=== PATIENT | male | born 1935 | race Caucasian/White ===

== ENCOUNTER 2017-01-06 02:57 | Inpatient (IN) | payer MEDICARE ==
[~2017-01-06] VITALS: Ht 180.3 cm; Wt 77.0 kg
[2017-01-06] VITALS (8 sets, daily range): BP systolic 94–123; BP diastolic 33–66; PULSE 70–92; RESP 18–24; O2SAT 95–96
[~2017-01-06 02:57] MED LIST: ACET325T51 PO; ASCO500C6 PO; ATOR20TA65 PO; CHOL200047 PO; DOCU-41 PO; IBUP400T22 PO; KTC2C15 TOP; LEVO100T45 PO; MAGN250T29 PO; METO50TA3 PO; MTC5T PO; MULT-1018 PO; POLY17PO6 PO; [UNRECOGNIZED DRUG - CODE] TOPICAL
--- NOTE | 2017-01-06 03:36 | ED.REPORT ---
HPI-Abd Pain M 40 and Over Date of Service Jan 06, 2017 ED Provider: Jas Hull MD An 81 year old male with a history of colorectal cancer, recurrent bowel obstructions, colostomy, CAD, stroke, and prior SBO with perforation is brought to the ED via EMS due to fever. The pt has been experiencing a fever of 101 degrees for two days and decided to call EMS tonight because he felt very unwell. His last dose of Tylenol was at 21:00. The pt denies abdominal pain or shortness of breath. Nursing Notes Stated Complaint: FEVER Chief Complaint: General Complaint Nursing Notes Reviewed: Yes Allergies: Coded Allergies: Penicillins (Verified Allergy, Severe, RASH, 01/10/16) iodine (Verified Allergy, Severe, TROUBLE BREATHING CODE WAS CALLED, 01/09) IV CONTRAST Scheduled Ascorbic Acid (Vitamin C) 500 Mg Capsule.er 500 MG PO DAILY Atorvastatin Calcium (Atorvastatin Calcium) 20 Mg Tablet 20 MG PO QPM Cholecalciferol (Vitamin D3) (Vitamin D3) 2,000 Unit Capsule 2,000 UNIT PO DAILY Clonidine 0.3 mg/day Patch (Catapres TTS-3) 1 Each Patch 1 PATCH TOPICAL Q7D Levothyroxine (Levoxyl) 100 Mcg Tablet 100 MCG PO DAILY Magnesium Oxide (Magnesium) 250 Mg Tablet 250 MG PO BIDWM Metoclopramide (Metoclopramide) 5 Mg Tab 5 MG PO TIDAC Metoprolol Tartrate (Metoprolol Tartrate) 50 Mg Tablet 50 MG PO BID Multivitamin (Multi Vitamin Daily) 1 Each Tablet 1 EACH PO DAILY Scheduled PRN Acetaminophen (Acetaminophen) 325 Mg Tablet 650 MG PO DAILY PRN PRN For Pain Docusate Sodium (Colace) 100 Mg Capsule 200 MG PO BID PRN PRN For Constipation Ibuprofen (Ibuprofen) 400 Mg Tablet 400 MG PO Q6H PRN PRN For Pain Ketoconazole (Ketoconazole) 15 Gm Cream..g. 1 APPLIC TOP DAILY PRN PRN rash to face and ears Polyethylene Glycol 3350 (Miralax) 17 Gm Powd.pack 17 GM PO BID PRN PRN For Constipation General Time Seen by : 03:30 Chief Complaint Other (Fever) Hx Obtained From: Patient, EMS Arrived By: Ambulance Sudden in Onset?: No Onset Occurred: 2 days ago Symptom Duration: Since onset Recent Healthcare: Recent doctor visit, Recent hospitalization Similar Sx Previous: No Past Medical History Past Medical History Notes: PMD Geraldo/Paul last SBO in December 2015 Past Medical History 1. Hypertension. 2. Hyperlipidemia. 3. Hypothyroidism. 4. Obstructive sleep apnea on CPAP. 5. History of CVA in 2008. 6. Recurrent small bowel obstructions, prior SBO with perforation 7. CAD 8. CHF 9. stroke 10. history of colorectal cancer, in remission Past Surgical History 1. Exploratory laparotomy with extensive lysis of adhesions, repair of recurrent parastomal hernia, repair of enterotomy and biopsy of pelvic tissue on 02/11/14. 2. 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 3. Inguinal hernia repairs with lysis of adhesions. 4. Transurethral resection of prostate. 5. Orchiopexy. 6. Thyroidectomy. 7. Tonsillectomy 8. Prolonged admission for chronic SBO/adhesions with repair of parasomal hernia 9. Colon resection/ileosomy Smoking History Never Smoker Social History DNR/limited on POLST Alcohol Use: Denies alcohol use Drug Use: Denies drug use Other Social History: Good social support, , Local resident Ambulatory Status Independent Review of Systems Constitutional: Reports: Fever Respiratory: Denies: Non-productive cough, Shortness of breath Cardiovascular: Denies: Chest pain GI: Denies: Abdominal pain, Vomiting Musculoskeletal: Denies: Back pain Complete sys rev & neg: except as marked. Physical Exam Initial Vital Signs Vital Signs (First) Date Time Temp Pulse Resp B/P Pulse Ox O2 Delivery O2 Flow Rate FiO2 01/06/17 03:10 36.7 92 24 94/38 95 Nasal Cannula 2 Initial VS: Reviewed, Vital signs normal General/Constitutional: Awake, Alert Respiratory / Chest: Atraumatic, Breath sounds NL, Breath sounds = bilat, No respiratory distress Cardiovascular: Heart rate NL, Regular rhythm, Heart sounds NL Abdomen: Atraumatic, Soft, Non-tender distended and tympanitic Back: Atraumatic, Full range of motion Head / Eyes: Atraumatic, Normocephalic, PERRL, EOMI ENT: Atraumatic, Airway patent Mouth: Positive: Mucous membranes dry Skin: Atraumatic, Color NL, No rash, Warm, Dry Neurologic: Oriented X3, Speech NL, No motor deficits, No sensory deficits Neck: Atraumatic, Supple, Full range of motion Upper Extremity / MS: Atraumatic, Full range of motion Lower Extremity / Pelvis / MS: Atraumatic, Full range of motion Psychiatric: Affect NL, Mood NL Interpretation & Diagnostics Lab Results Interpretation Result Diagram: 01/06/17 0325 01/06/17 0325 Test 01/06/17 03:25 01/06/17 08:59 White Blood Count 8.5th/mm3 (3.8-10.1) Red Blood Count 3.47mil/mm3 (4.40-5.80) Hemoglobin 10.5g/dL (13.8-17.2) Hematocrit 31.6% (41.0-50.0) Mean Corpuscular Volume 91.1fL (81-100) Mean Corpuscular Hemoglobin 30.3pg (27.0-35.0) Mean Corpuscular Hemoglobin Concent 33.2% (32.0-37.0) Red Cell Distribution Width 14.7% (12.3-15.4) Platelet Count 123bil/L (150-400) Neutrophils (%) (Auto) 94.3% (40-74) Lymphocytes (%) (Auto) 2.4% (14-46) Monocytes (%) (Auto) 2.9% (4-12) Eosinophils (%) (Auto) 0% (0-5) Basophils (%) (Auto) 0% (0-3) Sodium Level 128mEq/L (134-144) Potassium Level 4.0mEq/L (3.5-5.2) Chloride Level 93mEq/L (97-108) Carbon Dioxide Level 22mmol/L (18-29) Blood Urea Nitrogen 47mg/dL (8-27) Creatinine 0.74mg/dL (0.76-1.27) Estimat Glomerular Filtration Rate 108mL/min (>59) Glucose Level 179mg/dL (60-99) Lactic Acid Level 1.6mmol/L (0.4-2.0) Calcium Level 8.2mg/dL (8.5-10.1) Magnesium Level 1.8mg/dL (1.6-2.6) Total Bilirubin 0.6mg/dL (0.0-1.2) Aspartate Amino Transf (AST/SGOT) 36U/L (0-50) Alanine Aminotransferase (ALT/SGPT) 26U/L (0-44) Alkaline Phosphatase 90U/L (25-160) Troponin T 0.010ug/L (0.0-0.011) Total Protein 6.3g/dL (6.4-8.4) Albumin 2.9g/dL (3.4-5.0) Lab Results Interpretation: Mild chronic anemia, mild hyponatremia, elevated nonfasting glucose, normal urine ECG Interpretation ECG Interpretation: normal sinus rhythm with a rate of 88 multiple premature complexes, ventricular and supraventricular Time: 03:34 Interpreted by: ED physician X-Ray Chest Interpretation Chest Xray Interpretation: elevated right hemidiaphragm, pushed up by distended colon chronic scarring Interpretation / Wet Read by: Wet read ED physician X-Ray Abdominal Interpretation no free air seen in the abdomen grossly distended colon with air fluid levels Interpretation / Wet Read by: Wet read ED physician CT Abd / Pelvis Interpretation CONCLUSION: Since the examination there is new relatively severe bilateral hydronephrosis with dilation of the ureters low in the pelvis the sacral fluid collection. Overall there is not a significant change in the diffusely dilated small bowel that appears to be chronic. There is a new gastrostomy tube. Subsegmental atelectasis in the bases. No change in the size of the presacral fluid collection. There is now a trace amount of gas is collection was not seen previously. Interpretation / Wet Read by: Interpret - Radiologist Re-Eval/Medical Decision Med Decision/Clinical Course 81-year-old male with metastatic colon cancer presents with a fever of 2 days' duration as high as 103. He is afebrile at the time he arrived here. He is a little bit tachycardic but generally his vital signs have been near normal. His labs and urine are unremarkable. Plain film x-rays show distended loops of colon which he has had in the past. CT scan examination of his abdomen and pelvis reveals hydroureter related to his pelvic mass. The pelvic mass itself is relatively unchanged. The dilated loops of bowel are also relatively unchanged. His case was discussed with the hospitalist and he will be admitted to the hospitalist service for further evaluation and treatment. Antibiotic initiation was deferred pending identification of a source. Source of Hx: Old records Counseled Regarding: Diagnosis, Lab results, Need for admission Discharge & Departure Vital Signs - All Vital Signs Date Time Temp Pulse Resp B/P Pulse Ox O2 Delivery O2 Flow Rate FiO2 01/06/17 09:22 36.7 01/06/17 09:00 80 18 123/42 95 Room Air 01/06/17 05:59 37.0 83 18 105/35 95 Room Air 01/06/17 04:00 88 20 99/33 95 Room Air 01/06/17 03:10 36.7 92 24 94/38 95 Nasal Cannula 2 )( All Prior VS Reviewed: Yes Condition: Stable Referrals: Jose J Rader DO (PCP) Russel Attestation Portions of this note were transcribed by Sesar Baum. I, Dr. Hull personally performed the history, physical exam and medical decision-making; I reviewed and confirmed the accuracy of the information in the transcribed note. Signed by: Russel Mijares, 01/06/2017 and 0753. copies to: Jose J Rader Howard L MD Jan 06, 2017 03:36 SESAR BAUM Jan 06, 2017 03:48
[2017-01-06 03:45] LABS: BASOPHILS % (AUTO) 0 % (0-3); EOSINOPHILS % (AUTO) 0 % (0-5); MONOCYTES % (AUTO) 2.9 % (4-12); Mean Corpuscular Hemoglobin 30.3 pg (27.0-35.0); Mean Corpuscular Volume 91.1 fL (81-100); NEUTROPHILS % (AUTO) 94.3 % (40-74); Platelet Count 123 bil/L (150-400)
[2017-01-06 04:17] LABS: TROPONIN T 0.01 ug/L (0.0-0.011)
[2017-01-06 04:34] LABS: Magnesium 1.8 mg/dL (1.6-2.6)
[2017-01-06] MEDS ORDERED: 0.9% Sodium Chloride 1,000 ML IV ONE (05:25)
--- NOTE | 2017-01-06 08:11 | DRSVH ---
PROCEDURE: CT ABDOMEN AND PELVIS WITHOUT CONTRAST ([id number]) INDICATIONS: abd pain and distention TECHNIQUE: After the administration of oral contrast, 5 mm thick sections acquired from the diaphragms to the sy mphysis. 5 mm coronal and sagittal reformats were performed. For radiation dose reduction, the foll owing was used: automated exposure control, adjustment of mA and/or kV according to patient size. COMPARISON: [facility], CT, CT ABD PELVIS WO CON, 04/06/2016, 23:56. FINDINGS: Image quality: Excellent. ABDOMEN: Lung bases: Bibasilar atelectasis with pleural effusions too small for percutaneous sampling. Heart size is normal. Solid organs: The liver, spleen, pancreas, and adrenal glands are normal. New moderate bilateral hydr onephrosis and ureterectasis with no calcified obstructing lesions possibly related to inflammatory c hange in the pelvis. Peritoneum and bowel: Partial colectomy with thick walled fluid filled presacral fluid collection unc hanged in size measuring 6.3 x 7.2 x 8.4 CM now containing several tiny locules of gas anteriorly. Le ft lower quadrant ostomy with herniation of colon into the subcutaneous tissues where it contains gas and a small amount of fluid. The more proximal colon is gas-filled and distended which may represent a degree of obstruction. Fluid-filled intermittently prominent loops of small bowel. Gastrostomy tub e with tip likely within a decompressed stomach. The appendix is not identified. There are no seconda ry signs of acute appendicitis. Nodes and vessels: No retroperitoneal or mesenteric adenopathy by size criteria. Aorta and inferior vena cava are normal in size. Heavily calcified atheromatous plaques. Miscellaneous: No ventral hernias. PELVIS: Genitourinary: Bladder wall thickness is normal. Miscellaneous: No inguinal hernias or adenopathy. Partially visualized gynecomastia. Increased infl ammatory change in the pelvis. Bones: No suspicious bony lesions. No vertebral body compression fractures. IMPRESSION: 1. New moderate bilateral hydronephrosis and ureterectasis. No calcified obstructing lesions. Finding s maybe related to increased inflammatory change in the pelvis. 2. 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 Superimpose d infection is possible. This fluid collection would be amenable to CT-guided aspiration for diagnost ic purposes if needed. 3. Partial bowel obstruction at the site of the left lower quadrant ostomy with gas-filled dilated co tricia and intermittently fluid-filled dilated loops of small bowel. Superimposed enteritis is also poss ible 4. Gastrostomy tube with tip likely in the stomach although poorly seen due to stomach decompression. Dictated by: Arben Foster M.D. on 01/06/2017 at 7:49 Approved by: Arben Foster M.D. on 01/06/2017 at 8:04
--- NOTE | 2017-01-06 08:26 | DRSVH ---
PROCEDURE: X-RAY CHEST ONE VIEW, PORTABLE ([id number]) INDICATIONS: fever TECHNIQUE: One view of the chest was acquired. COMPARISON: 01/27/2016 FINDINGS: Surgical changes and devices: A left subclavian catheter or wire with tip overlying the distal SVC . Lungs and pleura: No pleural effusions or pneumothorax. Lungs are clear. There is elevation of the right hemidiaphragm with distended air-filled bowel superimposed over the liver. Mild compressive ate lectasis at the right base. There is also atelectasis or scarring at the left base that appears uncha nged. Mediastinum: Mediastinal contours appear normal. Heart size is normal. Bones and chest wall: No suspicious bony lesions. Overlying soft tissues appear unremarkable. IMPRESSION: 1. Bibasilar atelectasis. 2. Elevated right hemidiaphragm with subjacent bowel distention. 3. Left subclavian wire/catheter. Dictated by: Eris Salgado M.D. on 01/06/2017 at 8:18 Approved by: Eris Salgado M.D. on 01/06/2017 at 8:24
--- NOTE | 2017-01-06 09:06 | DRSVH ---
PROCEDURE: X-RAY ABDOMEN, ONE VIEW ([id number]) INDICATIONS: rule out perf TECHNIQUE: One view of the abdomen acquired. COMPARISON: None. FINDINGS: Single decubitus abdomen appears negative for free air, considerable gaseous distention of bowel. Ate lectasis at the lung base. IMPRESSION: Negative for free air. Dictated by: Eris Salgado M.D. on 01/06/2017 at 9:04 Approved by: Eris Salgado M.D. on 01/06/2017 at 9:05
[2017-01-06] MEDS ORDERED: Alum-Mag Hydrox-Simeth 30 mL Suspension PO PRN (09:25)
[2017-01-06] MEDS ORDERED: Polyethylene Glycol (PEG) 17 Gm Powder PO PRN (09:25)
[2017-01-06 09:38] LABS: APPEARANCE,URINE HAZY (CLEAR,HAZY); COLOR,URINE STRAW (YELLOW); OCCULT BLOOD,URINE NEGATIVE (NEGATIVE); UROBILINOGEN,URINE NORMAL (NORMAL)
[2017-01-06] MEDS ORDERED: METO25TA6 PO (10:43)
[2017-01-06] MEDS ORDERED: DILT120C46 PO (10:45)
--- NOTE | 2017-01-06 10:59 | NUR ---
Admit nurse: Pt sleeping deeply in ED, bag of home medications only has four bottles, will attempt to talk to pt about med rec again later this afternoon. Admit completed from records, as pt is not rousing at this time.
[2017-01-06] MEDS ORDERED: Sodium Chloride LOK Flush 10 mL Syringe IVFLUSH PRN (12:25)
[2017-01-06] MEDS ORDERED: diphenhydrAMINE 50 mg Capsule PO ONE (14:10)
[2017-01-06] MEDS ORDERED: POTA20TA16 PO (14:25)
[2017-01-06] MEDS: 0.9% Sodium Chloride 1,000 ML IV SCH ×2 (15:19→19:23)
--- NOTE | 2017-01-06 16:31 | PCM.HPMED ---
Subjective Date of Service Jan 06, 2017 Primary Provider: Admitting Physician: Prateek Shukla MD Primary Care Physician: Jose J Rader DO Attending Physician: Prateek Shukla MD Chief Complaint: Abdominal pains, right hip pain, fever History of Present Illness: 81-year-old male with a complex medical history including recurrent bowel obstructions after having colectomy and colon cancer prior to 2010 and 2009. He has been medically stable in between with these recurrent episodes last time hospitalized here at [facility] March 2016 with bowel obstruction. Most recently was hospitalized at [place] with appendicitis that was treated with antibiotics only. His surgeon Valdemar Jarrett had recommended conservative intervention at that point in time. Bowel obstruction and basically spent the month of November and [facility] on antibiotics. He has been sort of run down and weak since then but suddenly about 36 hours ago he began having fevers and abdominal pain and right flank pain. And when it did not resolve on the second day he opted to present to the emergency room and is being admitted. Review of Systems: Gen.: [place] weight loss weight gain, fevers for the last 36 hours Eyes: no visual disturbances or blurring vision HEENT: No nose/throat drainage, no pain in ears or throat, no hearing loss Lymph: No lymph nodes noted Cardiac: No chest pain, orthopnea, PND, palpitations , pedal edema or dyspnea on exertion Pulmonary: no cough, wheezing or bringing up of sputum GI: No anorexia nausea vomiting blood or black in the stool, +/-abdominal pain : no dysuria hematuria urinary frequency or decrease in urine output Musculoskeletal: Joint swelling no joint pain no new muscle aches or back pain + endorses right hip pain Neuro: No syncope, seizures no loss of consciousness no new focal weakness, numbness or tingling Psychiatric: New new anxiety insomnia or depression Endocrine: No new heat or cold intolerances polyuria or polydipsia Hematology: No lymphadenopathy or easy bleeding or bruising noted skin: No new rashes, stasis dermatitis Allergies Coded Allergies: Penicillins (Verified Allergy, Severe, RASH, 01/10/16) iodine (Verified Allergy, Severe, TROUBLE BREATHING CODE WAS CALLED, 01/09) IV CONTRAST Home Medications Ascorbic Acid (Vitamin C) 500 Mg Capsule.er 500 MG PO DAILY Atorvastatin Calcium (Atorvastatin Calcium) 20 Mg Tablet 20 MG PO QPM Cholecalciferol (Vitamin D3) (Vitamin D3) 2,000 Unit Capsule 2,000 UNIT PO DAILY Clonidine 0.3 mg/day Patch (Catapres TTS-3) 1 Each Patch 1 PATCH TOPICAL Q7D Levothyroxine (Levoxyl) 100 Mcg Tablet 100 MCG PO DAILY Magnesium Oxide (Magnesium) 250 Mg Tablet 250 MG PO BIDWM Metoclopramide (Metoclopramide) 5 Mg Tab 5 MG PO TIDAC Metoprolol Tartrate (Metoprolol Tartrate) 50 Mg Tablet 50 MG PO BID Multivitamin (Multi Vitamin Daily) 1 Each Tablet 1 EACH PO DAILY Scheduled PRN Acetaminophen (Acetaminophen) 325 Mg Tablet 650 MG PO DAILY PRN PRN For Pain Docusate Sodium (Colace) 100 Mg Capsule 200 MG PO BID PRN PRN For Constipation Ibuprofen (Ibuprofen) 400 Mg Tablet 400 MG PO Q6H PRN PRN For Pain Ketoconazole (Ketoconazole) 15 Gm Cream..g. 1 APPLIC TOP DAILY PRN PRN rash to face and ears Polyethylene Glycol 3350 (Miralax) 17 Gm Powd.pack 17 GM PO BID PRN PRN For Constipation PMH 1. Hypertension. 2. Hyperlipidemia. 3. Hypothyroidism. 4. Obstructive sleep apnea on CPAP. 5. History of CVA in 2008. 6. Recurrent small bowel obstructions, prior SBO with perforation 7. CAD 8. CHF 9. stroke 10. history of colorectal cancer, in remission Past Surgical History 1. Exploratory laparotomy with extensive lysis of adhesions, repair of recurrent parastomal hernia, repair of enterotomy and biopsy of pelvic tissue on 02/11/14. 2. 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 3. Inguinal hernia repairs with lysis of adhesions. 4. Transurethral resection of prostate. 5. Orchiopexy. 6. Thyroidectomy. 7. Tonsillectomy 8. Prolonged admission for chronic SBO/adhesions with repair of parasomal hernia 9. Colon resection/ileosomy Smoking History Never Smoker Social History DNR/limited on POLST Alcohol Use: Denies alcohol use Drug Use: Denies drug use Other Social History: Good social support, , Local resident Ambulatory Status Independent Family History Father- Stroke Mother- CHF, HTN Social History Hx Alcohol Use: No Hx Substance Use: No Hx Tobacco Use: No Smoking Status: Never Smoker Exam Vital Signs Vital Sign - Last Date Time Temp Pulse Resp B/P Pulse Ox O2 Delivery O2 Flow Rate FiO2 01/06/17 12:05 79 01/06/17 11:53 36.7 18 105/57 95 Nasal Cannula 1.00 Intake and Output 01/05/17 01/05/17 01/06/17 Cumulative From/Thru 15:00 23:00 07:00 01/06/17 03:10 - 01/06/17 03:50 Intake Total 1000 ml 1000 ml Balance 1000 ml 1000 ml Intake IV Total 1000 ml 1000 ml Exam Gen.- A+ O 3 no apparent distress. Thin male lying in bed, patient coughs and grimaces Head-atraumatic/normocephalic Eyes- open conjunctiva clear, pupils equal, nonicteric Mouth- oral mucosa moist, no exudate, no deformity of lips, poor dentition but it is intact dry mouth with Lips ENT- ears no deformity, nose no deformity Neck- supple/trach midline CVS- RRR no murmur or gallop Lungs- CTA GI- NABS/soft, right lower quadrant tenderness Musc- moving 4 no obvious deformity, right hip is nontender Neuro- cranial nerves II through XII intact to gross examination, nonfocal Skin- warm and dry, no rashes/lesions/wounds noted Psych- pleasant and appropriate, Lab and Diagnostics Result Diagram: 01/06/17 0325 01/06/17 0325 Microbiology Blood cultures drawn and pending from 01/06 and ED X-Rays, CTs and MRIs CT ABDOMEN AND PELVIS WITHOUT CONTRAST: Arben Foster M.D. on 01/06/2017 at 7: 49 1. New moderate bilateral hydronephrosis and ureterectasis. No calcified obstructing lesions. Findings maybe related to increased inflammatory change in the pelvis. 2. 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 Superimposed infection is possible. This fluid collection would be amenable to CT-guided aspiration for diagnostic purposes if needed. 3. Partial bowel obstruction at the site of the left lower quadrant ostomy with gas-filled dilated colon and intermittently fluid-filled dilated loops of small bowel. Superimposed enteritis is also possible 4. Gastrostomy tube with tip likely in the stomach although poorly seen due to stomach decompression. Dictated by: Arben Foster M.D. on 01/06/2017 at 7:49 12-lead ECG Rate is 88, QTC 418 concurrently reviewed by Vazquez 01/06 . Sinus rhythm * Ventricular premature complex . Borderline prolonged KS interval . Probable left atrial enlargement . When compared with ECG of 07-Apr-2016 9:19:45, * PVCs are now present * PACs are no longer present * ST elevation is no longer present Assessment & Plan 81-year-old male admitted 01/06 probable abdominal abscess following conservative antibiotic treatment of appendicitis in November. Low tolerance to start Zosyn but trying to hold off for clean cultures from what I suspect is at least infected abdominal fluid. #Fevers/abdominal pain/right hip pain- - since we do not have a definitive source organism and no overt sepsis we are holding on antibiotics but I would be quick to start Zosyn or Unasyn to cover for gut justus. -CT with IV and by mouth contrast is moving slowly as patient has iodine allergy requires protocol. -Unfortunately IR will not be available to tap this through the weekend #Abdominal fluid collection-reviewed with Dr Simmons (IR), largely unchanged from March 2016 not exactly clear what this is therefore we are obtaining imaging with IV and by mouth contrast -I would like to have it aspirated once definitively identified #New bilateral hydroureter-reviewed with Dr Duran (), he agrees that this is new hydroureter but not necessarily obstruction, -Formal consult if after Camara placed if there is no resolution and/or worsening renal function -Recommended follow-up radio nucleotide study with Lasik washout -UA clear, patient urinating well #Hyponatremia- with a prerenal picture will hydrate and follow basic metabolic panel, suggestive of dehydration. #SBO-noted on CT scan but patient is asymptomatic he states his bowels are moving, for now is not hungry I will probably give clear liquid diet and bowel rest #HTN/lipids-continue home medications #Hx colon CA-distorted anatomy status post partial colectomy, reports failed anastomosis with leaking, patient now has pouch. #Prophylaxis- DVT with SCDs and enoxaparin, GI H2 RA #Disposition- from home did not no CODE STATUS but previously it was DO NOT RESUSCITATE so we will continue. Time spent Easily 90 minutes plus between speaking with urologist, interventional radiologist and coordinating care. Prateek Shukla MD Jan 06, 2017 16:31
--- NOTE | 2017-01-06 17:58 | NUR ---
New admit Patient received to floor from ER. Charge nurse helped situate patient into his room. Patient very drowsy but does awaken when spoken to but quickly goes back to sleep. Some facial grimacing noted when patient moving about in bed. Patient started on IV fluids . Patient has gastrostomy tube that usually is drained as needed, adapter needed to drain tube . was at bedside but has gone home to take her own medicine is resting comfortable at this time.
[2017-01-06] MEDS: predniSONE 20 mg Tablet PO SCH (21:00)
[2017-01-06] MEDS: Famotidine Inj 20 MG in IV Premix 1 EACH IV SCH (21:00)
[2017-01-06] MEDS: HYDROcodone-APAP 5-325 mg Tablet PO PRN (21:00)
--- NOTE | 2017-01-06 23:41 | NUR ---
Blood Cultures/V-Tach Per micro- patient is growing + cocci staph in aerobic bottles. Currently not on any ABXs. Also had 13 beats of v-tach per conveyor monitor. Asymptomatic. FYI page sent to Dr. Durbin about blood cultures & v-tach.
[2017-01-07] VITALS (7 sets, daily range): BP systolic 110–140; BP diastolic 59–72; PULSE 62–78; RESP 16–20; O2SAT 93–95
[2017-01-07] MEDS: 0.9% Sodium Chloride 1,000 ML IV SCH (01:11)
[2017-01-07] MEDS: predniSONE 20 mg Tablet PO SCH ×2 (02:59→09:14)
[2017-01-07] MEDS: Famotidine Inj 20 MG in IV Premix 1 EACH IV SCH ×2 (08:10→22:01)
[2017-01-07 09:09] LABS: BASOPHILS % (AUTO) 0 % (0-3); EOSINOPHILS % (AUTO) 0 % (0-5); MONOCYTES % (AUTO) 3.1 % (4-12); Mean Corpuscular Hemoglobin 30.1 pg (27.0-35.0); Platelet Count 100 bil/L (150-400)
[2017-01-07 10:01] LABS: Magnesium 1.9 mg/dL (1.6-2.6)
--- NOTE | 2017-01-07 11:18 | DRSVH ---
PROCEDURE: CT ABDOMEN AND PELVIS WITH CONTRAST ([id number]) INDICATIONS: 81-year-old male with possible abscess. TECHNIQUE: After the administration of intravenous contrast, 5 mm thick sections acquired from the diaphragm to the symphysis. 5 mm coronal and sagittal reformats were acquired. For radiation dose reduction, the following was used: automated exposure control, adjustment of mA and/or kV according to patient siz e. COMPARISON: [facility], CT, CT ABD PELVIS WO CON, 01/06/2017, 7:11. Outside Film, CT, CT ABD PELVIS WO CON, 11/22/2016, 9:26. Outside Film, CT, CT ABD PELVIS WO CON, 11/11/2016, 13:19. [facility], CT, CT ABD PELVIS WO CON, 04/06/2016, 23:56. [facility], CT, CT ABCES S DRAIN PERITONEAL, 01/20/2016, 13:45. [facility], CT, CT ABD PELVIS W CON, 01/19/2016, 23 :36. [facility], CT, CT ABD PELVIS WO CON, 01/13/2016, 12:40. FINDINGS: Image quality: Excellent. ABDOMEN: Lung bases: Lung bases are clear. Trace bibasilar pleural effusions are now present. Heart size is n ormal. Left greater than right gynecomastia is again noted. Solid organs: Liver and spleen are normal in size and enhancement. Gallbladder wall thickness is no rmal. Biliary system is non dilated. Pancreas enhances normally. No adrenal nodules. Kidneys demo nstrate normal size and enhancement, with mild bilateral hydronephrosis decreased since January 06, 2017 . Peritoneum and bowel: Small bowel loops demonstrate normal wall thickness and caliber. Several promin ent colon loops are unchanged, without wall or fold thickening. Left lower quadrant ostomy site is ag ain noted. Gastrostomy catheter remains in expected position, with tip in the distal stomach. No free fluid or air. Nodes and vessels: No retroperitoneal or mesenteric adenopathy by size criteria. Aorta and inferior vena cava are normal in size, with moderate aortoiliac atherosclerosis. Miscellaneous: No ventral hernias. PELVIS: Genitourinary: Bladder wall thickness is normal. Miscellaneous: Between the bladder and the sacrum, 6.4 x 4.8 cm thick walled enhancing fluid collecti on is not significantly changed since December 2015. Previously noted tiny pockets of internal gas are no longer apparent. No inguinal hernias or adenopathy. Bones: No suspicious bony lesions. No hip joint effusions. No vertebral body compression fractures. IMPRESSION: 1. 6.4 x 4.8 cm thickwalled enhancing fluid collection is not significantly changed in size since Dec, and currently demonstrates no imaging manifestations of superimposed infection. As such, any determination of superimposed infection would need to be made on clinical grounds. 2. Mild bilateral hydronephrosis has slightly decreased in degree since January 06, 2017. 3. No evidence for small bowel obstruction. 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 Dictated by: Eduardo Grider M.D. on 01/07/2017 at 10:57 Approved by: Eduardo Grider M.D. on 01/07/2017 at 11:16
--- NOTE | 2017-01-07 12:41 | NUR ---
Camara 16 fr Camara placed per order at 12:35. ~400 cc yellow urine out.
--- NOTE | 2017-01-07 12:46 | CONS ---
[address] [address] CONSULTATION REPORT PATIENT: DAYSI SIM : 1935 MR#: [id number] ADMIT: 01/06/2017 JOB ID: [id number] DATE OF SERVICE: 01/07/2017 REASON FOR CONSULTATION: Bilateral hydronephrosis. HISTORY OF PRESENT ILLNESS: The patient is an 81-year-old man with multiple medical problems. Most recently, he has been treated conservatively for appendicitis with long-term antibiotics. Approximately two days prior to admission, he began to develop abdominal pain and fever. He was seen in the emergency department. 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 Given his history of appendicitis, this is likely inflammatory. At the present time, his creatinine is stable at 0.74. PAST MEDICAL, SOCIAL, AND FAMILY HISTORY: See admission note. PHYSICAL EXAMINATION: On examination, he is in no acute distress. Abdomen is soft. There is some right lower quadrant tenderness. No obvious masses. 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 At this point, I do not think stents are indicated because his renal function is normal. Unless there are plans to surgically address the obstructing lesion, I do not know that stents will ever be appropriate. I will follow this patient with await comments from General Surgery.
[2017-01-07] MEDS ORDERED: TPN Per Pharmacist XX ONE (14:45)
--- NOTE | 2017-01-07 15:31 | NUR ---
NUTRITION ASSESSMENT: ASSESS:81 YO male admitted with fevers, abdominal and right flank pain. Per MD, etiology is probable abdominal abscess following conservative antibiotic treatment of appendicitis in November. 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 Given his history of appendicitis, this is likely inflammatory, per surgery. At this point, surgery does not believe stents are indicated because his renal function is normal and unless there are plans to surgically address the obstructing lesion. Pt. has been on outpatient TPN; it is ordered to be restarted tomorrow. PMHx:HTN, dyslipidemia, hypothyroidism, FAVIAN, CVA, recurrent SBO's with perforation, CAD, CHF, colorectal cancer, in remission. DIET:NPO. LABS: Reviewed. BUN 29, Cr 0.50, Glu 166, Ca 7.6, Alb 2.5. MEDICATIONS: Reviewed. Prednisone. NUTRITION FOCUSED PHYSICAL ASSESSMENT: GI symptoms / stool: No stool as yet via colostomy.Javier: 17. Skin Integrity: No issues reported. ANTHROPOMETRICS: Current Wt: 72.0 kgBMI: 22.0 kg/m2. IBW: 78.18 kg (92% IBW) ESTIMATED NEEDS (UNDERWEIGHT): Calories: 1800 - 2160 kcal (25 - 30 kcal / kg BW) Protein: 86 - 108 g protein (1.2 - 1.5 g / kg BW) Fluid: Approx. 1800 mL (25 mL / kg BW) NUTRITION DIAGNOSIS: 1)Altered GI function related to probable abdominal abscess, as evidenced by requirement for long-term TPN to address nutrient needs. INTERVENTION: 1) TPN recommendations for tomorrow follow; pharmacy notified. Recommend initiate TPN at low macronutrient rate, due to lack of documentation detailing feeding history and risk for refeeding syndrome. Recommend 200 g dextrose, 70 g amino acid, 30 g lipid to provide 1240 kcal, 65 g protein. Once refeeding risk resolved, recommend advance TPN to goal 370 g dextrose, 100 g amino acid, 35 g lipid to provide 2008 kcal, 100 g protein, sufficient to meet 100% nutrient needs. 2) In the event diet ordered, will closely monitor diet advance and PO intake to determine appropriate goal macronutrient formulation for TPN. MONITOR/EVALUATE: TPN tolerance, diet advance / tolerance, PO intake, labs, GI/nutrition status. Follow up per high nutrition risk guidelines.
[2017-01-07] MEDS: POTASSIUM CHLORIDE IV SCH (17:09)
[2017-01-07] MEDS: [UNRECOGNIZED DRUG - OTHER] IV SCH (17:09)
[2017-01-07] MEDS: SODIUM CHLORIDE IV SCH (17:09)
--- NOTE | 2017-01-07 17:25 | PCM.PNMED ---
Subjective Date of Service Jan 07, 2017 Subjective Patient's pain is better, virtually gone. He has a slight cough but no dyspnea no nausea or vomiting Exam Vital Signs Vital Sign - Last Date Time Temp Pulse Resp B/P Pulse Ox O2 Delivery O2 Flow Rate FiO2 01/07/17 15:50 Supplement Oxygen 01/07/17 14:27 36.9 64 18 140/72 95 1.00 Intake and Output 01/06/17 01/06/17 01/07/17 Cumulative From/Thru 15:00 23:00 07:00 01/06/17 03:10 - 01/07/17 06:24 Intake Total 1257 ml 2257 ml Output Total 561 ml 561 ml Balance 696 ml 1696 ml Intake Oral 0 ml 0 ml IV Total 1257 ml 2257 ml Output Urine Total 486 ml 486 ml Stool Total 75 ml 75 ml Drainage Total 0 ml 0 ml Exam Gen.- A+ O 3 no apparent distress. Thin male lying in bed, patient coughs and grimaces Head-atraumatic/normocephalic Eyes- open conjunctiva clear, pupils equal, nonicteric Mouth- liips normal ENT- ears no deformity, nose no deformity Neck- supple/trach midline CVS- RRR no murmur or gallop Lungs- CTA GI- NABS/soft, min R LQ tender to none Musc- moving 4 no obvious deformity, right hip is nontender Neuro- cranial nerves II through XII intact to gross examination, nonfocal Skin- warm and dry, no rashes/lesions/wounds noted Psych- pleasant and appropriate, Lab and Diagnostics Result Diagram: 01/07/17 0900 01/07/17 0900 Microbiology Coag negative staph appears to be in 2 of 2 bottles from blood cultures 01/06 and ED. I was not called about these results are still not uncertain these are not contaminant. X-Rays, CTs and MRIs CT ABDOMEN AND PELVIS WITH CONTRAST: Eduardo Grider M.D. on 01/07/2017 at 10:57 1. 6.4 x 4.8 cm thickwalled enhancing fluid collection is not significantly changed in size since December 2015, and currently demonstrates no imaging manifestations of superimposed infection. As such, any determination of superimposed infection would need to be made on clinical grounds. 2. Mild bilateral hydronephrosis has slightly decreased in degree since December. 3. No evidence for small bowel obstruction. 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 Dictated by: Eduardo Grider M.D. on 01/07/2017 at 10:57 CT ABDOMEN AND PELVIS WITHOUT CONTRAST: Arben Foster M.D. on 01/06/2017 at 7: 49 1. New moderate bilateral hydronephrosis and ureterectasis. No calcified obstructing lesions. Findings maybe related to increased inflammatory change in the pelvis. 2. 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 Superimposed infection is possible. This fluid collection would be amenable to CT-guided aspiration for diagnostic purposes if needed. 3. Partial bowel obstruction at the site of the left lower quadrant ostomy with gas-filled dilated colon and intermittently fluid-filled dilated loops of small bowel. Superimposed enteritis is also possible 4. Gastrostomy tube with tip likely in the stomach although poorly seen due to stomach decompression. Dictated by: Arben Foster M.D. on 01/06/2017 at 7:49 12-lead ECG Rate is 88, QTC 418 concurrently reviewed by Vazquez 01/06 . Sinus rhythm * Ventricular premature complex . Borderline prolonged CT interval . Probable left atrial enlargement . When compared with ECG of 07-Apr-2016 9:19:45, * PVCs are now present * PACs are no longer present * ST elevation is no longer present Assessment & Plan 81-year-old male admitted 01/06 probable abdominal abscess following conservative antibiotic treatment of appendicitis in November. 01/07 patient not showing any signs of infection today, pain is dissipated. Lab work is normalized. He is not on any antibiotics and repeat CT scan with contrast does not suggest that this is an abscess in the fluid has not changed in nature. Urology is consulted thank you Dr. Duran was reiterated his prior recommendations formal note. I am going to begin resuming this patient's diabetes normally on full liquids and on nocturnal TPN for 14 hours. We have an additional dose of TPN ordered for Monday 01/08 the still here but I think if he is medically stable he may discharge 01/08. 2 of 2 bottles blood culture from ED coag-negative staph probable contaminant however I was not called about these from the lab I just discovered them at 1736 01/07. I will continue to monitor closely and not treat with antibiotics as yet. Patient has a port that would need to come out. #Fevers/abdominal pain/right hip pain-resolved 01/07 - since we do not have a definitive source organism and no overt sepsis we are holding on antibiotics but I would be quick to start Zosyn or Unasyn to cover for gut justus. -CT with IV and by mouth contrast is moving slowly as patient has iodine allergy requires protocol. #Abdominal fluid collection-reviewed with Dr Simmons (IR), largely unchanged from March 2016 not exactly clear what this is therefore we are obtaining imaging with IV and by mouth contrast -Patient had a contrast allergy and therefore he required pretreatment but he tolerated the procedure well and the results are as outlined above. Not suggestive of infective abscess. -Patient status post conservative treatment for what is presumably ruptured appendiceal abscess for the month of November [facility]. He has been at home doing full liquids, he has a venting gastrostomy, and he has been doing nocturnal TPN which we will resume 01/08. #New bilateral hydroureter-reviewed with Dr Duran (), he agrees that this is new hydroureter but not necessarily obstruction, -Formal consult if after Camara placed if there is no resolution and/or worsening renal function -Recommended follow-up radio nucleotide study with Lasik washout -UA clear, patient urinating well 01/07 #Hyponatremia- with a prerenal picture will hydrate and follow basic metabolic panel, suggestive of dehydration. #SBO-noted on CT at presentation but not on 01/07 scan. #HTN/lipids-continue home medications #Hx colon CA-distorted anatomy status post partial colectomy, reports failed anastomosis with leaking, patient now has pouch. #Prophylaxis- DVT with SCDs and enoxaparin, GI H2 RA #Disposition- from home did not no CODE STATUS but previously it was DO NOT RESUSCITATE so we will continue. Prateek Shukla MD Jan 07, 2017 17:25
--- NOTE | 2017-01-07 18:13 | NUR ---
New orders New orders to discontinue Camara and start Flomax. Followed orders.
--- NOTE | 2017-01-07 19:43 | NUR ---
Camara out Camara discontinued with out any difficulty. out put 640cc
--- NOTE | 2017-01-08 03:24 | NUR ---
Voiding Patient is incontinent of urine and has been voiding in his brief since having his Camara removed. Patient is A&OX3. Vitals stable. Patient has had no complaints of nausea or pain this shift. Patient care continues.
[2017-01-08] MEDS: HYDROcodone-APAP 5-325 mg Tablet PO PRN ×4 (04:00→20:45)
[2017-01-08] MEDS: POTASSIUM CHLORIDE IV SCH ×2 (04:03→14:56)
[2017-01-08] MEDS: SODIUM CHLORIDE IV SCH ×2 (04:03→14:56)
[2017-01-08] MEDS: [UNRECOGNIZED DRUG - OTHER] IV SCH ×2 (04:03→14:56)
[2017-01-08 04:53] VITALS: PULSE 64
[2017-01-08 05:54] VITALS: BP 151/73; PULSE 71; RESP 20; O2SAT 96
[2017-01-08 07:33] LABS: BASOPHILS % (AUTO) 0 % (0-3); EOSINOPHILS % (AUTO) 0 % (0-5); MONOCYTES % (AUTO) 8.3 % (4-12); Mean Corpuscular Hemoglobin 29.5 pg (27.0-35.0); Mean Corpuscular Volume 91.1 fL (81-100); NEUTROPHILS % (AUTO) 83.3 % (40-74); Platelet Count 93 bil/L (150-400)
[2017-01-08 08:41] VITALS: PULSE 60
[2017-01-08] MEDS: Famotidine Inj 20 MG in IV Premix 1 EACH IV SCH ×2 (08:58→20:44)
[2017-01-08 09:02] VITALS: BP 142/62; PULSE 51; RESP 16; O2SAT 96
--- NOTE | 2017-01-08 10:04 | PROG NOTE ---
[address] [address] PROGRESS NOTE PATIENT: DAYSI SIM : 1935 MR#: [id number] ADMIT: 01/06/2017 JOB ID: [id number] DATE: 01/08/2017 SUBJECTIVE: The patient underwent a CT scan with contrast yesterday. This shows some improvement in the hydronephrosis right, but it is still present bilaterally down to the presacral mass. OBJECTIVE: Urine culture grew a coagulase negative Staph with broad sensitivities. ASSESSMENT AND PLAN: At this time I am not recommending ureteral stents unless there are plans to treat the underlying obstruction. Stent placement would result in infection in the upper tracts and would significantly reduce his quality of life.
--- NOTE | 2017-01-08 11:07 | PCM.PHAPRO ---
Progress Date of Service: Jan 08, 2017 TPN management Laboratory Tests Test 01/08/17 07:10 White Blood Count 6.8th/mm3 (3.8-10.1) Red Blood Count 2.81mil/mm3 (4.40-5.80) Hemoglobin 8.3g/dL (13.8-17.2) Hematocrit 25.6% (41.0-50.0) Mean Corpuscular Volume 91.1fL (81-100) Mean Corpuscular Hemoglobin 29.5pg (27.0-35.0) Mean Corpuscular Hemoglobin Concent 32.4% (32.0-37.0) Red Cell Distribution Width 14.5% (12.3-15.4) Platelet Count 93bil/L (150-400) Neutrophils (%) (Auto) 83.3% (40-74) Lymphocytes (%) (Auto) 8.3% (14-46) Monocytes (%) (Auto) 8.3% (4-12) Eosinophils (%) (Auto) 0% (0-5) Basophils (%) (Auto) 0% (0-3) Sodium Level 140mEq/L (134-144) Potassium Level 4.2mEq/L (3.5-5.2) Chloride Level 108mEq/L (97-108) Carbon Dioxide Level 21mmol/L (18-29) Blood Urea Nitrogen 34mg/dL (8-27) Creatinine 0.63mg/dL (0.76-1.27) Estimat Glomerular Filtration Rate 130mL/min (>59) Glucose Level 180mg/dL (60-99) Calcium Level 7.6mg/dL (8.5-10.1) Total Bilirubin 0.3mg/dL (0.0-1.2) Aspartate Amino Transf (AST/SGOT) 31U/L (0-50) Alanine Aminotransferase (ALT/SGPT) 31U/L (0-44) Alkaline Phosphatase 90U/L (25-160) Total Protein 5.3g/dL (6.4-8.4) Albumin 2.4g/dL (3.4-5.0) Triglycerides Level 154mg/dL (0-149) Procalcitonin 1.05ng/mL (0.00-0.08) Microbiology 01/08/17 Blood Culture, Received Pending Pt on chronic TPN at home. Macronutrients per clinical reverse unit operator's recommendations. Approximated electrolytes and total volume from home TPN. Today's formula as follows: PARENTERAL NUTRITION ORDERS 1 08-Jan-17 Standard Hang Time: 2100 Substrates Total kcal: 1260 AMINO ACIDS 70 g DEXTROSE 200 g Total Volume (mL): 1700 LIPIDS 30 g Sterile Water for Injection QS mL To Infuse Over (hrs): 24 Total Volume 1700 mL At at a rate of (mL/hr): 71 Additives Sodium Chloride 26 mEq "typical" daily requirements Sodium Acetate 50 mEq Sodium 50-120mEq Potassium Chloride 20 mEq Potassium 60-120mEq Potassium Phosphate 30 mEq Phosphate 20-40mEq Calcium Gluconate 8 mEq Magnesium 8-32mEq Magnesium Sulfate 8 mEq Calcium 9-22mEq Acetate* 80-120mEq Chloride* 80-120mEq Regular Insulin units *Depending on acid-base status Famotidine mg Multivitamins 1 std dose Insulin Regimen Trace Elements 1 std dose none Thiamine mg Regular Low Intensity Subcut Folic Acid mg Regular Medium Intensity Subcut Ascorbic Acid mg Regular High Intensity Subcut Regular Insulin Infusion Other: Special Instructions: To be infused via central line only. For delay or inturruption of TPN contact the pharmacist for alternative replacement solution. Ly Benjamin PharmD Jan 08, 2017 11:07
--- NOTE | 2017-01-08 13:34 | NUR ---
KAMILA signed. Jojo Jimenez PERISHABLE FREIGHT INSPECTOR
--- NOTE | 2017-01-08 14:38 | NUR ---
Social Work- Initial Assessment Data: See Initial Assessment. Pt is a 81 year old male admitted 01/06/17 for fever, bilateral hydroureter per H&P. Pt's insurance is [employer]. Pt's PCP is Jose J Rader DO. Pt's NOK is Iman Lawson, . Pt's readmit risk score is 2- low risk. SW met with pt and at bedside regarding discharge plan, SW role explained. Pt alert and oriented x3. Pt resides on [place] with his in a two story home where he remains independent at baseline. Pt reports no concerns navigating 13 steps in his home. Pt has a cane and walker available at home but he typically does not use them. Pt drives independently. Pt has no LTC or VA benefits. Pt is open with [facility] RN for once weekly dressing changes. Pt is also open with [facility] for his TPN formula and supplies. Pt and his manage TPN independently at home. Pt denies any concerns about returning home with TPN at this time and feels that his TPN is going well at home. Pt has a history of SNF at [facility] and [facility]. Pt is anticipated to return home with resumption of care orders for [facility] RN and [facility] for TPN management, to transport via POV. SW will continue to follow if additional discharge needs arise. Assessment: Pt who is currently receiving medically necessary services through [facility] and [facility] for TPN management. Plan: Pt is anticipated to return home with resumption of care orders for [facility] RN and [facility] for TPN management, to transport via POV. SW will continue to follow if additional discharge needs arise. GILBERT Joya Addendum: 01/08/17 at 1442 by CHELY SAUCEDA Amended: Links added.
--- NOTE | 2017-01-08 14:50 | NUR ---
Micro Galileo MRSA PCR sent to lab and pt put on contact precautions.
--- NOTE | 2017-01-08 14:50 | PCM.PNMED ---
Subjective Date of Service Jan 08, 2017 Subjective Hips hurt a lot when he went to stand up. No chest pain, no dyspnea, no nausea or vomiting Exam Vital Signs Vital Sign - Last Date Time Temp Pulse Resp B/P Pulse Ox O2 Delivery O2 Flow Rate FiO2 01/08/17 10:14 Supplement Oxygen 01/08/17 09:02 36.5 51 16 142/62 96 01/08/17 05:54 1.00 Intake and Output 01/07/17 01/07/17 01/08/17 Cumulative From/Thru 15:00 23:00 07:00 01/06/17 03:10 - 01/08/17 06:18 Intake Total 876 ml 1193 ml 4326 ml Output Total 873 ml 1434 ml Balance 876 ml 320 ml 2892 ml Intake Oral 300 ml 375 ml 675 ml IV Total 576 ml 818 ml 3651 ml Output Urine Total 863 ml 1349 ml Stool Total 0 ml 75 ml Drainage Total 10 ml 10 ml # Voids 3 3 Exam Gen.- A+ O 3 no apparent distress. Thin male lying in bed, patient coughs and grimaces Head-atraumatic/normocephalic Eyes- open conjunctiva clear, pupils equal, nonicteric Mouth- lips normal ENT- ears no deformity, nose no deformity Neck- supple/trach midline CVS- RRR no murmur or gallop Lungs- CTA GI- NABS/soft, min R LQ tender to none, g-tube for venting Musc- moving 4 no obvious deformity, right hip is nontender Neuro- cranial nerves II through XII intact to gross examination, nonfocal Skin- warm and dry, no rashes/lesions/wounds noted Psych- pleasant and appropriate, Lab and Diagnostics Result Diagram: 01/08/17 0710 01/08/17 0710 Microbiology Coag negative staph appears to be in 2 of 2 bottles from blood cultures 01/06 and ED. I was not called about these results are still not uncertain these are not contaminant. X-Rays, CTs and MRIs CT ABDOMEN AND PELVIS WITH CONTRAST: Eduardo Grider M.D. on 01/07/2017 at 10:57 1. 6.4 x 4.8 cm thickwalled enhancing fluid collection is not significantly changed in size since December 2015, and currently demonstrates no imaging manifestations of superimposed infection. As such, any determination of superimposed infection would need to be made on clinical grounds. 2. Mild bilateral hydronephrosis has slightly decreased in degree since December. 3. No evidence for small bowel obstruction. 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 Dictated by: Eduardo Grider M.D. on 01/07/2017 at 10:57 CT ABDOMEN AND PELVIS WITHOUT CONTRAST: Arben Foster M.D. on 01/06/2017 at 7: 49 1. New moderate bilateral hydronephrosis and ureterectasis. No calcified obstructing lesions. Findings maybe related to increased inflammatory change in the pelvis. 2. 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 Superimposed infection is possible. This fluid collection would be amenable to CT-guided aspiration for diagnostic purposes if needed. 3. Partial bowel obstruction at the site of the left lower quadrant ostomy with gas-filled dilated colon and intermittently fluid-filled dilated loops of small bowel. Superimposed enteritis is also possible 4. Gastrostomy tube with tip likely in the stomach although poorly seen due to stomach decompression. Dictated by: Arben Foster M.D. on 01/06/2017 at 7:49 12-lead ECG Rate is 88, QTC 418 concurrently reviewed by Vazquez 01/06 . Sinus rhythm * Ventricular premature complex . Borderline prolonged MN interval . Probable left atrial enlargement . When compared with ECG of 07-Apr-2016 9:19:45, * PVCs are now present * PACs are no longer present * ST elevation is no longer present Assessment & Plan 81-year-old male admitted 01/06 probable abdominal abscess following conservative antibiotic treatment of appendicitis in November. 01/07 patient not showing any signs of infection today, pain is dissipated. Lab work is normalized. He is not on any antibiotics and repeat CT scan with contrast does not suggest that this is an abscess in the fluid has not changed in nature. Urology is consulted thank you Dr. Duran was reiterated his prior recommendations formal note. I am going to begin resuming this patient's diabetes normally on full liquids and on nocturnal TPN for 14 hours. We have an additional dose of TPN ordered for Monday 01/08 the still here but I think if he is medically stable he may discharge 01/08. 01/[address] Lemon infectious disease receiving the patient is growing 3 or 4 out of 4 bottles coag-negative staph likely source Groshong catheter. Concern hip pain possible septic arthritis. Would be vigilant, will order TTE rule out endocarditis. Timing of removal of central line and replacement of IV access and antibiotics per infectious disease thank you very much. Patient to start his TPN tonight. #Coag-negative bacteremia- 3/4 bottles were 4/[address] Quiroz likely start Ancef thank you very much for consultation. Timing of removal of Groshong per ID, TTE ordered -Positive for calcitonin positive blood cultures #anemia-following hg, checking anemia studies. #Fevers/abdominal pain/right hip pain-return when patient moved. #Abdominal fluid collection-reviewed with Dr Simmons (IR), largely unchanged from March 2016 -Pt has contrast allergy and trequired pretreatment tolerated the contrast . CT Not suggestive of infective abscess. -s/p abx for appendicitis May @ [facility]. He has been at home doing full liquids, he has a venting gastrostomy, and he has been doing nocturnal TPN which we will resume 01/08. #New bilateral hydroureter-reviewed with Dr Duran (), he agrees that this is new hydroureter but not necessarily obstruction, -Formal consult if after Camara placed if there is no resolution and/or worsening renal function -Recommended follow-up radio nucleotide study with Lasix washout -UA clear, patient urinating well 01/07 #Protein caloric malnutrition-resuming patient's nocturnal TPN 14 hours at night 01/08 -Patient is up to eating full liquids at home. -He has a venting gastrostomy I believe due to chronic partial bowel obstruction type issues. #Hyponatremia- Resolved 01/07 #SBO-noted on CT 01/06 w/o contrrast not on 01/07 w/ contrast -Extensive surgical history, might reach out to Dr Valdemar Jarrett during the week for input #HTN/lipids-continue home medications #Hx colon CA-distorted anatomy status post partial colectomy, reports failed anastomosis with leaking, patient now has pouch. #Prophylaxis- DVT with SCDs and enoxaparin, GI H2 RA #Disposition- from home did not no CODE STATUS but previously it was DO NOT RESUSCITATE so we will continue. Prateek Shukla MD Jan 08, 2017 14:50
[2017-01-08] MEDS ORDERED: Glucose 40% Oral Gel 15 Gm Tube PO PRN (15:00)
[2017-01-08] MEDS ORDERED: Dextrose 10% 250 ML IV ONE (15:00)
[2017-01-08] MEDS ORDERED: POTASSIUM CHLORIDE IV PRN (15:09)
[2017-01-08] MEDS ORDERED: SODIUM CHLORIDE IV PRN (15:09)
[2017-01-08] MEDS ORDERED: [UNRECOGNIZED DRUG - OTHER] IV PRN (15:09)
--- NOTE | 2017-01-08 15:17 | PROG NOTE ---
[address] [address] PROGRESS NOTE PATIENT: DAYSI SIM : [id number] MR#: [id number] ADMIT: 01/06/2017 JOB ID: [id number] DATE: 01/08/2017 INFECTIOUS DISEASE CONSULTATION: I thank Dr. Shukla for this timely consult. REASON FOR CONSULT: High-grade coag-negative Staph bacteremia. HISTORY OF THE PRESENT ILLNESS: The patient is an unfortunate 81-year-old gentleman, well known to me from prior admissions. He had complicated colon cancer surgery in the distant past and has a result has developed frequent bowel obstructions which have landed him in the hospital on numerous occasions. Most recently, in November he was admitted to [facility] rather than [facility] with what appeared to be an appendicitis. This was treated conservatively with antibiotics but it was decided that because of his frequent bowel obstructions and other issues that he needed TPN on an ongoing basis and so a Groshong line was placed a month or so ago according to the patient by one of the surgeons in [place]. He was then discharged on or about December 15 to receive TPN 14 hours a day in addition to whatever he could eat orally to try and maintain his nutrition and circumvent his problems with recurrent bowel obstruction. The patient and his report that this was going quite well until about January 04, which was two days or so before his January 06 admission. At that time he started to develop fevers, chills, some minimal sweats, some probable right lower quadrant pain, and some pain which he states is in his right hip. Because of these increasing symptoms he came here on the and was admitted. Interestingly two sets of blood cultures grew coag-negative staph in all four bottles and this morning Dr. Shukla has asked me to investigate. The patient this morning said his fever and chills seem to be dissipating. Note that he has not received any antibiotics during his 48 hours here in the hospital. He no longer has fevers, chills, or any sweats. He states he is not having a sore throat, nor is he having much in the way of cough or shortness of breath. He does note he has rather severe pain that localizes to his right hip when he coughs, takes a deep breath, or tries to flex either of his legs at the hip. He and his state he was walking quite well until about January 04 when all this started and had no problems even going up and down stairs. PAST MEDICAL HISTORY: 1. Colon cancer with resection and J-pouch, and eventually an ileostomy. These multiple surgeries took place between 1999 and 2008. 2. History of multiple and recurrent small-bowel obstructions, 2013, 2015, and 2016. 3. History of medically managed appendicitis November 2016. 4. TPN on an ongoing basis for about the last month via Groshong catheter. 5. Hypertension. 6. Hyperlipidemia. 7. Coronary artery disease. 8. Congestive heart failure. 9. History of CVA. 10. History of TURP. SOCIAL HISTORY: The patient is a nondrinker and nonsmoker. Lives with his family on [address]. FAMILY HISTORY: Negative for TB in first- and second-degree relatives. REVIEW OF SYSTEMS: As noted, the patient had headache, fever, and chills prior to admission, which seemed to have resolved despite the fact he has received no antibiotics. He currently has no headache or visual change. No sores in the mouth, sore throat, or odynophagia. No chest pain. He does note a bit of shortness of breath which is a recurrent issue and some mild dry cough. His abdominal pain comes and goes but right now is not significant. No nausea or vomiting at this time. Recall that he, of course, has a colostomy. Pain in and around the right hip area which is made worse by attempted flexion of either hip. Note he has not noticed any skin rash. Remainder of the review of systems is negative. PHYSICAL EXAMINATION: Reveals an afebrile gentleman, temperature 36.5, pulse 51, respiratory rate 16, blood pressure 142/62, saturating 96% on room air. He is in no acute distress and looks better than when I saw him last about nine months ago. His mental status is completely clear. Head without trauma. Eyes without conjunctivitis. Sinuses nontender. Oral cavity without thrush, pharyngitis, or hairy leukoplakia. Neck is completely supple. No JVD this afternoon. Lungs quite clear anteriorly. Cardiac tones regular rate and rhythm, without new murmur. The abdomen is abnormal in that it protrudes in the left lower quadrant and a colostomy is present there. The patient does not have a Camara catheter. He is wearing a diaper. He has no inguinal adenopathy or suprapubic fullness. His lower extremities are quite edematous, 2+, all the way up really to the hips. The hips themselves are nontender to palpation. There is no evidence of overlying erythema. Attempts to flex either of the patient's edematous legs at the hip cause pain which he says that localizes to the right trochanteric area. The patient has a Groshong line present in his left upper chest; it appears uninfected at its insertion site. Neurologically, the patient is quite weak. He can move his extremities but his legs are edematous and sluggish he really cannot cooperate with much of an exam involving strength in his lower extremities, partly due to the pain that radiates to his right hip area. LABORATORIES: Include white count 6800, platelets 93,000 down from 123,000 on admission, diff 88% segs. Creatinine 0.63. LFTs normal. Albumin 2.4. Procalcitonin was 1.44 when he came in; it is 1.05 now. Urinalysis without white cells. Urine Legionella and pneumococcal antigens are negative. Blood cultures 4/4 bottles from the are positive. An additional set obtained yesterday is also positive, so it appears that we have 6/6 blood cultures growing coag-negative Staph. This is an oxacillin susceptible but clindamycin resistant isolate. Two more blood cultures sets were drawn this morning but the patient tells me they were both drawn peripherally. There have been no cultures drawn through the Groshong. IMAGING: Available includes an abdominal CT which shows a 6 x 5 thick-walled enhancing fluid collection which has been present between the bladder and the sacrum for more than a year. Since that has not changed, the radiologists are not convinced, of course, that it is infectious. In addition he has mild bilateral hydronephrosis. IMPRESSION: It seems clear to me that this patient has some infected central source causing his high-grade continual coag-negative Staph bacteremia. The most obvious candidate here, of course, is that his Groshong that was installed a month ago and which is used for TPN is now infected. If it is infected, we will have to choices. One is to remove the Groshong catheter and treat with IV antibiotics for about a week before we can consider installing another one. Another choice, if we want to try and save it, would be two weeks of IV therapy plus a so-called antibiotic lock to be used with the Groshong in an attempt to sterilize and save access for TPN. Given that he is not critically ill, that may be an option. Another possibility here is that the patient has a right hip infection but I tend to doubt it. It would be a little unusual for a bacteremia arising from a central line to infect a [place] hip and he does not have any prosthetic joints or implants. Nonetheless, I think it is prudent to have ortho look at the patient. RECOMMENDATIONS: 1. Blood cultures x2 to be drawn, but the critical part will be to obtain one set through the skin and one set through the Groshong. The differential time to positivity should tell us whether or not the Groshong is infected. 2. Once those blood cultures are done, we can start Ancef and/or cefazolin in a dose of 2 g IV q.8 h. 3. I would have Orthopedics evaluate this patient and see whether not they believe that the patient's hip may be infected. My overall inclination is to think that it is not, but it is difficult to know with certainty. 4. Will continue to closely follow this complex patient with you. Thank you very much.
--- NOTE | 2017-01-08 15:20 | NUR ---
Pain/Activity Pt rates pain in his right hip between -03/26. Per pt pain controlled adequately with po pain medication. Pt states he doesn't have any pain if he is resting but when he moves pain reaches between 7-9. MD aware. Pt encouraged to get oob for meals, however he declined. Encouraged pt to cough and deep breath 10x/hr and will encourage pt to ambulate. Care continues.
[2017-01-08] MEDS ORDERED: 0.9% Sodium Chloride 100 ML ONE (16:56)
[2017-01-08] MEDS: CeFAZolin Inj 2 GM in IV Premix 1 EACH IV SCH ×2 (17:04→23:51)
[2017-01-08] MEDS: Insulin LISPRO 300 Unit/3 mL Inj SUBQ SCH ×2 (17:08→20:56)
[2017-01-08 20:00] VITALS: PULSE 59
[2017-01-08 20:12] VITALS: BP 153/62; PULSE 67; RESP 20; O2SAT 94
[2017-01-08] MEDS: Total Parenteral Nutrition 1 BAG IV SCH (20:44)
[2017-01-09] VITALS (8 sets, daily range): BP systolic 145–171; BP diastolic 70–80; PULSE 66–107; RESP 17–20; O2SAT 89–94
[2017-01-09] MEDS: HYDROcodone-APAP 5-325 mg Tablet PO PRN ×5 (02:33→22:45)
--- NOTE | 2017-01-09 06:11 | NUR ---
PAIN; pain rx effective. Slept off and on during the night.
[2017-01-09 06:29] LABS: Magnesium 1.8 mg/dL (1.6-2.6); Phosphorus 3.1 mg/dL (2.5-4.9)
--- NOTE | 2017-01-09 06:58 | PCM.PHAPRO ---
Progress TPN management TPN Management: -pt is receiving chronic TPN at home -adjusted Calcium Gluconate for corrected Ca++ level this morning ~ 8.6 -added the Famotidine 40mg to TPN formulation and dc'ed the IVPB -formula for this evening: PARENTERAL NUTRITION ORDERS 2 09-Jan-17 Standard Hang Time: 2100 Substrates Total kcal: 1260 AMINO ACIDS 70 g DEXTROSE 200 g Total Volume (mL): 1700 LIPIDS 30 g Sterile Water for Injection QS mL To Infuse Over (hrs): 24 Total Volume 1700 mL At at a rate of (mL/hr): 71 Additives Sodium Chloride 26 mEq "typical" daily requirements Sodium Acetate 50 mEq Sodium 50-120mEq Potassium Chloride 20 mEq Potassium 60-120mEq Potassium Phosphate 30 mEq Phosphate 20-40mEq Calcium Gluconate 12 mEq Magnesium 8-32mEq Magnesium Sulfate 8 mEq Calcium 9-22mEq Acetate* 80-120mEq Chloride* 80-120mEq Regular Insulin units *Depending on acid-base status Famotidine 40 mg Multivitamins 1 std dose Insulin Regimen Trace Elements 1 std dose none Thiamine mg Regular Low Intensity Subcut Folic Acid mg Regular Medium Intensity Subcut Ascorbic Acid mg Regular High Intensity Subcut Regular Insulin Infusion Other: Princess Chowdary [facility] Jan 09, 2017 06:58
[2017-01-09] MEDS: Insulin LISPRO 300 Unit/3 mL Inj SUBQ SCH ×4 (07:49→22:00)
[2017-01-09] MEDS: CeFAZolin Inj 2 GM in IV Premix 1 EACH IV SCH ×2 (07:51→16:29)
[2017-01-09] MEDS ORDERED: 0.9% Sodium Chloride 250 ML ONE (08:13)
--- NOTE | 2017-01-09 14:28 | PCM.PNMED ---
Subjective Date of Service Jan 09, 2017 Subjective pt still c/o Rt hip pain, very limited ROM due to pain, required norco 2tab denied sensory chg on foot pain is more sharp rather than muscle soreness pt denied direct trauma on hip but had mild fall 2days prior to onset, BCX from peripheral on 01/08 positive for staph, from Groshong still pending Exam Vital Signs Vital Sign - Last Date Time Temp Pulse Resp B/P Pulse Ox O2 Delivery O2 Flow Rate FiO2 01/09/17 05:58 36.6 66 18 158/70 94 Room Air 01/08/17 05:54 1.00 Intake and Output 01/08/17 01/08/17 01/09/17 Cumulative From/Thru 15:00 23:00 07:00 01/06/17 03:10 - 01/09/17 05:58 Intake Total 2227 ml 1352 ml 7905 ml Output Total 0 ml 965 ml 2399 ml Balance 2227 ml 387 ml 5506 ml Intake Oral 1130 ml 600 ml 2405 ml IV Total 1097 ml 157 ml 4905 ml TPN/PPN 595 ml 595 ml Output Urine Total 965 ml 2314 ml Stool Total 0 ml 75 ml Gastric Drainage Total 0 ml 0 ml Drainage Total 0 ml 10 ml # Voids 3 4 10 Exam NAD, comfortably laying down on the bed no JVD, MMM, no LAD RRR, nl s1, s2 no mrg CTAB, no w,c S,ND,NT,normoactive BS+ Rt hip; LROM due to pain, no obvious swelling, erythema, IVs and Medications Medications Reviewed: Medications were reviewed in detail Lab and Diagnostics Result Diagram: 01/08/17 0710 01/09/17 0515 Microbiology Coag negative staph appears to be in 2 of 2 bottles from blood cultures 01/06 and ED. I was not called about these results are still not uncertain these are not contaminant. X-Rays, CTs and MRIs CT ABDOMEN AND PELVIS WITH CONTRAST: Eduardo Grider M.D. on 01/07/2017 at 10:57 1. 6.4 x 4.8 cm thickwalled enhancing fluid collection is not significantly changed in size since December 2015, and currently demonstrates no imaging manifestations of superimposed infection. As such, any determination of superimposed infection would need to be made on clinical grounds. 2. Mild bilateral hydronephrosis has slightly decreased in degree since December. 3. No evidence for small bowel obstruction. 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 Dictated by: Eduardo Grider M.D. on 01/07/2017 at 10:57 CT ABDOMEN AND PELVIS WITHOUT CONTRAST: Arben Foster M.D. on 01/06/2017 at 7: 49 1. New moderate bilateral hydronephrosis and ureterectasis. No calcified obstructing lesions. Findings maybe related to increased inflammatory change in the pelvis. 2. 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 Superimposed infection is possible. This fluid collection would be amenable to CT-guided aspiration for diagnostic purposes if needed. 3. Partial bowel obstruction at the site of the left lower quadrant ostomy with gas-filled dilated colon and intermittently fluid-filled dilated loops of small bowel. Superimposed enteritis is also possible 4. Gastrostomy tube with tip likely in the stomach although poorly seen due to stomach decompression. Dictated by: Arben Foster M.D. on 01/06/2017 at 7:49 12-lead ECG Rate is 88, QTC 418 concurrently reviewed by Vazquez 01/06 . Sinus rhythm * Ventricular premature complex . Borderline prolonged RI interval . Probable left atrial enlargement . When compared with ECG of 07-Apr-2016 9:19:45, * PVCs are now present * PACs are no longer present * ST elevation is no longer present Assessment & Plan 81-year-old male admitted 01/06 probable abdominal abscess following conservative antibiotic treatment of appendicitis in November. 01/07 patient not showing any signs of infection today, pain is dissipated. Lab work is normalized. He is not on any antibiotics and repeat CT scan with contrast does not suggest that this is an abscess in the fluid has not changed in nature. Urology is consulted thank you Dr. Duran was reiterated his prior recommendations formal note. I am going to begin resuming this patient's diabetes normally on full liquids and on nocturnal TPN for 14 hours. We have an additional dose of TPN ordered for Monday 01/08 the still here but I think if he is medically stable he may discharge 01/08. 01/[address] Lemon infectious disease receiving the patient is growing 3 or 4 out of 4 bottles coag-negative staph likely source Groshong catheter. Concern hip pain possible septic arthritis. Would be vigilant, will order TTE rule out endocarditis. Timing of removal of central line and replacement of IV access and antibiotics per infectious disease thank you very much. Patient to start his TPN tonight. acute, active #persistent Coag-negative bacteremia, POA, possible source: line infection with Groshong cath or Rt hip, BCX 01/06 staph coag neg, 01/07, 01/08 again staph, -pt remained afebrile, -awaits cultures from 01/08 Groshong, and final cx from other cultures, -started Ancef 2gq8h per ID, tolerating well, continue for now, -awaits TTE, possibly BOBBI based on culture form Groshong -will consider pull out Groshong, coordinate with ID #Rt hip tenderness, pain, POA, this is main concerns pt has. no images obtained -will get Rt hip MRI today, then speak to Ortho service #anemia-trending down until 01/08, likely dilutional, will FU todays' labs #HTN/lipids,uncontrolled [id number] while off on home meds, will resume home medications today chronic, stable #Abdominal fluid collection-reviewed with Dr Simmons (IR), largely unchanged from March 2016 -Pt has contrast allergy and trequired pretreatment tolerated the contrast . CT Not suggestive of infective abscess. -s/p abx for appendicitis May @ [facility]. He has been at home doing full liquids, he has a venting gastrostomy, and he has been doing nocturnal TPN which we will resume 01/08. #New bilateral hydroureter-reviewed with Dr Duran (), he agrees that this is new hydroureter but not necessarily obstruction, -Formal consult if after Camara placed if there is no resolution and/or worsening renal function -Recommended follow-up radio nucleotide study with Lasix washout -UA clear, patient urinating well 01/07 #Protein caloric malnutrition-resuming patient's nocturnal TPN 14 hours at night 01/08 -Patient is up to eating full liquids at home. -He has a venting gastrostomy I believe due to chronic partial bowel obstruction type issues. #Hyponatremia- Resolved 01/07 #SBO-noted on CT 01/06 w/o contrrast not on 01/07 w/ contrast -Extensive surgical history, might reach out to Dr Valdemar Jarrett during the week for input #Hx colon CA-distorted anatomy status post partial colectomy, reports failed anastomosis with leaking, patient now has pouch. #Prophylaxis- DVT with SCDs and enoxaparin, GI H2 RA #Disposition- from home, pending given persistent bacteremia DNR/DNI Time spent 35min Compa Manuel MD Jan 09, 2017 08:43
[2017-01-09 14:29] LABS: BASOPHILS % (AUTO) 0.1 % (0-3); EOSINOPHILS % (AUTO) 4.7 % (0-5); MONOCYTES % (AUTO) 10.2 % (4-12); Mean Corpuscular Hemoglobin 29.3 pg (27.0-35.0); Mean Corpuscular Volume 94.1 fL (81-100); NEUTROPHILS % (AUTO) 73.6 % (40-74); Platelet Count 105 bil/L (150-400)
--- NOTE | 2017-01-09 15:36 | DRSVH ---
[facility] [address] [place] [address] Echocardiogram Report Name: DAYSI SIM Date : 01/09/2017 Height: 71 in Hospital Exam Location: [facility] Weight: 163 lb Gender: Male BSA: 1.9 m2 : 1935 Age: 81 yrs BP: 158/70 mmHg Reason For Study: gram-positive bacteremia Performed By: Catrachita Tom Referring Physician: BERNICE JAIMES Interpretation Summary Left ventricular wall thickness is mildly increased. The ejection fraction is estimated to be 60-65%. There are no obvious focal wall motion abnormalities noted but poor endocardial definition reduces the sensitivity for the detection of such. There is mild mitral annular calcification. There is moderate aortic valve sclerosis. There is mild tricuspid regurgitation. The mitral valve leaflets appear mildly thickened, but open well. There is mild mitral regurgitation. No obvious vegetation seen , consider BOBBI if clinically indicated. Procedure: A two-dimensional transthoracic echocardiogram with color flow and Doppler was performed in limited views only. The study quality was technically adequate. The heart rate ranged between 63-90 bpm during the study. Left Ventricle: The left ventricle is normal in size. Left ventricular wall thickness is mildly increased. The ejection fraction is estimated to be 60- 65%. There are no obvious focal wall motion abnormalities noted but poor endocardial definition reduces the sensitivity for the detection of such. Right Ventricle: The right ventricle is normal in size and function. Mitral Valve: The mitral valve leaflets appear mildly thickened, but open well. There is mild mitral annular calcification. There is mild mitral regurgitation. Aortic Valve: The aortic valve is trileaflet. The aortic valve is mildly calcified. There is moderate aortic valve sclerosis. The aortic valve mean gradient is 12 mmHg. No aortic regurgitation is present. Tricuspid Valve: The tricuspid valve leaflets are thin and pliable. There is mild tricuspid regurgitation. Pulmonic Valve: The pulmonic valve is not well visualized. Great Vessels: The aortic root is mildly dilated. The inferior vena cava was not well visualized. Pericardium/ Pleura There is no pericardial effusion. There is no pleural effusion. MMode/2D Measurements & Calculations LVIDd LVOT diam LV seaman. diameter/BSA LV sys. diameter/BSA : 4.5 cm : 2.6 cm (cm/m^2): 2.3 (cm/m^2): 1.7 LVIDs : 3.4 cm FS: 26.0 % IVSd : 1.cm LVPWd : 1.3 cm TAPSE : 1.9 cm Doppler Measurements & Calculations Ao V2 max MV E max yoan MV E/A: 0.95 TR max yoan : 169.4 cm/sec : 90.2 cm/sec Med Peak E' Yoan : 292.0 cm/sec Ao max PG MV A max yoan TR max PG : 11.5 mmHg : 95.3 cm/sec E/E' med: 11.6 : 34.3 mmHg Ao mean PG Lat Peak E' Yoan PA V2 max : 6.5 mmHg : 77.5 cm/sec E/E' lat: 8.2 PA mean PG E/e' average: 9.9 : 1.4 mmHg MV V2 mean Ao V2 mean PA V2 mean : 88.1 cm/sec : 120.4 cm/sec : 56.3 cm/sec MV mean PG Ao V2 VTI: 38.2 cm PA pr(Accel) : 36.6 mmHg MV V2 VTI: 35.2 cm MV dec time : 0.23 sec Electronically signed by: Nathanael Suarez on Reading Physician:01/09/2017 03:35 PM
--- NOTE | 2017-01-09 15:38 | DRSVH ---
PROCEDURE: MRI HIP RIGHT WITHOUT CONTRAST ([id number]) INDICATIONS: severe rt hip pain no trauma hx TECHNIQUE: Noncontrast coronal T1 spin echo and STIR through the bony pelvis. Coronal and axial T2 fast spin ec ho with fat saturation, sagittal T1 spin echo, and oblique axial T2 fast spin echo with fat saturatio n through the hip. COMPARISON: [facility], CT, CT ABD PELVIS W CON, 01/07/2017, 10:39. FINDINGS: Image quality: Diagnostic. Motion artifact is present on several imaging sequences. Bones and joints: There is no acute fracture or dislocation involving the osseous structures of the r ight hip. No suspicious osseous lesions or evidence of avascular necrosis is present. There is no s ignificant hip joint effusion. Early degenerative changes of the right hip joint are present. The r emainder of the imaged osseous structures of the included pelvis demonstrate at least moderate degene rative changes of the lower lumbar spine and sacroiliac joints. There are mild degenerative changes of the left hip and pubis symphysis. Tendons and muscles: Low-grade partial-thickness tearing and tendinopathy is noted involving the dist al gluteus medius and gluteus minimus tendons. Edema within these 2 muscles is noted. There also is mild edema noted involving the posterior margin of the gluteus leyda muscle, best appreciated infe riorly. The distal aspect of the iliopsoas tendon is intact. There is mild iliopsoas muscle edema. The proximal hamstrings tendons are intact and otherwise within normal limits. There is prominent ed vineet noted involving the obturator internus muscle, which is moderately heterogeneous. A small intram uscular fluid collection is difficult to exclude. There is prominent edema noted involving the adduc tor muscles, piriformis muscle, and the proximal quadriceps muscles as well. No loculated fluid keisha ections within the proximal right thigh/gluteal region is evident. (A similar appearance is noted in volving the left proximal thigh/gluteal region. Labrum: A small anterosuperior labral tear is noted with an additional posterosuperior labral tear p resent, as well. No large labral tears are identified. No large para-labral cyst. Soft tissues: The proximal sciatic neurovascular bundle appears normal adjacent to the hamstring ten dons. The bowel loops are not adequately evaluated. There may be a large amount of residual stool w ithin the proximal colon. Air loculated fluid collection within the presacral space is again identif ied, probably not significantly changed. However, this is not adequately or completely included on t his examination. A small amount of air appears to be contained within the urinary bladder. Bladder w all thickness is normal. Extensive subcutaneous edema about the imaged pelvic structures is identifi ed that overlies both proximal thigh/gluteal regions. IMPRESSION: 1. Mild degenerative changes of the right hip. No acute fracture or avascular necrosis. Small dege nerative labral tears are present. No convincing findings of osteomyelitis are evident. 2. Low-grade partial-thickness tearing and tendinopathy of the distal right gluteus medius and glute us minimus tendons. 3. Mild to moderate edema involving the gluteal, proximal quadriceps, adductor, obturator, and pirif ormis muscles may be related to muscle strains. (A similar appearance is noted involving the left pr oximal thigh/gluteal region). However, a neurogenic process or potentially an infectious process can not be excluded and clinical correlation is recommended. There is questionable intramuscular fluid i nvolving the obturator internus muscle. 4. The patient's known large loculated presacral fluid collection is not adequately evaluated on thi s exam. However, this fluid collection suspicious for an abscess. Dictated by: Dorian Luna M.D. on 01/09/2017 at 14:22 Approved by: Dorian Luna M.D. on 01/09/2017 at 14:37
--- NOTE | 2017-01-09 16:14 | NUR ---
Hypertension BP been high, SBP 150s to 170s. Dr. Manuel was notified. Home medications are restarted. Addendum: 01/09/17 at 1824 by DANA FERRER RN Repeat BP 155/70 after cardizem (home dose).
[2017-01-09] MEDS: Diltiazem CD 120 mg ER24 Capsule PO SCH (16:19)
--- NOTE | 2017-01-09 17:55 | PROG NOTE ---
[address] [address] PROGRESS NOTE PATIENT: DAYSI SIM : 1935 MR#: [id number] ADMIT: 01/06/2017 JOB ID: [id number] DATE: 01/09/2017 REASON FOR FOLLOWUP: High-grade coag-negative Staph bacteremia. 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 He was admitted on this occasion because of febrile syndrome characterized by fevers, chills, malaise and right hip pain. The patient reports over the weekend he has continued to have impressive right hip pain. He reports this is a visceral pain and, in general, correlates to the location of the hip joint rather than the greater trochanter or any other structure. His fevers and chills have resolved. He has no acute pulmonary or GI symptoms, just the hip pain. He is having no problems with the Groshong catheter in his left upper chest. PHYSICAL EXAMINATION: Reveals an afebrile gentleman, temp 38.5, pulse 81, respiratory rate 20, blood pressure 170/70. He is saturating 89% on room air which is his lowest of the hospital stay. The patient is in no acute distress, though he does seem to have some pain perhaps related to his right hip. He has poor dentition. His lungs are clear. Cardiac tones without new murmur. Abdomen benign. The right hip is actually tender right over the hip joint as the patient lies in bed. There is no warmth, tenderness or skin breakdown there though. LABORATORIES: Include white count stable at 7000. His creatinine 0.49. LFTs normal. Urinalysis without white cells. He had multiple blood cultures for coag-negative staph when he first came in. Unfortunately, all these multiple positive sets appeared to have been drawn through the skin rather than through the Groshong. These sets we asked him to draw yesterday through the skin and the Groshong are negative at 22 hours. MRSA screen negative. IMAGING: Includes a hip MRI which was just done. It shows mild degeneration of the right hip. No fracture, avascular necrosis. No convincing findings of osteo. There is also some tendinopathy of the distal right gluteus medius and gluteus minimus. Oinm-cq-lyohkisq edema involving the gluteal, proximal quadriceps, adductor obturator and piriformis muscles is noted which could represent muscle strain. It is possible this could be neurogenic or even infectious, however. IMPRESSION: This remains a confusing case of a gentleman who came in with a high-grade coag-negative Staph bacteremia. We still do not have any positive blood cultures through the Groshong to allow us to do differential time to positivity, but I am still very worried that the Groshong is the source of this high-grade coag-negative staph bacteremia. Less likely is that he has developed a duckwater joint septic arthritis or associated osteomyelitis. RECOMMENDATIONS: 1. Will continue with Ancef IV. 2. Will continue to follow up on his blood cultures which were drawn through the line as well as the skin yesterday. 3. Will see what orthopedic decides to do with the findings from the MRI scan in terms of whether or not they think a tap is indicated.
[2017-01-09] MEDS: Total Parenteral Nutrition 1 BAG IV SCH (21:00)
[2017-01-10 00:01] VITALS: BP 154/81; PULSE 75; RESP 20; O2SAT 95
[2017-01-10] MEDS: CeFAZolin Inj 2 GM in IV Premix 1 EACH IV SCH ×3 (00:54→20:24)
[2017-01-10] MEDS: HYDROcodone-APAP 5-325 mg Tablet PO PRN ×3 (04:25→18:22)
[2017-01-10 04:47] VITALS: BP 162/81; PULSE 86; RESP 20; O2SAT 94
--- NOTE | 2017-01-10 06:32 | NUR ---
Pain Pt requested PRN vicodin x2 last night, slept well in between dosing, he stated he was surprised he slept 6hrs. TPN running, colostomy with minimal output, Peg tube to larry bag and Pt clamping and unclamping when he feels distended. care continues
--- NOTE | 2017-01-10 07:10 | NUR ---
Critical Result/Microbiology-Blood Cultures Micro lab reports positive blood cultures at this time, sourced from [facility] IV/PAC. Resulted from Aerobic tube representing +cocci, resembling staph. Reported to primary RN Nellie Cifuentes, and reported to , Dr. Manuel.
[2017-01-10] MEDS: Ondansetron 2 mg/mL 2 mL Inj IVPUSH PRN (07:46)
[2017-01-10] MEDS ORDERED: DILTIAZEM PO SCH (08:30)
[2017-01-10] MEDS: Insulin LISPRO 300 Unit/3 mL Inj SUBQ SCH ×4 (09:14→22:00)
--- NOTE | 2017-01-10 10:33 | PCM.PHAPRO ---
Progress TPN Management: -Day 3 of inpatient TPN for pt on chronic use at home -macronutrients have been increased today: Dextrose 265gm, Amino Acids 100gm, Lipids 50gm per recommendation from clinical fruit trimmer -electrolytes continue to remain stable -Plan: formula for this evening: PARENTERAL NUTRITION ORDERS 3 10-Jan-17 Standard Hang Time: 2100 Substrates Total kcal: 1801 AMINO ACIDS 100 g DEXTROSE 265 g Total Volume (mL): 1700 LIPIDS 50 g Sterile Water for Injection QS mL To Infuse Over (hrs): 24 Total Volume 1700 mL At at a rate of (mL/hr): 71 Additives Sodium Chloride 30 mEq "typical" daily requirements Sodium Acetate 50 mEq Sodium 50-120mEq Potassium Chloride 40 mEq Potassium 60-120mEq Potassium Phosphate 30 mEq Phosphate 20-40mEq Calcium Gluconate 12 mEq Magnesium 8-32mEq Magnesium Sulfate 8 mEq Calcium 9-22mEq Acetate* 80-120mEq Chloride* 80-120mEq Regular Insulin units *Depending on acid-base status Famotidine 40 mg Multivitamins 1 std dose Insulin Regimen Trace Elements 1 std dose none Thiamine mg Regular Low Intensity Subcut Folic Acid mg Regular Medium Intensity Subcut Ascorbic Acid mg Regular High Intensity Subcut Regular Insulin Infusion Other: Princess Chowdary [facility] Jan 10, 2017 10:33
[2017-01-10 10:42] VITALS: BP 140/72; PULSE 77; PULSE 79; RESP 18; O2SAT 91
--- NOTE | 2017-01-10 11:10 | NUR ---
KAMILA Signed @ [id number]
[2017-01-10] MEDS: Diltiazem CD 120 mg ER24 Capsule PO SCH (12:30)
--- NOTE | 2017-01-10 12:55 | NUR ---
Abdominal Pain Pt having increasing abd pain at 0800. PEG unclamped, but has minimal output in bag. Zofran given and worked with PEG tube line to increase drainage, line can be particular. After manipulating line was able to get 1250ml green output by 1000. AM medications not given since pt was having nausea and increased output and didn't want to clamp his line. AM meds given at lunch time and PEG tube clamped for 30 minutes to allow absorption. Bed in low, call light in reach, continue to monitor.
--- NOTE | 2017-01-10 14:14 | PCM.PNMED ---
Subjective Date of Service Jan 10, 2017 Subjective BCX from [facility] also grew staph remained afebrile pt clamped his gastrostomy bag, noticed distended bowel this AM, after releasing , 600cc output noticed. pt felt better no n/v, pt denied abdominal pain still has severe pain around Rt hip, worse with movement Exam Vital Signs Vital Sign - Last Date Time Temp Pulse Resp B/P Pulse Ox O2 Delivery O2 Flow Rate FiO2 01/10/17 10:42 77 01/10/17 10:42 36.7 18 140/72 91 Room Air 01/08/17 05:54 1.00 Intake and Output 01/09/17 01/09/17 01/10/17 Cumulative From/Thru 15:00 23:00 07:00 01/06/17 03:10 - 01/10/17 04:47 Intake Total 1655 ml 1093 ml 54658 ml Output Total 0 ml 1246 ml 3645 ml Balance 1655 ml -153 ml 7008 ml Intake Oral 725 ml 3130 ml IV Total 150 ml 5055 ml TPN/PPN 780 ml 1093 ml 2468 ml Output Urine Total 796 ml 3110 ml Stool Total 0 ml 75 ml Gastric Drainage Total 0 ml 450 ml 450 ml Drainage Total 0 ml 10 ml # Voids 3 13 Exam NAD, comfortably laying down on the bed no JVD, MMM, no LAD RRR, nl s1, s2 no mrg CTAB, no w,c S,ND,NT,normoactive BS+ Rt hip; LROM due to pain, no obvious swelling, erythema, IVs and Medications Medications Reviewed: Medications were reviewed in detail Lab and Diagnostics Result Diagram: 01/09/17 0515 01/10/17 0650 Microbiology Coag negative staph appears to be in 2 of 2 bottles from blood cultures 01/06 and ED. I was not called about these results are still not uncertain these are not contaminant. X-Rays, CTs and MRIs CT ABDOMEN AND PELVIS WITH CONTRAST: Eduardo Grider M.D. on 01/07/2017 at 10:57 1. 6.4 x 4.8 cm thickwalled enhancing fluid collection is not significantly changed in size since December 2015, and currently demonstrates no imaging manifestations of superimposed infection. As such, any determination of superimposed infection would need to be made on clinical grounds. 2. Mild bilateral hydronephrosis has slightly decreased in degree since December. 3. No evidence for small bowel obstruction. 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 Dictated by: Eduardo Grider M.D. on 01/07/2017 at 10:57 CT ABDOMEN AND PELVIS WITHOUT CONTRAST: Arben Foster M.D. on 01/06/2017 at 7: 49 1. New moderate bilateral hydronephrosis and ureterectasis. No calcified obstructing lesions. Findings maybe related to increased inflammatory change in the pelvis. 2. 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 Superimposed infection is possible. This fluid collection would be amenable to CT-guided aspiration for diagnostic purposes if needed. 3. Partial bowel obstruction at the site of the left lower quadrant ostomy with gas-filled dilated colon and intermittently fluid-filled dilated loops of small bowel. Superimposed enteritis is also possible 4. Gastrostomy tube with tip likely in the stomach although poorly seen due to stomach decompression. Dictated by: Arben Foster M.D. on 01/06/2017 at 7:49 12-lead ECG Rate is 88, QTC 418 concurrently reviewed by Vazquez 01/06 . Sinus rhythm * Ventricular premature complex . Borderline prolonged GA interval . Probable left atrial enlargement . When compared with ECG of 07-Apr-2016 9:19:45, * PVCs are now present * PACs are no longer present * ST elevation is no longer present Assessment & Plan 81-year-old male admitted 01/06 probable abdominal abscess following conservative antibiotic treatment of appendicitis in November. 01/07 patient not showing any signs of infection today, pain is dissipated. Lab work is normalized. He is not on any antibiotics and repeat CT scan with contrast does not suggest that this is an abscess in the fluid has not changed in nature. Urology is consulted thank you Dr. Duran was reiterated his prior recommendations formal note. I am going to begin resuming this patient's diabetes normally on full liquids and on nocturnal TPN for 14 hours. We have an additional dose of TPN ordered for Monday 01/08 the still here but I think if he is medically stable he may discharge 01/08. 01/[address] Lemon infectious disease receiving the patient is growing 3 or 4 out of 4 bottles coag-negative staph likely source Groshong catheter. Concern hip pain possible septic arthritis. Would be vigilant, will order TTE rule out endocarditis. Timing of removal of central line and replacement of IV access and antibiotics per infectious disease thank you very much. Patient to start his TPN tonight. acute, active #persistent Coag-negative bacteremia, POA, possible source: line infection with Groshong cath, BCX 01/06 staph coag neg, 01/07, 01/08 from peripheral, from Groshong again staph, -pt remained afebrile, -awaits final result of cultures -started Ancef [id number] per ID, tolerating well, continue for now, -awaits TTE, possibly BOBBI based on culture form Groshong -will likely pull out Groshong, coordinate with ID #Rt hip tenderness, pain, POA, this is main concerns pt has. no images obtained. MRI showed DJD, known presacral fluid, at this time suggestive of abscess. - was briefly consulted on the phone, unlikely this is the source of infection, will request official consult if needed #presacral fluid collection. reviewed with Dr Simmons (IR), largely unchanged from March 2016, s/p abx for appendicitis November @ [facility]. MRI 01/09 suggestive of possible abscess -Pt has contrast allergy and trequired pretreatment tolerated the contrast . CT Not suggestive of infective abscess. -continue full liquids, nocturnal TPN, drainage with venting gastrostomy -try to remain open his gastrostomy at night given the episode today. chronic, stable #anemia-trending down until 01/08, likely dilutional, stable now #HTN/lipids,controlled with home medications today #New bilateral hydroureter-reviewed with Dr Duran (), he agrees that this is new hydroureter but not necessarily obstruction, -Formal consult if after Camara placed if there is no resolution and/or worsening renal function -Recommended follow-up radio nucleotide study with Lasix washout -UA clear, patient urinating well 01/07 #Protein caloric malnutrition-resuming patient's nocturnal TPN 14 hours at night 01/08 -Patient is up to eating full liquids at home. -He has a venting gastrostomy I believe due to chronic partial bowel obstruction type issues. #Hyponatremia- Resolved 01/07 #SBO-noted on CT 01/06 w/o contrrast not on 01/07 w/ contrast -Extensive surgical history, might reach out to Dr Valdemar Jarrett during the week for input #Hx colon CA-distorted anatomy status post partial colectomy, reports failed anastomosis with leaking, patient now has pouch. #Prophylaxis- DVT with SCDs and enoxaparin, GI H2 RA #Disposition- from home, pending given persistent bacteremia DNR/DNI Time spent 35min Compa Manuel MD Jan 10, 2017 14:05
[2017-01-10] MEDS ORDERED: Vancomycin Inj 1,500 MG in 0.9% Sodium Chloride 500 ML IV ONE (15:35)
--- NOTE | 2017-01-10 15:58 | PROG NOTE ---
[address] [address] PROGRESS NOTE PATIENT: DAYSI SIM : 1935 MR#: [id number] ADMIT: 01/06/2017 JOB ID: [id number] INFECTIOUS DISEASE FOLLOWUP: DATE: 01/10/2017 REASON FOR FOLLOWUP: High-grade persistent coag-negative Staph bacteremia in a patient with Groshong line for TPN. INTERVAL HISTORY: Overnight, the patient reports no fevers or chills. He is not short of breath. He has no chest pain. He has noticed some more abdominal bloating which is a problem because of his recurrent bowel obstruction. He has also noted continually an ongoing severe right hip region pain. The patient and his tell us he has not had any food for two months and is completely dependent on TPN for nutrition and he cannot sustain himself orally. PHYSICAL EXAMINATION: Reveals a somewhat comfortable gentleman. Temp 36.7, pulse 79, respiratory rate 18, blood pressure 140/72. He is saturating 91% on room air. He is in no distress. Lungs relatively clear. Cardiac tones without any change. Groshong appears benign in the left upper chest. Abdomen is somewhat bloated and distended. A colostomy in the left lower quadrant. T tube is also present which is used for decompression because of his bowel obstruction. His right hip was again evaluated. There is no external sign of any infection though it is tender over the posterior aspect of the hip joint. LABORATORY DATA: Labs include white count stable at 7000 and basically normal diff. Creatinine stable 0.47. LFTs normal. Procalcitonin 1.1. Micro studies though are very worrisome. Recall this patient had positive blood cultures for coag-negative staph on the , , and the . Blood cultures done on the were positive from both the Groshong and the skin, and in speaking to the lab they were clearly positive more rapidly from the peripheral stick than from the Groshong culture. DIAGNOSTIC DATA: An echocardiogram has already been done and did not show evidence of endocarditis, though was only a transthoracic. Hip MRI did not show evidence of septic hip or osteo. The fluid collection in the presacral area was again noted which could be an abscess but it has been there over a year which makes that somewhat unlikely. IMPRESSION: This is an extremely difficult case of a patient with four days of high-grade coag-negative Staphylococcus bacteremia. Would assume this must be an intravascular infection and must be coming from a heart valve or his Groshong. Long-term total parenteral nutrition is almost always limited by recurrent line infections with yeast and coagulase-negative Staphylococcus and that seems most likely what is going on here. The complicating factors are the blood cultures actually grew faster from the skin than from the Groshong, and the patient cannot live without total parenteral nutrition for more than a few days. Because he is nontoxic, will try and salvage this line one more time, though I am not sanguine about our prospects. RECOMMENDATIONS: 1. Will add vancomycin to the cefazolin. 2. Will repeat blood cultures from the Groshong as well as through the skin. 3. If he continues to have positive blood cultures almost regardless of the differential time to positivity, we are going to have to pull the Groshong the next day or two. 4. The patient may require a BOBBI because coag-negative staph cocopah valve endocarditis is rare but does occur and is a possibility here. Will continue to closely follow this patient with you. BENNY
--- NOTE | 2017-01-10 16:00 | NUR ---
NUTRITION FOLLOW-UP: ASSESS: 81 YO male admitted with fevers, abdominal and right flank pain. 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 Pt. has been on outpatient TPN and TPN was started on 01/08. Pharm. notified of plans to increased macros in TPN today. PMHx: HTN, dyslipidemia, hypothyroidism, FAVIAN, CVA, recurrent SBO's with perforation, CAD, CHF, colorectal cancer, in remission. DIET: Clear Liquids. PO intake 25-75% of meals. HOME DIET: Nocturnal TPN and full liquids per notes. LABS: Reviewed. Cr 0.47, glu 151, Ca 7.9, Alb 2.5. GI symptoms / stool: 1250 mL per gastrostomy tube per RN note. ANTHROPOMETRICS: Current Wt: 76.9 kg. Admit Wt: 72.0 kg ESTIMATED NEEDS: Calories: 1800 - 2160 kcal (25 - 30 kcal / kg BW) Protein: 86 - 108 g protein (1.2 - 1.5 g / kg BW) Fluid: Approx. 1800 mL (25 mL / kg BW) NUTRITION DIAGNOSIS: 1.) Altered GI function related to alteration in GI tract structure / function as evidenced by history of colorectal cancer requiring chronic/ongoing TPN with venting gastrostomy tube--PERSISTS. INTERVENTION: 1.) Recommend increasing TPN to 265 g dextrose, 100 g Amino Acids and 50 g lipids to provide 1801 kcals and 100 g protein per day, pharmacy notified. Goal TPN will be 330 g dextrose, 100 g amino acid, 50 g lipid to provide 2025 kcal, 100 g protein per day. MONITOR/EVALUATE: TPN tolerance, diet advance / tolerance, PO intake, labs, GI/nutrition status. Follow per high nutrition risk guidelines.
[2017-01-10 16:26] VITALS: BP 118/40; PULSE 65; RESP 16; O2SAT 91
--- NOTE | 2017-01-10 16:28 | PCM.PHAPRO ---
Progress Vancomycin Management by Pharmacy: -pt is admitted with high grade staph coag neg bacteremia 4 days ago -has been receiving TPN via groshong catheter for chronic nutritional support at home -now with probable Groshong line infection, gpc cultured from skin, groshong -Cefazolin 2gm iv q8h was initiated on 01/09 and Vancomycin is to be added today for empiric coverage -wbc = 7 (01/09), serum creatinine = 0.47 est crcl ~ 75ml/min, afebrile, procalcitonin = 1.05 (01/08) -Plan: Vancomycin loading dose of 1.5gm followed by 1gm iv [id number] () trough level to be drawn prior to 4th dose at 0530 on 01/12. serum creatinine to be monitored and has been ordered. Princess Chowdary [facility] Jan 10, 2017 16:28
[2017-01-10 19:23] VITALS: BP 93/59; PULSE 61; RESP 18; O2SAT 91
[2017-01-10 20:00] VITALS: PULSE 63
[2017-01-10] MEDS: Total Parenteral Nutrition 1 BAG IV SCH (21:00)
[2017-01-11] VITALS (7 sets, daily range): BP systolic 108–134; BP diastolic 50–62; PULSE 60–73; RESP 16–18; O2SAT 90–94
[2017-01-11] MEDS: HYDROcodone-APAP 5-325 mg Tablet PO PRN ×4 (00:27→18:50)
[2017-01-11] MEDS: CeFAZolin Inj 2 GM in IV Premix 1 EACH IV SCH ×3 (03:29→20:07)
[2017-01-11 06:01] LABS: BASOPHILS % (AUTO) 0.1 % (0-3); EOSINOPHILS % (AUTO) 2.9 % (0-5); MONOCYTES % (AUTO) 9.8 % (4-12); Mean Corpuscular Hemoglobin 29.6 pg (27.0-35.0); Mean Corpuscular Volume 89.3 fL (81-100); NEUTROPHILS % (AUTO) 70.7 % (40-74); Platelet Count 166 bil/L (150-400)
[2017-01-11] MEDS: Vancomycin 1 Gm/200 mL NS Premix IV SCH ×2 (06:09→17:14)
[2017-01-11 06:27] LABS: Magnesium 1.7 mg/dL (1.6-2.6); Phosphorus 4.1 mg/dL (2.5-4.9)
--- NOTE | 2017-01-11 07:47 | NUR ---
Pain Pain managed with hydrocodone approx every 5 hours, past 5 hours and his pain/cramping increase past 7/10. Pt is on clear diet but does not drink unless encouraged. TPN running at 78ml/h through grashong, IV abx infuisng in peripheral site. Pt is incontinent, repositioned Q2h. No SOB or chest pain. Care continues.
[2017-01-11] MEDS: Insulin LISPRO 300 Unit/3 mL Inj SUBQ SCH ×4 (08:00→22:00)
[2017-01-11] MEDS: Vancomycin Dose per Pharmacist XX SCH (08:30)
[2017-01-11] MEDS: Diltiazem CD 120 mg ER24 Capsule PO SCH (09:34)
--- NOTE | 2017-01-11 10:43 | PCM.PHAPRO ---
Progress Date of Service: Jan 11, 2017 TPN MANAGEMENT Day 4 of TPN Spoke with Nutrition and they recommend continuing the Amino Acid 100gram, Dextrose 265gram and Lipids 50gram as per previous TPN. Potassium is slowly trending down will increase KCL to 50meq Sodium on the low endo of normal will make small increase to 35meq NaCl Spoke with MD and stopped PO multivitamin since multivitamin and Trace are included in TPN. Tonight TPN formulation: PARENTERAL NUTRITION ORDERS 4 - Substrates AMINO ACIDS 100 g DEXTROSE 265 g LIPIDS 50 g Sterile Water for Injection QS mL Total Volume 1700 mL Additives Sodium Chloride 35 mEq Sodium Acetate 50 mEq Potassium Chloride 50 mEq Potassium Phosphate 30 mEq Calcium Gluconate 12 mEq Magnesium Sulfate 8 mEq Regular Insulin units Famotidine 40 mg Multivitamins 1 std dose Trace Elements 1 std dose Thiamine mg Folic Acid mg Ascorbic Acid mg Joel Tabor [facility] Jan 11, 2017 10:43
--- NOTE | 2017-01-11 12:22 | PROG NOTE ---
[address] [address] PROGRESS NOTE PATIENT: DAYSI SIM : 1935 MR#: [id number] ADMIT: 01/06/2017 JOB ID: [id number] DATE: 01/11/2017 INFECTIOUS DISEASE FOLLOWUP NOTE: REASON FOR FOLLOWUP: High-grade polymicrobial Staph epi bacteremia. INTERVAL HISTORY: Recall that this is a gentleman with a complex abdominal history including recurrent small-bowel obstructions, who was admitted because of abdominal pain but found to have evidence of infection including multiple positive blood cultures for coag-negative staph. He has an indwelling Groshong catheter for TPN as he cannot take significant oral nutrition. Yesterday we added vancomycin to his Ancef and obtained additional blood cultures. Overnight, he thinks that his right hip pain, which has been one of his main complaints, has improved. He has no fevers, no chills. His shortness of breath is at baseline and no new abdominal complaints. PHYSICAL EXAMINATION: Reveals an afebrile gentleman, temperature 36.3, pulse 71, respiratory rate 18, blood pressure 109/58, saturating only marginally 90% on 2 L. He is in no acute distress and looks exactly the way he always looks on this and prior admissions. He is in no acute distress. Oral cavity negative. Lungs relatively clear. Cardiac tones regular rate and rhythm. His Groshong catheter in his left upper chest appears completely benign. His abdomen is distended, as it always is, with colostomy in place. Minimally tender. No other notable physical abnormalities. LABORATORIES: Include white count stable at 7000. Totally normal diff. Creatinine 0.5. LFTs normal. Albumin 2.3. Micro studies are intriguing. When he came in on the he had multiple positive blood cultures for coag-negative staph and these were also positive on the and the . All told, he has about 12 positive blood culture bottles. What is interesting is that one of these, and only one, is resistant to oxacillin and it is highly resistant with an FAZAL over 4. All other blood cultures are highly susceptible to oxacillin with an FAZAL less than or equal to 0.25. This indicates the presence of a polymicrobial bacteremia. The other possibility, of course, is the single oxacillin resistant isolate was a contaminant, but that would be a difficult conclusion. IMPRESSION: This is a complex case of a gentleman who has had multiple bowel obstructions and who is TPN dependent. He comes in with a high-grade coag-negative Staph bacteremia and one would have to assume it came from the Groshong. Blood culture differential time to positivity, however, suggests that the Groshong is not infected, though this is not a perfect test. The patient continues to be totally nontoxic and yesterday we added vancomycin and he appears to feel a bit better today so I am inclined to continue with his Groshong in place and await his ongoing blood cultures. Why he has so much pain in his hip remains unexplained but an MRI did not suggest infection. RECOMMENDATIONS: 1. Will continue with vancomycin plus Ancef. 2. We await January 10 blood culture results. If, in fact, these do indicate Groshong infection, it should be removed. 3. If there are any additional blood cultures from the going forward for coag-negative staph, I think we are going to be forced to remove the Groshong and use a temporary or other means of providing parenteral nutrition for a few days. Thank you very much.
--- NOTE | 2017-01-11 12:44 | PCM.PNMED ---
Subjective Date of Service Jan 11, 2017 Subjective pt remained afebrile, repeat BCX 01/10 ngtd c/o intermittent Right hip pain, gastrostomy was not clamped overnight, abd still distended but denied pain, n, v Exam Vital Signs Vital Sign - Last Date Time Temp Pulse Resp B/P Pulse Ox O2 Delivery O2 Flow Rate FiO2 01/11/17 10:27 Supplement Oxygen 01/11/17 09:34 36.3 71 18 109/58 90 2.00 Intake and Output 01/10/17 01/10/17 01/11/17 Cumulative From/Thru 15:00 23:00 07:00 01/06/17 03:10 - 01/11/17 05:58 Intake Total 1297 ml 0 ml 86334 ml Output Total 2007 ml 903 ml 6555 ml Balance -710 ml -903 ml 5395 ml Intake Oral 0 ml 0 ml 3130 ml IV Total 306 ml 5361 ml TPN/PPN 991 ml 3459 ml Output Urine Total 757 ml 523 ml 4390 ml Stool Total 0 ml 75 ml Gastric Drainage Total 1250 ml 380 ml 2080 ml Drainage Total 10 ml # Voids 13 Exam NAD, comfortably laying down on the bed no JVD, MMM, no LAD RRR, nl s1, s2 no mrg CTAB, no w,c, left upper chest, Groshong cath in place TPN running S,distended,NT,normoactive BS+ Rt hip; LROM due to pain, no obvious swelling, erythema, IVs and Medications Medications Reviewed: Medications were reviewed in detail Lab and Diagnostics Result Diagram: 01/11/17 0530 01/11/17 0530 Microbiology Coag negative staph appears to be in 2 of 2 bottles from blood cultures 01/06 and ED. I was not called about these results are still not uncertain these are not contaminant. X-Rays, CTs and MRIs CT ABDOMEN AND PELVIS WITH CONTRAST: Eduardo Grider M.D. on 01/07/2017 at 10:57 1. 6.4 x 4.8 cm thickwalled enhancing fluid collection is not significantly changed in size since December 2015, and currently demonstrates no imaging manifestations of superimposed infection. As such, any determination of superimposed infection would need to be made on clinical grounds. 2. Mild bilateral hydronephrosis has slightly decreased in degree since December. 3. No evidence for small bowel obstruction. 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 Dictated by: Eduardo Grider M.D. on 01/07/2017 at 10:57 CT ABDOMEN AND PELVIS WITHOUT CONTRAST: Arben Foster M.D. on 01/06/2017 at 7: 49 1. New moderate bilateral hydronephrosis and ureterectasis. No calcified obstructing lesions. Findings maybe related to increased inflammatory change in the pelvis. 2. 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 Superimposed infection is possible. This fluid collection would be amenable to CT-guided aspiration for diagnostic purposes if needed. 3. Partial bowel obstruction at the site of the left lower quadrant ostomy with gas-filled dilated colon and intermittently fluid-filled dilated loops of small bowel. Superimposed enteritis is also possible 4. Gastrostomy tube with tip likely in the stomach although poorly seen due to stomach decompression. Dictated by: Arben Foster M.D. on 01/06/2017 at 7:49 12-lead ECG Rate is 88, QTC 418 concurrently reviewed by Vazquez 01/06 . Sinus rhythm * Ventricular premature complex . Borderline prolonged [place] interval . Probable left atrial enlargement . When compared with ECG of 07-Apr-2016 9:19:45, * PVCs are now present * PACs are no longer present * ST elevation is no longer present Assessment & Plan 81-year-old male admitted 01/06 probable abdominal abscess following conservative antibiotic treatment of appendicitis in November. 01/07 patient not showing any signs of infection today, pain is dissipated. Lab work is normalized. He is not on any antibiotics and repeat CT scan with contrast does not suggest that this is an abscess in the fluid has not changed in nature. Urology is consulted thank you Dr. Duran was reiterated his prior recommendations formal note. I am going to begin resuming this patient's diabetes normally on full liquids and on nocturnal TPN for 14 hours. We have an additional dose of TPN ordered for Monday 01/08 the still here but I think if he is medically stable he may discharge 01/08. 01/[address] Lemon infectious disease receiving the patient is growing 3 or 4 out of 4 bottles coag-negative staph likely source Groshong catheter. Concern hip pain possible septic arthritis. Would be vigilant, will order TTE rule out endocarditis. Timing of removal of central line and replacement of IV access and antibiotics per infectious disease thank you very much. Patient to start his TPN tonight. acute, active #persistent Coag-negative bacteremia, POA, possible source: line infection with Groshong cath, BCX 01/06 staph coag neg, 01/07, 01/08 from peripheral, from Groshong again staph. TTE negative for vegetation. -pt remained afebrile, -awaits repeat BCX 01/10 from peripheral/Groshong -started Ancef 2gq8h per ID, added vancomycin per ID, -possibly BOBBI based on culture form Groshong -will likely pull out Groshong, coordinate with ID #Rt hip tenderness, pain, POA, this is main concerns pt has. no images obtained. MRI showed DJD, known presacral fluid, at this time suggestive of abscess. - was briefly consulted on the phone, unlikely this is the source of infection, will request official consult if needed #presacral fluid collection. reviewed with Dr Simmons (IR), largely unchanged from March 2016, s/p abx for appendicitis May @ [facility]. MRI 01/09 suggestive of possible abscess -Pt has contrast allergy and trequired pretreatment tolerated the contrast . CT Not suggestive of infective abscess. #SBO-noted on CT 01/06 w/o contrrast not on 01/07 w/ contrast, Extensive surgical history, drainage with venting gastrostomy/Groshong cath inserted in for TPN -continue full liquids, nocturnal TPN, -try to remain open his gastrostomy at night given the episode today. -no strong Ix to keep Groshong cath, consider switch to PICC if it's infected. chronic, stable #New bilateral hydroureter-reviewed with Dr Duran (), he agrees that this is new hydroureter but not necessarily obstruction, -Formal consult if after Camara placed if there is no resolution and/or worsening renal function -Recommended follow-up radio nucleotide study with Lasix washout -UA clear, patient urinating well 01/07 #anemia-trending down until 01/08, likely dilutional, stable now #HTN/lipids,controlled with home medications today #Protein caloric malnutrition-resuming patient's nocturnal TPN 14 hours at night 01/08 -Patient is up to eating full liquids at home. -He has a venting gastrostomy I believe due to chronic partial bowel obstruction type issues. #Hyponatremia- Resolved 01/07 #Hx colon CA-distorted anatomy status post partial colectomy, reports failed anastomosis with leaking, patient now has pouch. #Prophylaxis- DVT with SCDs and enoxaparin, GI H2 RA #Disposition- from home, pending given persistent bacteremia DNR/DNI Time spent 35min Compa Manuel MD Jan 11, 2017 12:44
--- NOTE | 2017-01-11 13:24 | NUR ---
Social Work- Continued D/C Planning Data: EMR reviewed. Pt is on day 5 of hospitalization. Pt is not medically stable for discharge at this time. Pt's blood cultures are pending. ID is following. Per ID, pt will continue with vancomycin plus Ancef. If pt's Groshong is infected it will need to be removed. Pt may receive BOBBI. Pt is open with [facility] for TPN management and [facility] RN for wound care. Resume services order received, Access given to service providers. SW spoke with RN and MD in rounds. Pt was ambulatory prior to admission, SW encouraged RN to get pt oob and moving, at least for meals, as tolerated. SW recommends that if pt is not ambulating with RN, PT evaluation may be warranted. At this time, no PT evaluation has been ordered. At this time, pt to discharge home with resumption of services. SW will continue to follow. Assessment: Pt for whom TPN and HH RN for wound care is medically necessary. Plan: At this time, pt to discharge home with resumption of services, spouse to transport via POV. SW will continue to follow, R/O IV abx needs. Jojo Jimenez MSW
[2017-01-11] MEDS: Total Parenteral Nutrition 1 BAG IV SCH (23:00)
[2017-01-12] VITALS (9 sets, daily range): BP systolic 120–153; BP diastolic 46–66; PULSE 66–89; RESP 16–20; O2SAT 90–94
[2017-01-12] MEDS: HYDROcodone-APAP 5-325 mg Tablet PO PRN ×5 (01:16→22:51)
[2017-01-12] MEDS: CeFAZolin Inj 2 GM in IV Premix 1 EACH IV SCH ×3 (03:49→20:32)
[2017-01-12] MEDS ORDERED: Vancomycin Serum Trough XX ONE (05:30)
[2017-01-12] MEDS: Vancomycin 1 Gm/200 mL NS Premix IV SCH (06:20)
--- NOTE | 2017-01-12 07:54 | NUR ---
Declining Activity/Output No output into colostomy. Gastrostomy has green mucus output to larry drain bag, tube must be manipulated to encourage drainage. It is clamped before PO meds and unclamped 30 minutes after. Pt reports spasms in legs and abdominal pain, repositioning seems to relieve pain and PRN norco are given approx Q5hr. Encouraged PO intake, pt has very dry oral mucuosa and chapped peeling lips- declines mouth moisturizer/chapstick. Vanco trough and labs drawn from [facility] at 0545. Care continues
[2017-01-12] MEDS: Insulin LISPRO 300 Unit/3 mL Inj SUBQ SCH ×4 (08:00→22:00)
[2017-01-12] MEDS: Vancomycin Dose per Pharmacist XX SCH (08:30)
[2017-01-12] MEDS: Diltiazem CD 120 mg ER24 Capsule PO SCH (10:34)
--- NOTE | 2017-01-12 10:38 | NUR ---
Arrythymia At 1030 hrs transport tech called me and reported pt had 6 beats of V-tach. Check pt; he was asymptomatic. No c/o chest pain or SOB. [employer] showed HR of 71 and oxygen saturation of 96%.
--- NOTE | 2017-01-12 10:53 | PCM.PNMED ---
Subjective Date of Service Jan 12, 2017 Subjective pt still c/o sever hip pain required norco 2tab, developed brief episode narrow complex tachycardic spontaneously resolved. officially consulted. BCX 01/10 remained negative. Exam Vital Signs Vital Sign - Last Date Time Temp Pulse Resp B/P Pulse Ox O2 Delivery O2 Flow Rate FiO2 01/12/17 08:17 36.7 89 18 147/66 94 Room Air 01/11/17 16:52 2.00 Intake and Output 01/11/17 01/11/17 01/12/17 Cumulative From/Thru 15:00 23:00 07:00 01/06/17 03:10 - 01/12/17 06:02 Intake Total 1193 ml 798 ml 1177 ml 01732 ml Output Total 72 ml 452 ml 7079 ml Balance 1193 ml 726 ml 725 ml 8039 ml Intake Oral 20 ml 100 ml 3250 ml IV Total 301 ml 100 ml 200 ml 5962 ml TPN/PPN 892 ml 678 ml 877 ml 5906 ml Output Urine Total 2 ml 2 ml 4394 ml Stool Total 75 ml Gastric Drainage Total 70 ml 450 ml 2600 ml Drainage Total 10 ml # Voids 13 Exam NAD, comfortably laying down on the bed no JVD, MMM, no LAD RRR, nl s1, s2 no mrg CTAB, no w,c, left upper chest, Groshong cath in place TPN running S,distended,NT,normoactive BS+ Rt hip; LROM due to pain, no obvious swelling, erythema, IVs and Medications Medications Reviewed: Medications were reviewed in detail Lab and Diagnostics Result Diagram: 01/11/17 0530 01/12/17 0600 Microbiology Coag negative staph appears to be in 2 of 2 bottles from blood cultures 01/06 and ED. I was not called about these results are still not uncertain these are not contaminant. X-Rays, CTs and MRIs CT ABDOMEN AND PELVIS WITH CONTRAST: Eduardo Grider M.D. on 01/07/2017 at 10:57 1. 6.4 x 4.8 cm thickwalled enhancing fluid collection is not significantly changed in size since December 2015, and currently demonstrates no imaging manifestations of superimposed infection. As such, any determination of superimposed infection would need to be made on clinical grounds. 2. Mild bilateral hydronephrosis has slightly decreased in degree since December. 3. No evidence for small bowel obstruction. 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 Dictated by: Eduardo Grider M.D. on 01/07/2017 at 10:57 CT ABDOMEN AND PELVIS WITHOUT CONTRAST: Arben Foster M.D. on 01/06/2017 at 7: 49 1. New moderate bilateral hydronephrosis and ureterectasis. No calcified obstructing lesions. Findings maybe related to increased inflammatory change in the pelvis. 2. 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 Superimposed infection is possible. This fluid collection would be amenable to CT-guided aspiration for diagnostic purposes if needed. 3. Partial bowel obstruction at the site of the left lower quadrant ostomy with gas-filled dilated colon and intermittently fluid-filled dilated loops of small bowel. Superimposed enteritis is also possible 4. Gastrostomy tube with tip likely in the stomach although poorly seen due to stomach decompression. Dictated by: Arben Foster M.D. on 01/06/2017 at 7:49 12-lead ECG Rate is 88, QTC 418 concurrently reviewed by Vazquez 01/06 . Sinus rhythm * Ventricular premature complex . Borderline prolonged [place] interval . Probable left atrial enlargement . When compared with ECG of 07-Apr-2016 9:19:45, * PVCs are now present * PACs are no longer present * ST elevation is no longer present Assessment & Plan 81-year-old male admitted 01/06 probable abdominal abscess following conservative antibiotic treatment of appendicitis in November. 01/07 patient not showing any signs of infection today, pain is dissipated. Lab work is normalized. He is not on any antibiotics and repeat CT scan with contrast does not suggest that this is an abscess in the fluid has not changed in nature. Urology is consulted thank you Dr. Duran was reiterated his prior recommendations formal note. I am going to begin resuming this patient's diabetes normally on full liquids and on nocturnal TPN for 14 hours. We have an additional dose of TPN ordered for Monday 01/08 the still here but I think if he is medically stable he may discharge 01/08. 01/[address] Lemon infectious disease receiving the patient is growing 3 or 4 out of 4 bottles coag-negative staph likely source Groshong catheter. Concern hip pain possible septic arthritis. Would be vigilant, will order TTE rule out endocarditis. Timing of removal of central line and replacement of IV access and antibiotics per infectious disease thank you very much. Patient to start his TPN tonight. acute, active #persistent Coag-negative bacteremia, POA, possible source: line infection with Groshong cath, BCX 01/06 staph coag neg, 01/07, 01/08 from peripheral, from Groshong again staph. TTE negative for vegetation. -pt remained afebrile, clinically stable, -awaits repeat BCX 01/10 from peripheral/Groshong -started Ancef 2gq8h per ID, added vancomycin per ID 01/11, -possibly BOBBI based on culture form Groshong -will likely pull out Groshong, coordinate with ID #Rt hip tenderness, pain, POA, this is main concerns pt has. no images obtained. MRI showed DJD, known presacral fluid, at this time suggestive of abscess. -consulted today, appreciate input #presacral fluid collection. reviewed with Dr Simmons (IR), largely unchanged from March 2016, s/p abx for appendicitis May @ [facility]. MRI 01/09 suggestive of possible abscess -Pt has contrast allergy and trequired pretreatment tolerated the contrast . CT Not suggestive of infective abscess. #SBO-noted on CT 01/06 w/o contrrast not on 01/07 w/ contrast, Extensive surgical history, drainage with venting gastrostomy/Groshong cath inserted in for TPN -continue full liquids, nocturnal TPN, -try to remain open his gastrostomy at night, drainage as needed. -no strong Ix to keep Groshong cath, consider switch to PICC if it's infected. chronic, stable #New bilateral hydroureter-reviewed with Dr Duran (), he agrees that this is new hydroureter but not necessarily obstruction, -Formal consult if after Camara placed if there is no resolution and/or worsening renal function -Recommended follow-up radio nucleotide study with Lasix washout -UA clear, patient urinating well 01/07 #anemia-trending down until 01/08, likely dilutional, stable now #HTN/lipids,controlled with home medications today #Protein caloric malnutrition-resuming patient's nocturnal TPN 14 hours at night 01/08 -Patient is up to eating full liquids at home. -He has a venting gastrostomy I believe due to chronic partial bowel obstruction type issues. #Hyponatremia- Resolved 01/07 #Hx colon CA-distorted anatomy status post partial colectomy, reports failed anastomosis with leaking, patient now has pouch. #Prophylaxis- DVT with SCDs and enoxaparin, GI H2 RA #Disposition- from home, pending given persistent bacteremia DNR/DNI Time spent 35min Compa Manuel MD Jan 12, 2017 10:53
--- NOTE | 2017-01-12 11:27 | PROG NOTE ---
[address] [address] PROGRESS NOTE PATIENT: DAYSI SIM : 1935 MR#: [id number] ADMIT: 01/06/2017 JOB ID: [id number] DATE: 01/12/2017 REASON FOR FOLLOWUP: High-grade coag-negative Staph bacteremia, likely due to infected Groshong catheter. INTERVAL HISTORY: The patient reports he is essentially unchanged. He thinks he feels a little better overall and he denies any fevers or chills. He has had his right hip pain is improving. He has no new abdominal pain or complaint though as noted he is basically n.p.o. and receives all his nutrition via TPN given by his Groshong line. This case was discussed with Dr. Bill Haley this morning. She is from Orthopedics and her opinion is that his right hip is not infected nor is the greater trochanteric bursa. PHYSICAL EXAMINATION: Reveals an afebrile gentleman, temp 36.7, pulse 89, respiratory rate 18, blood pressure 147/66, saturating well on room air and in no acute distress. Oral cavity negative. The patient does have some degree of mucositis and cracked lips, but nothing new. His lungs are relatively clear. The Groshong line is benign appearing. TPN is infusing through it. His abdomen is slightly distended with colostomy as noted before. The hip remains tender over the lateral aspect of the hip around the area of the trochanter, but there is no visible erythema or abnormality. LABORATORIES: Include white count 7200 yesterday, normal diff not repeated today. Creatinine 0.52. LFTs are normal. Micro includes negative blood cultures on the . Recall that between the and we had numerous positive blood cultures for coag-negative staph. All but one of which were oxacillin sensitive and that one was highly oxacillin resistant indicating polymicrobial infection. A chest x-ray will be done today, and I personally reviewed the image on the view screen. It shows elevated right hemidiaphragm. There is some compression of the lung olvera, but fairly clear. Note that this has not yet been read by Radiology and this is my infectious disease view point. IMPRESSION: The patient is currently on a combination of vancomycin and Ancef. Recall that most, but not all of his coag-negative Staph isolates were sensitive to beta lactams and we just learned recently that one of the isolates is completely resistant to beta lactams, but is quite sensitive to vancomycin. His blood cultures have cleared and given that the patient would like to keep his Groshong so as to facilitate his TPN therapy ,I think we can try and observe the patient for a bit longer without pulling the Groshong as long as his blood cultures stay negative. If they do stay negative we will be looking at about two weeks of total therapy if we wish to keep the Groshong. RECOMMENDATIONS: 1. Will continue with these antibiotics. 2. Will continue to closely observe this patient. 3. If the Groshong is the cause of his infection or we believe it to be so, and we wish to keep it he will need two weeks of IV therapy.
--- NOTE | 2017-01-12 13:29 | PCM.PHAPRO ---
Progress Date of Service: Jan 12, 2017 VANCOMYCIN MANAGEMENT A\ 81YO M being treated for possible Groshong line infection with R/O of possible heart vegetation. Pt may also have septic arthritis received Vancomycin 1000mg IV Q12H with a Vancomycin trough = 12 before the 4th dose Level was taken slightly late and previous dose given slightly early, suspect that the level might be a bit higher. With chance of vegetation on the heart will need to continue Goal 15-20 P\ Will increase Vancomycin 1250mg IV Q12H starting with next dose at 1800 and check another level before the 4th dose 01/14 0530 Continue to monitor Serum Creatinine due to dose increase but pt GFR has increased since admit. Also look for Culture/TTE results for line and vegetation results respectively. Joel Tabor [facility] Jan 12, 2017 13:29
--- NOTE | 2017-01-12 13:51 | PCM.PHAPRO ---
Progress Date of Service: Jan 12, 2017 TPN MANAGEMENT TPN #5 DAY 5 of inpatient TPN Per Nutrition recommendation will increase Dextrose to goal of 330 grams. Amino Acids 100gram and Lipids 50gram. Pt weight is down slightly to 76.8kg and I/O =1991ml/975ml Adjust electrolytes for increasing Carbon dioxide and decreasing Calcium Tonight's formula for TPN: PARENTERAL NUTRITION ORDERS 5 12-Jan-17 Standard Hang Time: 2100 Substrates Total kcal: 2021 AMINO ACIDS 100 g DEXTROSE 330 g Total Volume (mL): 1800 LIPIDS 50 g Sterile Water for Injection QS mL To Infuse Over (hrs): 24 Total Volume 1800 mL At at a rate of (mL/hr): 75 Additives Sodium Chloride 35 mEq "typical" daily requirements Sodium Acetate 70 mEq Sodium 50-120mEq Potassium Chloride 50 mEq Potassium 60-120mEq Potassium Phosphate 30 mEq Phosphate 20-40mEq Calcium Gluconate 16 mEq Magnesium 8-32mEq Magnesium Sulfate 8 mEq Calcium 9-22mEq Acetate* 80-120mEq Chloride* 80-120mEq Regular Insulin units *Depending on acid-base status Famotidine 40 mg Multivitamins 1 std dose Insulin Regimen Trace Elements 1 std dose none Thiamine mg Regular Low Intensity Subcut Folic Acid mg Regular Medium Intensity Subcut Ascorbic Acid mg Regular High Intensity Subcut Regular Insulin Infusion Other: Will monitor Electrolytes with AM labs Joel Tabor [facility] Jan 12, 2017 13:51
--- NOTE | 2017-01-12 16:46 | NUR ---
NUTRITION FOLLOW-UP: ASSESS: 81 YO male admitted with fevers, abdominal and right flank pain. 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 Pt. has been on outpatient TPN and TPN was started on 01/08. Pharm. notified of plans to increased macros in TPN to goal TPN today. PMHx: HTN, dyslipidemia, hypothyroidism, FAVIAN, CVA, recurrent SBO's with perforation, CAD, CHF, colorectal cancer, in remission. DIET: Clear Liquids. Refusing meals. HOME DIET: Nocturnal TPN and full liquids per notes. LABS: Reviewed. Na 135, K+ 3.9, Cr 0.52, Glu 121, Phos 4.1, Mg 1.7, Alb 2.3. GI symptoms / stool: 450 mL per gastrostomy tube per RN note. ANTHROPOMETRICS: Current Wt: 76.84 kg. Admit Wt: 72.0 kg ESTIMATED NEEDS: Calories: 1800 - 2160 kcal (25 - 30 kcal / kg BW) Protein: 86 - 108 g protein (1.2 - 1.5 g / kg BW) Fluid: Approx. 1800 mL (25 mL / kg BW) NUTRITION DIAGNOSIS: 1.) Altered GI function related to alteration in GI tract structure / function as evidenced by history of colorectal cancer requiring chronic/ongoing TPN with venting gastrostomy tube--PERSISTS. INTERVENTION: 1.) Recommend increasing TPN to goal TPN of 330 g dextrose, 100 g amino acid, 50 g lipid to provide 2025 kcal, 100 g protein per day. MONITOR/EVALUATE: TPN tolerance, diet advance / tolerance, PO intake, labs, GI/nutrition status. Follow per high nutrition risk guidelines.
--- NOTE | 2017-01-12 17:17 | DRSVH ---
PROCEDURE: X-RAY CHEST ONE VIEW, PORTABLE ([id number]) INDICATIONS: hypoxia TECHNIQUE: One view of the chest was acquired. COMPARISON: [facility], CR, XR CHEST 1VW (PORTABLE), 01/06/2017, 3:16. FINDINGS: Surgical changes and devices: Left subclavian line again noted tip projected over the mid superior ve na cava. Lungs and pleura: Chronic elevation the right hemidiaphragm with right hemidiaphragmatic bowel betwee n the diaphragm and liver redemonstrated. Medial bibasilar airspace opacities present, left greater than right. No pneumothorax. Mediastinum: Mediastinal contours appear normal. Heart size is normal. Bones and chest wall: No suspicious bony lesions. Overlying soft tissues appear unremarkable. IMPRESSION: 1. Chronic elevation right hemidiaphragm with intervening bowel between the diaphragm and liver redem onstrated. 2. Bibasilar atelectasis versus aspiration or pneumonia, left greater than right. Correlate clinical ly. Dictated by: Larry ZAVALA Interpreted: Aruna Truong MD on 01/12/2017 at 10:47 Approved by: Aruna Truong M.D. on 01/12/2017 at 17:15
[2017-01-12] MEDS: Vancomycin Inj 1,250 MG in 0.9% Sodium Chloride 250 ML IV SCH (17:48)
--- NOTE | 2017-01-12 19:31 | NUR ---
Pain Pt reported consistent right hip pain throughout the shift. Pain occurs with or without movement. Pt did not want to move in bed or attempt to get up due to the intense pain. He reported the pain as 10/10. Administered 10 mg hydrocodone approximately Q 5 hours for pain. This medication has worked well for pain relief throughout the shift. Also repositioned pt to provide further relief.
[2017-01-12] MEDS: Total Parenteral Nutrition 1 BAG IV SCH (21:58)
--- NOTE | 2017-01-12 22:18 | CONS ---
[address] [address] CONSULTATION REPORT PATIENT: DAYSI SIM : 1935 MR#: [id number] ADMIT: 01/06/2017 JOB ID: [id number] DATE OF SERVICE: 01/12/2017 CPT Code inpatient consultation 58524. CHIEF COMPLAINT: I was asked to see this 81-year-old male in orthopedic consultation for persistent right lateral hip pain. The patient does have history with this admission with bacteremia. He is on a combination of IV vancomycin and Ancef. The patient had previous positive occult blood cultures for coag-negative Staph and the most recent cultures now have been negative. The patient was initially admitted on January 06, 2017. He has problems with recurrent bowel obstructions and has had a prior colectomy and colon cancer in . The patient was recently hospitalized at [facility] with appendicitis and was treated with antibiotics. Dr. Valdemar Jarrett knows this patient well. He evidently spent a month at the hospital and at [facility] on antibiotics. The patient started having fevers and abdominal pain and right flank pain on or about January 05, 2017 and he came to the hospital. ALLERGIES: 1. PENICILLIN. 2. IODINE. CURRENT MEDICATIONS: 1. Ascorbic acid. 2. Atorvastatin. 3. Vitamin D 3. 4. Clonidine. 5. Levothyroxine. 6. Magnesium. 7. Metoclopramide. 8. Metoprolol. 9. Multiple vitamins. PAST MEDICAL HISTORY: Positive for hypertension, hyperlipidemia, hypothyroidism, sleep apnea, history of CVA in 2008, recurrent small-bowel obstructions, prior small bowel obstruction with perforation, coronary artery disease, congestive heart failure, stroke and history of colorectal cancer. PRIOR SURGERY: That of tonsillectomy, thyroidectomy, orchiopexy, TURP, inguinal hernia, repair with lysis of adhesions, colorectal cancer with low anterior resection, exploratory laparotomy with lysis of adhesions 2013, and colon resection and ileostomy. SOCIAL HISTORY: The patient has never smoked. He does not drink. The patient is . REVIEW OF SYSTEMS: Pertinent for pain over the right lateral hip and right flank. IMAGING STUDIES: On the hip MRI showed that he has some mild degenerative changes in the right hip with no evidence of bony infection. He has a small partial thickness tearing or tendinitis involving the right gluteus muscle and gluteus minimus muscles and tendons. He has some edema in the gluteus muscle and proximal quadriceps and adductor muscles. This may be related to muscle strain. He also has a longstanding presacral fluid collection which is chronic. It is possible that he could have an infection in that presacral region. Abdominal x-ray did not show any free air. The patient also had a pelvic CT that showed evidence for bilateral hydronephrosis and ureterectasis. The patient has some presacral mass, may have associated infection. The patient has some partial bowel obstruction on that CAT scan from January 06, 2017. He has gotten gastrostomy tube with tip likely in the stomach. PHYSICAL EXAMINATION: Vital signs today show he is afebrile at 36.8, pulse 82, respiration 20, blood pressure 153/65, pulse ox of 91. Patient is lying in bed. Has complaints of pain over the lateral aspect of the right hip. He is not complaining of pain in the inguinal area but mostly pain over the trochanteric bursa. He also has pain over the right flank. He does not appear to have pain with gentle internal or external rotation of the hip along the inguinal area but more pain over the outside lateral aspect of the hip and right flank region. LABORATORY TESTING: White count from January 11, 2017 shows a white count 7200, hemoglobin 9.4, hematocrit 28.4, platelet count 166,000. Sodium 135, potassium 3.9, chloride 94, CO2 30, BUN 20, creatinine 0.52, random glucose at 121, calcium is 7.8. Urinalysis, few bacteria seen. White count 0-5 white cells. IMPRESSION: A chronically ill gentleman with recent history of bacteremia. Multiple bowel procedures with chronic fluid collection, presacral area. Does not appear to have any significant fluid in the hip joint. There does not appear to be any evidence of osteomyelitis along the hip. Some inflammation along the gluteus muscles. PLAN: I do not see anything that needs surgical intervention for the hip joint itself. I have concerns that he might have an infection in that presacral area, and I would suggest that he certainly could be evaluated by General Surgery. Infectious Disease will also closely follow the patient. Again, I do not feel that orthopedic surgical intervention is required for the hip but, again, General Surgery should evaluate him for the pelvic fluid collection. If you have any further questions, please do not hesitate to contact us. Otherwise, we will sign off for now. I did not feel that the hip joint needed to be aspirated since it does not appear to be in the inguinal area but more along the greater trochanteric bursa. If, however, symptoms increase, he certainly could always have a hip aspirate performed by Radiology under fluoroscopy.
[2017-01-13] VITALS (7 sets, daily range): BP systolic 127–161; BP diastolic 54–75; PULSE 62–93; RESP 16–20; O2SAT 92–96
--- NOTE | 2017-01-13 04:32 | NUR ---
Pain management Pain poorly managed with pain medication d/t lack of education. Attempted to patient educate on the subject of pain control, patient declined morphine, and does not request PO pain meds until pain has become unbearable, in fear that he may develop an addiction. Several attempts have been made to educate patient with no avail. Will continue to offer medications and education . bed in low position, call light within reach, and intentional rounding.
[2017-01-13] MEDS: CeFAZolin Inj 2 GM in IV Premix 1 EACH IV SCH ×3 (04:45→21:33)
[2017-01-13] MEDS: HYDROcodone-APAP 5-325 mg Tablet PO PRN ×5 (04:45→21:34)
--- NOTE | 2017-01-13 05:14 | NUR ---
Distended abdomen Abdomen distinctively distended specifically near colostomy, will continue to monitor.
[2017-01-13] MEDS: Insulin LISPRO 300 Unit/3 mL Inj SUBQ SCH ×4 (08:00→21:34)
[2017-01-13] MEDS: Diltiazem CD 120 mg ER24 Capsule PO SCH (08:27)
[2017-01-13] MEDS: Vancomycin Dose per Pharmacist XX SCH (08:30)
[2017-01-13] MEDS: Vancomycin Inj 1,250 MG in 0.9% Sodium Chloride 250 ML IV SCH ×2 (08:32→18:15)
[2017-01-13 08:42] LABS: Magnesium 1.9 mg/dL (1.6-2.6); Phosphorus 4.3 mg/dL (2.5-4.9)
--- NOTE | 2017-01-13 11:43 | NUR ---
Pain / Oral Care Pt refuses pain medications except for every 5 hrs. Pt appears much more painful that he states. Pt states that he is afraid to get addicted to the pain medications. Pt has been offered oral care several times just this morning and refuses. Care continues
--- NOTE | 2017-01-13 12:39 | PCM.PHAPRO ---
Progress Date of Service: Jan 13, 2017 Requesting Provider: Prateek Shukla MD TPN - Day 6th TPN - Patient is clinically stable, except c/o persisted severe hip pain - All lab values showed no change in electrolytes adjustment made yesterday, considering the new bag of TPN only started 5 hrs or so - Will keep the same TPN for tonight as follow PARENTERAL NUTRITION ORDERS 6 -Dec- Substrates AMINO ACIDS 100 g DEXTROSE 330 g LIPIDS 50 g Sterile Water for Injection QS mL Total Volume 1800 mL Additives Sodium Chloride 35 mEq Sodium Acetate 70 mEq Potassium Chloride 50 mEq Potassium Phosphate 30 mEq Calcium Gluconate 16 mEq Magnesium Sulfate 8 mEq Regular Insulin units Famotidine 40 mg Multivitamins 1 std dose Trace Elements 1 std dose Thiamine mg Folic Acid mg Ascorbic Acid mg Pharmacy will monitor daily Thank you Debra Zamora Jan 13, 2017 12:39
--- NOTE | 2017-01-13 14:02 | NUR ---
NUTRITION FOLLOW-UP: ASSESS: 81 YO male admitted with fevers, abdominal and right flank pain. 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 Pt. has been on outpatient TPN and TPN was started on 01/08. TPN was increased to goal TPN rate on 01/12 and pt appears to be tolerating well so far. Pt continues to refuse clear liquid meals. Per notes, pt abdomen appears distended. PMHx: HTN, dyslipidemia, hypothyroidism, FAVIAN, CVA, recurrent SBO's with perforation, CAD, CHF, colorectal cancer, in remission. DIET: Clear Liquids. Refusing meals. NUTRITION SUPPORT: TPN of 330 g dextrose, 100 g amino acid, 50 g lipid to provide 2025 kcal, 100 g protein per day. HOME DIET: Nocturnal TPN and full liquids per notes. LABS: Reviewed. Cr 0.48, Glu 146, Ca 8.3. GI symptoms / stool: 180 mL per gastrostomy tube today. ANTHROPOMETRICS: Current Wt: 76.2 kg. Admit Wt: 72.0 kg ESTIMATED NEEDS: Calories: 1800 - 2160 kcal (25 - 30 kcal / kg BW) Protein: 86 - 108 g protein (1.2 - 1.5 g / kg BW) Fluid: Approx. 1800 mL (25 mL / kg BW) NUTRITION DIAGNOSIS: 1.) Altered GI function related to alteration in GI tract structure / function as evidenced by history of colorectal cancer requiring chronic/ongoing TPN with venting gastrostomy tube--PERSISTS. INTERVENTION: 1.) Recommend continuing current TPN at this time to meet 100% of pt est. needs. MONITOR/EVALUATE: TPN tolerance, diet advance / tolerance, PO intake, labs, GI/nutrition status. Follow per high nutrition risk guidelines.
--- NOTE | 2017-01-13 14:23 | PCM.PNMED ---
Subjective Date of Service Jan 13, 2017 Subjective pt continued to have severe right hip which limiting his mobility per PT Ortho , no intervention recommended remained afebrile, HD stable, final BCX ngtd Exam Vital Signs Vital Sign - Last Date Time Temp Pulse Resp B/P Pulse Ox O2 Delivery O2 Flow Rate FiO2 01/13/17 12:32 36.3 62 18 127/60 93 Room Air 01/11/17 16:52 2.00 Intake and Output 01/12/17 01/12/17 01/13/17 Cumulative From/Thru 15:00 23:00 07:00 01/06/17 03:10 - 01/13/17 06:36 Intake Total 1061 ml 300 ml 51358 ml Output Total 0 ml 180 ml 7259 ml Balance 1061 ml 120 ml 9220 ml Intake Oral 200 ml 300 ml 3750 ml IV Total 861 ml 6823 ml TPN/PPN 5906 ml Output Urine Total 4394 ml Stool Total 0 ml 0 ml 75 ml Gastric Drainage Total 180 ml 2780 ml Drainage Total 10 ml # Voids 3 3 19 Exam NAD, comfortably laying down on the bed no JVD, MMM, no LAD RRR, nl s1, s2 no mrg CTAB, no w,c, left upper chest, Groshong cath in place TPN running S,distended,NT,normoactive BS+ Rt hip; LROM due to pain, no obvious swelling, erythema, IVs and Medications Medications Reviewed: Medications were reviewed in detail Lab and Diagnostics Result Diagram: 01/11/17 0530 01/13/17 0745 Microbiology Coag negative staph appears to be in 2 of 2 bottles from blood cultures 01/06 and ED. I was not called about these results are still not uncertain these are not contaminant. X-Rays, CTs and MRIs CT ABDOMEN AND PELVIS WITH CONTRAST: Eduardo Grider M.D. on 01/07/2017 at 10:57 1. 6.4 x 4.8 cm thickwalled enhancing fluid collection is not significantly changed in size since December 2015, and currently demonstrates no imaging manifestations of superimposed infection. As such, any determination of superimposed infection would need to be made on clinical grounds. 2. Mild bilateral hydronephrosis has slightly decreased in degree since December. 3. No evidence for small bowel obstruction. 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 Dictated by: Eduardo Grider M.D. on 01/07/2017 at 10:57 CT ABDOMEN AND PELVIS WITHOUT CONTRAST: Arben Foster M.D. on 01/06/2017 at 7: 49 1. New moderate bilateral hydronephrosis and ureterectasis. No calcified obstructing lesions. Findings maybe related to increased inflammatory change in the pelvis. 2. 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 Superimposed infection is possible. This fluid collection would be amenable to CT-guided aspiration for diagnostic purposes if needed. 3. Partial bowel obstruction at the site of the left lower quadrant ostomy with gas-filled dilated colon and intermittently fluid-filled dilated loops of small bowel. Superimposed enteritis is also possible 4. Gastrostomy tube with tip likely in the stomach although poorly seen due to stomach decompression. Dictated by: Arben Foster M.D. on 01/06/2017 at 7:49 12-lead ECG Rate is 88, QTC 418 concurrently reviewed by Vazquez 01/06 . Sinus rhythm * Ventricular premature complex . Borderline prolonged PA interval . Probable left atrial enlargement . When compared with ECG of 07-Apr-2016 9:19:45, * PVCs are now present * PACs are no longer present * ST elevation is no longer present Assessment & Plan 81-year-old male admitted 01/06 probable abdominal abscess following conservative antibiotic treatment of appendicitis in November. 01/07 patient not showing any signs of infection today, pain is dissipated. Lab work is normalized. He is not on any antibiotics and repeat CT scan with contrast does not suggest that this is an abscess in the fluid has not changed in nature. Urology is consulted thank you Dr. Duran was reiterated his prior recommendations formal note. I am going to begin resuming this patient's diabetes normally on full liquids and on nocturnal TPN for 14 hours. We have an additional dose of TPN ordered for Monday 01/08 the still here but I think if he is medically stable he may discharge 01/08. 01/[address] Lemon infectious disease receiving the patient is growing 3 or 4 out of 4 bottles coag-negative staph likely source Groshong catheter. Concern hip pain possible septic arthritis. Would be vigilant, will order TTE rule out endocarditis. Timing of removal of central line and replacement of IV access and antibiotics per infectious disease thank you very much. Patient to start his TPN tonight. acute, active #persistent Coag-negative bacteremia, POA, possible source: line infection with Groshong cath, BCX 01/06 staph coag neg, 01/07, 01/08 from peripheral, from Groshong again staph. TTE negative for vegetation. -pt remained afebrile, clinically stable, -awaits repeat BCX 01/10 from peripheral/Groshong, ngtd. -started Ancef 2gq8h per ID, added vancomycin per ID 01/11, -possibly BOBBI based on culture form Groshong -will likely pull out Groshong, coordinate with ID #Rt hip tenderness, pain, POA, this is main concerns pt has. no images obtained. MRI showed DJD, known presacral fluid, at this time suggestive of abscess, consulted , unlikely related to hip joint -pain control, daily PT #presacral fluid collection. reviewed with Dr Simmons (IR), largely unchanged from March 2016, s/p abx for appendicitis May @ [facility]. Pt has contrast allergy and trequired pretreatment tolerated the contrast 01/07. CT Not suggestive of infective abscess. MRI 01/09 suggestive of possible abscess. Unclear if this is source of pain or infection, previously reviewed by radiology, didn't feel this is worthwhile to drain given chronic status, Dr. Lemon doesn't feel this is source of infection -will consider surgery consult #SBO-noted on CT 01/06 w/o contrrast not on 01/07 w/ contrast, Extensive surgical history, drainage with venting gastrostomy/Groshong cath inserted in for TPN -continue full liquids, nocturnal TPN, -try to remain open his gastrostomy at night, drainage as needed. -no strong Ix to keep Groshong cath, consider switch to PICC if it's infected. chronic, stable #New bilateral hydroureter-reviewed with Dr Duran (), he agrees that this is new hydroureter but not necessarily obstruction, -Formal consult if after Camara placed if there is no resolution and/or worsening renal function -Recommended follow-up radio nucleotide study with Lasix washout -UA clear, patient urinating well 01/07 #anemia-trending down until 01/08, likely dilutional, stable now #HTN/lipids,controlled with home medications today #Protein caloric malnutrition-resuming patient's nocturnal TPN 14 hours at night 01/08 -Patient is up to eating full liquids at home. -He has a venting gastrostomy I believe due to chronic partial bowel obstruction type issues. #Hyponatremia- Resolved 01/07 #Hx colon CA-distorted anatomy status post partial colectomy, reports failed anastomosis with leaking, patient now has pouch. #Prophylaxis- DVT with SCDs and enoxaparin, GI H2 RA #Disposition- from home, pending given persistent bacteremia DNR/DNI VTE Mechanical Devices: Intermittant Pneumatic CD Time spent 35min Compa Manuel MD Jan 13, 2017 14:23
--- NOTE | 2017-01-13 18:28 | PROG NOTE ---
[address] [address] PROGRESS NOTE PATIENT: DAYSI SIM : 1935 MR#: [id number] ADMIT: 01/06/2017 JOB ID: [id number] DATE: 01/13/2017 REASON FOR FOLLOWUP: High-grade coag-negative Staph bacteremia in a patient receiving TPN for recurrent and chronic bowel obstructions. INTERVAL HISTORY: The patient notes that his right hip/pelvic pain is actually worsening. Recall that this patient has had days of increasing and now agonizing pain which he says is due to his hip. This pain is made much worse by motion and is a bit difficult to localize but seems perhaps slightly superior to the hip joint. We have done a great deal of imaging but have been unable to find a clear etiology for this. He has no associated fevers, chills, or cough. He has no nausea or vomiting at this point. PHYSICAL EXAMINATION: Reveals a gentleman who is suffering. He is in obvious and severe pain. Temperature 36.3. He has been afebrile since admission. Pulse 62, respiratory rate 18, blood pressure 127/60, saturating 93% on room air. The patient's mental status is clear though he is in a great deal of pain and is easily distracted by that. Oral cavity without change and has relatively poor dentition. His lungs are relatively clear. Cardiac tones without notable new murmur. Groshong catheter appears benign. His abdomen is relatively nontender except in the right lower quadrant just above the hip joint and then down to and involving the true hip joint, where there is a great deal of tenderness to palpation. When I reach behind the patient and palpate at around the level of the iliac crest, he almost screams in pain, it is so severe. LABORATORIES: Include white blood count 7200, liver function tests normal. Creatinine 0.48. LFTs normal. No white cells in the urine. Blood cultures from the remain negative now at 3 days. The prior blood cultures were largely positive for coag-negative Staph. IMAGING: Includes the chest x-ray that shows chronic elevation in the right hemidiaphragm and some atelectasis. Of more importance perhaps is the MRIs and CTs. The CT of the hip shows mild degeneration of the hip joint and low-grade partial tear of the right gluteus medius and gluteus minimus tendons, as well as some muscle edema in that area. He continues to have that large loculated presacral fluid collection which we have been aware of for quite some time. IMPRESSION: The patient's coag-negative Staph bacteremia is under control. It remains unclear to me if this came from the Groshong or not, but in any event, he needs the Groshong for his TPN due to his ongoing bowel obstructions, and so I think it is reasonable to try and salvage the Groshong with a couple weeks of IV therapy. We now have negative blood cultures and his white count, temperature and other parameters are consistent with improvement. The problem with this case is the patient has truly agonizing right lower quadrant/hip pain which seems unexplained by the hip MRI as well as the CTs of the abdomen and pelvis. The presacral fluid collection appears to have some gas in it. Note that this fluid collection has been there for more than a year and is of unknown etiology. I wonder if it could be superinfected and causing some of these symptoms. RECOMMENDATIONS: 1. I would consult General Surgery to help us evaluate this patient's pain and the imaging findings. 2. I would strongly consider having IR stick a drain into that presacral fluid collection and obtain some good samples to see if it is infected, malignant, or exactly what is the nature of that process. 3. For now I would continue with our current antibiotics which include cefazolin and vancomycin. Recall that he had two separate species of coag-negative Staph, with the predominant species being Ancef susceptible.
[2017-01-13] MEDS: Total Parenteral Nutrition 1 BAG IV SCH (21:33)
--- NOTE | 2017-01-14 02:37 | NUR ---
Pain Patient reports taking a dose of morphine on previous shift and pain had reduced enough for him to get some sleep. Patient agrees that he is much more comfortable today. Continues to refuse oral care when offered. bed in low position, call light within reach, intentional rounding.
[2017-01-14] MEDS: HYDROcodone-APAP 5-325 mg Tablet PO PRN ×4 (02:51→21:41)
[2017-01-14] MEDS ORDERED: Vancomycin Serum Trough XX ONE (05:30)
[2017-01-14] MEDS: CeFAZolin Inj 2 GM in IV Premix 1 EACH IV SCH ×3 (06:10→21:20)
[2017-01-14] MEDS: Insulin LISPRO 300 Unit/3 mL Inj SUBQ SCH ×4 (08:00→21:20)
[2017-01-14] MEDS: Diltiazem CD 120 mg ER24 Capsule PO SCH (08:23)
[2017-01-14] MEDS: Vancomycin Inj 1,250 MG in 0.9% Sodium Chloride 250 ML IV SCH ×2 (08:26→18:09)
[2017-01-14] MEDS: Vancomycin Dose per Pharmacist XX SCH (08:26)
--- NOTE | 2017-01-14 09:22 | PCM.PHAPRO ---
Progress TPN PARENTERAL NUTRITION ORDERS 7 14-Jan-17 Standard Hang Time: 2100 Substrates Total kcal: 2021 AMINO ACIDS 100 g DEXTROSE 330 g Total Volume (mL): 1800 LIPIDS 50 g Sterile Water for Injection QS mL To Infuse Over (hrs): 24 Total Volume 1800 mL At at a rate of (mL/hr): 75 Additives Sodium Chloride 90 mEq "typical" daily requirements Sodium Acetate 30 mEq Sodium 50-120mEq Potassium Chloride 40 mEq Potassium 60-120mEq Potassium Phosphate 20 mEq Phosphate 20-40mEq Calcium Gluconate 16 mEq Magnesium 8-32mEq Magnesium Sulfate 16 mEq Calcium 9-22mEq Acetate* 80-120mEq Chloride* 80-120mEq Regular Insulin units *Depending on acid-base status Famotidine 40 mg Multivitamins 1 std dose Insulin Regimen Trace Elements 1 std dose none Thiamine mg Regular Low Intensity Subcut Folic Acid mg Regular Medium Intensity Subcut Ascorbic Acid mg Regular High Intensity Subcut Regular Insulin Infusion Other: Special Instructions: To be infused via central line only. For delay or inturruption of TPN contact the pharmacist for alternative replacement solution. Signature Date: DAYSI SIM [address] [place] [address] Arnaldo Louis Pharm.D Jan 14, 2017 09:22
--- NOTE | 2017-01-14 11:38 | NUR ---
Therapist discussed goal of PT for today. Pt denied willingness to participate due to severe R hip pain. Pt wincing and grimacing in pain throughout discussion with therapist. Therapist also recommended and educated importance of trying an "in bed" exercise program to maintain strength and mobility in non-affected extremities. Pt also denies willingness to complete an exercise program of BUE/LLE due to severe pain. Will re-attempt tomorrow.
--- NOTE | 2017-01-14 12:24 | NUR ---
Social Work: Continued Discharge Planning D: EMR reviewed. Pt is on day 8 of hospitalization. Pt is open with [facility] for TPN, [facility] for RN 1x/week, and [facility] for shower aide 3x/week and colostomy care. Per MD in AM multi-disciplinary rounds, pt is likely to leave on IVABX - pending ID. Pt will likely remain in hospital through weekend for intractable right hip pain. Pt likely to discharge home and resume services. SW will continue to follow for ABX needs at discharge. A: Pt is open with [facility] for TPN, [facility] for RN 1x/week, and [facility] for shower aide 3x/week and colostomy care. P: Per MD in AM multi-disciplinary rounds, pt is likely to leave on IVABX - pending ID. Pt will likely remain in hospital through weekend for intractable right hip pain. Pt likely to discharge home and resume services. SW will continue to follow for ABX needs at discharge. GILBERT Sethi
--- NOTE | 2017-01-14 13:08 | PROG NOTE ---
[address] [address] PROGRESS NOTE PATIENT: DAYSI SIM : 1935 MR#: [id number] ADMIT: 01/06/2017 JOB ID: [id number] DATE: 01/14/2017 INFECTIOUS DISEASE FOLLOW UP NOTE: REASON FOR FOLLOWUP: High-grade coag-negative Staph bacteremia in a patient receiving TPN through a Groshong catheter. INTERVAL HISTORY: The patient reports he is still having considerable pain in the area just above and posterior to his right hip. He thinks it may be slightly better overnight. He is not having fevers or chills. He denies shortness of breath. No significant abdominal pain. PHYSICAL EXAMINATION: Reveals a slightly more comfortable gentleman. Temperature 36.8, pulse 93, respiratory rate 18, blood pressure 161/75. He is in no distress but obviously still has some pain. Oral cavity without change. Lungs fairly clear bilaterally. Cardiac tones without a murmur. The Groshong line looks benign and TPN is infusing through it. His abdomen is notable for the colostomy. It is relatively nontender. The area around the right iliac and just above the right hip remains quite tender to palpation though there is no erythema. No new white count. Last one was a couple days ago. Normal of 7200. We do have creatinine from today 0.49. Micro includes negative blood cultures on the after we had a variety of positives from January 06 to January 08 for coag-negative Staph. Chest x-ray from the shows chronic elevation of the right hemidiaphragm as was previously discussed. IMPRESSION: The patient's coag-negative staph bacteremia has now been controlled with a combination of vanc and Ancef. It is still unclear whether this arose from the Groshong or not but given the fact he needs the Groshong for TPN, will try and salvage it in any event, with two weeks of IV antibiotic therapy. The severe right lower quadrant, right hip area pain continues though it may be a bit better but still think it would be reasonable to have General Surgery evaluate this. RECOMMENDATIONS: 1. General surgery consult to evaluate that pain and see if it may be related to the presacral process he has had. 2. I would consider having Interventional Radiology put a drain in that presacral fluid collection. to better characterize it. 3. Will continue with cefazolin and vanco. If nothing else changes, we will go with those antibiotics through January 22.
[2017-01-14 13:14] VITALS: BP 138/70; PULSE 82; RESP 18; O2SAT 92
--- NOTE | 2017-01-14 13:24 | PCM.PNMED ---
Subjective Date of Service Jan 14, 2017 Subjective He is seen to follow up the right hip pain, the presacral fluid collection and the complicated infectious picture. He says the RLQ/Right hip pain is better today. The blood pressure is high at 161/75. Orthopedics has not found any problem with the hip joint. Exam Vital Signs Vital Sign - Last Date Time Temp Pulse Resp B/P Pulse Ox O2 Delivery O2 Flow Rate FiO2 01/13/17 21:15 36.8 93 18 161/75 96 Room Air 01/11/17 16:52 2.00 Intake and Output 01/13/17 01/13/17 01/14/17 Cumulative From/Thru 15:00 23:00 07:00 01/06/17 03:10 - 01/14/17 06:46 Intake Total 1693 ml 1315 ml 38955 ml Output Total 0 ml 100 ml 7359 ml Balance 1693 ml 1215 ml 50846 ml Intake Oral 320 ml 60 ml 4130 ml IV Total 468 ml 428 ml 7719 ml TPN/PPN 905 ml 827 ml 7638 ml Output Urine Total 4394 ml Stool Total 0 ml 0 ml 75 ml Gastric Drainage Total 2780 ml Drainage Total 100 ml 110 ml # Voids 3 3 25 # Bowel Movements 0 0 Exam Alert and Oriented X 3, NAD Heart: RRR without murmur. Lungs: CTAB Ext: No ankle edema. The right hip is not tender. Abdomen: The RLQ is tender. Bowel Sounds are normal. No masses felt. IVs and Medications Medications Reviewed: Medications were reviewed in detail Lab and Diagnostics Result Diagram: 01/11/17 0530 01/14/17 0600 Microbiology Coag negative staph appears to be in 2 of 2 bottles from blood cultures 01/06 and ED. X-Rays, CTs and MRIs CT ABDOMEN AND PELVIS WITH CONTRAST: Eduardo Grider M.D. on 01/07/2017 at 10:57 1. 6.4 x 4.8 cm thickwalled enhancing fluid collection is not significantly changed in size since December 2015, and currently demonstrates no imaging manifestations of superimposed infection. As such, any determination of superimposed infection would need to be made on clinical grounds. 2. Mild bilateral hydronephrosis has slightly decreased in degree since December. 3. No evidence for small bowel obstruction. 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 Dictated by: Eduardo Grider M.D. on 01/07/2017 at 10:57 CT ABDOMEN AND PELVIS WITHOUT CONTRAST: Arben Foster M.D. on 01/06/2017 at 7: 49 1. New moderate bilateral hydronephrosis and ureterectasis. No calcified obstructing lesions. Findings maybe related to increased inflammatory change in the pelvis. 2. 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 Superimposed infection is possible. This fluid collection would be amenable to CT-guided aspiration for diagnostic purposes if needed. 3. Partial bowel obstruction at the site of the left lower quadrant ostomy with gas-filled dilated colon and intermittently fluid-filled dilated loops of small bowel. Superimposed enteritis is also possible 4. Gastrostomy tube with tip likely in the stomach although poorly seen due to stomach decompression. Dictated by: Arben Foster M.D. on 01/06/2017 at 7:49 12-lead ECG Rate is 88, QTC 418 concurrently reviewed by Vazquez 01/06 . Sinus rhythm * Ventricular premature complex . Borderline prolonged IN interval . Probable left atrial enlargement . When compared with ECG of 07-Apr-2016 9:19:45, * PVCs are now present * PACs are no longer present * ST elevation is no longer present Assessment & Plan 81-year-old male admitted 01/06 probable abdominal abscess following conservative antibiotic treatment of appendicitis in November. acute, active #persistent Coag-negative bacteremia, POA, possible source: line infection with Groshong cath, BCX 01/06 staph coag neg, 01/07, 01/08 from peripheral, from Groshong again staph. TTE negative for vegetation. -pt remains afebrile, clinically stable, -started Ancef [id number] per ID, added vancomycin per ID 01/11, -possibly BOBBI based on culture form Groshong -will likely pull out Groshong, coordinate with ID #Rt hip tenderness, pain, POA, this is main concerns pt has. MRI showed DJD, known presacral fluid, at this time suggestive of abscess, consulted , unlikely related to hip joint -pain control, daily PT #presacral fluid collection. reviewed with Dr Simmons (IR), largely unchanged from March 2016, s/p abx for appendicitis May @ [facility]. Pt has contrast allergy and trequired pretreatment tolerated the contrast 01/07. CT Not suggestive of infective abscess. MRI 01/09 suggestive of possible abscess. Unclear if this is source of pain or infection, previously reviewed by radiology, didn't feel this is worthwhile to drain given chronic status, Dr. Lemon didn't originally feel this is the source of infection, but is now recommending IR drain catheter. -Spoke with Radiology today, who will put him on the IR schedule for Pigtail Catheter drainage on Tuesday 01/16. #SBO-noted on CT 01/06 w/o contrrast not on 01/07 w/ contrast, Extensive surgical history, drainage with venting gastrostomy/Groshong cath inserted in for TPN -continue full liquids, nocturnal TPN, -try to remain open his gastrostomy at night, drainage as needed. -no strong Ix to keep Groshong cath, consider switch to PICC if it's infected. chronic, stable #New bilateral hydroureter-reviewed with Dr Duran () previoiusly, he agreed that this is new hydroureter but not necessarily obstruction, -Formal consult if after Camara placed if there is no resolution and/or worsening renal function -Recommended follow-up radio nucleotide study with Lasix washout -UA clear, patient urinating well #anemia-trending down until 01/08, likely dilutional, stable now #HTN/lipids,controlled with home medications today #Protein caloric malnutrition-resuming patient's nocturnal TPN 14 hours at night 01/08 -Patient is up to eating full liquids -He has a venting gastrostomy I believe due to chronic partial bowel obstruction type issues. #Hyponatremia- Resolved 01/07 #Hx colon CA-distorted anatomy status post partial colectomy, reports failed anastomosis with leaking, patient now has pouch. #Prophylaxis- DVT with SCDs and enoxaparin, GI H2 RA #Disposition- home when the hip pain/presacral fluid collection issue is settled. DNR/DNI VTE Mechanical Devices: Intermittant Pneumatic CD Sergey Santos MD Jan 14, 2017 10:05
[2017-01-14] MEDS: TOBRAMYCIN DEXAMETHASONE BOTH_EYES SCH ×2 (16:31→21:32)
--- NOTE | 2017-01-14 17:32 | NUR ---
eye drainage/colostomy output/left hip pain bilateral eyes crusted shut this am. cleaned with warm wash cloth. yellow discharge both eyes throughout day crusting over when sleeping. patient reports irritation to both eyes. Dr Santos notified, received orders for eye drops. minimal output with colostomy today. patient has also had minimal PO intake today refusing both breakfast and lunch. left hip continues to be painful, rating 4-5/10 at worse. Patient does grimace and self splints left side with any position changes. I suspect that patient's pain level is higher than he states. encourage pain meds PRN and continue to monitor.
[2017-01-14 21:00] VITALS: BP 136/67; PULSE 84; RESP 20; O2SAT 94
[2017-01-14] MEDS: Total Parenteral Nutrition 1 BAG IV SCH (21:24)
[2017-01-15] MEDS: HYDROcodone-APAP 5-325 mg Tablet PO PRN ×5 (02:35→21:46)
[2017-01-15] MEDS: TOBRAMYCIN DEXAMETHASONE BOTH_EYES SCH ×4 (02:38→20:22)
[2017-01-15] MEDS: CeFAZolin Inj 2 GM in IV Premix 1 EACH IV SCH ×3 (05:21→20:22)
[2017-01-15 05:43] VITALS: BP 127/64; PULSE 77; RESP 18; O2SAT 93
[2017-01-15] MEDS: Vancomycin Inj 1,250 MG in 0.9% Sodium Chloride 250 ML IV SCH ×2 (06:23→17:38)
--- NOTE | 2017-01-15 06:32 | NUR ---
Eye/ Pain Eye discharge decreased over shift. Pt.'s pain increased with turning. PO Sayre and IV morphine given as needed.
[2017-01-15] MEDS: Insulin LISPRO 300 Unit/3 mL Inj SUBQ SCH ×4 (07:56→21:51)
[2017-01-15] MEDS: Diltiazem CD 120 mg ER24 Capsule PO SCH (07:59)
[2017-01-15 08:02] VITALS: BP 170/77; PULSE 93; RESP 18; O2SAT 92
--- NOTE | 2017-01-15 08:07 | PCM.PHAPRO ---
Progress TPN PARENTERAL NUTRITION ORDERS 8 15-Jan-17 Standard Hang Time: 2100 Substrates Total kcal: 2021 AMINO ACIDS 100 g DEXTROSE 330 g Total Volume (mL): 1800 LIPIDS 50 g Sterile Water for Injection QS mL To Infuse Over (hrs): 24 Total Volume 1800 mL At at a rate of (mL/hr): 75 Additives Sodium Chloride 100 mEq "typical" daily requirements Sodium Acetate 40 mEq Sodium 50-120mEq Potassium Chloride 0 mEq Potassium 60-120mEq Potassium Phosphate 20 mEq Phosphate 20-40mEq Calcium Gluconate 16 mEq Magnesium 8-32mEq Magnesium Sulfate 8 mEq Calcium 9-22mEq Acetate* 80-120mEq Chloride* 80-120mEq Regular Insulin units *Depending on acid-base status Famotidine 40 mg Multivitamins 1 std dose Insulin Regimen Trace Elements 1 std dose none Thiamine mg Regular Low Intensity Subcut Folic Acid mg Regular Medium Intensity Subcut Ascorbic Acid mg Regular High Intensity Subcut Regular Insulin Infusion Other: Special Instructions: To be infused via central line only. For delay or inturruption of TPN contact the pharmacist for alternative replacement solution. Signature Date: DAYSI SIM [address] [place] [address] Arnaldo Louis Pharm.D Jan 15, 2017 08:07
[2017-01-15] MEDS: Vancomycin Dose per Pharmacist XX SCH (08:30)
--- NOTE | 2017-01-15 10:43 | CONS ---
[address] [address] CONSULTATION REPORT PATIENT: DAYSI SIM : 1935 MR#: [id number] ADMIT: 01/06/2017 JOB ID: [id number] DATE OF SERVICE: 01/15/2017 CHIEF COMPLAINT: Abdominal and right hip pain. This consultation is requested by Ulisses Santos MD. HISTORY OF PRESENT ILLNESS: This is an 81-year-old man who has been admitted to this hospital since January 06, when he presented with abdominal pain, right hip pain, and fever. His admission note reports that he had been hospitalized at [facility] with appendicitis which was treated with antibiotics alone, and that he spent the majority of the month of November as an inpatient. He had been discharged and returned to [facility] with weakness, abdominal pain, and fever. 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 With regards to his past surgical history, he had rectal cancer in 2008. He underwent neoadjuvant radiation and chemotherapy and on November 13, 2008 had a low anterior resection with J-pouch reconstruction and diverting ileostomy for what was found to be a T3 N0 M0 which was done by Dr. Cee willoughby at [facility]. He had exploratory laparotomy with lysis of adhesions in November 2008, and on January 08, 2009 he had a takedown of his ileostomy which was combined with transurethral resection of prostate. Since then, he has been admitted with bowel obstructions in December 2008, June 2010, May 2011, and August 2011. He was then taken to the operating room by Dr. 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 An abdominoperineal resection was performed with a permanent end colostomy with extensive lysis of adhesions. He went back to the operating room in July 2013 for a large parastomal hernia again with multiple bowel obstructions, and underwent repair of the parastomal hernia with stratus and extensive lysis of adhesions. He also went to the operating room on February 11, 2014 for another exploratory laparotomy with lysis of adhesions and repair of recurrent parastomal hernia, biopsy of pelvic tissue, and repair of enterotomy. He has been having recurrent partial small bowel obstruction since that time which he manages at home with a clear liquid diet. He is followed by Dr. Jarrett as an outpatient. In December 2015 he had right lower quadrant pain and was diagnosed with a micro perforation of unclear etiology such as appendicitis, and he developed a small amount of loculated free air in the right upper quadrant and the fluid collection was drained by Interventional Radiology. He was also treated with antibiotics. He was discharged in January 2016. He returned to the hospital in March 2016 with abdominal pain, nausea, vomiting, and chills. He was seen by both Dr. Covarrubias and Dr. Jarrett. Surgery was avoided at that time. On this admission, he is noted to have a venting gastrostomy tube, which appears to have been placed sometime in the last two months because on November 22, [address] scan at [facility] which does not demonstrated this gastrostomy tube. At that time he had an NG tube in place. He has had essentially no ostomy output on this admission. He is on TPN, has essentially no oral intake either, and he still has a fluid collection in the pelvis posterior to the bladder, which has been present for years. His primary complaint at this time is right hip pain. He has been scheduled for drainage of the pelvic fluid collection tomorrow. PAST MEDICAL HISTORY: 1. Hypertension. 2. Hyperlipidemia. 3. Hypothyroidism. 4. Sleep apnea. 5. Stroke. 6. Coronary artery disease. 7. Congestive heart failure. PAST SURGICAL HISTORY: 1. Abdominal operations as noted above in the HPI. 2. Thyroidectomy. 3. Tonsillectomy. 4. Orchiopexy. MEDICATIONS: Reviewed and include: 1. Vancomycin. 2. Cefazolin. 3. TPN. 4. MiraLAX. ALLERGIES: 1. PENICILLINS. 2. IODINE. SOCIAL HISTORY: Reviewed and unchanged. He lives with his at home most of the time. He has not required home TPN. At home his venting gastrostomy was clamped. REVIEW OF SYSTEMS: An 11-point review of systems is positive as noted in the HPI and is otherwise negative. PHYSICAL EXAMINATION: Temperature 36.7, heart rate 93, blood pressure 170/77, respiratory rate of 18, saturation 92% on room air. General: Awake, alert, no acute distress, but he does appear to have significant malaise. Head normocephalic. Neck supple. Respiratory: Breathing easily on room air. Abdomen soft, distended, somewhat tympanic, mild tenderness. There is a left-sided venting gastrostomy in place with a tiny amount of green fluid in it. Left-sided colostomy is present with a trace amount of brown stool. LABS: White blood cell count was last measured on January 11, 2017 and was 7.2, hematocrit was 28.4, platelets 166. Basic metabolic panel today revealed sodium 131, potassium 5.2, creatinine 0.57. IMAGING: CT scan from January 07, 2017, November 22, 2016, and April 06, 2016 are [address]-guided drainage of abscess cavity dated January 20, 2016 is personally reviewed. He has chronically dilated loops of bowel, colostomy with parastomal hernia. The most recent CT scan shows the chronic fluid collection which has been present for greater than one year, parastomal hernia, venting gastrostomy and no sign of acute fluid collection and no discrete transition point. He has mild bilateral hydronephrosis as well. ASSESSMENT: An 81-year-old man with a very complex past surgical history and chronic bowel obstruction as well as a chronic pelvic fluid collection. He is a poor candidate for any surgical intervention given his history as noted above. RECOMMENDATIONS: I recommend conservative management as has been performed thus far on this hospitalization by the primary team. The patient's care will be discussed with Dr. Valdemar Jarrett tomorrow. Although I am not opposed to drainage of the pelvic fluid collection, I am not hopeful that it will improve his overall clinical situation. Thank you very much for this interesting consultation.
--- NOTE | 2017-01-15 13:47 | PCM.PNMED ---
Subjective Date of Service Jan 15, 2017 Subjective He is seen today to follow up the hip pain and complicated abdominal surgical situation. He continues on liquids during the day by mouth and TPN at night. He has a venting gastric tube. His case is discussed extensively with Dr. Tong who has reviewed his scans and prior reports/procedures. The right hip pain persists. He has no hip abnormality on exam or on prior orthopedic evaluation. The current antibiotic plan is to continue until January 22. Exam Vital Signs Vital Sign - Last Date Time Temp Pulse Resp B/P Pulse Ox O2 Delivery O2 Flow Rate FiO2 01/15/17 08:02 36.7 93 18 170/77 92 Room Air 01/11/17 16:52 2.00 Intake and Output 01/14/17 01/14/17 01/15/17 Cumulative From/Thru 15:00 23:00 07:00 01/06/17 03:10 - 01/15/17 05:43 Intake Total 1467 ml 150 ml 25486 ml Output Total 80 ml 1196 ml 8635 ml Balance 1387 ml -1046 ml 10629 ml Intake Oral 200 ml 150 ml 4480 ml IV Total 383 ml 8102 ml TPN/PPN 884 ml 8522 ml Output Urine Total 1126 ml 5520 ml Stool Total 0 ml 0 ml 75 ml Gastric Drainage Total 80 ml 70 ml 2930 ml Drainage Total 110 ml # Voids 4 29 # Bowel Movements 0 0 Exam Alert, oriented 3, moderate level of distress with the slightest touch in the right lower quadrant. Heart is regular rate and rhythm with a 2/6 systolic ejection murmur Lungs are clear to auscultation bilaterally Extremities have no ankle edema Abdomen is soft, no masses, left-sided PEG tube noted. Right lower quadrant exquisitely tender. IVs and Medications Medications Reviewed: Medications were reviewed in detail Lab and Diagnostics Result Diagram: 01/11/17 0530 01/15/17 0530 Microbiology Coag negative staph appears to be in 2 of 2 bottles from blood cultures 01/06 and ED. X-Rays, CTs and MRIs CT ABDOMEN AND PELVIS WITH CONTRAST: Eduardo Grider M.D. on 01/07/2017 at 10:57 1. 6.4 x 4.8 cm thickwalled enhancing fluid collection is not significantly changed in size since December 2015, and currently demonstrates no imaging manifestations of superimposed infection. As such, any determination of superimposed infection would need to be made on clinical grounds. 2. Mild bilateral hydronephrosis has slightly decreased in degree since December. 3. No evidence for small bowel obstruction. 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 Dictated by: Eduardo Grider M.D. on 01/07/2017 at 10:57 CT ABDOMEN AND PELVIS WITHOUT CONTRAST: Arben Foster M.D. on 01/06/2017 at 7: 49 1. New moderate bilateral hydronephrosis and ureterectasis. No calcified obstructing lesions. Findings maybe related to increased inflammatory change in the pelvis. 2. 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 Superimposed infection is possible. This fluid collection would be amenable to CT-guided aspiration for diagnostic purposes if needed. 3. Partial bowel obstruction at the site of the left lower quadrant ostomy with gas-filled dilated colon and intermittently fluid-filled dilated loops of small bowel. Superimposed enteritis is also possible 4. Gastrostomy tube with tip likely in the stomach although poorly seen due to stomach decompression. Dictated by: Arben Foster M.D. on 01/06/2017 at 7:49 12-lead ECG Rate is 88, QTC 418 concurrently reviewed by Vazquez 01/06 . Sinus rhythm * Ventricular premature complex . Borderline prolonged CO interval . Probable left atrial enlargement . When compared with ECG of 07-Apr-2016 9:19:45, * PVCs are now present * PACs are no longer present * ST elevation is no longer present Assessment & Plan 81-year-old male admitted 01/06 probable abdominal abscess following conservative antibiotic treatment of appendicitis during November in [facility]. acute, active #persistent Coag-negative bacteremia, POA, possible source: line infection with Groshong cath, BCX 01/06 staph coag neg, 01/07, 01/08 from peripheral, from [facility] again staph. TTE negative for vegetation. -pt remains afebrile, clinically stable, -started Ancef 2gq8h per ID, added vancomycin per ID 01/11, pending stop date of January 22 -possibly BOBBI based [facility] -Update status on [facility], coordinate with ID #Rt hip tenderness, pain, POA, this is main concern that the pt has. MRI showed DJD, known presacral fluid, at this time suggestive of abscess, consulted , unlikely related to hip joint -pain control, daily PT -Gen. surgery consultation today. See that report. #presacral fluid collection. reviewed with Dr Simmons (IR), largely unchanged from March 2016, s/p abx for appendicitis November @ [facility]. Pt has contrast allergy and trequired pretreatment tolerated the contrast 01/07. CT Not suggestive of infective abscess. MRI 01/09 suggestive of possible abscess. Unclear if this is source of pain or infection, previously reviewed by radiology, didn't feel this is worthwhile to drain given chronic status, Dr. Lemon didn't originally feel this is the source of infection, but is now recommending IR drain catheter. -Spoke with Radiology yesterday, who will put him on the IR schedule for Pigtail Catheter drainage on Tuesday 01/16. -Spoke with general surgery today. Dr. Tong evaluated the patient and will speak further with Dr. Jarrett tomorrow. Limited options at this point. #SBO-noted on CT 01/06 w/o contrast not on 01/07 w/ contrast, Extensive surgical history, drainage with venting gastrostomy/Groshong cath inserted in for TPN -continue full liquids with nocturnal TPN to provide sufficient nutrition for healing. -open his gastrostomy at night, drainage as needed. -no strong reasons to keep Groshong cath, consider switch to PICC if it's infected. chronic, stable #New bilateral hydroureter-reviewed with Dr Duran () earlier, he agreed that this is new hydroureter but not necessarily obstruction, -The plan was formal consult if after Camara placed if there is no resolution and /or worsening renal function -Recommended follow-up radio nucleotide study with Lasix washout -UA clear, patient urinating well now #anemia-trending down until 01/08, likely dilutional, stable now #HTN/lipids,controlled with home medications today #Protein caloric - resumed nocturnal TPN 14 hours at night 01/08 -Patient is up to eating full liquids -He has a venting gastrostomy due to chronic partial bowel obstruction type issues. #Hyponatremia- Resolved 01/07 #Hx colon CA-distorted anatomy status post partial colectomy, reports failed anastomosis with leaking, patient now has pouch. #Prophylaxis- DVT with SCDs and enoxaparin, GI H2 RA #Disposition- home when the hip pain/presacral fluid collection issue is settled. Unable to predict discharge range days. DNR/DNI Pain Evaluation: Adequate Pain Control VTE Mechanical Devices: Intermittant Pneumatic CD Sergey Santos MD Jan 15, 2017 10:20
[2017-01-15 14:45] VITALS: BP 128/64; PULSE 66; RESP 18; O2SAT 92
--- NOTE | 2017-01-15 18:30 | NUR ---
Eyes mentation Eyes look much improved with the drops. Pt seems slihgtly depressed today. States he "is in this repetitive never-ending huslia that he cant get out of." Encouraged pt with the fact that we are controlling his pain much better by giving him his pain medication every 4hrs. Also encouraged him with the fact that the surgeons will consult and therefore he will have somewhat of a second opinion. Pt continues to be incontinent.
[2017-01-15 20:20] VITALS: BP 146/77; PULSE 96; RESP 20; O2SAT 93
[2017-01-15] MEDS: Total Parenteral Nutrition 1 BAG IV SCH (20:45)
[2017-01-16] VITALS (10 sets, daily range): BP systolic 103–163; BP diastolic 38–99; PULSE 67–98; RESP 12–20; O2SAT 92–94
[2017-01-16] MEDS: CeFAZolin Inj 2 GM in IV Premix 1 EACH IV SCH ×3 (04:00→19:35)
[2017-01-16] MEDS: TOBRAMYCIN DEXAMETHASONE BOTH_EYES SCH ×4 (04:00→21:43)
[2017-01-16] MEDS: HYDROcodone-APAP 5-325 mg Tablet PO PRN ×5 (04:59→22:04)
[2017-01-16] MEDS: Vancomycin Inj 1,250 MG in 0.9% Sodium Chloride 250 ML IV SCH ×2 (05:59→21:42)
[2017-01-16 06:39] LABS: Mean Corpuscular Hemoglobin 28.4 pg (27.0-35.0)
--- NOTE | 2017-01-16 07:37 | NUR ---
Pain pt states that when he stays still his pain is a 1-2/10, however with movement he has extreme pain that shoots into his R hip 8-10/10. sometimes this pain comes on without movement in what he calls a "spasm". pt was given 2 vicodin for pain at HS and slept soundly for around 7hrs. he appeared comfortable during this time. this morning he again had pain 8/10 into his hip and was given another 2 vicodin. he denied the need for IV morphine. it seems to be helpful for pt to be pre-medicated before he has to be rolled to change his brief. care continues.
[2017-01-16] MEDS: Vancomycin Dose per Pharmacist XX SCH (08:30)
[2017-01-16] MEDS: Insulin LISPRO 300 Unit/3 mL Inj SUBQ SCH ×4 (09:12→22:00)
[2017-01-16] MEDS: Diltiazem CD 120 mg ER24 Capsule PO SCH (09:13)
--- NOTE | 2017-01-16 09:22 | PROG NOTE ---
[address] [address] PROGRESS NOTE PATIENT: DAYSI SIM : 1935 MR#: [id number] ADMIT: 01/06/2017 JOB ID: [id number] DATE: 01/16/2017 SUBJECTIVE: Nick is an old patient of mine whom I am very familiar with. He unfortunately has a complex gastrointestinal problem starting with rectal cancer and was operated on by another surgeon. 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 He subsequently has had an incisional hernia repair and he has had multiple episodes of small bowel obstruction and has been in the past able to resolve these with persistent non-operative management. He was admitted with hip pain. He recently had a long hospitalization at [facility]. He has a gastrostomy tube placed for venting. He is on TPN. He said over the last couple of days he had some air and some stool in his ostomy, but none yet today. He is scheduled for CT drainage of a pelvic abscess today, and I would agree with Dr. Tong. I think that it is not likely that it is going to functionally change his current circumstance, but also I think that it is not likely to be dangerous to drain it. I would not be surprised if it is a chronic seroma. REVIEW OF SYSTEMS: Otherwise negative. PHYSICAL EXAMINATION: Temperature 36.6, brachial blood pressure 126/62, pulse 85, respiratory rate 20, O2 sat room air 93%. He is alert, no distress. Gastrostomy tube put out 100 cc yesterday and 120 cc so far today. His abdomen is soft, but distended. He has no flatus or stool in his ostomy. LABORATORY RESULTS: White count is 10.5, hematocrit 28, platelet count 321,000. Creatinine is 0.53. Most recent albumin 2.3. IMPRESSION AND PLAN: Chronic partial bowel obstruction. I would recommend continued non-operative management. May be reasonable to start clamping his tube periodically to see if he can tolerate it and then also at some point soon consider full liquids. Prior to being admitted with hip pain for this admission. He said he was tolerating full liquids at home.
--- NOTE | 2017-01-16 10:56 | PCM.PNMED ---
Subjective Date of Service Jan 16, 2017 Subjective pt still c/o severe hip pain with movement, was consulted, no further recs surgically. plan to drain fluid CT guided last BCX still ngtd >7D Exam Vital Signs Vital Sign - Last Date Time Temp Pulse Resp B/P Pulse Ox O2 Delivery O2 Flow Rate FiO2 01/16/17 06:48 36.6 85 20 126/62 93 Room Air 01/11/17 16:52 2.00 Intake and Output 01/15/17 01/15/17 01/16/17 Cumulative From/Thru 15:00 23:00 07:00 01/06/17 03:10 - 01/16/17 06:48 Intake Total 1713 ml 1132 ml 1331 ml 51967 ml Output Total 1176 ml 1492 ml 52345 ml Balance 1713 ml -44 ml -161 ml 27735 ml Intake Oral 375 ml 4855 ml IV Total 686 ml 251 ml 100 ml 9139 ml TPN/PPN 1027 ml 881 ml 856 ml 12119 ml Output Urine Total 1076 ml 1252 ml 7848 ml Stool Total 75 ml Gastric Drainage Total 120 ml 3050 ml Drainage Total 100 ml 120 ml 330 ml # Voids 29 # Bowel Movements 0 0 Exam NAD, comfortably laying down on the bed no JVD, MMM, no LAD RRR, nl s1, s2 no mrg CTAB, no w,c, left upper chest, Groshong cath in place TPN running S,distended,NT,normoactive BS+ Rt hip; LROM due to pain, no obvious swelling, erythema, IVs and Medications Medications Reviewed: Medications were reviewed in detail Lab and Diagnostics Result Diagram: 01/16/1760501/16/17605 Microbiology Coag negative staph appears to be in 2 of 2 bottles from blood cultures 01/06 and ED. X-Rays, CTs and MRIs CT ABDOMEN AND PELVIS WITH CONTRAST: Eduardo Grider M.D. on 01/07/2017 at 10:57 1. 6.4 x 4.8 cm thickwalled enhancing fluid collection is not significantly changed in size since December 2015, and currently demonstrates no imaging manifestations of superimposed infection. As such, any determination of superimposed infection would need to be made on clinical grounds. 2. Mild bilateral hydronephrosis has slightly decreased in degree since December. 3. No evidence for small bowel obstruction. 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 Dictated by: Eduardo Grider M.D. on 01/07/2017 at 10:57 CT ABDOMEN AND PELVIS WITHOUT CONTRAST: Arben Foster M.D. on 01/06/2017 at 7: 49 1. New moderate bilateral hydronephrosis and ureterectasis. No calcified obstructing lesions. Findings maybe related to increased inflammatory change in the pelvis. 2. 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 Superimposed infection is possible. This fluid collection would be amenable to CT-guided aspiration for diagnostic purposes if needed. 3. Partial bowel obstruction at the site of the left lower quadrant ostomy with gas-filled dilated colon and intermittently fluid-filled dilated loops of small bowel. Superimposed enteritis is also possible 4. Gastrostomy tube with tip likely in the stomach although poorly seen due to stomach decompression. Dictated by: Arben Foster M.D. on 01/06/2017 at 7:49 12-lead ECG Rate is 88, QTC 418 concurrently reviewed by Vazquez 01/06 . Sinus rhythm * Ventricular premature complex . Borderline prolonged [place] interval . Probable left atrial enlargement . When compared with ECG of 07-Apr-2016 9:19:45, * PVCs are now present * PACs are no longer present * ST elevation is no longer present Assessment & Plan 81-year-old male admitted 01/06 probable abdominal abscess following conservative antibiotic treatment of appendicitis during November in [facility]. acute, active #persistent Coag-negative bacteremia, POA, possible source: line infection with Groshong cath, BCX 01/06 staph coag neg, 01/07, 01/08 [facility] peripheral[facility] [place] [place]. TTE negative for vegetation. -pt remains afebrile, clinically stable, -started Ancef 2gq8h per ID, added vancomycin per ID 01/11, pending stop date of January 22 -possibly BOBBI based on culture form [facility] -Update status on [facility], coordinate with ID #Rt hip tenderness, pain, POA, this is main concern that the pt has. MRI showed DJD, known presacral fluid, at this time suggestive of abscess, consulted , unlikely related to hip joint -pain control, daily PT -ortho/Gen. surgery consultation, no further surgical recs. #presacral fluid collection. reviewed with Dr Simmons (IR), largely unchanged from March 2016, s/p abx for appendicitis November @ [facility]. Pt has contrast allergy and trequired pretreatment tolerated the contrast 01/07. CT Not suggestive of infective abscess. MRI 01/09 suggestive of possible abscess. Unclear if this is source of pain or infection, previously reviewed by radiology, didn't feel this is worthwhile to drain given chronic status, Dr. Lemon didn't originally feel this is the source of infection, but is now recommending IR drain catheter. -plan for Pigtail Catheter drainage on Tuesday 01/16. agreed on assessment/plan. #SBO-noted on CT 01/06 w/o contrast not on 01/07 w/ contrast, Extensive surgical history, drainage with venting gastrostomy/Groshong cath inserted in for TPN -continue full liquids with nocturnal TPN to provide sufficient nutrition for healing. -open his gastrostomy at night, drainage as needed. chronic, stable #New bilateral hydroureter-reviewed with Dr Duran () earlier, he agreed that this is new hydroureter but not necessarily obstruction, -The plan was formal consult if after Camara placed if there is no resolution and /or worsening renal function -Recommended follow-up radio nucleotide study with Lasix washout -UA clear, patient urinating well now #anemia-trending down until 01/08, likely dilutional, stable now #HTN/lipids,controlled with home medications today #Protein caloric - resumed nocturnal TPN 14 hours at night 01/08 -Patient is up to eating full liquids -He has a venting gastrostomy due to chronic partial bowel obstruction type issues. #Hyponatremia- Resolved 01/07 #Hx colon CA-distorted anatomy status post partial colectomy, reports failed anastomosis with leaking, patient now has pouch. #Prophylaxis- DVT with SCDs and enoxaparin, GI H2 RA #Disposition- home when the hip pain/presacral fluid collection issue is settled. Unable to predict discharge range days. DNR/DNI VTE Mechanical Devices: Intermittant Pneumatic CD Time spent 35min Compa Manuel MD Jan 16, 2017 10:56
--- NOTE | 2017-01-16 11:09 | NUR ---
NUTRITION FOLLOW-UP: ASSESS: 81 YO male admitted with fevers, abdominal and right flank pain, new bilateral hydroureter, bacteremia. Noted pt with chronic partial bowel obstruction, pt scheduled for CT drainage of a pelvic abscess. Pt. has been on outpatient TPN and TPN was started on 01/08, at goal, appears well tolerated. Pt continues to refuse clear liquid meals. PMHx: HTN, dyslipidemia, hypothyroidism, FAVIAN, CVA, recurrent SBO's with perforation, CAD, CHF, colorectal cancer, in remission. DIET: Clear Liquids. Refusing meals. NUTRITION SUPPORT: TPN of 330 g dextrose, 100 g amino acid, 50 g lipid to provide 2025 kcal, 100 g protein per day. HOME DIET: Nocturnal TPN and full liquids per notes. LABS: Reviewed. Cr 0.48, Glu 146, Ca 8.3. GI symptoms / stool: No output ANTHROPOMETRICS: Current Wt: 75.0 kg. Admit Wt: 72.0 kg ESTIMATED NEEDS: Calories: 1800 - 2160 kcal (25 - 30 kcal / kg BW) Protein: 86 - 108 g protein (1.2 - 1.5 g / kg BW) Fluid: Approx. 1800 mL (25 mL / kg BW) NUTRITION DIAGNOSIS: 1.) Altered GI function related to alteration in GI tract structure / function as evidenced by history of colorectal cancer requiring chronic/ongoing TPN with venting gastrostomy tube--PERSISTS. INTERVENTION: 1.) Recommend continuing current TPN at this time to meet 100% of pt est. needs. MONITOR/EVALUATE: TPN tolerance, diet advance / tolerance, PO intake, labs, GI/nutrition status. Follow per high nutrition risk guidelines.
--- NOTE | 2017-01-16 11:24 | PCM.PHAPRO ---
Progress Vancomycin Management: -serum creatinine has remained stable -will check a Vancomycin trough level this evening at 1730 (last level was at 0530 on 01/14) Princess Chowdary [facility] Jan 16, 2017 11:24
[2017-01-16 11:57] LABS: INR 1.07 ratio
--- NOTE | 2017-01-16 12:32 | NUR ---
Social Work: Continued Discharge Planning D: EMR reviewed. Pt is on day 10 of hospitalization. Per MD in AM multi-disciplinary rounds, pt is likely to discharge in 2 days. Pt is being reviewed by OR to potentially drain pelvic fluid. Pt is open with [facility] for TPN, [facility] for RN 1x/week, and [facility] for shower aide 3x/week and colostomy care. Per MD in AM multi-disciplinary rounds, pt is likely to leave on IVABX - pending ID. Pt will need IVABX through 01/22 and likely leave on IVABX or coordinate IVABX at [facility] depending on dose and frequency. Pt likely to discharge home and resume services. SW will continue to follow for ABX needs at discharge. A: Pt is open with [facility] for TPN, [facility] for RN 1x/week, and [facility] for shower aide 3x/week and colostomy care. P: Per MD in AM multi-disciplinary rounds, pt is likely to discharge in 2 days. Pt is being reviewed by OR to potentially drain pelvic fluid. Per MD in AM multi-disciplinary rounds, pt is likely to leave on IVABX - pending ID. Pt will need IVABX through 01/22 and likely leave on IVABX or coordinate IVABX at [facility] depending on dose and frequency. Pt likely to discharge home and resume services. SW will continue to follow for ABX needs at discharge. GILBERT Sethi
[2017-01-16] MEDS ORDERED: fentaNYL-PF 50 mCg/mL 2 mL Inj ONE (13:52)
--- NOTE | 2017-01-16 14:14 | NUR ---
Off Floor to CT Patient off floor to CT. Patient alert and oriented, denies nausea or out of control pain. TPN running at ordered rate, gastrostomy tube draining to larry bag, ostomy bag intact. Report given to new primary RN.
--- NOTE | 2017-01-16 14:15 | NUR ---
IN CT. SEE SEDATION FLOW SHEET
[2017-01-16] MEDS ORDERED: Flumazenil 0.1 mg/mL 5 mL Inj IV ONE (14:23)
--- NOTE | 2017-01-16 15:30 | NUR ---
RIGHT HIP DRESSING DRY AND INTACT WITH DRAINAGE BAG ATTACHED TO DRAINAGE TUBE
--- NOTE | 2017-01-16 15:30 | NUR ---
RETURNED FROM CT . SEE EMR
--- NOTE | 2017-01-16 16:17 | PROG NOTE ---
[address] [address] PROGRESS NOTE PATIENT: DAYSI SIM : 1935 MR#: [id number] ADMIT: 01/06/2017 JOB ID: [id number] DATE: 01/16/2017 REASON FOR FOLLOWUP: High-grade and sustained coag-negative Staph bacteremia probably secondary to infected Groshong line. INTERVAL HISTORY: The patient reports that he has no fevers, chills, or sweats. He is gradually feeling better, he believes, in that his right hip/right lower quadrant pain is finally starting to diminish. No nausea or vomiting. He has no other new issues. PHYSICAL EXAMINATION: Reveals an afebrile gentleman, temperature 36.6, pulse 85, respiratory rate 20, blood pressure 126/62. He is in no acute distress. His mental status is clear. Oral cavity negative. Lungs: Relatively clear. The Groshong line appears benign. Abdomen: Still slightly distended with colostomy present. The area around and posterior to the hip that has been so tender is much less so today, and I discussed this case with Physical Therapy who concurs. LABORATORIES: Include white count 7200 yesterday, now 1005. Creatinine 0.53. Blood cultures were positive from the to the 08 of January, negative on the . None new since then. No new x-rays have been done. IMPRESSION: This patient likely has coag-negative staph bacteremia due to his Groshong though the differential time to positivity on the blood cultures did not prove this. In any event, he is much improved on a combination of vancomycin and Ancef which is directed at his two separate apparent populations of coag-negative staph, only one of which was sensitive to the Ancef. 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 There are plans to sample that in the near future and, hopefully, the fluid will be sent for Gram stain and culture as well as other indicated studies. RECOMMENDATIONS: 1. Will continue with the vancomycin and cefazolin through January 22. 2. We await the findings from Interventional Radiology and especially the Gram stain and culture from that aspirate.
--- NOTE | 2017-01-16 17:22 | NUR ---
TO [facility] REPORT GIVEN
[2017-01-16] MEDS ORDERED: Vancomycin Serum Trough XX ONE (17:30)
--- NOTE | 2017-01-16 19:18 | DRSVH ---
PROCEDURE: CT ABCESS DRAIN PERITONEAL INDICATIONS: CT guided cath drainage of Presacral Fluid Tiffany. COMPARISON: [facility], CT, CT ABD PELVIS W CON, 01/07/2017, 10:39. TECHNIQUE: Informed, written consent from the patient was obtained prior to the procedure. The patient was given conscious sedation with intravenous medication administered by snf staff with continuous cardiorespiratory monitoring. The patient's presacral fluid collection was localized under CT guidan ce. The appropriate skin site for percutaneous access to the presacral abscess was prepped and draped sterilely and infused lidocaine. Under CT guidance an 18 gauge Chiba needle was advanced into the ab scess cavity. A 035 J-wire was advanced into the fluid collection. An [address] was placed over the wire. Fluid was aspirated and sent to pathology for further evaluation IMPRESSION: Successful percutaneous drainage of a presacral abscess. Dictated by: Arben Foster M.D. on 01/16/2017 at 19:03 Approved by: Arben Foster M.D. on 01/16/2017 at 19:10
--- NOTE | 2017-01-16 19:45 | NUR ---
Post op Pt returned from [facility] at 1735 in bed. Pt has new flat drain with stop cock and nephrostomy style dressing in place on right hip, no drainage in bag. Verbal orders from report that drain is to be flushed BID with 50cc NS. Pt's bedding and gown are saturated with urine, full bedding changed and pt cleaned. Pt having pain 5/10 in hip, medications given. G-tube draining green output and was clamped after giving medications. TPN and PIV running. A&O x 3, CELESTE, VSAron. Call light in reach, bed in low, care continues.
--- NOTE | 2017-01-16 19:47 | PCM.PHAPRO ---
Progress Date of Service: Jan 16, 2017 Vancomycin management per pharmacy Indication: Groshong line infection Goal trough: 15-20 Trough this evening is 18.0. Trough is therapeutic. No changes to vancomycin regimen. Pharmacy to continue to monitor and dose vancomycin. Thank you, Isidro Suazo Pharmacist Isidro Suazo Jan 16, 2017 19:47
[2017-01-16] MEDS: Total Parenteral Nutrition 1 BAG IV SCH (21:00)
[2017-01-17 01:02] VITALS: BP 131/71; PULSE 91; RESP 18; O2SAT 94
[2017-01-17] MEDS: CeFAZolin Inj 2 GM in IV Premix 1 EACH IV SCH (03:53)
[2017-01-17] MEDS: TOBRAMYCIN DEXAMETHASONE BOTH_EYES SCH ×4 (03:54→20:32)
[2017-01-17] MEDS: HYDROcodone-APAP 5-325 mg Tablet PO PRN ×5 (04:02→22:43)
--- NOTE | 2017-01-17 06:00 | NUR ---
pain pt has been given [place] for pain in his hip that he rates at rest 5/10. the norco is effective and allowed him to sleep for a good part of the night. however when he has to be rolled for brief changes he is still complaining of extreme pain. he declines to be pre-medicated with IV morphine. his new drain in his R hip was flushed with 50cc of NS. it has some thick pinkish drainage can be seen in the tubing but no measurable amount in the bag.
[2017-01-17 07:06] LABS: BASOPHILS % (AUTO) 0.1 % (0-3); EOSINOPHILS % (AUTO) 1.6 % (0-5); MONOCYTES % (AUTO) 7.4 % (4-12); Mean Corpuscular Hemoglobin 28.9 pg (27.0-35.0); Mean Corpuscular Volume 89.5 fL (81-100); NEUTROPHILS % (AUTO) 80.5 % (40-74); Platelet Count 304 bil/L (150-400)
[2017-01-17 07:34] VITALS: BP 121/55; PULSE 80; RESP 16; O2SAT 94
[2017-01-17 07:37] LABS: Magnesium 1.7 mg/dL (1.6-2.6); Phosphorus 4.2 mg/dL (2.5-4.9)
[2017-01-17] MEDS: Diltiazem CD 120 mg ER24 Capsule PO SCH (08:35)
[2017-01-17] MEDS: Insulin LISPRO 300 Unit/3 mL Inj SUBQ SCH ×4 (08:35→22:00)
[2017-01-17] MEDS: 0.9% Sodium Chloride 50 ML IRRIGATION SCH ×2 (08:36→22:30)
--- NOTE | 2017-01-17 08:59 | NUR ---
[facility] signed
--- NOTE | 2017-01-17 10:17 | PCM.PNMED ---
Subjective Date of Service Jan 17, [address]-guided drainage well, noted very purulent dark brown fluid was drained doesn't think pain of hip got improved since the drainage pt remained afebrile, Fluid culture, gram stain showed many poly with Gram positive cocci, gram negative kya Exam Vital Signs Vital Sign - Last Date Time Temp Pulse Resp B/P Pulse Ox O2 Delivery O2 Flow Rate FiO2 01/17/17 07:34 36.3 80 16 121/55 94 Room Air 01/11/17 16:52 2.00 Intake and Output 01/16/17 01/16/17 01/17/17 Cumulative From/Thru 15:00 23:00 07:00 01/06/17 03:10 - 01/17/17 06:25 Intake Total 1498 ml 1176 ml 93237 ml Output Total 153 ml 03742 ml Balance 1345 ml 1176 ml 61537 ml Intake Oral 0 ml 4855 ml IV Total 469 ml 438 ml 63909 ml TPN/PPN 1029 ml 738 ml 79725 ml Output Urine Total 3 ml 7851 ml Stool Total 75 ml Gastric Drainage Total 3050 ml Drainage Total 150 ml 480 ml # Voids 29 # Bowel Movements 0 0 Exam NAD, comfortably laying down on the bed no JVD, MMM, no LAD RRR, nl s1, s2 no mrg CTAB, no w,c, left upper chest, Groshong cath in place TPN running S,distended,NT,normoactive BS+ Rt hip; LROM due to pain, no obvious swelling, erythema, IVs and Medications Medications Reviewed: Medications were reviewed in detail Lab and Diagnostics Result Diagram: 01/17/1759 01/17/17 0659 Microbiology Coag negative staph appears to be in 2 of 2 bottles from blood cultures 01/06 and ED. X-Rays, CTs and MRIs CT ABDOMEN AND PELVIS WITH CONTRAST: Eduardo Grider M.D. on 01/07/2017 at 10:57 1. 6.4 x 4.8 cm thickwalled enhancing fluid collection is not significantly changed in size since December 2015, and currently demonstrates no imaging manifestations of superimposed infection. As such, any determination of superimposed infection would need to be made on clinical grounds. 2. Mild bilateral hydronephrosis has slightly decreased in degree since December. 3. No evidence for small bowel obstruction. 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 Dictated by: Eduardo Grider M.D. on 01/07/2017 at 10:57 CT ABDOMEN AND PELVIS WITHOUT CONTRAST: Arben Foster M.D. on 01/06/2017 at 7: 49 1. New moderate bilateral hydronephrosis and ureterectasis. No calcified obstructing lesions. Findings maybe related to increased inflammatory change in the pelvis. 2. 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 Superimposed infection is possible. This fluid collection would be amenable to CT-guided aspiration for diagnostic purposes if needed. 3. Partial bowel obstruction at the site of the left lower quadrant ostomy with gas-filled dilated colon and intermittently fluid-filled dilated loops of small bowel. Superimposed enteritis is also possible 4. Gastrostomy tube with tip likely in the stomach although poorly seen due to stomach decompression. Dictated by: Arben Foster M.D. on 01/06/2017 at 7:49 12-lead ECG Rate is 88, QTC 418 concurrently reviewed by Vazquez 01/06 . Sinus rhythm * Ventricular premature complex . Borderline prolonged SD interval . Probable left atrial enlargement . When compared with ECG of 07-Apr-2016 9:19:45, * PVCs are now present * PACs are no longer present * ST elevation is no longer present Assessment & Plan 81-year-old male admitted 01/06 probable abdominal abscess following conservative antibiotic treatment of appendicitis during November in [facility]. acute, active #Coag-negative bacteremia, POA, initially suspected possible source was line infection with Groshong cath, serial BCX 01/06, 01/07, 01/08 from peripheral, from Groshong grew staph coag neg, TTE negative for vegetation. final culture 01/10 remained negative. 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 -pt remains afebrile, clinically stable, -started Ancef 2gq8h per ID, added vancomycin per ID 01/11, appreciate ID follow up -awaits fluid culture on 01/16, #Rt hip tenderness, pain, POA, this is main concern that the pt has. MRI showed DJD, known presacral fluid, at this time suggestive of abscess, consulted , unlikely related to hip joint -pain control, daily PT -ortho/Gen. surgery consultation, no further surgical recs. -monitor if there is any improvement after drainage of presacral fluid #presacral fluid collection, likely abscess. Initially reviewed with Dr Simmons (IR), fluid was largely unchanged from March 2016, s/p abx for appendicitis November @ [facility]. Pt has contrast allergy and trequired pretreatment tolerated the contrast 01/07. CT pelvis was not suggestive of infective abscess. MRI 01/09 however suggestive of possible abscess. pt underwent IR drainage on 01/16, -follow up cultures result as above #SBO-noted on CT 01/06 w/o contrast not on 01/07 w/ contrast, Extensive surgical history, drainage with venting gastrostomy/Groshong cath inserted in for TPN -continue full liquids with nocturnal TPN to provide sufficient nutrition for healing. -open his gastrostomy at night, drainage as needed. -no further recs per chronic, stable #New bilateral hydroureter-reviewed with Dr Duran () earlier, he agreed that this is new hydroureter but not necessarily obstruction, -The plan was formal consult if after Camara placed if there is no resolution and /or worsening renal function -Recommended follow-up radio nucleotide study with Lasix washout -UA clear, patient urinating well now #anemia-trending down until 01/08, likely dilutional, stable now #HTN/lipids,controlled with home medications today #Protein caloric - resumed nocturnal TPN 14 hours at night 01/08 -Patient is up to eating full liquids -He has a venting gastrostomy due to chronic partial bowel obstruction type issues. #Hyponatremia- Resolved 01/07 #Hx colon CA-distorted anatomy status post partial colectomy, reports failed anastomosis with leaking, patient now has pouch. #Prophylaxis- DVT with SCDs and enoxaparin, GI H2 RA #Disposition-likely 2-3more days, to SNF given limited mobility, appreciate daily assessment by PT, DNR/DNI VTE Mechanical Devices: Intermittant Pneumatic CD Time spent 35min Compa Manuel MD Jan 17, 2017 10:17
[2017-01-17] MEDS: Vancomycin Inj 1,250 MG in 0.9% Sodium Chloride 250 ML IV SCH ×2 (10:20→20:39)
[2017-01-17] MEDS: Vancomycin Dose per Pharmacist XX SCH (10:20)
[2017-01-17] MEDS ORDERED: Meropenem Inj 1,000 MG in 0.9% Sodium Chloride 100 ML IV SCH (11:15)
--- NOTE | 2017-01-17 12:50 | PROG NOTE ---
[address] [address] PROGRESS NOTE PATIENT: DAYSI SIM : 1935 MR#: [id number] ADMIT: 01/06/2017 JOB ID: [id number] DATE: 01/17/2017 REASON FOR FOLLOW UP: High grade coag negative Staph bacteremia thought secondary to Groshong infection plus recurrent small bowel obstructions, plus chronic presacral fluid collection now proven to be an abscess. INTERVAL HISTORY: Recall this extremely complicated 81-year-old gentleman with recurrent bowel obstructions related to some prior surgery and treatments for rectal malignancy. He was admitted to this hospital at this time with a high grade coag negative Staph bacteremia, which we feared was due to a Groshong. This bacteremia eventually resolved with combined therapy with vanco and Ancef, as we have two species of coag negative staph, the predominant one of which was cefazolin susceptible but the minor strain found in one or two cultures was actually cefazolin resistant, so vanco was added. With the combined vanc and cefazolin, his blood cultures turned negative and the patient overall has looked better, but he has continued to have terrible pain in his right hip region. This has defied explanation until now. It was noted though that the patient has had a presacral fluid collection which has been there more than a year and is thought to be in some way related to his prior surgeries and cancer problems. This had not felt to be an abscess but because of its persistence, a drain was placed in yesterday, which yielded large quantities of a dark brown material which on Gram stain has multiple microorganisms. Despite having a drain placed in his chronic presacral abscess, the patient continues to have a great deal of pain around the right hip and buttock. This is so severe that it is almost impossible for him to move. He otherwise has no fevers, no fever no chills and no significant cough or new pulmonary complaint. He has no problems with his Groshong catheter TPN. He remains basically n.p.o. PHYSICAL EXAMINATION: Reveals a surprisingly comfortable gentleman. Temp 36.3, pulse 80, respiratory rate 16, blood pressure 121/55. He saturates well on room air but has a great deal of pain around his right hip if he tries to move. But if he is lying still, he is relatively comfortable. Mental status is clear. The Groshong catheter in the left upper chest looks benign. Lungs: Relatively clear. Abdomen: Soft, nontender, distended with a colostomy as it typically is. The drain into the presacral area has a great deal of thick brown fluid. LABORATORIES: Include white count which has jumped up to 11,000 and had been normal for a number of days. Diff: 80% segs. Creatinine 0.54. LFTs normal. Albumin 2.5. The Gram stain of the fluid from the presacral area has many polys, gram positive cocci and gram negative rods. In speaking to the lab people, it is growing at least coag negative staph and at least 2 gram negative rods and the anaerobic cultures are really too young to look at. IMPRESSION: This is a complicated case to understand. The patient initially was treated for a high grade coag negative Staph bacteremia, which eventually resolved and has not recurred with Ancef and vanco. Our plan was to treat that through January 22 to complete two weeks of treatment and hopefully save the Groshong. One confusing thing is that the blood cultures did not show any differential time to positivity, and we never had any real evidence of that Groshong was infected. This is interesting in that we now have a presacral fluid collection which turns out to be an abscess which may have been there as long as a year, and it is growing coag negative Staph. This raises the possibility that his coag negative staph bacteremia was never from the Groshong but rather was from the abscess. The abscess likely also explains his terrible right hip flank pain. RECOMMENDATIONS: 1. We will switch the Ancef to meropenem. 2. We will continue with vancomycin through January 22 at least as we had previously planned. 3. We await the identification and susceptibility of the many organisms which will likely be growing from the presacral abscess. 4. Whether there is some more definitive treatment of the presacral abscess is needed, such as resection, will be left to general surgery.
[2017-01-17 13:17] VITALS: BP 152/65; PULSE 80; RESP 18; O2SAT 91
--- NOTE | 2017-01-17 14:09 | NUR ---
Pain Patient wincing with the tiniest movement this shift, during morning assessment reported the pain at a 2/10. At 1030, patient reported pain at a 7/10 on the pain scale and [place] was administered. Stated the pain is now a 2/10 but continues to wince with any movement. Patient refused PT today due to pain. Talked with patient about keeping up with the pain medication to avoid spikes in pain and wrote on white board the next time the patient can have another dose. Q2 hour turns in place, pillows for heel and elbow relief, and hourly rounding continues.
--- NOTE | 2017-01-17 15:47 | PCM.PHAPRO ---
Progress TPN Management: -Day 10 of chronic home TPN -electrolytes continue to remain stable -formula for this evening at 2100: PARENTERAL NUTRITION ORDERS 10 17-Jan-17 Standard Hang Time: 2100 Substrates Total kcal: 2021 AMINO ACIDS 100 g DEXTROSE 330 g Total Volume (mL): 1800 LIPIDS 50 g Sterile Water for Injection QS mL To Infuse Over (hrs): 24 Total Volume 1800 mL At at a rate of (mL/hr): 75 Additives Sodium Chloride 100 mEq "typical" daily requirements Sodium Acetate 40 mEq Sodium 50-120mEq Potassium Chloride 50 mEq Potassium 60-120mEq Potassium Phosphate 10 mEq Phosphate 20-40mEq Calcium Gluconate 13 mEq Magnesium 8-32mEq Magnesium Sulfate 12 mEq Calcium 9-22mEq Acetate* 80-120mEq Chloride* 80-120mEq Regular Insulin units *Depending on acid-base status Famotidine 40 mg Multivitamins 1 std dose Insulin Regimen Trace Elements 1 std dose none Thiamine mg Regular Low Intensity Subcut Folic Acid mg Regular Medium Intensity Subcut Ascorbic Acid mg Regular High Intensity Subcut Regular Insulin Infusion Other: Princess Chowdary [facility] Jan 17, 2017 15:47
[2017-01-17 20:36] VITALS: BP 163/73; PULSE 85; RESP 18; O2SAT 93
[2017-01-17] MEDS: Total Parenteral Nutrition 1 BAG IV SCH (22:30)
[2017-01-17] MEDS: Meropenem Inj 1,000 MG in 0.9% Sodium Chloride 100 ML IV SCH (22:40)
--- NOTE | 2017-01-18 01:37 | NUR ---
Pain/Drainage tubes [place] given Q4h to manage pain. Pt still reluctant to turn and reposition, even to allow breif changing and flushing abcess drain. Green drainage from gastrostomy tube, no output in colostomy. Yellow/orange output in abcess drain on R buttock, flushed with 50 ml NS. TPN infusing via grashong. ABX and NS TKO in peripheral site. Care continues
[2017-01-18] MEDS: TOBRAMYCIN DEXAMETHASONE BOTH_EYES SCH ×4 (02:30→20:21)
[2017-01-18 05:16] VITALS: BP 153/66; PULSE 79; RESP 18; O2SAT 94
[2017-01-18] MEDS: Meropenem Inj 1,000 MG in 0.9% Sodium Chloride 100 ML IV SCH ×3 (05:57→20:23)
[2017-01-18] MEDS: HYDROcodone-APAP 5-325 mg Tablet PO PRN ×4 (06:27→20:24)
[2017-01-18 07:12] LABS: BASOPHILS % (AUTO) 0.1 % (0-3); EOSINOPHILS % (AUTO) 1.7 % (0-5); MONOCYTES % (AUTO) 7.5 % (4-12); Mean Corpuscular Hemoglobin 28.4 pg (27.0-35.0); Mean Corpuscular Volume 89.8 fL (81-100); NEUTROPHILS % (AUTO) 79.1 % (40-74); Platelet Count 350 bil/L (150-400)
[2017-01-18] MEDS: Insulin LISPRO 300 Unit/3 mL Inj SUBQ SCH ×4 (08:00→22:00)
[2017-01-18 08:15] VITALS: BP 154/67; PULSE 93; RESP 18; O2SAT 94
[2017-01-18] MEDS: 0.9% Sodium Chloride 50 ML IRRIGATION SCH ×2 (08:30→20:22)
[2017-01-18] MEDS: Vancomycin Dose per Pharmacist XX SCH (08:30)
[2017-01-18] MEDS: Vancomycin Inj 1,250 MG in 0.9% Sodium Chloride 250 ML IV SCH ×2 (08:35→18:39)
--- NOTE | 2017-01-18 10:09 | PCM.PNMED ---
Subjective Date of Service Jan 18, 2017 Subjective pt still in severe pain on hip, however, didn't participate PT due to pain, still noticed purulent drainage abx changed from Ancef to meropenem, culture showed GNR Exam Vital Signs Vital Sign - Last Date Time Temp Pulse Resp B/P Pulse Ox O2 Delivery O2 Flow Rate FiO2 01/18/17 08:15 37.2 93 18 154/67 94 Room Air Intake and Output 01/17/17 01/17/17 01/18/17 Cumulative From/Thru 15:00 23:00 07:00 01/06/17 03:10 - 01/18/17 06:30 Intake Total 200 ml 1330 ml 1514 ml 96358 ml Output Total 548 ml 290 ml 395 ml 33116 ml Balance -348 ml 1040 ml 1119 ml 93323 ml Intake Oral 200 ml 0 ml 0 ml 5055 ml IV Total 445 ml 547 ml 79226 ml TPN/PPN 835 ml 967 ml 61124 ml Tube Irrigant 50 ml 50 ml Output Urine Total 548 ml 8399 ml Stool Total 0 ml 75 ml Gastric Drainage Total 0 ml 250 ml 325 ml 3625 ml Drainage Total 0 ml 40 ml 70 ml 590 ml # Voids 5 3 2 39 # Bowel Movements 0 0 Exam NAD, comfortably laying down on the bed no JVD, MMM, no LAD RRR, nl s1, s2 no mrg CTAB, no w,c, left upper chest, Groshong cath in place TPN running S,distended,NT,normoactive BS+ Rt hip; LROM due to pain, no obvious swelling, erythema, IVs and Medications Medications Reviewed: Medications were reviewed in detail Lab and Diagnostics Result Diagram: 01/18/1761201/18/17612 Microbiology Coag negative staph appears to be in 2 of 2 bottles from blood cultures 01/06 and ED. X-Rays, CTs and MRIs CT ABDOMEN AND PELVIS WITH CONTRAST: Eduardo Grider M.D. on 01/07/2017 at 10:57 1. 6.4 x 4.8 cm thickwalled enhancing fluid collection is not significantly changed in size since December 2015, and currently demonstrates no imaging manifestations of superimposed infection. As such, any determination of superimposed infection would need to be made on clinical grounds. 2. Mild bilateral hydronephrosis has slightly decreased in degree since December. 3. No evidence for small bowel obstruction. 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 Dictated by: Eduardo Grider M.D. on 01/07/2017 at 10:57 CT ABDOMEN AND PELVIS WITHOUT CONTRAST: Arben Foster M.D. on 01/06/2017 at 7: 49 1. New moderate bilateral hydronephrosis and ureterectasis. No calcified obstructing lesions. Findings maybe related to increased inflammatory change in the pelvis. 2. 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 Superimposed infection is possible. This fluid collection would be amenable to CT-guided aspiration for diagnostic purposes if needed. 3. Partial bowel obstruction at the site of the left lower quadrant ostomy with gas-filled dilated colon and intermittently fluid-filled dilated loops of small bowel. Superimposed enteritis is also possible 4. Gastrostomy tube with tip likely in the stomach although poorly seen due to stomach decompression. Dictated by: Arben Foster M.D. on 01/06/2017 at 7:49 12-lead ECG Rate is 88, QTC 418 concurrently reviewed by Vazquez 01/06 . Sinus rhythm * Ventricular premature complex . Borderline prolonged WA interval . Probable left atrial enlargement . When compared with ECG of 07-Apr-2016 9:19:45, * PVCs are now present * PACs are no longer present * ST elevation is no longer present Assessment & Plan 81-year-old male admitted 01/06 probable abdominal abscess following conservative antibiotic treatment of appendicitis during November in [facility]. acute, active #Coag-negative bacteremia, POA, initially suspected possible source was line infection with Groshong cath, serial BCX 01/06, 01/07, 01/08 from peripheral, from Groshong grew staph coag neg, TTE negative for vegetation. final culture 01/10 remained negative. chronic Presacral fluid collection drained 01/16, consistent to abscess -pt remains afebrile, clinically stable, -started Ancef 2gq8h per ID, added vancomycin per ID 01/11, Ancef changed to Meropenem 01/17, appreciate ID follow up -awaits fluid culture on 01/16, so far GNR, #Rt hip tenderness, pain, POA, this is main concern that the pt has. MRI showed DJD, known presacral fluid, at this time suggestive of abscess, consulted , unlikely related to hip joint -pain control, pt is refusing PT but will try again after pain is controlled, -ortho/Gen. surgery consultation, no further surgical recs. -monitor if there is any improvement after drainage of presacral fluid #presacral fluid collection, likely abscess. Initially reviewed with Dr Simmons (IR), fluid was largely unchanged from March 2016, s/p abx for appendicitis November @ [facility]. Pt has contrast allergy and trequired pretreatment tolerated the contrast 01/07. CT pelvis was not suggestive of infective abscess. MRI 01/09 however suggestive of possible abscess. pt underwent IR drainage on 01/16, -follow up cultures result as above #SBO-noted on CT 01/06 w/o contrast not on 01/07 w/ contrast, Extensive surgical history, drainage with venting gastrostomy/Groshong cath inserted in for TPN -continue full liquids with nocturnal TPN to provide sufficient nutrition for healing. -open his gastrostomy at night, drainage as needed. -no further recs per chronic, stable #New bilateral hydroureter-reviewed with Dr Duran () earlier, he agreed that this is new hydroureter but not necessarily obstruction, -The plan was formal consult if after Camara placed if there is no resolution and /or worsening renal function -Recommended follow-up radio nucleotide study with Lasix washout -UA clear, patient urinating well now #anemia-trending down until 01/08, likely dilutional, stable now #HTN/lipids,controlled with home medications today #Protein caloric - resumed nocturnal TPN 14 hours at night 01/08 -Patient is up to eating full liquids -He has a venting gastrostomy due to chronic partial bowel obstruction type issues. #Hyponatremia- Resolved 01/07 #Hx colon CA-distorted anatomy status post partial colectomy, reports failed anastomosis with leaking, patient now has pouch. #Prophylaxis- DVT with SCDs and enoxaparin, GI H2 RA #Disposition-likely 2-3more days, to SNF given limited mobility vs Home with HH , pt may progress given draining abscess DNR/DNI VTE Mechanical Devices: Intermittant Pneumatic CD Time spent 35min Compa Maneul MD Jan 18, 2017 10:09
[2017-01-18] MEDS: Diltiazem CD 120 mg ER24 Capsule PO SCH (10:50)
--- NOTE | 2017-01-18 10:59 | PCM.PHAPRO ---
Progress TPN Management: -Day 11 for pt receiving TPN -electrolytes remain stable -will check magnesium and phosphorous tomorrow morning -formula for tonight at 2100: PARENTERAL NUTRITION ORDERS 11 18-Jan-17 Standard Hang Time: 2099 Substrates Total kcal: 2021 AMINO ACIDS 100 g DEXTROSE 330 g Total Volume (mL): 1800 LIPIDS 50 g Sterile Water for Injection QS mL To Infuse Over (hrs): 24 Total Volume 1800 mL At at a rate of (mL/hr): 75 Additives Sodium Chloride 100 mEq "typical" daily requirements Sodium Acetate 40 mEq Sodium 50-120mEq Potassium Chloride 30 mEq Potassium 60-120mEq Potassium Phosphate 10 mEq Phosphate 20-40mEq Calcium Gluconate 13 mEq Magnesium 8-32mEq Magnesium Sulfate 12 mEq Calcium 9-22mEq Acetate* 80-120mEq Chloride* 80-120mEq Regular Insulin units *Depending on acid-base status Famotidine 40 mg Multivitamins 1 std dose Insulin Regimen Trace Elements 1 std dose none Thiamine mg Regular Low Intensity Subcut Folic Acid mg Regular Medium Intensity Subcut Ascorbic Acid mg Regular High Intensity Subcut Regular Insulin Infusion Other: Princess Chowdary [facility] Jan 18, 2017 10:59
--- NOTE | 2017-01-18 11:30 | PROG NOTE ---
[address] [address] PROGRESS NOTE PATIENT: DAYSI SIM : 1935 MR#: [id number] ADMIT: 01/06/2017 JOB ID: [id number] DATE: 01/18/2017 INFECTIOUS DISEASE FOLLOW UP NOTE: REASON FOR FOLLOWUP: Presacral abscess with polymicrobial drainage plus high-grade and sustained coag-negative Staph bacteremia in a patient with recurrent small bowel obstructions, who is on TPN. INTERVAL HISTORY: Over the past day or so, the patient reports that perhaps he has a little bit less of the right hip and back pain but is still quite severe. No fevers, chills or sweats. No significant cough, shortness of breath, nausea. Recall that he basically does not eat and is fed through TPN via the Groshong catheter. PHYSICAL EXAMINATION: Reveals an afebrile gentleman, temperature 37.2, pulse 93, respiratory rate 18, blood pressure 154/67, saturating well on room air. No acute distress. If anything he looks to be in less pain than he has two or three days ago. He is alert and oriented. His lungs are clear. Abdomen basically mildly distended. Drain on the right side draining some thick brownish material as per yesterday. Otherwise abdomen fairly unremarkable. Extremities without rash or edema. LABORATORIES: White count has dropped down to 10,000, the differential 79% segs. Creatinine 0.48. LFTs normal. Urinalysis without white cells. The cultures from the newly placed presacral drain are growing gram-negative rods. The Gram stain also showed some gram-positive cocci. Our blood cultures have now been negative for 10 days or going on 11 days, in terms of coag-negative Staph bacteremia. IMPRESSION: This patient seems to be slowly getting better now that the abscess has been discovered and the drain has been inserted. He is on very broad-spectrum coverage with meropenem for this certainly healthcare-associated presacral abscess. In addition, we are continuing with vanco as treatment for his high-grade coag-negative staph bacteremia. RECOMMENDATIONS: 1. Continue with meropenem and vanc. 2. We await the final cultures from the presacral fluid collection which will allow us to better define the duration of therapy and which antibiotics.
--- NOTE | 2017-01-18 13:14 | NUR ---
Pain/Drain Patient continues to report a pain of 2/10 but moans and winces with any movement no matter how slight. During a linen change, patient was turned from side to side and continued to wince and moan in pain but did state that it was much easier to do than yesterday. Continuing Q2 hour turns and brief changes. While flushing Mouthcard drain per order with 50mLs of saline, patient stated that it was starting to become very sensitive. This was after flushing with 30mLs of saline. While flushing, the drain was clamped and once I unclamped the drain, fluid started to drain into collection bag. Patient is more comfortable now and denies discomfort at drain site.
[2017-01-18 14:00] VITALS: BP 152/67; PULSE 85; RESP 18; O2SAT 97
--- NOTE | 2017-01-18 14:17 | NUR ---
Incontinence Patient has been incontinent of urine and has developed a worsening red, spotty rash on left judy area and left thigh. Continuing Q2 hour turn and changes and using barrier wipes.This RN is hesitant to add more moisture today with Calmoseptine, but was applying it yesterday with every brief change. paged to hopefully get something to apply to area to decrease irritation to the skin. Addendum: 01/18/17 at 1743 by SEBASTIAN RAMIREZ RN Talked with Roderick from wound care and he recommended using vaseline and a pillow case in the patient's groin to help reduce the redness and increase airflow to the area. Care continues.
--- NOTE | 2017-01-18 16:06 | NUR ---
NUTRITION FOLLOW-UP: ASSESS: 81 YO male admitted with fevers, abdominal and right flank pain, new bilateral hydroureter, bacteremia. Noted pt with chronic partial bowel obstruction, pt s/p CT drainage of a pelvic abscess on 01/16. Pt has been on outpatient TPN and TPN was started on 01/08. TPN is at goal and appears well tolerated at this time.Pt continues to refuse clear liquid meals, verbal order per Dr. Manuel to adv diet to full liquids today. PMHx: HTN, dyslipidemia, hypothyroidism, FAVIAN, CVA, recurrent SBO's with perforation, CAD, CHF, colorectal cancer, in remission. DIET: Full Liquids. Ensure all trays. NUTRITION SUPPORT: TPN of 330 g dextrose, 100 g amino acid, 50 g lipid to provide 2025 kcal, 100 g protein per day. HOME DIET: Nocturnal TPN and full liquids per notes. LABS: Reviewed. Alb 2.5, Glu 129, Ca 8.3. GI symptoms / stool: No stool output noted, but some output via gastrostomy tube. ANTHROPOMETRICS: Current Wt: 75.0 kg. Admit Wt: 72.0 kg ESTIMATED NEEDS: Calories: 1800 - 2160 kcal (25 - 30 kcal / kg BW) Protein: 86 - 108 g protein (1.2 - 1.5 g / kg BW) Fluid: Approx. 1800 mL (25 mL / kg BW) NUTRITION DIAGNOSIS: 1.) Altered GI function related to alteration in GI tract structure / function as evidenced by history of colorectal cancer requiring chronic/ongoing TPN with venting gastrostomy tube--PERSISTS. INTERVENTION: 1.) Recommend continuing current TPN at this time to meet 100% of pt est. needs. 2.) Added ensure to all trays now that pt is on full liquid diet. MONITOR/EVALUATE: TPN, diet tolerance, PO intake, labs, GI/nutrition status. Follow per high nutrition risk guidelines.
--- NOTE | 2017-01-18 17:35 | NUR ---
Activity Patient refused physical therapy earlier this shift and is now refusing turning and changing his brief. He is incontinent of urine and has skin irritation on the left side of his perineum and left thigh. Applied barrier cream and baby powder to help reduce irritation from urinary incontinence. When attempting to check brief this afternoon, the patient yelled out in pain and stated "it hurts too much, i'd rather not." Educated patient on the importance of increasing activity to reduce skin break down and about pain management. Informed patient about staying in bed and attempting not to move at all to reduce pain is not going to be effective in the long run or improve his mobility. Continuing to offer Q2 hour turning and changing. Monitoring skin as much as possible.
[2017-01-18 20:12] VITALS: BP 154/65; PULSE 77; RESP 18; O2SAT 93
[2017-01-18] MEDS: Total Parenteral Nutrition 1 BAG IV SCH (20:23)
[2017-01-19] MEDS: HYDROcodone-APAP 5-325 mg Tablet PO PRN ×5 (00:44→21:52)
[2017-01-19] MEDS: Meropenem Inj 1,000 MG in 0.9% Sodium Chloride 100 ML IV SCH ×3 (04:43→22:42)
[2017-01-19] MEDS: TOBRAMYCIN DEXAMETHASONE BOTH_EYES SCH ×3 (04:43→17:51)
--- NOTE | 2017-01-19 05:49 | NUR ---
Q2 Patient continues to resist care, assisted when willing. Pain tolerable when at rest, unbearable when moved, turned, and or changed. Abdomen distended. Addis drainage brown, flushed with 50ml of NS. Able to get few hours of sleep this shift. Alert, oriented and able to make needs known.
[2017-01-19 06:07] VITALS: BP 141/64; PULSE 87; RESP 16; O2SAT 92
[2017-01-19] MEDS: Vancomycin Inj 1,250 MG in 0.9% Sodium Chloride 250 ML IV SCH ×2 (06:11→17:51)
[2017-01-19 06:53] LABS: BASOPHILS % (AUTO) 0.2 % (0-3); EOSINOPHILS % (AUTO) 1.9 % (0-5); MONOCYTES % (AUTO) 7.7 % (4-12); Mean Corpuscular Hemoglobin 28.6 pg (27.0-35.0); Mean Corpuscular Volume 90.6 fL (81-100); NEUTROPHILS % (AUTO) 78.3 % (40-74); Platelet Count 394 bil/L (150-400)
[2017-01-19] MEDS: Insulin LISPRO 300 Unit/3 mL Inj SUBQ SCH ×4 (07:44→22:00)
[2017-01-19 08:07] LABS: Magnesium 1.8 mg/dL (1.6-2.6); Phosphorus 3.3 mg/dL (2.5-4.9)
[2017-01-19] MEDS: 0.9% Sodium Chloride 50 ML IRRIGATION SCH ×2 (08:30→20:30)
[2017-01-19] MEDS: Diltiazem CD 120 mg ER24 Capsule PO SCH (08:30)
[2017-01-19] MEDS: Vancomycin Dose per Pharmacist XX SCH (08:30)
[2017-01-19 08:56] VITALS: BP 172/76; PULSE 90; RESP 18; O2SAT 94
--- NOTE | 2017-01-19 09:08 | PROG NOTE ---
[address] [address] PROGRESS NOTE PATIENT: DAYSI SIM : 1935 MR#: [id number] ADMIT: 01/06/2017 JOB ID: [id number] DATE: 01/18/2017 HISTORY: The patient is seen in followup. He did have a percutaneous drainage on January 16, 2017. The fluid is yellowish, but turbid and does grossly looked infected. Culture is pending, but the Gram stain showed a few gram-positive cocci, a few gram-negative rods, but the culture is growing a heavy growth of gram-negative rods. ID pending. He continues to complain of right hip pain. He told me he had some stool in his colon. He denies nausea or vomiting. He denies to me abdominal pain. PHYSICAL EXAMINATION: Temperature 37.2, brachial blood pressure 154/67, pulse 93, respiratory rate 18, O2 sat 96 6% on room air. Abdomen is distended, but soft, nontender. At the time of my examination, there is no stool in the ostomy appliance. There was turbid fluid in his drain. IMPRESSION: 1. Pelvic abscess status post drainage. Final identification pending. 2. Partial bowel obstruction, chronic. PLAN: Continue current care. Regarding his sacral abscess, this may be very difficult for it to completely resolve as the fluid collection has been there for a long time. I suspect that it was a seroma that got secondarily infected. I do not see any evidence that this represents a fistula, but because of the bony pelvic sidewalls and likely adhesions of his small bowel which would prevent them descending into the pelvis, the space may be there for a long time.
--- NOTE | 2017-01-19 09:09 | PCM.PNMED ---
Subjective Date of Service Jan 19, 2017 Subjective pt kept refusing PT due to lateral hip pain, abdomen was markedly distended as it was clamped, denied n/v abscess culture still pending, GNR+ Exam Vital Signs Vital Sign - Last Date Time Temp Pulse Resp B/P Pulse Ox O2 Delivery O2 Flow Rate FiO2 01/19/17 08:56 36.8 90 18 172/76 94 Room Air Intake and Output 01/18/17 01/18/17 01/19/17 Cumulative From/Thru 15:00 23:00 07:00 01/06/17 03:10 - 01/19/17 06:27 Intake Total 1515 ml 1565 ml 92900 ml Output Total 742 ml 260 ml 11972 ml Balance 773 ml 1305 ml 14019 ml Intake Oral 237 ml 200 ml 5492 ml IV Total 478 ml 450 ml 93060 ml TPN/PPN 750 ml 915 ml 20054 ml Tube Irrigant 50 ml 100 ml Output Urine Total 582 ml 8981 ml Stool Total 0 ml 75 ml Gastric Drainage Total 100 ml 175 ml 3900 ml Drainage Total 60 ml 85 ml 735 ml # Voids 2 41 # Bowel Movements 0 Exam NAD, comfortably laying down on the bed no JVD, MMM, no LAD RRR, nl s1, s2 no mrg CTAB, no w,c, left upper chest, Groshong cath in place TPN running S,distended,NT,normoactive BS+ Rt hip: lateral greater tenderness, no swelling, erythema, LROM due to pain IVs and Medications Medications Reviewed: Medications were reviewed in detail Lab and Diagnostics Result Diagram: 01/19/1745 01/19/17 0545 Microbiology Coag negative staph appears to be in 2 of 2 bottles from blood cultures 01/06 and ED. X-Rays, CTs and MRIs CT ABDOMEN AND PELVIS WITH CONTRAST: Eduardo Grider M.D. on 01/07/2017 at 10:57 1. 6.4 x 4.8 cm thickwalled enhancing fluid collection is not significantly changed in size since December 2015, and currently demonstrates no imaging manifestations of superimposed infection. As such, any determination of superimposed infection would need to be made on clinical grounds. 2. Mild bilateral hydronephrosis has slightly decreased in degree since December. 3. No evidence for small bowel obstruction. 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 Dictated by: Eduardo Grider M.D. on 01/07/2017 at 10:57 CT ABDOMEN AND PELVIS WITHOUT CONTRAST: rAben Foster M.D. on 01/06/2017 at 7: 49 1. New moderate bilateral hydronephrosis and ureterectasis. No calcified obstructing lesions. Findings maybe related to increased inflammatory change in the pelvis. 2. 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 Superimposed infection is possible. This fluid collection would be amenable to CT-guided aspiration for diagnostic purposes if needed. 3. Partial bowel obstruction at the site of the left lower quadrant ostomy with gas-filled dilated colon and intermittently fluid-filled dilated loops of small bowel. Superimposed enteritis is also possible 4. Gastrostomy tube with tip likely in the stomach although poorly seen due to stomach decompression. Dictated by: Arben Foster M.D. on 01/06/2017 at 7:49 12-lead ECG Rate is 88, QTC 418 concurrently reviewed by Vazquez 01/06 . Sinus rhythm * Ventricular premature complex . Borderline prolonged WI interval . Probable left atrial enlargement . When compared with ECG of 07-Apr-2016 9:19:45, * PVCs are now present * PACs are no longer present * ST elevation is no longer present Assessment & Plan 81-year-old male admitted 01/06 probable abdominal abscess following conservative antibiotic treatment of appendicitis during November in [facility]. acute, active #Coag-negative bacteremia, POA, initially suspected possible source was line infection with Groshong cath, serial BCX 01/06, 01/07, 01/08 from peripheral, from Groshong grew staph coag neg, TTE was negative for vegetation.Last blood culture 01/10 remained negative. Chronic Presacral fluid collection drained 01/16, consistent to abscess, potentially this could be the source. -pt remains afebrile, clinically stable, -started Ancef 2gq8h per ID, added vancomycin per ID 01/11, Ancef changed to Meropenem 01/17 appreciate ID follow up -awaits fluid culture on 01/16, so far GNR, #Rt hip tenderness, pain, POA, this is main concern that the pt has. MRI showed DJD, known presacral fluid, at this time suggestive of abscess, consulted , unlikely related to hip joint, could be greater trochanter bursitis. -pain control with percocet, pt still requring 2tab q4h, will add lidocaine patch, also try [id number] bid, monitor sx, renal function closely with NSAID -pt is refusing PT but will try again after pain is controlled -ortho/Gen. surgery consultation, no further surgical recs. -monitor if there is any improvement after drainage of presacral fluid, so far didn't seem to be related. #presacral fluid collection, likely abscess. Initially reviewed with Dr Simmons (IR), fluid was largely unchanged from March 2016, s/p abx for appendicitis November @ [facility]. Pt has contrast allergy and trequired pretreatment tolerated the contrast 01/07. CT pelvis was not suggestive of infective abscess. MRI 01/09 however suggestive of possible abscess. pt underwent IR drainage on 01/16, -follow up cultures result as above #SBO-noted on CT 01/06 w/o contrast not on 01/07 w/ contrast, Extensive surgical history, drainage with venting gastrostomy/Groshong cath inserted in for TPN -continue full liquids with nocturnal TPN to provide sufficient nutrition for healing. -open his gastrostomy at night, drainage as needed. -no further recs per chronic, stable #New bilateral hydroureter-reviewed with Dr Duran () earlier, he agreed that this is new hydroureter but not necessarily obstruction, -The plan was formal consult if after Camara placed if there is no resolution and /or worsening renal function -Recommended follow-up radio nucleotide study with Lasix washout -UA clear, patient urinating well now #anemia-trending down until 01/08, likely dilutional, stable now #HTN/lipids,controlled with home medications today #Protein caloric - resumed nocturnal TPN 14 hours at night 01/08 -Patient is up to eating full liquids -He has a venting gastrostomy due to chronic partial bowel obstruction type issues. #Hyponatremia- Resolved 01/07 #Hx colon CA-distorted anatomy status post partial colectomy, reports failed anastomosis with leaking, patient now has pouch. #Prophylaxis- DVT with SCDs and enoxaparin, GI H2 RA #Disposition-likely 2-3more days, to SNF given limited mobility vs Home with HH , pt may progress function given draining abscess, has to cooperate with PT DNR/DNI VTE Mechanical Devices: Intermittant Pneumatic CD Time spent 35min Compa Manuel MD Jan 19, 2017 09:09
[2017-01-19] MEDS: Lidocaine Topical 5% Patch TOPICAL SCH (09:28)
--- NOTE | 2017-01-19 10:37 | PCM.PHAPRO ---
Progress TPN Management: -Day 12 of TPN -electrolytes remain stable -bmp ordered x 2 more days -formula for this evening: PARENTERAL NUTRITION ORDERS 12 - Standard Hang Time: 2100 Substrates Total kcal: 2021 AMINO ACIDS 100 g DEXTROSE 330 g Total Volume (mL): 1800 LIPIDS 50 g Sterile Water for Injection QS mL To Infuse Over (hrs): 24 Total Volume 1800 mL At at a rate of (mL/hr): 75 Additives Sodium Chloride 100 mEq "typical" daily requirements Sodium Acetate 40 mEq Sodium 50-120mEq Potassium Chloride 20 mEq Potassium 60-120mEq Potassium Phosphate 10 mEq Phosphate 20-40mEq Calcium Gluconate 13 mEq Magnesium 8-32mEq Magnesium Sulfate 12 mEq Calcium 9-22mEq Acetate* 80-120mEq Chloride* 80-120mEq Regular Insulin units *Depending on acid-base status Famotidine 40 mg Multivitamins 1 std dose Insulin Regimen Trace Elements 1 std dose none Thiamine mg Regular Low Intensity Subcut Folic Acid mg Regular Medium Intensity Subcut Ascorbic Acid mg Regular High Intensity Subcut Regular Insulin Infusion Other: Princess Chowdary [facility] Jan 19, 2017 10:37
[2017-01-19] MEDS: Ondansetron 2 mg/mL 2 mL Inj IVPUSH PRN ×2 (10:45→13:08)
--- NOTE | 2017-01-19 11:23 | PROG NOTE ---
[address] [address] PROGRESS NOTE PATIENT: DAYSI SIM : 1935 MR#: [id number] ADMIT: 01/06/2017 JOB ID: [id number] DATE: 01/19/2017 SUBJECTIVE: The patient is seen in followup. His percutaneous drain continues to drain yellowish opaque fluid. Culture is growing a gram-negative kya. Dr. Lemon told me it is likely going to have multiple resistances but they are pending. The patient still complains of right hip region pain. He says it started suddenly. It is what brought him to the emergency department. It has not improved with percutaneous drainage. He also states he was taking full liquids at home prior to coming to the emergency department. He does not think he has had a bowel movement into his ostomy today. REVIEW OF SYSTEMS: He complains of nausea. PHYSICAL EXAMINATION: Temperature is 36.8, brachial blood pressure 172/76, pulse 90, respiratory rate 18, O2 sat is 94%. He is lying still. Says any small movement leads to pain. Abdomen distended but soft. No real tenderness. Percutaneous drainage yellowish output, listed at 85 cc so far today, 60 cc yesterday. LABORATORY RESULTS: Today white blood cell count 9.6, hematocrit 28.8, platelet count 394,000. Electrolytes are normal. Creatinine 0.47. Glucose 128. Procalcitonin is 0.07. IMPRESSION: 1. Pelvic abscess. One potential solution is to ultimately do a gracilis muscle rotation flap to pack the pelvis, but that might be a few weeks before that would be attempted. 2. Partial bowel obstruction which is chronic. Recommend continuing to vent his gastrostomy tube as necessary and continue TPN. He has had this before. It has always resolved without surgery. 3. Right hip and buttock pain. I do not know the cause of this. An orthopedic surgical consult might be helpful.
--- NOTE | 2017-01-19 11:49 | PROG NOTE ---
[address] [address] PROGRESS NOTE PATIENT: DAYSI SIM : 1935 MR#: [id number] ADMIT: 01/06/2017 JOB ID: [id number] DATE: 01/19/2017 INFECTIOUS DISEASE FOLLOWUP NOTE: REASON FOR FOLLOWUP: Presacral abscess with polymicrobial justus, as well as high-grade coag-negative staph bacteremia in a patient with recurrent small bowel obstruction. The patient reports he feels about the same today. He continues to have the severe right hip area pain. The patient again related that this seemed to have started fairly abruptly not long after a slip and fall incident. This case was also discussed with Dr. Valdemar Jarrett in great detail, and Dr. Jarrett believes that this right hip pain is likely due to trauma/myositis as seen on the MRI scan, provoked by a fall rather than infection or some other process. Aside from his right hip pain, the patient has no fevers or chills. No new pulmonary complaint, and no change in his chronic abdominal symptoms. PHYSICAL EXAMINATION: Reveals a chronically, very ill gentleman in no acute distress. Temp 36.8, pulse 90, respiratory rate 18, blood pressure 172/75, saturating 94% on room air. Examination of the oral cavity reveals poor dentition. Dry mucous membranes. Lungs clear as before. Cardiac tones without new murmur. Abdomen more distended, hyperresonant. There is a G-tube present draining greenish material. Note this is used to deflate the bowel rather than to infuse anything. The patient continues to have a very tender right hip with any palpation or movement whatsoever. This keeps him essentially in one position in bed which, in and of itself, is a very large negative for this patient. LABORATORY STUDIES: Include white count which has normalized at 9600, 78% segs. Creatinine 0.47. LFT normal. Procalcitonin functionally 0. Last vancomycin trough was 18 back on the . It has not been repeated. The abscess culture is growing at least one and perhaps more than one gram-negative rods. Gram positive cocci were also seen on the Gram stain but so far, no growth. I spoke to the micro people this morning and they believe this may be an ESBL, although they await final confirmation and on that basis, will place the patient in isolation. Blood cultures on the remain negative. IMPRESSION: This is an incredibly complicated case of a patient with recurrent small-bowel obstructions. He was noted to have was thought to be a seroma in the presacral area 13 months ago but now, that has clearly developed into an abscess probably by secondary seeding. It is growing at least one gram-negative kya and perhaps other organisms, and we await susceptibilities. The patient seems, at least by the numbers, to be a little better on meropenem but clinically, he is no better with ongoing abdominal distention and severe right hip region pain. It seems likely that his right hip region pain is due to trauma with his fall rather than an infection. The other outstanding issue here is his high-grade coag-negative staphylococcal bacteremia, which we had feared might be due to the Groshong catheter he is receiving for total parenteral nutrition but in retrospect, perhaps it is also arising from the presacral abscess, and we await the final cultures. RECOMMENDATIONS: 1. Vancomycin through at least January 22. 2. Will continue with meropenem for now until we have final cultures of the abscess. 3. He will likely require prolonged abscess drainage, as well as a prolonged course of broad-spectrum antibiotics against whatever organism we find in the coming days. Dr. Jarrett indicated that he might consider a gracilis flap to try and close this space now occupied by the presacral abscess in an attempt to get this to finally heal. 4. Will continue to follow this very complex patient with you.
[2017-01-19 13:20] VITALS: BP 131/72; PULSE 97; RESP 20; O2SAT 92
--- NOTE | 2017-01-19 15:34 | NUR ---
Wound Note Wound orders received, patient seen at bedside. 81 yo male admitted to [facility] with presacral abscess and recurrent small bowel obstruction. Skin assessment reveals no true wounds at this time, of note patient does have yeast at his pannus and left groin/thigh area, this would be amenable to antifungal powder, this is relayed to patients nurse today. Patient also has a percutaneous drain presumably into his presacral abscess region and is being flushed regularly by nursing staff, the skin around this drain is normal and without erythema. A new stay fix dressing is placed to facilitate ease of access for flushing and to keep patient's painful hip off of it. Patient is on a low airloss mattress. No wound follow up needed.
--- NOTE | 2017-01-19 16:33 | NUR ---
Social Work: Multi-Disciplinary Rounds/Continued Discharge Planning D: EMR reviewed. Pt is on day 13 of hospitalization. Per multi-disciplinary rounds, pt continues to complain of right hip pain. Wound care will see pt. Pt refused PO meds this morning and continues to refuse PT. PT is likely to discharge pt from service again due to lack of participation. MD is hopeful that pt will functionally progress and his pain decreases from abscess but pt is likely to be deconditioned from his hospital stay as well. ID is following pt, susceptibilities are pending. Team also discussed possibility of palliative care referral for pain management and goals of care. [employer] P[employer]ER HELPER met with pt and at bedside regarding pt's deconditioned state and discharge planning. SW discussed with pt his reasons for not participating with PT. Pt feels that his hip pain is substantial and is not able to participate. SW asked who would be able to help pt at home and pt's states that she is not able to help pt ambulate. This caused pt to become thoughtful as [employer] HELPER prompted more questions related to pt's ability to care for himself at home and the medical complexity of his needs. Pt acknowledges that this could be challenging and seems more open to SNF placement. SW explained that if he were to go to SNF for PT then he would have to participate or his insurance won't cover it. Pt states understanding. SW provided SNF list and Discharge Planning Checklist. Pt and are thinking of pt's needs at discharge and pt may be more agreeable. Pt will require TPN at SNF so facilities will have to be able to manage this. SW spoke with pt and about the possibility of hiring more caregivers through [facility] for additional needs, potential for HH services, and IV abx services at home but pt and acknowledge that this may be more than they can handle and are more open to potential SNF placement. Pt is currently open with [facility] for TPN, [facility] for RN 1x/week, and [facility] for shower aide 3x/week and colostomy care. SW continues to follow for SNF vs. HH. Pt is more open to SNF placement and SW will work with doctors to determine needs at SNF at discharge. SW will continue to follow. A: Pt is open with [facility] for TPN, [facility] for RN 1x/week, and [place] for shower aide 3x/week and colostomy care. Pt may medically require SNF level of care. P: Pt is more amenable to SNF level of care. Pt and acknowledge that pt's needs may be more than they can handle and are more open to potential SNF placement. SW continues to follow for SNF vs. HH. Pt is more open to SNF placement and SW will work with doctors to determine needs at SNF at discharge. SW will continue to follow. GILBERT Joya
--- NOTE | 2017-01-19 19:21 | NUR ---
Diet/Nausea/Percutaneous Drain Pt refused morning medications multiple times, only wanting PO pain medications this AM. Pt c/o nausea throughout shift. Abdomen round/firm to touch. Gtube draining green output. With increasing nausea, MD made aware and this RN instructed to change from gravity output to low continuous around ~1400. Still c/o nausea, burping - no emesis this shift. Refused all meals - TPN continues to infuse. Percutaneous drain started out as light brown/yellow in color. At ~1700, noted to turn green. Appearing to be the same color and consistency as Gtube output. Hospitalist made aware and surgeon made aware. NOC shift made aware - care continues.
[2017-01-19 20:29] VITALS: BP 154/75; PULSE 107; RESP 20; O2SAT 92
[2017-01-19] MEDS: Total Parenteral Nutrition 1 BAG IV SCH (21:13)
--- NOTE | 2017-01-19 22:25 | NUR ---
Percutaneous Drain with minimal dark green output tonight. C/o Rt hip/flank pain with movement. Drain occluded / unable to flush at HS. Dressing clean and intact without kink or bending of tubing. Fistulagram scheduled for A.M. G-tube drainage at this time 1,050ml. Addendum: 01/20/17 at 0644 by JER BARTON RN Drain NOT occluded. Disregard above note. Flushed without resistance 0600.
[2017-01-20] MEDS: TOBRAMYCIN DEXAMETHASONE BOTH_EYES SCH ×5 (02:30→21:09)
[2017-01-20] MEDS: Meropenem Inj 1,000 MG in 0.9% Sodium Chloride 100 ML IV SCH (05:20)
[2017-01-20] MEDS: HYDROcodone-APAP 5-325 mg Tablet PO PRN ×4 (05:26→18:27)
[2017-01-20 05:39] VITALS: BP 134/72; PULSE 107; RESP 18; O2SAT 96
[2017-01-20] MEDS: Vancomycin Inj 1,250 MG in 0.9% Sodium Chloride 250 ML IV SCH ×2 (06:00→17:54)
[2017-01-20 06:06] LABS: BASOPHILS % (AUTO) 0.2 % (0-3); MONOCYTES % (AUTO) 7.9 % (4-12); Mean Corpuscular Hemoglobin 28.7 pg (27.0-35.0); NEUTROPHILS % (AUTO) 78.9 % (40-74); Platelet Count 527 bil/L (150-400)
[2017-01-20 06:28] LABS: Magnesium 1.9 mg/dL (1.6-2.6); Phosphorus 3.5 mg/dL (2.5-4.9)
[2017-01-20] MEDS: Insulin LISPRO 300 Unit/3 mL Inj SUBQ SCH ×4 (07:53→22:00)
[2017-01-20 08:07] VITALS: BP 133/75; PULSE 92; RESP 18
--- NOTE | 2017-01-20 08:21 | NUR ---
Pt off unit Pt to Radiology for fistulogram at 0820 hrs. Addendum: 01/20/17 at 0900 by TOMEKA ROWLAND RN Received call from Aayush in Radiology. Unable to do fistulogram because of iodine allergy. Pt exam rescheduled for 0900 on Monday. Pt will need to be premedicated starting at 2000 hrs Monday night. Will relay this information to hospitalist to order premedication.
--- NOTE | 2017-01-20 08:23 | PCM.PHAPRO ---
Progress Date of Service: Jan 20, 2017 Vancomycin Dosing Per Pharmacist Trough Level today came back within range @16.7 (TARGET 15-20) Will continue current dosing of 1250 mg Q12H with next scheduled trough on @0530 Per Ion notes anticipate d/c of vanco on 01/22/17 Pharmacy will continue to monitor and appreciates consult MARIBTEH, Mariela Enriquez PharmD Jan 20, 2017 08:23
[2017-01-20] MEDS: Vancomycin Dose per Pharmacist XX SCH (08:30)
[2017-01-20] MEDS: 0.9% Sodium Chloride 50 ML IRRIGATION SCH ×2 (08:30→21:10)
--- NOTE | 2017-01-20 09:03 | PCM.PNMED ---
Subjective Date of Service Jan 20, 2017 Subjective No major problems overnight. Patient says the right hip pin might be a bit better, was started on NSAID and lidocain patch yesterday. No fever. Exam Vital Signs Vital Sign - Last Date Time Temp Pulse Resp B/P Pulse Ox O2 Delivery O2 Flow Rate FiO2 01/20/17 08:07 36.1 92 18 133/75 Room Air 01/20/17 05:39 96 Intake and Output 01/19/17 01/19/17 01/20/17 Cumulative From/Thru 15:00 23:00 07:00 01/06/17 03:10 - 01/20/17 05:35 Intake Total 298 ml 1363 ml 1126 ml 27220 ml Output Total 1937 ml 1841 ml 10223 ml Balance 298 ml -574 ml -715 ml 82136 ml Intake Oral 0 ml 0 ml 5492 ml IV Total 298 ml 1363 ml 443 ml 90346 ml TPN/PPN 683 ml 57011 ml Tube Irrigant 100 ml Output Urine Total 1137 ml 291 ml 87657 ml Stool Total 75 ml Gastric Drainage Total 600 ml 1550 ml 6050 ml Drainage Total 200 ml 935 ml # Voids 2 43 # Bowel Movements 0 Exam Skin; no active rash, dry Eyes, miguel, eom intact ENMT; mucus membranes well hydrated CV; reg, systolic murmur Resp; Clear anteriorly GI; soft and non acute, some diffuse tenderness to paol Neuro; CN 2012 intact, no murmur Lab and Diagnostics Result Diagram: 01/20/17 0520 01/20/17 0520 Microbiology Coag negative staph appears to be in 2 of 2 bottles from blood cultures 01/06 and ED. X-Rays, CTs and MRIs CT ABDOMEN AND PELVIS WITH CONTRAST: Eduardo Grider M.D. on 01/07/2017 at 10:57 1. 6.4 x 4.8 cm thickwalled enhancing fluid collection is not significantly changed in size since December 2015, and currently demonstrates no imaging manifestations of superimposed infection. As such, any determination of superimposed infection would need to be made on clinical grounds. 2. Mild bilateral hydronephrosis has slightly decreased in degree since December. 3. No evidence for small bowel obstruction. 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 Dictated by: Eduardo Grider M.D. on 01/07/2017 at 10:57 CT ABDOMEN AND PELVIS WITHOUT CONTRAST: Arben Foster M.D. on 01/06/2017 at 7: 49 1. New moderate bilateral hydronephrosis and ureterectasis. No calcified obstructing lesions. Findings maybe related to increased inflammatory change in the pelvis. 2. 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 Superimposed infection is possible. This fluid collection would be amenable to CT-guided aspiration for diagnostic purposes if needed. 3. Partial bowel obstruction at the site of the left lower quadrant ostomy with gas-filled dilated colon and intermittently fluid-filled dilated loops of small bowel. Superimposed enteritis is also possible 4. Gastrostomy tube with tip likely in the stomach although poorly seen due to stomach decompression. Dictated by: rAben Foster M.D. on 01/06/2017 at 7:49 12-lead ECG Rate is 88, QTC 418 concurrently reviewed by Vazquez 01/06 . Sinus rhythm * Ventricular premature complex . Borderline prolonged GA interval . Probable left atrial enlargement . When compared with ECG of 07-Apr-2016 9:19:45, * PVCs are now present * PACs are no longer present * ST elevation is no longer present Assessment & Plan 81-year-old male admitted 01/06 probable abdominal abscess following conservative antibiotic treatment of appendicitis during November in [facility]. #Coag-negative bacteremia, POA, active, -initially suspected possible source was line infection with Groshong cath, serial BCX 01/06, 01/07, 01/08 from peripheral, from Groshong grew staph coag neg, -TTE was negative for vegetation.Last blood culture 01/10 remained negative. -Chronic Presacral fluid collection drained 01/16, consistent to abscess, potentially this could be the source. -started Ancef 2gq8h per ID, -Ancef changed to Meropenem 01/17 -added vancomycin per ID 01/11 to continue to January 22, -fluid culture on 01/16, ESBL e. coli noted #Probable contusion to Right Hip, poa, active -consulted , unlikely related to hip joint, could be greater trochanter bursitis, contusion, tendon injury from fall, no evidence of infection. -pain control with percocet, pt still requring 2tab q4h, will add lidocaine patch, also try [id number] bid (01-19-17), monitor sx, renal function closely with NSAID -pt is refusing PT but will try again after pain is controlled -ortho/Gen. surgery consultation, no further surgical recs. -monitor if there is any improvement after drainage of presacral fluid, so far didn't seem to be related. #Acute presacral abscess, poa, active -drained 01/16, growing ESBL e. coli -consider gracilias flap few weeks -continue meropenem #Chronic SBO, poa, stable -noted on CT 01/06 w/o contrast not on 01/07 w/ contrast, Extensive surgical history, drainage with venting gastrostomy/Groshong cath inserted in for TPN -continue full liquids with nocturnal TPN to provide sufficient nutrition for healing. -open his gastrostomy at night, drainage as needed. -no further recs per #New bilateral hydroureter-reviewed with Dr Duran () earlier, he agreed that this is new hydroureter but not necessarily obstruction, -The plan was formal consult if after Camara placed if there is no resolution and /or worsening renal function -Recommended follow-up radio nucleotide study with Lasix washout -UA clear, patient urinating well now #anemia-trending down until 01/08, likely dilutional, stable now #HTN/lipids,controlled with home medications today #Protein caloric - resumed nocturnal TPN 14 hours at night 01/08 -Patient is up to eating full liquids -He has a venting gastrostomy due to chronic partial bowel obstruction type issues. #Hyponatremia- Resolved 01/07 #Hx colon CA-distorted anatomy status post partial colectomy, reports failed anastomosis with leaking, patient now has pouch. #Prophylaxis- DVT with SCDs and enoxaparin, GI H2 RA #Disposition-likely 2-3more days, to SNF given limited mobility vs Home with HH , pt may progress function given draining abscess, has to cooperate with PT DNR/DNI VTE Mechanical Devices: Intermittant Pneumatic CD Domenica Sheffield MD Jan 20, 2017 09:03
[2017-01-20] MEDS ORDERED: Ertapenem Inj 1,000 MG in 0.9% Sodium Chloride 50 ML IV SCH (10:10)
[2017-01-20] MEDS ORDERED: Ertapenem Inj 1,000 MG in 0.9% Sodium Chloride 100 ML IV SCH (10:21)
--- NOTE | 2017-01-20 10:33 | PROG NOTE ---
[address] [address] PROGRESS NOTE PATIENT: DAYSI SIM : 1935 MR#: [id number] ADMIT: 01/06/2017 JOB ID: [id number] DATE: 01/20/2017 INFECTIOUS DISEASE FOLLOW UP NOTE: REASON FOR FOLLOWUP: Presacral abscess with polymicrobial justus as well as high-grade coag-negative Staph bacteremia and history of recurrent small bowel obstructions requiring TPN. INTERVAL HISTORY: Overnight, the patient has felt better. He states that his chronic right hip pain which had been so severe in the past couple weeks is starting to diminish. He has had no fevers, chills or sweats. No problems with his TPN or his Groshong line. No significant pulmonary complaint and no abdominal pain. PHYSICAL EXAMINATION: Reveals a fairly comfortable gentleman who actually looks better than he has on prior days. Temperature 36.1, pulse 92, respiratory rate 18, blood pressure 133/75, saturating well on room air. No acute distress. Is awake and alert. Lungs relatively clear. Cardiac tones: No new murmur. A Groshong line looks benign. Abdomen: Soft, nontender, distended perhaps less than normal with a colostomy present. The drain extends from his right buttock which has been inserted into his presacral abscess and is draining greenish fluid. LABORATORIES: Include white count 13,000 today which is up slightly. Differential includes 79% segs. Platelets have also bumped to 527. His creatinine is 0.56. His LFTs totally normal. Procalcitonin remains completely negative. Cultures from the fluid obtained at the time of the drainage of the presacral abscess growing an ESBL E. coli. This organism is very sensitive to carbapenems. This is also sensitive interestingly to Unasyn which would be unusual for an ESBL E. coli as well as aminoglycosides and Zosyn. IMPRESSION: An extremely complicated case of a patient with a high-grade coag-negative Staph bacteremia which we felt was likely due to the Groshong required for TPN but this was never proven. We now have a culture from the presacral abscess which is growing an ESBL E. coli. There had been concerns about coag-negative Staph as a few gram-positive cocci were seen on the initial Gram stain from the presacral abscess, but as of this point, there has been no confirmed growth of a Staph species. RECOMMENDATIONS: 1. Will continue with vanco through at least January 22 and then tentatively go ahead and stop that antibiotic as we have not seen additional evidence of resistant coag-negative Staph. 2. Will go ahead and stop the meropenem as he does not require the anti pseudomonal coverage which is part of meropenem and will instead switch to ertapenem. One could also use Zosyn in this circumstance but I think ertapenem makes sense here partly for its convenience. How long to continue with the ertapenem for this infection remains unclear, but I would start with a minimum of 2-3 weeks of therapy combined meropenem plus ertapenem for this infection dependent on how the drainage goes and whether any surgical intervention is conducted. 3. Will continue to follow this very complex patient with you.
--- NOTE | 2017-01-20 10:38 | PCM.PNSURG ---
Subjective Date of Service: Jan 20, 2017 Visit Information: Reason for Visit Fever/Bilateral Hydroureter Surgery/Surgery Date Post-Op Day # Date of Admission: Jan 06, 2017 at 10:19 Hospital Day # Subjective: No acute overnight events. Continues to have right hip pain, but is otherwise comfortable Did have significant nausea yesterday and so has vented in g-tube consistently overnight. No nausea this morning Afebrile Objective Vital Sign- Last 8 Hours Date Time Temp Pulse Resp B/P Pulse Ox O2 Delivery O2 Flow Rate FiO2 01/20/17 08:07 36.1 92 18 133/75 Room Air 01/20/17 05:39 37.1 107 18 134/72 96 Room Air Intake and Output- Last 8 Hour 01/20/17 Cumulative From/Thru 06:59 01/06/17 03:10 - 01/20/17 05:35 Intake Total 1126 ml 13066 ml Output Total 1841 ml 27787 ml Balance -715 ml 03231 ml Intake Oral 0 ml 5492 ml IV Total 443 ml 06702 ml TPN/PPN 683 ml 59472 ml Tube Irrigant 100 ml Output Urine Total 291 ml 81190 ml Stool Total 75 ml Gastric Drainage Total 1550 ml 6050 ml Drainage Total 935 ml # Voids 2 43 # Bowel Movements 0 General: Alert, Cooperative Neck: Supple Lungs: Normal Air Movement Abdomen: Other (Moderately distended but soft. Nontender. G-tube in place with bilious output. Colsotomy with stool in bag. Pelvic drain with thick bilious output. ) Neuro: Grossly Neurologically Intact Result Diagram: 01/20/1751901/20/17 0520 Assessment & Plan Impression 81M with extensive surgical history including APR now with persistent pelvic fluid collection s/p IR guided drainage. Quality of output changed to bilious yesterday concerning for fistulization to bowel. Cultures growing E.coli. Problems: Plan Continue excellent care per primary medicine team. Plan for sinogram once patient is pre-medicated (has contrast allergy). This will help determine if the pelvic fluid collection is communicating with bowel. Ok to vent g-tube as needed. Encouraged by continued ostomy output. No surgical intervention necessary at this time Will continue to follow along. Austin Valentino MD Jan 20, 2017 10:38
[2017-01-20] MEDS ORDERED: 0.9% Sodium Chloride 250 ML ONE (10:44)
[2017-01-20] MEDS: Diltiazem CD 120 mg ER24 Capsule PO SCH (11:03)
[2017-01-20] MEDS: Lidocaine Topical 5% Patch TOPICAL SCH (11:05)
--- NOTE | 2017-01-20 11:07 | PCM.PHAPRO ---
Progress Date of Service: Jan 20, 2017 Progress TPN Management: -Day 13 of TPN -electrolytes remain stable, increased chloride slightly to account for low level today -bmp ordered x 1 more days -formula for this evening: PARENTERAL NUTRITION ORDERS 13 20-Jan-17 Standard Hang Time: 2099 Substrates Total kcal: 2021 AMINO ACIDS 100 g DEXTROSE 330 g Total Volume (mL): 1800 LIPIDS 50 g Sterile Water for Injection QS mL To Infuse Over (hrs): 24 Total Volume 1800 mL At at a rate of (mL/hr): 75 Additives Sodium Chloride 100 mEq "typical" daily requirements Sodium Acetate 40 mEq Sodium 50-120mEq Potassium Chloride 40 mEq Potassium 60-120mEq Potassium Phosphate 10 mEq Phosphate 20-40mEq Calcium Gluconate 13 mEq Magnesium 8-32mEq Magnesium Sulfate 12 mEq Calcium 9-22mEq ~ ~ ~ Acetate* 80-120mEq ~ ~ ~ Chloride* 80-120mEq Regular Insulin ~ units *Depending on acid-base status Famotidine 40 mg Multivitamins 1 std dose Insulin Regimen Trace Elements 1 std dose none ~ Thiamine ~ mg Regular Low Intensity Subcut ~ Folic Acid ~ mg Regular Medium Intensity Subcut ~ Ascorbic Acid ~ mg Regular High Intensity Subcut ~ ~ ~ ~ Regular Insulin Infusion ~ ~ ~ ~ Other: ~ ~ ~ ~ ~ ~ Pharmacy appreciates consult and will continue to monitor MARIBETH, PharmMariela MayenD Jan 20, 2017 11:07
--- NOTE | 2017-01-20 13:11 | NUR ---
Evaluation completed. Please go to "Notes" then click on "Assessments and Notes" (bottom left corner of screen). Then select appropriate discipline tab on top of screen.
[2017-01-20 13:34] VITALS: BP 129/70; PULSE 86; RESP 18; O2SAT 94
--- NOTE | 2017-01-20 13:50 | NUR ---
Skin care Pt has red rash over the entire judy area, bilateral groins, right flank, and part of his back. No c/o itching. Cook page sent to hospitalist to request Nystatin powder for pt's judy area and groin.
--- NOTE | 2017-01-20 14:41 | NUR ---
NUTRITION FOLLOW-UP: ASSESS: 81 YO male admitted with fevers, abdominal and right flank pain, new bilateral hydroureter, bacteremia. Noted pt with chronic partial bowel obstruction, pt s/p CT drainage of a pelvic abscess on 01/16. Pt has been on outpatient TPN and TPN was started on 01/08. Nocturnal TPN is at goal and appears well tolerated at this time.Pt diet advanced to full liquids with refusal of most meals thus far. Currently pt planned for sinogram for output chat has changed to bilious and concerning for fistulization to bowel. PMHx: HTN, dyslipidemia, hypothyroidism, FAVIAN, CVA, recurrent SBO's with perforation, CAD, CHF, colorectal cancer, in remission. DIET: Full Liquids. Ensure all trays. PO-refusal, 25% x 1 meal. NUTRITION SUPPORT: TPN of 330 g dextrose, 100 g amino acid, 50 g lipid to provide 2025 kcal, 100 g protein per day. HOME DIET: Nocturnal TPN and full liquids per notes. LABS: Reviewed. Alb 2.9, Glu 138, GI symptoms / stool: No stool output noted, but some output via gastrostomy tube(70ml 01/18). ANTHROPOMETRICS: Current Wt: 74.8 kg. Admit Wt: 72.0 kg ESTIMATED NEEDS: Calories: 1800 - 2160 kcal (25 - 30 kcal / kg BW) Protein: 86 - 108 g protein (1.2 - 1.5 g / kg BW) Fluid: Approx. 1800 mL (25 mL / kg BW) NUTRITION DIAGNOSIS: 1.) Altered GI function related to alteration in GI tract structure / function as evidenced by history of colorectal cancer requiring chronic/ongoing TPN with venting gastrostomy tube--PERSISTS. INTERVENTION: 1.) Recommend continuing current TPN at this time to meet 100% of pt est. needs. 2.) Continue ensure all trays. MONITOR/EVALUATE: TPN, diet tolerance, PO intake, labs, GI/nutrition status. Follow per high nutrition risk guidelines.
[2017-01-20] MEDS: Nystatin 100,000 Unit/Gm 15 Gm Powder TOPICAL PRN (21:10)
[2017-01-20] MEDS: Total Parenteral Nutrition 1 BAG IV SCH (21:11)
[2017-01-20 21:56] VITALS: BP 87/45; PULSE 56; RESP 18; O2SAT 93
[2017-01-21] MEDS: HYDROcodone-APAP 5-325 mg Tablet PO PRN ×5 (00:12→18:34)
[2017-01-21 00:16] VITALS: BP 118/44
--- NOTE | 2017-01-21 02:27 | NUR ---
Pain Patient reported pain at 3/10 today. Drowsy and oriented, abdomen tender on left side and distended. Little to no output noted in colostomy. Gtube on intermittent low suction with minimal drainage. [place] flushed with 50ml in, and 10ml flushed out to clear line, draining brown fluid with sediment.
[2017-01-21] MEDS: TOBRAMYCIN DEXAMETHASONE BOTH_EYES SCH ×4 (05:19→20:55)
[2017-01-21 06:36] VITALS: BP 109/44; PULSE 59; RESP 18; O2SAT 93
[2017-01-21] MEDS: Vancomycin Inj 1,250 MG in 0.9% Sodium Chloride 250 ML IV SCH ×2 (06:49→18:34)
[2017-01-21] MEDS ORDERED: TPN Per Pharmacist XX ONE (07:10)
[2017-01-21] MEDS: Insulin LISPRO 300 Unit/3 mL Inj SUBQ SCH ×4 (08:00→22:00)
[2017-01-21] MEDS ORDERED: Ertapenem Inj 1,000 MG in 0.9% Sodium Chloride 50 ML IV SCH (08:30)
[2017-01-21] MEDS: Vancomycin Dose per Pharmacist XX SCH (08:30)
--- NOTE | 2017-01-21 09:11 | PCM.PNMED ---
Subjective Date of Service Jan 21, 2017 Subjective Resting without specific complaints today. Antibiotics changed. No other new problems noted today. Exam Vital Signs Vital Sign - Last Date Time Temp Pulse Resp B/P Pulse Ox O2 Delivery O2 Flow Rate FiO2 01/21/17 06:36 36.5 59 18 109/44 93 Room Air Intake and Output 01/20/17 01/20/17 01/21/17 Cumulative From/Thru 15:00 23:00 07:00 01/06/17 03:10 - 01/21/17 06:50 Intake Total 1798 ml 1541 ml 68321 ml Output Total 460 ml 91661 ml Balance 1338 ml 1541 ml 88317 ml Intake Oral 150 ml 5642 ml IV Total 671 ml 514 ml 19372 ml TPN/PPN 977 ml 1027 ml 10465 ml Tube Irrigant 100 ml Output Urine Total 23086 ml Stool Total 0 ml 75 ml Gastric Drainage Total 450 ml 6500 ml Drainage Total 10 ml 945 ml # Voids 3 46 # Bowel Movements 0 Exam Skin; warm and dry, no rash Eyes; miguel, oem intact HENT; adequate hydration CV; Systolic murmur Resp; Course, no rhonchi or wheezing GI; firm, not very tender, non acute Neuro 2-12 intact, no focal neuro deficits Lab and Diagnostics Result Diagram: 01/20/17 0520 01/21/17 0633 Microbiology Coag negative staph appears to be in 2 of 2 bottles from blood cultures 01/06 and ED. X-Rays, CTs and MRIs CT ABDOMEN AND PELVIS WITH CONTRAST: Eduardo Grider M.D. on 01/07/2017 at 10:57 1. 6.4 x 4.8 cm thickwalled enhancing fluid collection is not significantly changed in size since December 2015, and currently demonstrates no imaging manifestations of superimposed infection. As such, any determination of superimposed infection would need to be made on clinical grounds. 2. Mild bilateral hydronephrosis has slightly decreased in degree since December. 3. No evidence for small bowel obstruction. 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 Dictated by: Eudardo Grider M.D. on 01/07/2017 at 10:57 CT ABDOMEN AND PELVIS WITHOUT CONTRAST: Arben Foster M.D. on 01/06/2017 at 7: 49 1. New moderate bilateral hydronephrosis and ureterectasis. No calcified obstructing lesions. Findings maybe related to increased inflammatory change in the pelvis. 2. 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 Superimposed infection is possible. This fluid collection would be amenable to CT-guided aspiration for diagnostic purposes if needed. 3. Partial bowel obstruction at the site of the left lower quadrant ostomy with gas-filled dilated colon and intermittently fluid-filled dilated loops of small bowel. Superimposed enteritis is also possible 4. Gastrostomy tube with tip likely in the stomach although poorly seen due to stomach decompression. Dictated by: Arben Foster M.D. on 01/06/2017 at 7:49 12-lead ECG Rate is 88, QTC 418 concurrently reviewed by Vazquez 01/06 . Sinus rhythm * Ventricular premature complex . Borderline prolonged LA interval . Probable left atrial enlargement . When compared with ECG of 07-Apr-2016 9:19:45, * PVCs are now present * PACs are no longer present * ST elevation is no longer present Assessment & Plan 81-year-old male admitted 01/06 probable abdominal abscess following conservative antibiotic treatment of appendicitis during November in [facility]. #Acute presacral abscess, poa, active -drained 01/16, growing ESBL e. coli -consider gracilias flap few weeks -Vanco thru the 01/22/17 -On ertepenen, (minimum of 2-3 weeks treatment with ertepenen, meropenen) recommended by ID -sinogram Monday with premeditation for allergy ordered #Coag-negative bacteremia, POA, active, -initially suspected possible source was line infection with Groshong cath, serial BCX 01/06, 01/07, 01/08 from peripheral, from Groshong grew staph coag neg, -TTE was negative for vegetation.Last blood culture 01/10 remained negative. -Chronic Presacral fluid collection drained 01/16, consistent to abscess, potentially this could be the source. -started Ancef 2gq8h per ID, -Ancef changed to Meropenem 01/17 -added vancomycin per ID 01/11 to continue to January 22, #Probable contusion to Right Hip, poa, active -consulted , unlikely related to hip joint, could be greater trochanter bursitis, contusion, tendon injury from fall, no evidence of infection, see MRI01/08 -pain control with percocet, pt still requring 2tab q4h, will add lidocaine patch, also try [id number] bid (01-19-17), monitor sx, renal function closely with NSAID -ortho/Gen. surgery consultation, no further surgical recs. -monitor if there is any improvement after drainage of presacral fluid, so far didn't seem to be related. #Chronic SBO, poa, stable -noted on CT 01/06 w/o contrast not on 01/07 w/ contrast, Extensive surgical history, drainage with venting gastrostomy/Groshong cath inserted in for TPN -continue full liquids with nocturnal TPN to provide sufficient nutrition for healing. -open his gastrostomy at night, drainage as needed. -no further recs per #New bilateral hydroureter, poa, stable -reviewed with Dr Duran () earlier, he agreed that this is new hydroureter but not necessarily obstruction, -Dr. Duran not recommending stents at this time #anemia-trending down until 01/08, likely dilutional, stable now #HTN/lipids,controlled with home medications today #Protein caloric - resumed nocturnal TPN 14 hours at night 01/08 -Patient is up to eating full liquids -He has a venting gastrostomy due to chronic partial bowel obstruction type issues. #Hyponatremia- Resolved 01/07 #Hx colon CA-distorted anatomy status post partial colectomy, reports failed anastomosis with leaking, patient now has pouch. #Prophylaxis- DVT with SCDs and enoxaparin, GI H2 RA #Disposition-likely 2-3more days, to SNF given limited mobility vs Home with HH , pt may progress function given draining abscess, has to cooperate with PT DNR/DNI VTE Mechanical Devices: Intermittant Pneumatic CD Domenica Sheffield MD Jan 21, 2017 09:11
--- NOTE | 2017-01-21 09:22 | PCM.PHAPRO ---
Progress Date of Service: Jan 21, 2017 TPN MANAGEMENT Day 14 of TPN inpatient. Patient at goals set by Nutrition for Macronutrients, receiving TPN over 24hrs at home receives over 14hrs. Adjusted KCL slightly due to Potassium trending down. Tonight's TPN formulation. PARENTERAL NUTRITION ORDERS 14 21-Jan-17 Substrates AMINO ACIDS 100 g DEXTROSE 330 g LIPIDS 50 g Sterile Water for Injection QS mL Total Volume 1800 mL Additives Sodium Chloride 100 mEq Sodium Acetate 40 mEq Potassium Chloride 50 mEq Potassium Phosphate 10 mEq Calcium Gluconate 13 mEq Magnesium Sulfate 12 mEq Regular Insulin units Famotidine 40 mg Multivitamins 1 std dose Trace Elements 1 std dose Thiamine mg Folic Acid mg Ascorbic Acid mg BMPs ordered for next few days. Pharmacy will continue to monitor and adjust as needed. Thanks for the opportunity to consult. Joel Tabor [facility] Jan 21, 2017 09:21
[2017-01-21] MEDS: Diltiazem CD 120 mg ER24 Capsule PO SCH (10:06)
[2017-01-21] MEDS: Lidocaine Topical 5% Patch TOPICAL SCH (10:10)
[2017-01-21] MEDS: 0.9% Sodium Chloride 50 ML IRRIGATION SCH ×2 (10:16→20:56)
[2017-01-21 10:42] VITALS: BP 96/46; PULSE 61
[2017-01-21 11:43] VITALS: BP 107/46; PULSE 66; RESP 16; O2SAT 92
[2017-01-21] MEDS ORDERED: 0.9% Sodium Chloride 250 ML ONE (13:24)
--- NOTE | 2017-01-21 15:01 | NUR ---
Social Work- Multi-Disciplinary Rounds/ Continued D/C Planning Data: EMR reviewed. Pt is on day 15 of hospitalization for Fever, Bilateral Hydroureter per H&P. Pt is not medically ready for discharge. Pt discussed in rounds, pt will require 2-3 weeks of IV ertapenem at SNF. Pt participated with PT and was max A supine to sit, recommending SNF. Anticipate discharge in 2-3 days per MD. SW met with pt and pt's Iman and bedside regarding SNF placement and choice. They are still agreeable to SNF placement and understand that Hank has needs greater than what they can provide at home. Pt requires SNF for IV abx and daily PT services. [facility] SW made referral to [facility], left message for Leticia at [phone] regarding referral, faxed facesheet. T/C to Lady at [facility] who states that she can receive the referrals but cannot access them in [employer]Tra[employer]. Lady states that they will review pt on Monday. Referral made to [facility] ([facility] Access given, facesheet faxed. T/C to [facility] regarding pt's referral. [facility] states that they are able to accept pt and reinforced that pt will have to participate with PT. [facility] is aware of IV abx needs and TPN. [facility] will be able to order TPN on Monday at the earliest. JASIEL will update pt and facilities when [facility] has been able to review pt as this is pt's first choice. Paperwork in chart. PASRR in folder. SW will continue to follow. Assessment: Pt for whom SNF is medically necessary for IV abx and PT Plan: [facility] has accepted pt with [facility] to follow. [facility] is reviewing pt. JASIEL will update pt and facilities when [facility] has been able to review pt as this is pt's first choice. Paperwork in chart. PASRR in folder. SW will continue to follow. GILBERT Joya
--- NOTE | 2017-01-21 18:42 | NUR ---
Activity Pt continues to have pain 3-5/10 during shift and increases with movement or turning. PO pain meds given. Pt declined to get up and worked with PT once, but was unable to get OOB. Discussed with pt that he needs to keep moving and turning in bed or he will have skin breakdown. Brief in place for incontinence and pt frequently changed, but groin is red, and flaky. Cleaned with barrier wipes and nystatin powder applied. Flushed percutaneous drain per MD orders. G-tube set to low, intermittent suction and is having green output. Pt's abdomen is distended, but not firm. Bed in low, call light in reach, care continues.
[2017-01-21 20:31] VITALS: BP 121/60; PULSE 71; RESP 16; O2SAT 93
[2017-01-21] MEDS: TPN Per Pharmacist XX SCH (21:00)
[2017-01-21] MEDS: Total Parenteral Nutrition 1 BAG IV SCH (21:01)
--- NOTE | 2017-01-22 00:32 | PROG NOTE ---
[address] [address] PROGRESS NOTE PATIENT: DAYSI SIM : 1935 MR#: [id number] ADMIT: 01/06/2017 JOB ID: [id number] DATE: SUBJECTIVE: The patient remains stable, on TPN, functionally n.p.o., with gastrostomy tube open. 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
[2017-01-22 00:49] VITALS: BP 162/66; PULSE 75; RESP 16; O2SAT 94
[2017-01-22] MEDS: HYDROcodone-APAP 5-325 mg Tablet PO PRN ×5 (02:17→20:16)
[2017-01-22] MEDS: TOBRAMYCIN DEXAMETHASONE BOTH_EYES SCH ×4 (02:17→20:53)
--- NOTE | 2017-01-22 04:22 | NUR ---
activity/pain pt has complained of pain 3-5/10 in his R hip. his pain is increased with movement. he has been taking norco for pain has slept in between doses but still grimaces and groans with any movement while sleeping. G-tube is set to low int. suction with green output. stomach remains distended but pt denies tenderness or nausea. bowel tones present x4. pt has not been out of bed. he has been turned side to side to protect pts skin from breakdown. pt groin area is red and macerated. skin has been wiped with barrier creams and nystatin applied. bed in low position, call light within reach, hourly rounding continues.
[2017-01-22 05:05] VITALS: BP 136/69; PULSE 83; RESP 16; O2SAT 93
[2017-01-22] MEDS ORDERED: Vancomycin Serum Trough XX ONE (05:30)
[2017-01-22] MEDS: Vancomycin Inj 1,250 MG in 0.9% Sodium Chloride 250 ML IV SCH (06:00)
--- NOTE | 2017-01-22 06:10 | NUR ---
critical vanco trough critical vanco trough of 23.3. pharmacy notified to evaluate. Am dose withheld.
--- NOTE | 2017-01-22 07:22 | NUR ---
drain to presacral abscess R side t-drain was pulled out this Am when pt rolled in bed. charge nurse notified who will contact IR when they get in. gauze and hypafix has been placed over exit site. Addendum: 01/22/17 at 0811 by CODY LOVETT RN This charge nurse was notified of the incident and will make day hospitalist aware as they will need to contact IR.
[2017-01-22] MEDS: Insulin LISPRO 300 Unit/3 mL Inj SUBQ SCH ×5 (08:00→22:00)
[2017-01-22] MEDS: 0.9% Sodium Chloride 50 ML IRRIGATION SCH ×2 (08:30→20:30)
--- NOTE | 2017-01-22 09:08 | PCM.PHAPRO ---
Progress Date of Service: Jan 22, 2017 TPN MANAGEMENT Day 15 of inpatient TPN Patient at goal for Macronutrients per Nutrition SS=[id number], Dextrose 330gram, Lipids 50gram Pt wt was slightly down at 74.2kg I/O=6002/405 Electrolytes changes Calcium was increased due to Calcium trending down and potassium decreased after healthy response. [facility]'s TPN formulation: PARENTERAL NUTRITION ORDERS 15 - Substrates AMINO ACIDS 100 g DEXTROSE 330 g LIPIDS 50 g Sterile Water for Injection QS mL Total Volume 1800 mL Additives Sodium Chloride 100 mEq Sodium Acetate 40 mEq Potassium Chloride 40 mEq Potassium Phosphate 10 mEq Calcium Gluconate 18 mEq Magnesium Sulfate 12 mEq Regular Insulin units Famotidine 40 mg Multivitamins 1 std dose Trace Elements 1 std dose Thiamine mg Folic Acid mg Ascorbic Acid mg Pharmacy will continue to monitor and adjust electrolytes for daily TPN formulation. Joel Tabor [facility] Jan 22, 2017 09:08
[2017-01-22] MEDS: Ertapenem Inj 1,000 MG in 0.9% Sodium Chloride 100 ML IV SCH (09:22)
[2017-01-22] MEDS: Diltiazem CD 120 mg ER24 Capsule PO SCH (10:45)
[2017-01-22] MEDS: Lidocaine Topical 5% Patch TOPICAL SCH (10:46)
--- NOTE | 2017-01-22 13:23 | NUR ---
Social Work- Multi-Disciplinary Rounds/ Continued D/C Planning Data: EMR reviewed. Pt is on day 16 of hospitalization for Fever, Bilateral Hydroureter per H&P. Pt is not medically ready for discharge. Pt discussed in rounds, no change from rounds //. SW continues to follow and work on SNF placement for pt. Pt and chose [facility] choice and [facility] second. JASIEL spoke with Darcy at [facility] (who does not have [employer] access) and faxed clinicals to Darcy at [phone] for review. [facility] will contact TRAFFIC CONTROL OFFICER on Monday. [facility] ([facility]) is able to accept pt with [facility] to follow. Pt is aware the [facility] is reviewing and [facility] has accepted pt. Pt would like to wait to see what [facility] says. SW will update pt and facilities when [facility] has been able to review pt as this is pt's first choice. Paperwork in chart. PASRR in folder. SW will continue to follow. Assessment: Pt for whom SNF is medically necessary for IV abx and PT Plan: [facility] accepted pt with [facility] to follow. [facility] is reviewing pt, clinicals have been faxed. SW will update pt and facilities when [facility] has been able to review pt as this is pt's first choice. Paperwork in chart. PASRR in folder. SW will continue to follow. GILBERT Joya
--- NOTE | 2017-01-22 13:42 | PROG NOTE ---
[address] [address] PROGRESS NOTE PATIENT: DAYSI SIM : 1935 MR#: [id number] ADMIT: 01/06/2017 JOB ID: [id number] DATE: 01/22/2017 NOTE: The patient's drain "fell out" last night. Otherwise, remains clinically the same. The drain put out 55 cc in the previous 24 hours prior to coming out. There are no new labs today. IMPRESSION AND PLAN: The plan had been for the patient to have a sinogram through the drain tomorrow morning. He is being premedicated for that. I discussed the case with Dr. Martinez, on-call radiologist, who discussed it with Dr. Castañeda, who will be production support developer for Interventional Radiology tomorrow. The patient will go to the IR suite tomorrow for CT-guided replacement of his drain and simultaneous sinogram.
[2017-01-22 13:48] VITALS: BP 139/68; PULSE 74; RESP 18; O2SAT 95
--- NOTE | 2017-01-22 15:08 | NUR ---
KAMILA signed . Jojo Jimenez WELL LOGGER
--- NOTE | 2017-01-22 15:34 | NUR ---
Skin Noticed red rash on patient's back this AM-the rest of patient's skin looked just fine. Patient was diaphoretic and heavily wet from urinary incontinence. Preformed complete sponge bath, used barrier clothes, applied nystatin, removed plastic geri under patient, and turned patient onto his side. Rash has improved slightly since this AM. MD aware. Continuing to offer Q2 hour turns and encouraging movement to improve air flow.
[2017-01-22] MEDS: predniSONE 20 mg Tablet PO SCH (20:02)
--- NOTE | 2017-01-22 20:26 | PCM.PNMED ---
Subjective Date of Service Jan 22, 2017 Subjective The patient continues to complain of severe right hip pain and is unable to work with physical therapy due to the right hip pain. The patient has no other new complaints other than his continued problem of having no appetite. He states this is due to the TPN. Exam Vital Signs Vital Sign - Last Date Time Temp Pulse Resp B/P Pulse Ox O2 Delivery O2 Flow Rate FiO2 01/22/17 13:48 74 18 139/68 95 Room Air 01/22/17 05:05 35.9 Intake and Output 01/21/17 01/21/17 01/22/17 Cumulative From/Thru 15:00 23:00 07:00 01/06/17 03:10 - 01/22/17 06:48 Intake Total 100 ml 1709 ml 1770 ml 76319 ml Output Total 180 ml 225 ml 200 ml 62420 ml Balance -80 ml 1484 ml 1570 ml 17581 ml Intake Oral 100 ml 353 ml 6095 ml IV Total 538 ml 465 ml 30711 ml TPN/PPN 818 ml 1305 ml 05262 ml Tube Irrigant 100 ml Output Urine Total 51928 ml Stool Total 75 ml Gastric Drainage Total 150 ml 200 ml 200 ml 7050 ml Drainage Total 30 ml 25 ml 1000 ml # Voids 2 2 2 52 # Bowel Movements 0 Exam General: Patient is in no distress lying still in bed. However apparently it is very painful for him to get up or even roll from side to side. HEENT: Head is atraumatic and normocephalic. Eyes: Pupils are equally round and reactive to light and accommodation. Extraocular muscles are intact. Sclera are white, anicteric. Subconjunctival mucosa is pink. Ears and nose are unremarkable. Oropharynx: There is no mucosal lesions, there is no thrush, there is no pharyngitis. Neck: Is supple, there are no nodes, or masses or tenderness. Chest: Is clear to auscultation and percussion. There are no rales, rhonchi, wheezes or rubs. Heart: Rate, rhythm is regular. There is no murmur, rub or gallop. Abdomen: Good bowel sounds are present. Abdomen is soft, nontender, no organomegaly or masses were appreciated. The PEG tube site is unremarkable. Extremities: Are symmetrical and well perfused. There is no edema, there is no cellulitis, no rash. However, there is painful range of motion of the right hip. Neurologic: There are no focal neurological deficits. Cranial nerves II through XII are intact. There are no sensory or motor deficits. Psychiatric: Patients mood is calm and he shows no sign of agitation. Genital: Deferred Rectal: Deferred Lab and Diagnostics Result Diagram: 01/20/17 0520 01/22/17 0503 Microbiology Coag negative staph appears to be in 2 of 2 bottles from blood cultures 01/06 and ED. X-Rays, CTs and MRIs CT ABDOMEN AND PELVIS WITH CONTRAST: Eduardo rGider M.D. on 01/07/2017 at 10:57 1. 6.4 x 4.8 cm thickwalled enhancing fluid collection is not significantly changed in size since December 2015, and currently demonstrates no imaging manifestations of superimposed infection. As such, any determination of superimposed infection would need to be made on clinical grounds. 2. Mild bilateral hydronephrosis has slightly decreased in degree since December. 3. No evidence for small bowel obstruction. 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 Dictated by: Eduardo Grider M.D. on 01/07/2017 at 10:57 CT ABDOMEN AND PELVIS WITHOUT CONTRAST: Arben Foster M.D. on 01/06/2017 at 7: 49 1. New moderate bilateral hydronephrosis and ureterectasis. No calcified obstructing lesions. Findings maybe related to increased inflammatory change in the pelvis. 2. 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 Superimposed infection is possible. This fluid collection would be amenable to CT-guided aspiration for diagnostic purposes if needed. 3. Partial bowel obstruction at the site of the left lower quadrant ostomy with gas-filled dilated colon and intermittently fluid-filled dilated loops of small bowel. Superimposed enteritis is also possible 4. Gastrostomy tube with tip likely in the stomach although poorly seen due to stomach decompression. Dictated by: Arben Foster M.D. on 01/06/2017 at 7:49 12-lead ECG Rate is 88, QTC 418 concurrently reviewed by Vazquez 01/06 . Sinus rhythm * Ventricular premature complex . Borderline prolonged CO interval . Probable left atrial enlargement . When compared with ECG of 07-Apr-2016 9:19:45, * PVCs are now present * PACs are no longer present * ST elevation is no longer present Cardiac Echo Impressions Echocardiogram Report Name: DAYSI SIM Date : 01/09/2017 Height: 71 in Hospital Exam Location: [facility] Weight: 163 lb Gender: Male BSA: 1.9 m2 : 1935 Age: 81 yrs BP: 158/70 mmHg Reason For Study: gram-positive bacteremia Performed By: Catrachita Tom Referring Physician: BERNICE JAIMES Interpretation Summary Left ventricular wall thickness is mildly increased. The ejection fraction is estimated to be 60-65%. There are no obvious focal wall motion abnormalities noted but poor endocardial definition reduces the sensitivity for the detection of such. There is mild mitral annular calcification. There is moderate aortic valve sclerosis. There is mild tricuspid regurgitation. The mitral valve leaflets appear mildly thickened, but open well. There is mild mitral regurgitation. No obvious vegetation seen , consider BOBBI if clinically indicated. Assessment & Plan Patient is a 81-year-old male admitted 01/06 probable abdominal abscess following conservative antibiotic treatment of appendicitis during November in [facility]. # Acute presacral abscess, poa, active -This was drained on 01/16, and is growing and ESBL e. coli -We will consider gracilias flap few weeks -Continue Vanco thru the 01/22/17 -On ertepenen, (minimum of 2-3 weeks treatment with ertepenen, meropenen) recommended by ID -Dr. Goel has set up sinogram Monday with premeditation for allergy ordered # Coag-negative bacteremia, POA, active, -It was initially suspected that the possible source was a line infection with the Groshong cath, serial BCX 01/06, 01/07, 01/08 from peripheral, from Groshong grew staph coag neg, -TTE was negative for vegetation.Last blood culture 01/10 remained negative. -Chronic Presacral fluid collection drained 01/16, consistent to abscess, potentially this could be the source. -We had started Ancef 2gq8h per ID, -Ancef changed to Meropenem 01/17 -We added vancomycin per ID 01/11 to continue to January 22, # Probable contusion to Right Hip, poa, active -We have consulted , unlikely related to hip joint, could be greater trochanter bursitis, contusion, tendon injury from fall, no evidence of infection, see MRI01/08 -We will continue pain control with percocet, pt still requring 2tab q4h, will add lidocaine patch, also try [id number] bid (01-19-17), monitor sx, renal function closely with NSAID -Ortho/Gen. surgery consultation, no further surgical recs. We may need to reconsult orthopedic surgeries patient continues to have severe pain in the hip. -We will continue to monitor if there is any improvement after drainage of presacral fluid, so far didn't seem to be related. # Chronic SBO, poa, stable -This was noted on CT 01/06 w/o contrast not on 01/07 w/ contrast, Extensive surgical history, drainage with venting gastrostomy/Groshong cath inserted in for TPN -We will continue full liquids with nocturnal TPN to provide sufficient nutrition for healing. -We will open his gastrostomy at night, drainage as needed. -There are no further recs per # New bilateral hydroureter, poa, stable -reviewed with Dr Duran () earlier, he agreed that this is new hydroureter but not necessarily obstruction, -Dr. Duran not recommending stents at this time # Anemia-trending down until 01/08, likely dilutional, stable now # HTN/lipids,controlled with home medications today # Protein caloric - resumed nocturnal TPN 14 hours at night 01/08 -Patient is up to eating full liquids -He has a venting gastrostomy due to chronic partial bowel obstruction type issues. # Hyponatremia- Resolved 01/07 # Hx colon CA-distorted anatomy status post partial colectomy, reports failed anastomosis with leaking, patient now has pouch. # Prophylaxis- DVT with SCDs and enoxaparin, GI H2 RA # Disposition-likely 2-3more days, to SNF given limited mobility vs Home with HH , pt may progress function given draining abscess, has to cooperate with PT. We may need to re-consult orthopedic surgery DNR/DNI Pain Evaluation: Adequate Pain Control VTE Prophylaxis: Sub-Q Enoxaparin VTE Mechanical Devices: Intermittant Pneumatic CD Resuscitation Status: DNR/DNI:Do Not Resuscitate/Intubate David aDvid MD Jan 22, 2017 20:26
[2017-01-22] MEDS: TPN Per Pharmacist XX SCH (21:00)
[2017-01-22 21:03] VITALS: BP 135/60; PULSE 62; RESP 20; O2SAT 97
[2017-01-22] MEDS: Total Parenteral Nutrition 1 BAG IV SCH (21:16)
[2017-01-23] VITALS (13 sets, daily range): BP systolic 113–152; BP diastolic 47–75; PULSE 64–81; RESP 14–20; O2SAT 92–94
[2017-01-23] MEDS: predniSONE 20 mg Tablet PO SCH ×3 (01:53→20:53)
[2017-01-23] MEDS: HYDROcodone-APAP 5-325 mg Tablet PO PRN (01:57)
[2017-01-23] MEDS: TOBRAMYCIN DEXAMETHASONE BOTH_EYES SCH ×4 (02:30→20:30)
--- NOTE | 2017-01-23 03:13 | NUR ---
procedure prep CT called nurse to say that in preparation of the patient having their drain replaced in the morning they need new coagulation labs drawn, pts lovenox to be held and for pt to be NPO at midnight. was notified who ordered PT/PTT labs and said to D/C the lovenox. for the contrast allergy premedication pt has been given 2 of the 3 doses of prednisone. he will be given his last dose at 0800 with benadryl. a 20g IV has been placed in pts L wrist for the procedure as well. pt has been NPO since midnight except for sips of water with his prednisone and pain medication.
[2017-01-23 06:16] LABS: BASOPHILS % (AUTO) 0 % (0-3); EOSINOPHILS % (AUTO) 0 % (0-5); MONOCYTES % (AUTO) 0.8 % (4-12); Mean Corpuscular Hemoglobin 28.6 pg (27.0-35.0); Mean Corpuscular Volume 89.2 fL (81-100); NEUTROPHILS % (AUTO) 90.9 % (40-74); Platelet Count 406 bil/L (150-400)
[2017-01-23 06:25] LABS: INR 1.06 ratio
[2017-01-23] MEDS ORDERED: diphenhydrAMINE 50 mg Capsule PO ONE (08:00)
[2017-01-23] MEDS: Insulin LISPRO 300 Unit/3 mL Inj SUBQ SCH ×3 (08:16→18:13)
[2017-01-23] MEDS: Lidocaine Topical 5% Patch TOPICAL SCH (08:30)
[2017-01-23] MEDS: 0.9% Sodium Chloride 50 ML IRRIGATION SCH ×2 (08:30→20:30)
--- NOTE | 2017-01-23 10:54 | PCM.PHAPRO ---
Progress PARENTERAL NUTRITION ORDERS 16 23-Jan-17 Standard Hang Time: 2099 Substrates Total kcal: 2021 AMINO ACIDS 100 g DEXTROSE 330 g Total Volume (mL): 1800 LIPIDS 50 g Sterile Water for Injection QS mL To Infuse Over (hrs): 24 Total Volume 1800 mL At at a rate of (mL/hr): 75 Additives Sodium Chloride 100 mEq "typical" daily requirements Sodium Acetate 40 mEq Sodium 50-120mEq Potassium Chloride 40 mEq Potassium 60-120mEq Potassium Phosphate 10 mEq Phosphate 20-40mEq Calcium Gluconate 18 mEq Magnesium 8-32mEq Magnesium Sulfate 12 mEq Calcium 9-22mEq Acetate* 80-120mEq Chloride* 80-120mEq Regular Insulin units *Depending on acid-base status Famotidine 40 mg Multivitamins 1 std dose Insulin Regimen Trace Elements 1 std dose none Thiamine mg Regular Low Intensity Subcut Folic Acid mg Regular Medium Intensity Subcut Ascorbic Acid mg Regular High Intensity Subcut Regular Insulin Infusion Other: Special Instructions: To be infused via central line only. For delay or inturruption of TPN contact the pharmacist for alternative replacement solution. Signature Date: DAYSI SIM [address] [place] [address] Chapo Salgado, PharmD Chapo Salgado Jan 23, 2017 10:54
[2017-01-23] MEDS: Ertapenem Inj 1,000 MG in 0.9% Sodium Chloride 100 ML IV SCH (11:10)
--- NOTE | 2017-01-23 11:27 | NUR ---
Palliative Care Palliative Care received verbal order from Dr David 01/23/17 to assist with pain management. Patient was admitted 01/06/17. Patient lives home with his on [address]. Iman Lawson () [phone] Palliative Care to follow. Angelica Garza
[2017-01-23] MEDS: Diltiazem CD 120 mg ER24 Capsule PO SCH (11:32)
--- NOTE | 2017-01-23 11:52 | NUR ---
Social Work: Multi-Disciplinary Rounds/ Continued Discharge Planning D: EMR reviewed. Pt is on day 17 of hospitalization for fever, Bilateral Hydroureter per H&P. Per MD in rounds, pt is not medically cleared for discharge. Pt discussed in rounds, palliative has been ordered to follow pt for pain control. Per RN and PT, pt is unable to sit up at bedside due to pain. Pt is able to log roll but experiences pain and expresses grimace while doing so. Pt to go to OR today for new drain and OR tomorrow for Sinogram. Per MD, pt will not be medically cleared for discharge for another 2-3 days. SW continues to follow and work on SNF placement for pt. Pt and chose [facility] first choice and [facility]. SW spoke with Darcy at [facility] (who does not have [employer] access) and faxed clinicals to Darcy at [phone] for review. [facility] will contact DEMAND EQUIPMENT REPAIRER on Monday. [facility] ([facility]) is able to accept pt with [facility] to follow. Pt is aware the [facility] is reviewing and [facility] accepted pt. Pt would like to wait to see what [facility] says. SW will update pt and facilities when [facility] has been able to review pt as this is pt's first choice. Paperwork in chart. PASRR in folder. SW will continue to follow. A: Pt for whom SNF is medically necessary for IV abx and PT P: [facility] has accepted pt with [facility] to follow. [facility] is reviewing pt, clinicals have been faxed. JASIEL will update pt and facilities when [facility] has been able to review pt as this is pt's first choice. Paperwork in chart. PASRR in folder. SW will continue to follow. GILBERT Sethi
--- NOTE | 2017-01-23 12:22 | PCM.PNSURG ---
Subjective Date of Service: Jan 23, 2017 Visit Information: Reason for Visit Fever/Bilateral Hydroureter Surgery/Surgery Date Post-Op Day # Date of Admission: Jan 06, 2017 at 10:19 Hospital Day #18 Subjective: Passing flatus via ostomy, no stool. Requesting full liquid diet. Was made nothing by mouth pending today's scheduled percutaneous abscess drainage. States having no pain. Postop General: No Complaints Gastrointestinal: Good Appetite, No N/V, Passing Flatus (via ostomy) Pain Management: PO, No or Minimal Pain Objective Vital Sign- Last 8 Hours Date Time Temp Pulse Resp B/P Pulse Ox O2 Delivery O2 Flow Rate FiO2 01/23/17 11:11 78 152/69 01/23/17 07:59 36.2 81 18 145/61 92 Room Air 01/23/17 06:18 36.9 79 16 135/65 93 Room Air Intake and Output- Last 8 Hour 01/23/17 Cumulative From/Thru 07:00 01/06/17 03:10 - 01/23/17 06:18 Intake Total 1433 ml 81776 ml Output Total 2471 ml 35800 ml Balance -1038 ml 95731 ml Intake Oral 400 ml 6495 ml IV Total 130 ml 85039 ml TPN/PPN 903 ml 46775 ml Tube Irrigant 100 ml Output Urine Total 2021 ml 44041 ml Stool Total 75 ml Gastric Drainage Total 450 ml 7500 ml Drainage Total 1000 ml # Voids 53 # Bowel Movements 0 General: Alert, Cooperative, No Acute Distress Lungs: Clear to Auscultation Heart: Regular Rate/Rhythm (distant), Murmur (grade 2/6 systolic murmur) Abdomen: Soft, Non-tender, Distended (minimally) Neuro: Normal Speech Catheters: None Result Diagram: 01/23/17 0553 01/23/17 0553 Assessment & Plan Impression Primary diagnoses: 1. Presacral abscess. CT-guided percutaneous abscess drainage is scheduled for 1:30 today. A discussion was held with Dr. Castañeda, Sinogram will be delayed until tomorrow. 2. Chronic partial bowel obstruction. Passing flatus but no stool via ostomy. 3. Bilateral hydroureter 4. Anemia of chronic disease 5. Coag-negative bacteremia Other chronic conditions: 1. Hypertension. 2. Hyperlipidemia. 3. Hypothyroidism. 4. Obstructive sleep apnea on CPAP. 5. History of CVA in 2008. 6. Recurrent small bowel obstructions, prior SBO with perforation 7. CAD 8. CHF 9. stroke 10. history of colorectal cancer, in remission Problems: Plan Resume full liquid diet after CT-guided percutaneous drain. Nothing by mouth after midnight. Pain Management: Oral analgesic VTE Prophylaxis: Sub-Q Enoxaparin Resuscitation Status: DNR/DNI:Do Not Resuscitate/Intubate Reji Snyder PA-C Jan 23, 2017 12:22
[2017-01-23] MEDS ORDERED: Flumazenil 0.1 mg/mL 5 mL Inj IV ONE (13:40)
[2017-01-23] MEDS ORDERED: fentaNYL-PF 50 mCg/mL 2 mL Inj ONE (13:43)
--- NOTE | 2017-01-23 13:45 | NUR ---
FROM [facility], REPORT RECEIVED. SEE SEDATION FLOW SHEET
--- NOTE | 2017-01-23 13:58 | NUR ---
NUTRITION FOLLOW-UP: ASSESS: 81 YO male admitted with fevers, abdominal and right flank pain, new bilateral hydroureter, bacteremia with chronic SBO, plan for percutaneous abscess drainage today for pre-sacral abscess and sinogram tomorrow. RN notes pt passing flatus via ostomy, no stool. Pt has been on outpatient TPN and TPN was started on 01/08. Nocturnal TPN is at goal and appears well tolerated at this time. Currently NPO for above procedures. PMHx: HTN, dyslipidemia, hypothyroidism, FAVIAN, CVA, recurrent SBO's with perforation, CAD, CHF, colorectal cancer, in remission. DIET: NPO. Previous:Full Liquids. Ensure all trays. PO-refusal, 25% x 1-2meals. NUTRITION SUPPORT: TPN of 330 g dextrose, 100 g amino acid, 50 g lipid to provide 2025 kcal, 100 g protein per day. HOME DIET: Nocturnal TPN and full liquids per notes. LABS: Reviewed. Na 137, Glu 178, Alb 2.8, Ca 8.5 GI symptoms / stool: No stool output noted, passing flatus via ostomy ANTHROPOMETRICS: Current Wt: 73.4 kg. Admit Wt: 72.0 kg ESTIMATED NEEDS: Calories: 1800 - 2160 kcal (25 - 30 kcal / kg BW) Protein: 86 - 108 g protein (1.2 - 1.5 g / kg BW) Fluid: Approx. 1800 mL (25 mL / kg BW) NUTRITION DIAGNOSIS: 1.) Altered GI function related to alteration in GI tract structure / function as evidenced by history of colorectal cancer requiring chronic/ongoing TPN with venting gastrostomy tube--PERSISTS. INTERVENTION: 1.) Recommend continuing current TPN at this time to meet 100% of pt est. needs. 2.) Continue ensure all trays once diet advanced. MONITOR/EVALUATE: TPN, diet tolerance, PO intake, labs, GI/nutrition status. Follow per moderate nutrition risk guidelines.
[2017-01-23] MEDS ORDERED: fentaNYL-PF 50 mCg/mL 2 mL Inj IVPUSH PRN (14:20)
--- NOTE | 2017-01-23 15:00 | NUR ---
RIGHT HIP WITH DRESSING DRY AND INTACT. ATTACHED TO DRAINAGE BAG
--- NOTE | 2017-01-23 15:00 | NUR ---
RETURNED FROM CT. SEE EMR
--- NOTE | 2017-01-23 15:09 | PCM.CONPAL ---
Date of Service Jan 23, 2017 Date of Hospital Admission: Jan 06, 2017 at 10:19 Date of Palliative Consult: Jan 23, 2017 Requesting Provider: David David MD Reason Palliative Care Consult: Pain Reason for Consultation Palliative Care received verbal order from Dr David 01/23/17 to assist with pain management. Patient was admitted 01/06/17. Patient lives home with his on [address]. Iman Lawson () [phone] Hospital Unit @time of consult: Orthopedic/Surgical Care (rm [phone]) Palliative Care Recommendation Summary of palliative recommendations: -Symptom management (Pain/other): Pt opiate naive, using only Tylenol prior to this admission. Reviewed SEP. Currently taking Hydrocodone/APAP 2 tablets around the clock. In last 24 hours, he had twelve tablets 5/325 HC/APAP or 60mg of hydrocodone. This is the equivalent of 60mg morphine or 40mg oxycodone or 30mcg/hr fentanyl. More importantly: the HC/APAP dosing exceeds the recommended amount of APAP in 24 hours (per the [employer]) for people over 70 yo (1500mg/24hours). He had 325mg APAP x 12 = 3,900mg APAP. He reports better pain control with consistent dosing of pain medications around the clock, and with IV antibiotics. He says it hurts less to be turned from side to side. He doesn't like morphine because it makes him feel "out of this world" 1. Discontinue HC/APAP (due to high APAP dosing). (This order written by Dr. Estrada today) 2. Start oxycodone/APAP, 10/325, one po q 6 hours prn. This reduces his APAP considerably to 1300mg/24h if he takes every dose. This also keeps his opiate pain coverage the same in 24 hours, although each 6 hour dose will feel "stronger" to him. Monitor for sedation. Consider that if pain is related primarily to infection, then will need to taper down opiates quickly to avoid sedation as infection is resolving. (This order written by Dr. Estrada today) 3. Constipation?? Will need to discuss with pt tomorrow. He has no laxative/ stool softeners ordered. He may not need them as he is on TPN and likely stooling regularly from that. Plan: Palliative Care will return tomorrow to assess the effectiveness of his pain plan. -DPOA/Advanced Directives/POLST: 1. Code: DNR/DNI -Family/emotional support: 1. Iman Lawson () [phone] Problems: Resuscitation Status Resuscitation Status: DNR/DNI:Do Not Resuscitate/Intubate . Symptom management: Pain Pt History History of Present Illness 81-year-old male with a complex medical history including recurrent bowel obstructions after having colectomy and colon cancer prior to 2010 and 2009. He has been medically stable in between with these recurrent episodes last time hospitalized here at [facility] March 2016 with bowel obstruction. Most recently was hospitalized at [facility] 01/06with appendicitis that was treated with antibiotics only. His surgeon Valdemar Jarrett had recommended conservative intervention at that point in time. Bowel obstruction and basically spent the month of November and [facility] on antibiotics. He has been run down and weak since then but suddenly about 36 hours prior to admission, he began having fevers, abdominal pain and severe right flank pain. And when it did not resolve on the second day he came to the emergency room and was admitted on . Hospital Course: He has been treated for a presacral abscess found this hospitalization with IV antibiotics and initial drainage on 01/16 with planned percutaneous drainage again today 01/23. The plan is for a sinogram on January 24 to look for a possible sinus tract from the abscess to the area of the right hip that might account for the persistent right hip pain, which is otherwise unexplained. The presacral abscess fluid grew ESBL and will need 2-3 more weeks of IV ertepenem/meropene. He also had bacteremia with blood cultures that grew staph coag neg and TTE was negative for vegetation. Initial MRI of hip joint 01/08 looks negative for infection and is thought to be a contusion or greater trochanter bursitis per [facility] application consultant Dr. Haley. He has had a chronic SBO with venting gastrostomy and has been on TPN at since 01/08 with full liquid diet for nutrition. Today is Hospital Day 17 and Palliative Care was asked to review his pain regimen and make recommendations for optimal pain control. Past Medical History Significant PMH Noted: hypertension, hyperlipidemia, hypothyroidism, sleep apnea, history of CVA in 2008, recurrent small-bowel obstructions, prior small bowel obstruction with perforation, coronary artery disease, congestive heart failure, stroke and history of colorectal cancer. Surgical History: tonsillectomy, thyroidectomy, orchiopexy, TURP, inguinal hernia, repair with lysis of adhesions, colorectal cancer with low anterior resection, exploratory laparotomy with lysis of adhesions 2013, and colon resection and ileostomy. Social History: The patient has never smoked. He does not drink.The patient is . He and his live on [address]. 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 Medications Current Medications: Current Medications Prednisone 50 mg Q6H PO Last administered on 01/23/17 08:02; Admin Dose 50 MG; Start 01/22/17 at 20:00; Stop 01/23/17 at 08:01; Status DC Miscellaneous Medication 1 ea 1 ea DAILY@21 XX; Start 01/21/17 at 21:00 Ertapenem/Sodium Chloride 100 ml @ 200 mls/hr Q24 IV Last administered on 11:10; Admin Dose 200 MLS/HR; Start 01/22/17 at 08:30 Midazolam HCl 1 mg PRN PRN IVPUSH; Start 01/23/17 at 14:20; Stop 01/23/17 at 15 :00; Status DC Fentanyl Citrate 25 mcg PRN PRN IVPUSH; Start 01/23/17 at 14:20; Stop 01/23/17 at 15:00; Status DC Scheduled Atorvastatin Calcium (Atorvastatin Calcium) 20 Mg Tablet 20 MG PO QPM Cholecalciferol (Vitamin D3) (Vitamin D3) 2,000 Unit Capsule 2,000 UNIT PO DAILY Diltiazem ER (Dilt XR) 120 Mg Cap.er.deg 2 CAPSULE PO DAILY Levothyroxine (Levoxyl) 100 Mcg Tablet 100 MCG PO DAILY Magnesium Oxide (Magnesium) 250 Mg Tablet 250 MG PO BIDWM Metoprolol Tartrate (Metoprolol Tartrate) 25 Mg Tablet 25 MG PO BID Multivitamin (Multi Vitamin Daily) 1 Each Tablet 1 EACH PO DAILY Potassium Chloride (Potassium Chloride) 20 Meq Tab.er.prt 20 MEQ PO DAILY Scheduled PRN Acetaminophen (Acetaminophen) 325 Mg Tablet 650 MG PO DAILY PRN PRN For Pain Ibuprofen (Ibuprofen) 400 Mg Tablet 400 MG PO Q6H PRN PRN For Pain Ketoconazole (Ketoconazole) 15 Gm Cream..g. 1 APPLIC TOP DAILY PRN PRN rash Objective Findings Exam Vital Sign - Last Date Time Temp Pulse Resp B/P Pulse Ox O2 Delivery O2 Flow Rate FiO2 01/23/17 12:19 36.6 75 18 147/75 92 Room Air Intake and Output 01/22/17 01/22/17 01/23/17 Cumulative From/Thru 15:00 23:00 07:00 01/06/17 03:10 - 01/23/17 06:18 Intake Total 1222 ml 1433 ml 32741 ml Output Total 2471 ml 88188 ml Balance 1222 ml -1038 ml 90195 ml Intake Oral 0 ml 400 ml 6495 ml IV Total 311 ml 130 ml 40313 ml TPN/PPN 911 ml 903 ml 84260 ml Tube Irrigant 100 ml Output Urine Total 2021 ml 24687 ml Stool Total 75 ml Gastric Drainage Total 450 ml 7500 ml Drainage Total 1000 ml # Voids 1 53 # Bowel Movements 0 General: Alert/Oriented x3, Person, Place, Time, Situation, No acute distress HEENT: Atraumatic, PERRLA, EOMI, Scleral Anicteric Heart: Regular Rate/Rhythm, Normal S1, S2, No Murmurs/Rubs/Gallops Lungs: Clear to Auscultation Abdomen: Bowel Tones x4, Soft, Non Tender, PEG/Feeding tube in place Neuro: Exam Intact, Other (no sensory or motor deficits) Extremities: Warm, No Edema Skin: Other (Percutaneous drainage to presacral abscess) Lab/Diagnostics Lab and Imaging results reviewed in detail in EMR. Time spent Total time 70 minutes; >50% face to face with patient and/or family, providing counselling regarding plans and recommendations, and in care coordination with his/her medical teams. Rosalie Estrada MD Jan 23, 2017 15:09
--- NOTE | 2017-01-23 15:50 | DRSVH ---
PROCEDURE: 1. Presacral fluid collection drainage under CT guidance. 2. Conscious sedation times 30 minutes. INDICATIONS: Presacral fluid collection. COMPARISON: [facility], CT, CT ABCESS DRAIN PERITONEAL, 01/16/2017, 14:08. TECHNIQUE: Informed, written consent from the patient was obtained prior to the procedure. Patient wa s brought to the angiography suite, and conscious sedation was administered intravenously by half-way staff, while continuous cardiorespiratory monitoring was performed. Maximal sterile barrier t echnique, hand hygiene, skin preparation, and sterile ultrasound technique (if ultrasound was utilize d) was followed. A mask, sterile gown, sterile gloves, a large sterile sheet, hand hygiene, and 2% ch lorhexidine or iodine was utilized for skin antisepsis. Rigging Slinger CT imaging of the presacral fluid colle ction was performed with overlying localization grid. The appropriate cutaneous site for percutaneous access to the presacral fluid collection was marked, prepped and draped sterilely, and infused with lidocaine. Under CT guidance, an 18 gauge needle was advanced into the presacral fluid collection, th rough which an 035 Amplatz wire was advanced. Sequential dilators were placed, followed by advancemen t of an 8 Angolan pigtail drainage catheter. Roughly 30 cc of bloody and yellow material were aspirate d, and were sent to laboratory for analysis. FINDINGS: At the conclusion of the procedure, the pigtail drainage catheter is within the presacral fluid collection. IMPRESSION: 8 Angolan percutaneous drainage of presacral fluid collection. Dictated by: Gerri Castañeda M.D. on 01/23/2017 at 15:45 Approved by: Gerri Castañeda M.D. on 01/23/2017 at 15:48
--- NOTE | 2017-01-23 16:35 | PROG NOTE ---
[address] [address] PROGRESS NOTE PATIENT: DAYSI SIM : 1935 MR#: [id number] ADMIT: 01/06/2017 JOB ID: [id number] DATE: 01/23/2017 REASON FOR FOLLOWUP: Presacral abscess with polymicrobial justus, as well as high-grade coag-negative Staph bacteremia and history of multiple small bowel obstructions. INTERVAL HISTORY: Over the weekend, the patient's presacral abscess drain fell out and he is scheduled for replacement today. Otherwise, he has been feeling gradually better. No significant fevers, chills or sweats. No respiratory difficulties, and his right hip pain, which has been so severe for so long, is now resolving. PHYSICAL EXAMINATION: Reveals an afebrile gentleman, no acute distress. Temp 36.6, pulse 75, respiratory rate 18, blood pressure 147/75. He is saturating well on room air and in no real distress today. He remains n.p.o. of course. His lungs are relatively clear. Cardiac tones without new murmur. Abdomen is slightly distended, with G-tube for decompression purposes. The abdomen though is nontender. His right hip has much greater mobility and is no longer tender behind or above the hip joint, which is quite an impressive change. LABORATORIES: Include a normalized white count, 6700, though still 91% polys. Creatinine 0.42. LFTs normal. The cultures from the abscess now are growing E coli and Bacteroides, and we are treating of course with ertapenem, to which both organisms are presumably exquisitely susceptible. The coag-negative Staph we have been treating of late has not been identified in recent blood cultures. IMPRESSION: This patient is really starting to do a lot better. There are plans to move him ahead to a liquid diet and start to see if he can be fed again as that will be one of the goals. In addition, we have now completed treatment for the coag-negative Staph bacteremia and there is no sign of recurrence or issue off the vancomycin. He continues on broad-spectrum antibiotics with ertapenem for the somewhat resistant Escherichia coli as well as the Bacteroides found in the presacral abscess. RECOMMENDATIONS: 1. There are plans underway to replace the drain which is of course an urgent need. 2. Will continue with ertapenem with the plan to go for at least a couple weeks before possible transition to oral antibiotics. There are very limited choices here given the resistance of this E. coli, but it does appear that Augmentin might be a reasonable choice, but I think in the main, this is going to be a long period of IV antibiotic therapy as well as drainage to try and resolve this area. 3. Note that last week I discussed with Dr. Jarrett the possibility of a gracilis flap to close that area so he does not re-collect a new abscess in the presacral area.
--- NOTE | 2017-01-23 20:11 | PCM.PNMED ---
Subjective Date of Service Jan 23, 2017 Subjective Patient is feeling a little better today and is having less pain in his right hip even with movement today. He has no other new complaints. Exam Vital Signs Vital Sign - Last Date Time Temp Pulse Resp B/P Pulse Ox O2 Delivery O2 Flow Rate FiO2 01/23/17 17:26 36.5 76 18 122/56 94 Room Air Intake and Output 01/22/17 01/22/17 01/23/17 Cumulative From/Thru 15:00 23:00 07:00 01/06/17 03:10 - 01/23/17 06:18 Intake Total 1222 ml 1433 ml 00962 ml Output Total 2471 ml 87293 ml Balance 1222 ml -1038 ml 54075 ml Intake Oral 0 ml 400 ml 6495 ml IV Total 311 ml 130 ml 83138 ml TPN/PPN 911 ml 903 ml 03368 ml Tube Irrigant 100 ml Output Urine Total 2021 ml 09818 ml Stool Total 75 ml Gastric Drainage Total 450 ml 7500 ml Drainage Total 1000 ml # Voids 1 53 # Bowel Movements 0 Exam General: Patient was seen after the presacral abscess drain was placed today and he appears much more comfortable. HEENT: Head is atraumatic and normocephalic. Eyes: Pupils are equally round and reactive to light and accommodation. Extraocular muscles are intact. Sclera are white, anicteric. Subconjunctival mucosa is pink. Ears and nose are unremarkable. Oropharynx: There is no mucosal lesions, there is no thrush, there is no pharyngitis. Neck: Is supple, there are no nodes, or masses or tenderness. Chest: Is clear to auscultation and percussion. There are no rales, rhonchi, wheezes or rubs. Heart: Rate, rhythm is regular. There is a grade 3/6 holosystolic murmur heard best at the left sternal border. There is no rub or gallop. Abdomen: Good bowel sounds are present. Abdomen is soft, nontender, no organomegaly or masses were appreciated. The PEG tube site is unremarkable. Extremities: Are symmetrical and well perfused. There is no edema, there is no cellulitis, no rash. However, there is decrease pain with range of motion of the right hip. Neurologic: There are no focal neurological deficits. Cranial nerves II through XII are intact. There are no sensory or motor deficits. Psychiatric: Patients mood is calm and he shows no sign of agitation. Genital: Deferred Rectal: Deferred Lab and Diagnostics Result Diagram: 01/23/17 0501/[id number]/17552 Microbiology Coag negative staph appears to be in 2 of 2 bottles from blood cultures 01/06 and ED. X-Rays, CTs and MRIs CT ABDOMEN AND PELVIS WITH CONTRAST: Eduardo Grider M.D. on 01/07/2017 at 10:57 1. 6.4 x 4.8 cm thickwalled enhancing fluid collection is not significantly changed in size since December 2015, and currently demonstrates no imaging manifestations of superimposed infection. As such, any determination of superimposed infection would need to be made on clinical grounds. 2. Mild bilateral hydronephrosis has slightly decreased in degree since December. 3. No evidence for small bowel obstruction. 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 Dictated by: Eduardo Grider M.D. on 01/07/2017 at 10:57 CT ABDOMEN AND PELVIS WITHOUT CONTRAST: Arben Foster M.D. on 01/06/2017 at 7: 49 1. New moderate bilateral hydronephrosis and ureterectasis. No calcified obstructing lesions. Findings maybe related to increased inflammatory change in the pelvis. 2. 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 Superimposed infection is possible. This fluid collection would be amenable to CT-guided aspiration for diagnostic purposes if needed. 3. Partial bowel obstruction at the site of the left lower quadrant ostomy with gas-filled dilated colon and intermittently fluid-filled dilated loops of small bowel. Superimposed enteritis is also possible 4. Gastrostomy tube with tip likely in the stomach although poorly seen due to stomach decompression. Dictated by: Arben Foster M.D. on 01/06/2017 at 7:49 12-lead ECG Rate is 88, QTC 418 concurrently reviewed by Vazquez 01/06 . Sinus rhythm * Ventricular premature complex . Borderline prolonged ME interval . Probable left atrial enlargement . When compared with ECG of 07-Apr-2016 9:19:45, * PVCs are now present * PACs are no longer present * ST elevation is no longer present Cardiac Echo Impressions Echocardiogram Report Name: DAYSI SIM AStudy Date : 01/09/2017 Height: 71 in Hospital Exam Location: [facility] Weight: 163 lb Gender: Male BSA: 1.9 m2 : 1935 Age: 81 yrs BP: 158/70 mmHg Reason For Study: gram-positive bacteremia Performed By: Catrachita Tom Referring Physician: BERNICE JAIMES Interpretation Summary Left ventricular wall thickness is mildly increased. The ejection fraction is estimated to be 60-65%. There are no obvious focal wall motion abnormalities noted but poor endocardial definition reduces the sensitivity for the detection of such. There is mild mitral annular calcification. There is moderate aortic valve sclerosis. There is mild tricuspid regurgitation. The mitral valve leaflets appear mildly thickened, but open well. There is mild mitral regurgitation. No obvious vegetation seen , consider BOBBI if clinically indicated. Assessment & Plan Patient is a 81-year-old male admitted 01/06 probable abdominal abscess following conservative antibiotic treatment of appendicitis during November in [facility]. # Acute presacral abscess, present on admission, active -This was drained on 01/16, and is growing and ESBL e. coli -We will consider gracilias flap as suggested by Dr. Lemon. -Continue Vanco thru the 01/22/17 -On ertepenen, (minimum of 2-3 weeks treatment with ertepenen, meropenen) recommended by ID -Dr. Goel has set up sinogram which will be performed in a.m. with premeditation for allergy ordered # Coag-negative bacteremia, present on admission, active, -It was initially suspected that the possible source was a line infection with the Groshong cath, serial BCX 01/06, 01/07, 01/08 from peripheral, from Gro[place]ong grew staph coag neg, -TTE was negative for vegetation.Last blood culture 01/10 remained negative. -Chronic Presacral fluid collection drained 01/16, consistent with abscess, potentially this could be the source. -We had started Ancef 2gq8h per ID, -Ancef changed to Meropenem 01/17 -We added vancomycin per ID 01/11 to continue to January 22, # Probable contusion to Right Hip, present on admission, active -We have consulted , unlikely related to hip joint, could be greater trochanter bursitis, contusion, tendon injury from fall, no evidence of infection, see MRI01/08 -We will continue pain control with percocet, pt still requring 2tab q4h, will add lidocaine patch, also try [id number] bid (01-19-17), monitor sx, renal function closely with NSAID -Ortho/Gen. surgery consultation, no further surgical recs. We may need to reconsult orthopedic surgeries patient continues to have severe pain in the hip. However, today on 01/23/2017 the patient's pain has improved significantly. # Chronic SBO, present on admission, stable -This was noted on CT 01/06 w/o contrast not on 01/07 w/ contrast, Extensive surgical history, drainage with venting gastrostomy/Groshong cath inserted in for TPN -We will continue full liquids with nocturnal TPN to provide sufficient nutrition for healing. -We will open his gastrostomy at night, drainage as needed. -There are no further recs per # New bilateral hydroureter, present on admission, stable -We reviewed with Dr Duran () earlier, he agreed that this is new hydroureter but not necessarily obstruction, -Dr. Duran not recommending stents at this time # Anemia-trending down until 01/08, likely dilutional, stable now # HTN/lipids,controlled with home medications today # Protein caloric - resumed nocturnal TPN 14 hours at night 01/08 -Patient is up to eating full liquids -He has a venting gastrostomy due to chronic partial bowel obstruction type issues. # Hyponatremia- Resolved 01/07 # Hx colon CA-distorted anatomy status post partial colectomy, reports failed anastomosis with leaking, patient now has pouch. Rule out anterolateral sacral abscess fistula. Plan for sinogram at 9 AM tomorrow morning. # Prophylaxis- DVT with SCDs and enoxaparin, GI H2 RA # Disposition-likely 2-3more days, to SNF given limited mobility vs Home with HH , pt may progress function given draining abscess, has to cooperate with PT. patient is feeling a little better today and agrees to participate with PT tomorrow. DNR/DNI Pain Evaluation: Adequate Pain Control VTE Prophylaxis: Sub-Q Enoxaparin VTE Mechanical Devices: Intermittant Pneumatic CD Resuscitation Status: DNR/DNI:Do Not Resuscitate/Intubate David David MD Jan 23, 2017 20:11
[2017-01-23] MEDS: oxyCODONE-Acetamin 10-325 mg Tablet PO PRN (20:53)
[2017-01-23] MEDS: Nystatin 100,000 Unit/Gm 15 Gm Powder TOPICAL PRN (20:57)
[2017-01-23] MEDS: TPN Per Pharmacist XX SCH (21:00)
[2017-01-23] MEDS: Total Parenteral Nutrition 1 BAG IV SCH (21:30)
[2017-01-24] MEDS: TOBRAMYCIN DEXAMETHASONE BOTH_EYES SCH ×4 (02:30→20:30)
[2017-01-24] MEDS: predniSONE 20 mg Tablet PO SCH ×2 (02:45→08:17)
[2017-01-24] MEDS: oxyCODONE-Acetamin 10-325 mg Tablet PO PRN ×3 (02:53→15:16)
--- NOTE | 2017-01-24 03:30 | NUR ---
Pain Patient complains of pain 6/10 on pain scale. Patient hesitant about using narcotics but agreed to use Percocet 5/325 1 tab. Patient would like pain to decrease to 3/10 . 4x4 applied around new drain on right back side for comfort purposes. VSS. Call light within reach. Care continues.
--- NOTE | 2017-01-24 03:34 | NUR ---
Wrong TPN At approximately 2130, TPN with incorrect patient name was administered at 68 ml/hour. TANGELA Eugene caught mistake at 2230. TPN immediately stopped. Per charge nurse, correct TPN hung at 75 ml/hr. Charge nurse notified pharmacy. Patient made aware at 0300 when alert.
[2017-01-24 06:02] VITALS: BP 120/56; PULSE 69; RESP 16; O2SAT 95
[2017-01-24] MEDS: Insulin LISPRO 300 Unit/3 mL Inj SUBQ SCH ×4 (08:00→22:00)
[2017-01-24] MEDS ORDERED: diphenhydrAMINE 25 mg Capsule PO ONE (08:00)
[2017-01-24] MEDS: Diltiazem CD 120 mg ER24 Capsule PO SCH (10:20)
[2017-01-24] MEDS: Ertapenem Inj 1,000 MG in 0.9% Sodium Chloride 100 ML IV SCH (10:21)
[2017-01-24] MEDS: 0.9% Sodium Chloride 50 ML IRRIGATION SCH ×2 (10:21→20:30)
[2017-01-24] MEDS: Lidocaine Topical 5% Patch TOPICAL SCH (10:22)
--- NOTE | 2017-01-24 10:42 | PCM.PHAPRO ---
Progress PARENTERAL NUTRITION ORDERS 17 24-Jan-17 Standard Hang Time: 2099 Substrates Total kcal: 2021 AMINO ACIDS 100 g DEXTROSE 330 g Total Volume (mL): 1800 LIPIDS 50 g Sterile Water for Injection QS mL To Infuse Over (hrs): 24 Total Volume 1800 mL At at a rate of (mL/hr): 75 Additives Sodium Chloride 100 mEq "typical" daily requirements Sodium Acetate 40 mEq Sodium 50-120mEq Potassium Chloride 40 mEq Potassium 60-120mEq Potassium Phosphate 10 mEq Phosphate 20-40mEq Calcium Gluconate 18 mEq Magnesium 8-32mEq Magnesium Sulfate 12 mEq Calcium 9-22mEq Acetate* 80-120mEq Chloride* 80-120mEq Regular Insulin units *Depending on acid-base status Famotidine 40 mg Multivitamins 1 std dose Insulin Regimen Trace Elements 1 std dose none Thiamine mg Regular Low Intensity Subcut Folic Acid mg Regular Medium Intensity Subcut Ascorbic Acid mg Regular High Intensity Subcut Regular Insulin Infusion Other: Special Instructions: To be infused via central line only. For delay or inturruption of TPN contact the pharmacist for alternative replacement solution. Signature Date: DAYSI SIM [address] [place] [address] Chapo Salgado,PharmD Chapo Salgado Jan 24, 2017 10:42
--- NOTE | 2017-01-24 10:59 | DRSVH ---
PROCEDURE: X-RAY FISTULAGRAM/SINOGRAM INDICATIONS: evaluate IR drain for enterocutaneous fistula COMPARISON: None. Technique: Gastrografin was injected under fluoroscopic guidance into the existing presacral drain. Multiple spo t fluoroscopic images were obtained. FINDINGS: Once the presacral cavity was filled with contrast, there was prompt flow of contrast thro ugh a small fistulous connection with the adjacent small bowel. 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 This finding was discussed with Dr. Stephens immediately after the study on 01/24/17. Dictated by: Zee Yoder M.D. on 01/24/2017 at 10:56 Approved by: Zee Yoder M.D. on 01/24/2017 at 10:57
[2017-01-24 12:07] VITALS: BP 139/67; PULSE 59; RESP 16; O2SAT 94
--- NOTE | 2017-01-24 14:37 | PROG NOTE ---
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 INTERVAL HISTORY: It has been a busy 24 hours or so for the patient. Recall that a couple of days ago, his presacral abscess drain fell out and yesterday he was taken to the operating room where new pigtail catheter was placed and additional cultures were obtained. Following that, the patient underwent a fistulogram which showed there actually was a clear-cut connection between his small-bowel and this presacral abscess. The patient reports he found the drain procedure quite painful, whereas the fistulogram was quite easy. Overall he feels little change with no fevers, chills or sweats. He has no acute pulmonary problems and notes that his right hip pain continues to improve. PHYSICAL EXAMINATION: Reveals a reasonably comfortable gentleman lying supine in his bed. Temp 36.3, pulse 59, respiratory rate 16, blood pressure 139/67. He is saturating well on room air. Examination of the mental status reveals it to be clear. Oral cavity benign, still with poor dentition of course. Lungs relatively clear. Cardiac tones with a I/ murmur heard best in the diastolic area. Abdomen slightly distended, but nontender. The colostomy is present of course and he has a new drain coming around from the presacral area which is draining some brown mixed with bloody fluid. Note that his Groshong catheter is benign; it is in his left upper chest. LABS: Yesterday included a white count 6700. Creatinine 0.42. We have no new labs today, though we do have some micro information from yesterday's abscess drainage. This shows many polys without organisms and we await culture from that abscess collection. IMPRESSION: This is an incredibly complicated gentleman with recurrent small-bowel obstructions, who is receiving total parenteral nutrition because another small-bowel obstruction when he was admitted and found to have a high-grade coag-negative Staph bacteremia. We thought this was due possibly to infected Groshong although that was never proved and after sufficient treatment that actually dramatically improved, to the point that we have been able to keep the Groshong and the patient is now free of his coag-negative Staph infection. Subsequently a longstanding presacral fluid collection, which was seen on imaging over a year ago, was drained to see whether it might be infected and the combination of ESBL and coli and Bacteroides were obtained which we are now treating with long-term ertapenem. 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 RECOMMENDATIONS: 1. Will continue with ertapenem as our sole antibiotic for the time being with the plan to probably treat for weeks at this point. 2. The patient's bowel was going to be kept at rest apparently with the TPN while we hope for this fistulous connection to heal. This will place the patient at high risk for fungemia. 3. Will continue to closely observe this patient with you and will have a low threshold to perform fungal cultures and start him on antifungal agents likely micafungin. 4. We await the additional culture that was taken from the abscess yesterday.
--- NOTE | 2017-01-24 15:00 | PCM.PNSURG ---
Subjective Date of Service: Jan 24, 2017 Date of Service: Jan 24, 2017 Visit Information: Reason for Visit Fever/Bilateral Hydroureter Surgery/Surgery Date Post-Op Day # Date of Admission: Jan 06, 2017 at 10:19 Hospital Day # 19 Subjective: Passing flatus via viable ostomy with minimal stool. The patient has been tolerating a full liquid diet without significant related nausea, vomiting, or pain on TPN with a Groshong catheter. He underwent a sinogram today through his percutaneous drain which was reported to on-call general surgeon Dr. Stephens. He has not been out of bed and is tolerating by mouth analgesics only required occasionally. ID is seeing the patient regularly and managing his antibiotics. Gastrointestinal: Good Appetite, No N/V Pain Management: No or Minimal Pain Postop Activity: Other (the patient has not been out of bed.) Objective Vital Sign- Last 8 Hours Date Time Temp Pulse Resp B/P Pulse Ox O2 Delivery O2 Flow Rate FiO2 01/24/17 12:07 36.3 59 16 139/67 94 Room Air Intake and Output- Last 8 Hour 01/24/17 Cumulative From/Thru 07:00 01/06/17 03:10 - 01/24/17 06:21 Intake Total 979 ml 50829 ml Output Total 1148 ml 69213 ml Balance -169 ml 62623 ml Intake Oral 0 ml 6495 ml IV Total 121 ml 19250 ml TPN/PPN 858 ml 50116 ml Tube Irrigant 100 ml Output Urine Total 1138 ml 93362 ml Stool Total 0 ml 75 ml Gastric Drainage Total 10 ml 7510 ml Drainage Total 1000 ml # Voids 53 # Bowel Movements 0 General: Alert, Oriented X3, Cooperative, No Acute Distress Abdomen: Non-tender, Distended (decreased distention), Tympanic, Ostomy, Other (G-tube bilious 10cc) SURGICAL WOUND : Wound Drainage Type: Other (percutaneous intra-abdominal drain with minimal serous output) Extremities: Thigh&Calf Soft/Nontender Neuro: Normal Speech Result Diagram: 01/23/17 0553 01/23/17 0553 Assessment & Plan Impression This is a 81-year-old male with history of chronic small bowel obstructions hospital day #19 with partial small bowel obstruction with presacral abscess communicating with the small bowel confirmed by sinogram performed today through percutaneous intra-abdominal tube with 55cc serous drainage over the last shift. He is chronically moderately distended with minimal tenderness and by mouth when necessary pain control is sufficient. Infectious disease is seen the patient regularly managing his antibiotics through his Groshong's catheter. He was afebrile with a normal white blood cell count today. He is tolerating full liquids and on TPN without nausea or vomiting. His ostomy is viable and G- tube is putting out minimal output with 10 mL bilious output recorded over the last shift. The patient has not been out of bed recently. We discussed this matter with on-call general surgeon Dr. Wilfredo Stephens M.D. who recommended conservative management including nothing by mouth with TPN to allow for bowel rest. We will also order a physical therapy consult. Primary diagnoses: 1. Presacral abscess. CT-guided percutaneous abscess drainage is scheduled for 1:30 yesterday with sinogram today indicating presacral abscess communicating with the small bowel 2. Chronic partial bowel obstruction. Passing flatus but no stool via ostomy. 3. Bilateral hydroureter 4. Anemia of chronic disease 5. Coag-negative bacteremia followed by ID Other chronic conditions: 1. Hypertension. 2. Hyperlipidemia. 3. Hypothyroidism. 4. Obstructive sleep apnea on CPAP. 5. History of CVA in 2008. 6. Recurrent small bowel obstructions, prior SBO with perforation 7. CAD 8. CHF 9. stroke 10. history of colorectal cancer, in remission Problems: Plan 1. Continue full liquid diet. 2. Physical therapy consult. 3. Reevaluate in the AM. VTE Prophylaxis: SCDs Resuscitation Status: DNR/DNI:Do Not Resuscitate/Intubate Oniel Baires PA-C Jan 24, 2017 15:00
--- NOTE | 2017-01-24 15:52 | NUR ---
Palliative care note D/A: Case discussed with Bebeto from P.T. He notes that pt took half of his "PT pre medication dose." Was able to stand and rated pain 5/10. Pt noted that he wished he had taken full pre medication dose. Plan will be for PT to see again on 01/25/17 with full dose pre medication and attempt to take some steps. Dr. Decker aware. P: Palliative to continue to follow. Anita DORMAN, CCM
--- NOTE | 2017-01-24 16:07 | NUR ---
Social Work- Multi-Disciplinary Rounds/Continued D/C Planning Data: EMR reviewed. Pt is on day 18 of hospitalization. Per multi-disciplinary rounds, Pt is not medically stable at this time, anticipate multiple more days of admission. MD reordered PT to work with pt as pt's pain has decreased. Palliative is following for pain management. Pt is POD 1 after OR on 01/23. Pt is anticipated to still require SNF placement. JASIEL received call from Gustavo at [facility] regarding referral. Gustavo had not reviewed referral and the faxed clinicals were misplaced. SW re-faxed pt's clinicals. Gustavo called and stated that [facility] is not able to accommodate TPN at this time. [employer]ES [employer] MARKETING [employer]ENT updated pt and pt's regarding this. Pt is disappointed but agreeable to discharge to [facility] ([facility] Pt was up working with PT in the room when SALES AND MARKETING AGENT stopped by with the update. Paperwork in chart and PASRR has been faxed. SW will continue to follow. Assessment: Pt for whom SNF is medically necessary [facility] when medically ready for [facility]. Paperwork in chart and PASRR has been faxed. SW will continue to follow. GILBERT Joya
--- NOTE | 2017-01-24 16:23 | PCM.PNMED ---
Subjective Date of Service Jan 24, 2017 Subjective The patient is feeling a little bit better in regards to his right hip pain. He is willing to work with physical therapy today. Physical therapy had previously signed off as patient was in too much pain to do anything, even so much as logrolling. The patient complains of feeling somnolent after the patient received Benadryl as a premedication for his iodine allergy. Exam Vital Signs Vital Sign - Last Date Time Temp Pulse Resp B/P Pulse Ox O2 Delivery O2 Flow Rate FiO2 01/24/17 12:07 36.3 59 16 139/67 94 Room Air Intake and Output 01/23/17 01/23/17 01/24/17 Cumulative From/Thru 15:00 23:00 07:00 01/06/17 03:10 - 01/24/17 06:21 Intake Total 1212 ml 979 ml 96339 ml Output Total 766 ml 1148 ml 70856 ml Balance 446 ml -169 ml 09490 ml Intake Oral 0 ml 6495 ml IV Total 227 ml 121 ml 29828 ml TPN/PPN 985 ml 858 ml 89622 ml Tube Irrigant 100 ml Output Urine Total 766 ml 1138 ml 96367 ml Stool Total 0 ml 75 ml Gastric Drainage Total 10 ml 7510 ml Drainage Total 1000 ml # Voids 53 # Bowel Movements 0 Exam General: Patient was seen after his fistulogram today and he appears comfortable. Patient is lying supine in bed in no apparent distress. However, he complains of feeling tired after receiving Benadryl and is very somnolent. HEENT: Head is atraumatic and normocephalic. Eyes: Pupils are equally round and reactive to light and accommodation. Extraocular muscles are intact. Sclera are white, anicteric. Subconjunctival mucosa is pink. Ears and nose are unremarkable. Oropharynx: There is no mucosal lesions, there is no thrush, there is no pharyngitis. Neck: Is supple, there are no nodes, or masses or tenderness. Chest: Is clear to auscultation and percussion. There are no rales, rhonchi, wheezes or rubs. Heart: Rate, rhythm is regular. There is a grade 3/6 holosystolic murmur heard best at the left sternal border. There is no rub or gallop. Abdomen: Good bowel sounds are present. Abdomen is soft, nontender, no organomegaly or masses were appreciated. The PEG tube site is unremarkable. Extremities: Are symmetrical and well perfused. There is no edema, there is no cellulitis, no rash. However, there is decrease pain with range of motion of the right hip. There is a new presacral drain in place, site is unremarkable. Neurologic: There are no focal neurological deficits. Cranial nerves II through XII are intact. There are no sensory or motor deficits. Psychiatric: Patients mood is calm and he shows no sign of agitation. Genital: Deferred Rectal: Deferred Lab and Diagnostics Result Diagram: 01/23/1755201/23/17552 Microbiology Coag negative staph appears to be in 2 of 2 bottles from blood cultures 01/06 and ED. X-Rays, CTs and MRIs CT ABDOMEN AND PELVIS WITH CONTRAST: Eduardo Grider M.D. on 01/07/2017 at 10:57 1. 6.4 x 4.8 cm thickwalled enhancing fluid collection is not significantly changed in size since December 2015, and currently demonstrates no imaging manifestations of superimposed infection. As such, any determination of superimposed infection would need to be made on clinical grounds. 2. Mild bilateral hydronephrosis has slightly decreased in degree since December. 3. No evidence for small bowel obstruction. 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 Dictated by: Eduardo Gridre M.D. on 01/07/2017 at 10:57 CT ABDOMEN AND PELVIS WITHOUT CONTRAST: Arben Foster M.D. on 01/06/2017 at 7: 49 1. New moderate bilateral hydronephrosis and ureterectasis. No calcified obstructing lesions. Findings maybe related to increased inflammatory change in the pelvis. 2. 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 Superimposed infection is possible. This fluid collection would be amenable to CT-guided aspiration for diagnostic purposes if needed. 3. Partial bowel obstruction at the site of the left lower quadrant ostomy with gas-filled dilated colon and intermittently fluid-filled dilated loops of small bowel. Superimposed enteritis is also possible 4. Gastrostomy tube with tip likely in the stomach although poorly seen due to stomach decompression. Dictated by: Arben Foster M.D. on 01/06/2017 at 7:49 PROCEDURE: X-RAY FISTULAGRAM/SINOGRAM INDICATIONS: evaluate IR drain for enterocutaneous fistula COMPARISON: None. Technique: Gastrografin was injected under fluoroscopic guidance into the existing presacral drain. Multiple spot fluoroscopic images were obtained. FINDINGS: Once the presacral cavity was filled with contrast, there was prompt flow of contrast through a small fistulous connection with the adjacent small bowel. 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 This finding was discussed with Dr. Stephens immediately after the study on . Dictated by: Zee Yoder M.D. on 01/24/2017 at 10:56 Approved by: Zee Yoder M.D. on 01/24/2017 at 10:57 12-lead ECG Rate is 88, QTC 418 concurrently reviewed by Vazquez 01/06 . Sinus rhythm * Ventricular premature complex . Borderline prolonged AZ interval . Probable left atrial enlargement . When compared with ECG of 07-Apr-2016 9:19:45, * PVCs are now present * PACs are no longer present * ST elevation is no longer present Cardiac Echo Impressions Echocardiogram Report Name: DAYSI SIM Date : 01/09/2017 Height: 71 in Hospital Exam Location: [facility] Weight: 163 lb Gender: Male BSA: 1.9 m2 : 1935 Age: 81 yrs BP: 158/70 mmHg Reason For Study: gram-positive bacteremia Performed By: Catrachita Tom Referring Physician: BERNICE JAIMES Interpretation Summary Left ventricular wall thickness is mildly increased. The ejection fraction is estimated to be 60-65%. There are no obvious focal wall motion abnormalities noted but poor endocardial definition reduces the sensitivity for the detection of such. There is mild mitral annular calcification. There is moderate aortic valve sclerosis. There is mild tricuspid regurgitation. The mitral valve leaflets appear mildly thickened, but open well. There is mild mitral regurgitation. No obvious vegetation seen , consider BOBBI if clinically indicated. Assessment & Plan Patient is a 81-year-old male admitted 01/06 probable abdominal abscess following conservative antibiotic treatment of appendicitis during November in [facility]. # Acute presacral abscess, present on admission, active -This was drained on 01/16, and is growing and ESBL e. coli -We will consider gracilias flap as suggested by Dr. Lemon. -Continue Vanco thru the 01/22/17 -On ertepenen, (minimum of 2-3 weeks treatment with ertepenen, meropenen) recommended by ID -Dr. 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 Stephens. We will discuss with the surgical team as to their plans to address this issue. # Coag-negative bacteremia, present on admission, active, -It was initially suspected that the possible source was a line infection with the Groshong cath, serial BCX 01/06, 01/07, 01/08 from peripheral, from Groshong grew staph coag neg, -TTE was negative for vegetation.Last blood culture 01/10 remained negative. -Chronic Presacral fluid collection drained 01/16, consistent with abscess, potentially this could be the source. -We had started Ancef 2gq8h per ID, -Ancef changed to Meropenem 01/17 -We added vancomycin per ID 01/11 to continue to January 22, -Patient does have a loud holosystolic murmur most prominent at the left sternal border. Will discuss with Dr. Lemon the need for a transesophageal echocardiogram. # Probable contusion to Right Hip, present on admission, active -We have consulted , unlikely related to hip joint, could be greater trochanter bursitis, contusion, tendon injury from fall, no evidence of infection, see MRI01/08 -We will continue pain control with percocet, pt still requring 2tab q4h, will add lidocaine patch, also try naproxen 375mg PO bid (01-19-17), monitor sx, renal function closely with NSAID -Ortho/Gen. surgery consultation, no further surgical recs. We may need to reconsult orthopedic surgeries patient continues to have severe pain in the hip. However, today on 01/23/2017 the patient's pain has improved significantly. -We will reconsult physical therapy today to work with patient and see how he does. # Chronic SBO, present on admission, stable -This was noted on CT 01/06 w/o contrast not on 01/07 w/ contrast, Extensive surgical history, drainage with venting gastrostomy/Groshong cath inserted in for TPN -We will continue full liquids with nocturnal TPN to provide sufficient nutrition for healing. -We will open his gastrostomy at night, drainage as needed. -There are no further recs per # New bilateral hydroureter, present on admission, stable -We reviewed with Dr Duran () earlier, he agreed that this is new hydroureter but not necessarily obstruction, -Dr. Duran not recommending stents at this time -We will continue to follow closely. # Anemia-trending down until 01/08, likely dilutional, stable now # HTN/lipids,controlled with home medications today # Protein caloric - resumed nocturnal TPN 14 hours at night 01/08 -Patient is up to eating full liquids -He has a venting gastrostomy due to chronic partial bowel obstruction type issues. # Hyponatremia- Resolved 01/07 # Hx colon CA-distorted anatomy status post partial colectomy, reports failed anastomosis with leaking, patient now has pouch. Fistulogram appears to have confirmed a fistulous connection between the presacral abscess to a loop of adjacent small bowel. # Prophylaxis- DVT with SCDs and enoxaparin, GI H2 RA # Disposition-will depend on surgical plans to address fistula. Patient is to be transferred to SNF given limited mobility vs go Home with , pt may progress function given draining abscess, has to cooperate with PT. patient is feeling a little better today and agrees to participate with PT. Patient remains a DNR/DNI Pain Evaluation: Adequate Pain Control GI Prophylaxis: Not indicated VTE Prophylaxis: SCDs VTE Mechanical Devices: Intermittant Pneumatic CD Resuscitation Status: DNR/DNI:Do Not Resuscitate/Intubate David David MD Jan 24, 2017 16:23
--- NOTE | 2017-01-24 17:50 | NUR ---
Pt off unit Pt off unit for sinogram at approx 0900. Back to unit at approx 1000. Awake, but drowsy from previously administered benadryl. G tube hooked back up to LIS. Pt denies pain at this time. Care continues.
--- NOTE | 2017-01-24 18:42 | PCM.PALLBR ---
Palliative Care Recommendation Summary of palliative recommendations: 01/24/17-pain-- reviewed benefit of adequate dosing of medications particularly for activity such as physical therapy. Constipation-patient does not feel bloated when G-tube is vented. He has had little by mouth intake. He has adequate medications ordered but with fistula at this time will postpone decision regarding need for laxative to surgical consultation. Small bowel perforation with abscess -Symptom management (Pain/other): Pt opiate naive, using only Tylenol prior to this admission. Reviewed MAR. Currently taking Hydrocodone/APAP 2 tablets around the clock. In last 24 hours, he had twelve tablets 5/325 HC/APAP or 60mg of hydrocodone. This is the equivalent of 60mg morphine or 40mg oxycodone or 30mcg/hr fentanyl. More importantly: the HC/APAP dosing exceeds the recommended amount of APAP in 24 hours (per the [employer]) for people over 70 yo (1500mg/24hours). He had 325mg APAP x 12 = 3,900mg APAP. He reports better pain control with consistent dosing of pain medications around the clock, and with IV antibiotics. He says it hurts less to be turned from side to side. He doesn't like morphine because it makes him feel "out of this world" 1. Discontinue HC/APAP (due to high APAP dosing). (This order written by Dr. Estrada today) 2. Start oxycodone/APAP, 10/325, one po q 6 hours prn. This reduces his APAP considerably to 1300mg/24h if he takes every dose. This also keeps his opiate pain coverage the same in 24 hours, although each 6 hour dose will feel "stronger" to him. Monitor for sedation. Consider that if pain is related primarily to infection, then will need to taper down opiates quickly to avoid sedation as infection is resolving. (This order written by Dr. Estrada today) 3. Constipation?? Will need to discuss with pt tomorrow. He has no laxative/ stool softeners ordered. He may not need them as he is on TPN and likely stooling regularly from that. Plan: Palliative Care will return tomorrow to assess the effectiveness of his pain plan. -DPOA/Advanced Directives/POLST: 1. Code: DNR/DNI -Family/emotional support: 1. Iman Lawson () [phone] Problems: End of Life Preferences DNR/DNI Disposition TBD Resuscitation Status Resuscitation Status: DNR/DNI:Do Not Resuscitate/Intubate POLST Updates/Changes POLST Discussed with: Health Care Agent (DPOAHC) . Pain: Moderate Symptom management: Constipation Total time 35 minutes; >50% face to face with patient and/or family, providing counselling regarding plans and recommendations, and in care coordination with his/her medical teams. Time spent with patient, reviewed review of chart, review of studies. I also spent an additional [ ] minutes counseling for advanced care planning with the patient/the patients family/the surrogate decision maker. Palliative Brief Note Date of Service Jan 24, 2017 . 81 yo with hx of presacral abscess thought due to appe now with replaced percutaneous drain and venting g-tube. When this is plugged- taking in full liquids ie pudding etc without difficulty. Also on TPN. Denies nausea or sense of constipation. Passing flatus but min stool. Pain definitely improving--took oxycodone 10 mg at 2130 and 0253 and not since. Comfortable in bed. Has not had trouble with minor shifts in bed but has not attempted more. Just went down for sinogram re ongoing pain byron R hip He is awake mucous membranes are dried and a bit crusted. TPN flowing echo fairly normal Sinogram notes probable fistula from small bowel to presacral abscess Report from physical therapy states able to weight-bear after 5 mg of oxycodone But acknowledges would probably do better with full 10 mg dose. He did not ambulate today Iris Decker MD Jan 24, 2017 09:33
[2017-01-24 20:04] VITALS: BP 128/60; PULSE 58; RESP 17; O2SAT 94
[2017-01-24] MEDS: Total Parenteral Nutrition 1 BAG IV SCH (21:00)
[2017-01-24] MEDS: TPN Per Pharmacist XX SCH (21:00)
[2017-01-24] MEDS: Sodium Chloride LOK Flush 10 mL Syringe IVFLUSH PRN (21:53)
[2017-01-25] VITALS (8 sets, daily range): BP systolic 101–136; BP diastolic 44–60; PULSE 53–100; RESP 16–18; O2SAT 91–96
[2017-01-25] MEDS: TOBRAMYCIN DEXAMETHASONE BOTH_EYES SCH ×4 (02:30→20:30)
--- NOTE | 2017-01-25 03:18 | NUR ---
Skin Breakdown/ Pre-Sacral Drain On initial assessment, patient's skin around scrotum and in-between thigh folds appear red and scantly macerated. Nystatin applied. Patient denied any pain to the area. Patient's pre-sacral drain was flushed per orders and was noted to be slightly bleeding from insertion site. 4x4's put in place. Will continue to check for additional bleeding. VSS. Call light within reach. Care continues.
[2017-01-25] MEDS: oxyCODONE-Acetamin 10-325 mg Tablet PO PRN ×2 (05:28→10:30)
[2017-01-25 06:46] LABS: Magnesium 2.1 mg/dL (1.6-2.6); Phosphorus 3.6 mg/dL (2.5-4.9)
[2017-01-25] MEDS: Insulin LISPRO 300 Unit/3 mL Inj SUBQ SCH ×4 (08:00→22:00)
[2017-01-25] MEDS: Lidocaine Topical 5% Patch TOPICAL SCH (09:22)
[2017-01-25] MEDS: Ertapenem Inj 1,000 MG in 0.9% Sodium Chloride 100 ML IV SCH (09:23)
[2017-01-25] MEDS: Diltiazem CD 120 mg ER24 Capsule PO SCH (10:11)
--- NOTE | 2017-01-25 11:05 | NUR ---
NPO/PO Medications Per ANJANA Engle for Surgery; pt to be bowel rest, strict NPO, ice chips ok only, no more PO medications. Alerted Pharmacist on floor and paged Hospitalist Red Team. Awaiting new orders.
--- NOTE | 2017-01-25 11:06 | PCM.PHAPRO ---
Progress PARENTERAL NUTRITION ORDERS 18 25-Jan-17 Standard Hang Time: 2099 Substrates Total kcal: 2021 AMINO ACIDS 100 g DEXTROSE 330 g Total Volume (mL): 2000 LIPIDS 50 g Sterile Water for Injection QS mL To Infuse Over (hrs): 24 Total Volume 2000 mL At at a rate of (mL/hr): 83 Additives Sodium Chloride 100 mEq "typical" daily requirements Sodium Acetate 40 mEq Sodium 50-120mEq Potassium Chloride 40 mEq Potassium 60-120mEq Potassium Phosphate 10 mEq Phosphate 20-40mEq Calcium Gluconate 18 mEq Magnesium 8-32mEq Magnesium Sulfate 12 mEq Calcium 9-22mEq Acetate* 80-120mEq Chloride* 80-120mEq Regular Insulin units *Depending on acid-base status Famotidine 40 mg Multivitamins 1 std dose Insulin Regimen Trace Elements 1 std dose none Thiamine mg Regular Low Intensity Subcut Folic Acid mg Regular Medium Intensity Subcut Ascorbic Acid mg Regular High Intensity Subcut Regular Insulin Infusion Other: Special Instructions: To be infused via central line only. For delay or inturruption of TPN contact the pharmacist for alternative replacement solution. Signature Date: DAYSI SIM [address] [place] [address] Increased TPN volume to 2,000 ml with slight increase in BUN Chapo Salgado [facility] Chapo Salgado Jan 25, 2017 11:06
--- NOTE | 2017-01-25 11:25 | PCM.PNSURG ---
Subjective Date of Service: Jan 25, 2017 Date of Service: Jan 25, 2017 Visit Information: Reason for Visit Fever/Bilateral Hydroureter Surgery/Surgery Date Post-Op Day # Date of Admission: Jan 06, 2017 at 10:19 Hospital Day # 20 Subjective: Passing flatus via viable ostomy with minimal stool. The patient is on NPO bowel rest with minimal ice chips and TPN Sinogram showed an enterofistula. He was ambulating yesterday outside of his room. ID is seeing the patient regularly and managing his antibiotics. Postop General: No Complaints Gastrointestinal: Good Appetite, No N/V Postop Activity: Ambulating in [place] Objective Vital Sign- Last 8 Hours Date Time Temp Pulse Resp B/P Pulse Ox O2 Delivery O2 Flow Rate FiO2 01/25/17 10:09 60 132/60 01/25/17 08:02 36.6 53 16 114/53 96 Room Air 01/25/17 05:35 36.1 65 16 126/59 95 Room Air Intake and Output- Last 8 Hour 01/25/17 Cumulative From/Thru 07:00 01/06/17 03:10 - 01/25/17 06:09 Intake Total 1167 ml 33372 ml Output Total 200 ml 34251 ml Balance 967 ml 55297 ml Intake Oral 150 ml 6645 ml IV Total 120 ml 11222 ml TPN/PPN 897 ml 73521 ml Tube Irrigant 100 ml Output Urine Total 00866 ml Stool Total 75 ml Gastric Drainage Total 7560 ml Drainage Total 200 ml 1450 ml # Voids 3 58 # Bowel Movements 0 General: Alert, Oriented X3, Cooperative, No Acute Distress Lungs: Clear to Auscultation Heart: Exam Unremarkable Abdomen: Soft, Non-tender, Distended (moderately), Tympanic, Ostomy (viable passing stool), Other (G-tube 60ml bilious output & vented regularly ) SURGICAL WOUND : Wound Drainage Type: Other (percutaneous drain 250 ml serous fluid last shift) Extremities: Thigh&Calf Soft/Nontender Neuro: Normal Speech Result Diagram: 01/23/17 0553 01/25/17 0535 Assessment & Plan Impression This is a 81-year-old male with history of chronic small bowel obstructions hospital day #20 with partial small bowel obstruction with presacral abscess communicating with the small bowel confirmed by sinogram performed today through percutaneous intra-abdominal tube with 55cc serous drainage over the last shift. He is chronically moderately distended with minimal tenderness and by mouth when necessary pain control is sufficient. Infectious disease is seen the patient regularly managing his antibiotics through his Groshong's catheter. He is afebrile and had a normal white blood cell count yesterday. He has been NPO on TPN without nausea or vomiting. His ostomy is viable and G-tube is putting out minimal output with 60 mL bilious output recorded over the last shift. The patient has out of bed ambulating in the garner yesterday. As recommended we will continue conservative management with nothing by mouth and TPN reevaluating tomorrow with repeat a.m. labs. Primary diagnoses: 1. Presacral abscess with enterocutaneous fistula 2. Chronic partial bowel obstruction. Passing flatus & stool via ostomy. 3. Bilateral hydroureter 4. Anemia of chronic disease 5. Coag-negative bacteremia followed by ID Other chronic conditions: 1. Hypertension. 2. Hyperlipidemia. 3. Hypothyroidism. 4. Obstructive sleep apnea on CPAP. 5. History of CVA in 2008. 6. Recurrent small bowel obstructions, prior SBO with perforation 7. CAD 8. CHF 9. Stroke 10. History of colorectal cancer, in remission Problems: Plan 1. Nothing by mouth diet & TPN and only minimal ice chips only please. 2. Repeat a.m. labs tomorrow morning. 3. Continue to encourage ambulation with full assist & fall precautions. 4. Reevaluate tomorrow a.m. VTE Prophylaxis: Oniel Naqvi PA-C Jan 25, 2017 11:25
[2017-01-25] MEDS ORDERED: Dextrose 10% 250 ML IV PRN (11:45)
--- NOTE | 2017-01-25 13:56 | NUR ---
Social Work- Multi- Disciplinary Rounds Per multi-disciplinary rounds, pt has a fistula. Pt was able to work with PT yesterday and was mod A STS and stood 15 seconds. PT recommends SNF via BLS at this time. Pt has been accepted at [facility]. Pt will need IV abx at SNF, TPN, and PT. SW will continue to follow. GILBERT Joya
[2017-01-25] MEDS: Ketorolac 15 mg/mL Inj IVPUSH PRN (14:33)
[2017-01-25] MEDS ORDERED: 0.9% Sodium Chloride 500 ML IV ONE (14:35)
[2017-01-25] MEDS: 0.9% Sodium Chloride 50 ML IRRIGATION SCH ×2 (14:58→20:30)
[2017-01-25] MEDS ORDERED: fentaNYL-PF 50 mCg/mL 2 mL Inj IVPUSH ONE (15:55)
--- NOTE | 2017-01-25 16:18 | NUR ---
NPO/BP/Pain Pt made NPO today due to fistula needing to heal per surgery ANJANA Engle; ice chips ok, no more medications PO, to be given IV only. New orders verified. Pt's BP 79/42 while standing with PT today; MD Tovar Team notified. IV 500ml bolus given, BP 112/50, HR 71; will monitor with frequent rounds. Pt c/o pain today after PO medications discontinued; IV 15Mg Ketorlac given for pain 4-5/10; ineffective. MD Tovar Team notified, 1 time dose 25mcg IV Fentanyl given and Fentanyl patch to be placed, awaiting from pharmacy. Will continue to monitor with frequent rounds.
[2017-01-25] MEDS ORDERED: Flumazenil 0.1 mg/mL 5 mL Inj IV PRN (17:35)
--- NOTE | 2017-01-25 19:25 | NUR ---
Pain Pt continues to c/o pain and moan refusing q 2hr turns; seems like he sleeps in between care and then groans in pain with spasm to R hip area and very uncomfortable with any kind of movement or even flushing his IV site. IV Fentanyl 1 time given with Fentanyl patch placed, 5mg IV Valium given to help with spasms to which pt states "not effective, still have a lot of pain." Cont pulse ox in place and 2 L O2 NC, SPO2 92%. Will pass info onto NOC shift in report.
[2017-01-25] MEDS: TPN Per Pharmacist XX SCH (21:00)
[2017-01-25] MEDS: MeTOProlol 1 mg/mL 5 mL Inj IV SCH (21:00)
--- NOTE | 2017-01-25 22:03 | PCM.PNMED ---
Subjective Date of Service Jan 25, 2017 Subjective The patient appears more depressed today after being told that he is unable to be. He is also having severe muscle cramps in his right hip area and screams out in pain when the cramping starts. Exam Vital Signs Vital Sign - Last Date Time Temp Pulse Resp B/P Pulse Ox O2 Delivery O2 Flow Rate FiO2 01/25/17 19:55 36.6 100 18 136/58 93 Nasal Cannula 2.00 Intake and Output 01/24/17 01/24/17 01/25/17 Cumulative From/Thru 15:00 23:00 07:00 01/06/17 03:10 - 01/25/17 06:09 Intake Total 1101 ml 1167 ml 52151 ml Output Total 300 ml 200 ml 25282 ml Balance 801 ml 967 ml 35254 ml Intake Oral 0 ml 150 ml 6645 ml IV Total 217 ml 120 ml 35122 ml TPN/PPN 884 ml 897 ml 71572 ml Tube Irrigant 100 ml Output Urine Total 01892 ml Stool Total 75 ml Gastric Drainage Total 50 ml 7560 ml Drainage Total 250 ml 200 ml 1450 ml # Voids 2 3 58 # Bowel Movements 0 0 Exam General: Patient was seen after his fistulogram today and he appears comfortable. Patient is lying supine in bed in no apparent distress. However, he complains of feeling tired after receiving Benadryl and is very somnolent. HEENT: Head is atraumatic and normocephalic. Eyes: Pupils are equally round and reactive to light and accommodation. Extraocular muscles are intact. Sclera are white, anicteric. Subconjunctival mucosa is pink. Ears and nose are unremarkable. Oropharynx: There is no mucosal lesions, there is no thrush, there is no pharyngitis. Neck: Is supple, there are no nodes, or masses or tenderness. Chest: Is clear to auscultation and percussion. There are no rales, rhonchi, wheezes or rubs. Heart: Rate, rhythm is regular. There is a grade 3/6 holosystolic murmur heard best at the left sternal border. There is no rub or gallop. Abdomen: Good bowel sounds are present. Abdomen is soft, nontender, no organomegaly or masses were appreciated. The PEG tube site is unremarkable. Extremities: Are symmetrical and well perfused. There is no edema, there is no cellulitis, no rash. However, there is decrease pain with range of motion of the right hip. There is a new presacral drain in place, site is unremarkable. Neurologic: There are no focal neurological deficits. Cranial nerves II through XII are intact. There are no sensory or motor deficits. Psychiatric: Patients mood is calm and he shows no sign of agitation. Genital: Deferred Rectal: Deferred Lab and Diagnostics Result Diagram: 01/23/17 0553 01/25/17 0535 Microbiology Coag negative staph appears to be in 2 of 2 bottles from blood cultures 01/06 and ED. X-Rays, CTs and MRIs CT ABDOMEN AND PELVIS WITH CONTRAST: Eduardo Grider M.D. on 01/07/2017 at 10:57 1. 6.4 x 4.8 cm thickwalled enhancing fluid collection is not significantly changed in size since December 2015, and currently demonstrates no imaging manifestations of superimposed infection. As such, any determination of superimposed infection would need to be made on clinical grounds. 2. Mild bilateral hydronephrosis has slightly decreased in degree since December. 3. No evidence for small bowel obstruction. 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 Dictated by: Eduardo Grider M.D. on 01/07/2017 at 10:57 CT ABDOMEN AND PELVIS WITHOUT CONTRAST: Arben Foster M.D. on 01/06/2017 at 7: 49 1. New moderate bilateral hydronephrosis and ureterectasis. No calcified obstructing lesions. Findings maybe related to increased inflammatory change in the pelvis. 2. 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 Superimposed infection is possible. This fluid collection would be amenable to CT-guided aspiration for diagnostic purposes if needed. 3. Partial bowel obstruction at the site of the left lower quadrant ostomy with gas-filled dilated colon and intermittently fluid-filled dilated loops of small bowel. Superimposed enteritis is also possible 4. Gastrostomy tube with tip likely in the stomach although poorly seen due to stomach decompression. Dictated by: Arben Foster M.D. on 01/06/2017 at 7:49 PROCEDURE: X-RAY FISTULAGRAM/SINOGRAM INDICATIONS: evaluate IR drain for enterocutaneous fistula COMPARISON: None. Technique: Gastrografin was injected under fluoroscopic guidance into the existing presacral drain. Multiple spot fluoroscopic images were obtained. FINDINGS: Once the presacral cavity was filled with contrast, there was prompt flow of contrast through a small fistulous connection with the adjacent small bowel. 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 This finding was discussed with Dr. Stephens immediately after the study on . Dictated by: Zee Yoder M.D. on 01/24/2017 at 10:56 Approved by: Zee Yoder M.D. on 01/24/2017 at 10:57 12-lead ECG Rate is 88, QTC 418 concurrently reviewed by Vazquez 01/06 . Sinus rhythm * Ventricular premature complex . Borderline prolonged NC interval . Probable left atrial enlargement . When compared with ECG of 07-Apr-2016 9:19:45, * PVCs are now present * PACs are no longer present * ST elevation is no longer present Cardiac Echo Impressions Echocardiogram Report Name: DAYSI SIM Jonathon Date : 01/09/2017 Height: 71 in Hospital Exam Location: [facility] Weight: 163 lb Gender: Male BSA: 1.9 m2 : 1935 Age: 81 yrs BP: 158/70 mmHg Reason For Study: gram-positive bacteremia Performed By: Catrachita Tom Referring Physician: BERNICE JAIMES Interpretation Summary Left ventricular wall thickness is mildly increased. The ejection fraction is estimated to be 60-65%. There are no obvious focal wall motion abnormalities noted but poor endocardial definition reduces the sensitivity for the detection of such. There is mild mitral annular calcification. There is moderate aortic valve sclerosis. There is mild tricuspid regurgitation. The mitral valve leaflets appear mildly thickened, but open well. There is mild mitral regurgitation. No obvious vegetation seen , consider BOBBI if clinically indicated. Assessment & Plan Patient is a 81-year-old male admitted 01/06 probable abdominal abscess following conservative antibiotic treatment of appendicitis during November in [facility]. # Acute presacral abscess, present on admission, active -This was drained on 01/16, and is growing and ESBL e. coli -We will consider gracilias flap as suggested by Dr. Lemon. -We continued Vanco thru the 01/22/17 -On ertepenen, (minimum of 2-3 weeks treatment with ertepenen, meropenen) recommended by ID -Dr. Goel has set up a fistulogram which was performed today and showed the following: "Fistulous connection from the presacral abscess to a loop of adjacent small bowel." These findings were discussed with the surgical tech on the case today Dr. Stephens. We will discuss with the surgical team as to their plans to address this issue. Patient is to be kept nothing by mouth and all oral medications have been switched to transdermal or IV # Severely painful muscle spasms in her right hip, after working with physical therapy today -Toradol ordered for inflammatory pain control -We will order a fentanyl patches patient has been taken off all oral medications. -We will add IV Valium 5 mg IV every 8 hours when necessary # Coag-negative bacteremia, present on admission, active, -It was initially suspected that the possible source was a line infection with the Groshong cath, serial BCX 01/06, 01/07, 01/08 from peripheral, from Groshong grew staph coag neg, -TTE was negative for vegetation.Last blood culture 01/10 remained negative. -Chronic Presacral fluid collection drained 01/16, consistent with abscess, potentially this could be the source. -We had started Ancef 2gq8h per ID, -Ancef changed to Meropenem 01/17 -We added vancomycin per ID 01/11 to continue to January 22, -Patient does have a loud holosystolic murmur most prominent at the left sternal border. Will discuss with Dr. Lemon the need for a transesophageal echocardiogram. # Probable contusion to Right Hip, present on admission, active -We have consulted , unlikely related to hip joint, could be greater trochanter bursitis, contusion, tendon injury from fall, no evidence of infection, see MRI01/08 -We will continue pain control with percocet, pt still requring 2tab q4h, will add lidocaine patch, also try naproxen 375mg PO bid (01-19-17), monitor sx, renal function closely with NSAID -Ortho/Gen. surgery consultation, no further surgical recs. We may need to reconsult orthopedic surgeries patient continues to have severe pain in the hip. However, today on 01/23/2017 the patient's pain has improved significantly. -We will reconsult physical therapy today to work with patient and see how he does. -Continue pain control with transdermal fentanyl and IV Toradol and IV Valium when necessary. # Chronic SBO, present on admission, stable -This was noted on CT 01/06 w/o contrast not on 01/07 w/ contrast, Extensive surgical history, drainage with venting gastrostomy/Groshong cath inserted in for TPN -We will continue full liquids with nocturnal TPN to provide sufficient nutrition for healing. -We will open his gastrostomy at night, drainage as needed. -There are no further recs per # New bilateral hydroureter, present on admission, stable -We reviewed with Dr Duran () earlier, he agreed that this is new hydroureter but not necessarily obstruction, -Dr. Duran not recommending stents at this time -We will continue to follow closely. # Anemia-trending down until 01/08, likely dilutional, stable now # HTN/lipids,controlled with home medications today # Protein caloric - resumed nocturnal TPN 14 hours at night 01/08 -Patient is up to eating full liquids -He has a venting gastrostomy due to chronic partial bowel obstruction type issues. # Hyponatremia- Resolved 01/07 # Hx colon CA-distorted anatomy status post partial colectomy, reports failed anastomosis with leaking, patient now has pouch. Fistulogram appears to have confirmed a fistulous connection between the presacral abscess to a loop of adjacent small bowel. # Prophylaxis- DVT with SCDs and enoxaparin, GI H2 RA # Disposition-will depend on surgical plans to address fistula. Patient is to be transferred to SNF given limited mobility vs go Home with , pt may progress function given draining abscess, has to cooperate with PT. patient is feeling a little better today and agrees to participate with PT. Patient remains a DNR/DNI Pain Evaluation: Adequate Pain Control GI Prophylaxis: Not indicated VTE Prophylaxis: SCDs VTE Mechanical Devices: Intermittant Pneumatic CD Resuscitation Status: DNR/DNI:Do Not Resuscitate/Intubate David David MD Jan 25, 2017 22:03
--- NOTE | 2017-01-25 22:23 | PCM.PALLBR ---
Palliative Care Recommendation Summary of palliative recommendations: 01/25/17-Small bowel perforation with abscess-goals is to try to heal without surgery. Reviewed with Reji Snyder- agrees with changing to NPO status and relying on TPN for nutrition. He has done this before and will need SNF lax deleted from med list. To check iwth surg if OK for other oral meds Pain--willing to use med pre PT/activity-reviewed with RN/PT 01/24/17-pain-- reviewed benefit of adequate dosing of medications particularly for activity such as physical therapy. Constipation-patient does not feel bloated when G-tube is vented. He has had little by mouth intake. He has adequate medications ordered but with fistula at this time will postpone decision regarding need for laxative to surgical consultation. Small bowel perforation with abscess -Symptom management (Pain/other): Pt opiate naive, using only Tylenol prior to this admission. Reviewed MAR. Currently taking Hydrocodone/APAP 2 tablets around the clock. In last 24 hours, he had twelve tablets 5/325 HC/APAP or 60mg of hydrocodone. This is the equivalent of 60mg morphine or 40mg oxycodone or 30mcg/hr fentanyl. More importantly: the HC/APAP dosing exceeds the recommended amount of APAP in 24 hours (per the [employer]) for people over 70 yo (1500mg/24hours). He had 325mg APAP x 12 = 3,900mg APAP. He reports better pain control with consistent dosing of pain medications around the clock, and with IV antibiotics. He says it hurts less to be turned from side to side. He doesn't like morphine because it makes him feel "out of this world" 1. Discontinue HC/APAP (due to high APAP dosing). (This order written by Dr. Estrada today) 2. Start oxycodone/APAP, 10/325, one po q 6 hours prn. This reduces his APAP considerably to 1300mg/24h if he takes every dose. This also keeps his opiate pain coverage the same in 24 hours, although each 6 hour dose will feel "stronger" to him. Monitor for sedation. Consider that if pain is related primarily to infection, then will need to taper down opiates quickly to avoid sedation as infection is resolving. (This order written by Dr. Estrada today) 3. Constipation?? Will need to discuss with pt tomorrow. He has no laxative/ stool softeners ordered. He may not need them as he is on TPN and likely stooling regularly from that. Plan: Palliative Care will return tomorrow to assess the effectiveness of his pain plan. -DPOA/Advanced Directives/POLST: 1. Code: DNR/DNI -Family/emotional support: 1. Iman Lawson () [phone] Problems: End of Life Preferences DNR/DNI Disposition TBD Resuscitation Status Resuscitation Status: DNR/DNI:Do Not Resuscitate/Intubate POLST Updates/Changes POLST Discussed with: Health Care Agent (DPOAHC) Total time 20 minutes; >50% face to face with patient and/or family, providing counselling regarding plans and recommendations, and in care coordination with his/her medical teams. I also spent an additional [ ] minutes counseling for advanced care planning with the patient/the patients family/the surrogate decision maker. Palliative Brief Note Date of Service Jan 25, 2017 . Patient seen and case reviewed. 81 yo with now known perforation and fistula from small bowel to presacral abscess. Pain in fair control except with PT. Hungry and had cereal this AM O: imaging reviewed. abscess drain continues to drain small amt of serous-sanguinous fluid. mentally astute, CN = Iris Decker MD Jan 25, 2017 22:22
[2017-01-25] MEDS: Total Parenteral Nutrition 1 BAG IV SCH (22:59)
[2017-01-26] VITALS (14 sets, daily range): BP systolic 70–155; BP diastolic 36–73; PULSE 87–118; RESP 18–24; O2SAT 92–96
[2017-01-26] MEDS: Ketorolac 15 mg/mL Inj IVPUSH PRN ×3 (00:31→23:05)
[2017-01-26] MEDS: HYDROmorphone 1 mg/mL Inj IVPUSH PRN ×4 (02:07→19:50)
[2017-01-26] MEDS: TOBRAMYCIN DEXAMETHASONE BOTH_EYES SCH ×4 (02:30→19:50)
[2017-01-26] MEDS: Acetaminophen IV 1,000 MG in IV Premix 1 EACH IV PRN ×2 (03:19→20:21)
--- NOTE | 2017-01-26 05:24 | NUR ---
pain/fever/delirium pt has spent most of the night moaning and crying in pain. he was given IV toradol and valium but said they had no effect. he refused to allow nursing staff to change his brief because he said it was just too painful to move. BP was 142/72 so nurse contacted MD for more pain medication. MD ordered IV dilaudid he was given 1mg IV dilaudid and still said he was in extreme pain and his BP had dropped to 90/50. no further dilaudid given. BP retaken and had gone up. also at that time nurse noted pt felt hot to the touch, he was moving his head back and forth moaning and not answering all questions appropriately. an oral temp showed 38 Celsius and a temporal temp showed 39.5. MD notified who ordered blood cultures and IV tylenol. blood cultures have been taken . IV tylenol was administered and pt stopped moaning and being restless in bed. he allowed nursing staff to change him. and he has been resting appearing comfortable.
--- NOTE | 2017-01-26 06:07 | NUR ---
BP this Am pt bp was 70/36 on R arm and 80/43 on L arm. he is alert and oriented but slightly confused, he doesn't know how long he has been in the hospital. MD notified who ordered a 500ML NS bolus to be given over 2hrs. bolus has been started. MD also ordered pts fentanyl patch removed. will continue to monitor.
[2017-01-26] MEDS ORDERED: 0.9% Sodium Chloride 500 ML IV ONE (06:15)
[2017-01-26 06:19] LABS: EOSINOPHILS % (AUTO) 0 % (0-5); Mean Corpuscular Volume 90.9 fL (81-100); Platelet Count 346 bil/L (150-400)
[2017-01-26 06:55] LABS: NEUTROPHILS % (AUTO) 81 % (40-74)
[2017-01-26 06:56] LABS: BASOPHILS % (AUTO) 0 % (0-3); MONOCYTES % (AUTO) 1 % (4-12)
[2017-01-26 07:14] LABS: Magnesium 1.7 mg/dL (1.6-2.6); Phosphorus 3.3 mg/dL (2.5-4.9)
[2017-01-26] MEDS: Insulin LISPRO 300 Unit/3 mL Inj SUBQ SCH ×4 (07:58→22:00)
[2017-01-26] MEDS: MeTOProlol 1 mg/mL 5 mL Inj IV SCH ×2 (07:59→20:30)
[2017-01-26] MEDS: Ertapenem Inj 1,000 MG in 0.9% Sodium Chloride 100 ML IV SCH (08:02)
[2017-01-26 08:10] LABS: ERYTHROCYTE SEDIMENTATION RATE 111 mm/hr (0-30)
[2017-01-26] MEDS: 0.9% Sodium Chloride 50 ML IRRIGATION SCH ×2 (08:30→20:30)
[2017-01-26] MEDS ORDERED: Magnesium Sulf 2 Gm/50mL Water 2 GM in IV Premix 1 EACH IV ONE (08:40)
[2017-01-26] MEDS: 0.9% Sodium Chloride 1,000 ML IV SCH ×2 (09:10→18:00)
--- NOTE | 2017-01-26 09:18 | PCM.PNSURG ---
Subjective Date of Service: Jan 26, 2017 Date of Service: Jan 26, 2017 Visit Information: Reason for Visit Fever/Bilateral Hydroureter Surgery/Surgery Date Post-Op Day # Date of Admission: Jan 06, 2017 at 10:19 Hospital Day # 21 Subjective: Worsening abdominal pain, with confusion, and fever spiked to 38.2. The on- call physician was contacted and a bolus of fluids was given, along with antipyretics and pain management adjustments. His pain is improving somewhat now. Passing flatus via viable ostomy with minimal stool. The patient is on NPO bowel rest with minimal ice chips and TPN Sinogram showed an enterocutaneous fistula. He is too painful to get out of bed. ID is seeing the patient regularly and managing his antibiotics. Postop General: Other (increased pain) Pain Management: IV Push, Other (DC'd Sid patch) Neurological: Confusion (mild but improved) Postop Activity: Other (painful to get out of bed) Objective Vital Sign- Last 8 Hours Date Time Temp Pulse Resp B/P Pulse Ox O2 Delivery O2 Flow Rate FiO2 01/26/17 07:41 38.3 87 24 113/52 95 Nasal Cannula 2.00 01/26/17 06:36 90 95/48 01/26/17 05:35 80/43 01/26/17 05:30 88 70/36 01/26/17 04:30 37.6 01/26/17 04:21 89 20 94 Nasal Cannula 2.00 01/26/17 03:30 97/54 01/26/17 02:39 39.5 20 90/50 94 Room Air 01/26/17 01:45 102 142/68 Intake and Output- Last 8 Hour 01/26/17 Cumulative From/Thru 07:00 01/06/17 03:10 - 01/25/17 19:33 Intake Total 73932 ml Output Total 10903 ml Balance 36967 ml Intake Oral 6795 ml IV Total 03748 ml TPN/PPN 20397 ml Tube Irrigant 100 ml Output Urine Total 98926 ml Stool Total 75 ml Gastric Drainage Total 7560 ml Drainage Total 1450 ml # Voids 59 # Bowel Movements 0 General: Alert, Oriented X3, Cooperative, No Acute Distress Lungs: Clear to Auscultation Heart: Exam Unremarkable Abdomen: Soft, Appropriately tender (increased), Distended (mild-moderately), Ostomy (viable with stool & passing gas), Other (G-tube productive) Extremities: Thigh&Calf Soft/Nontender Neuro: Normal Speech Result Diagram: 01/26/17 0536 01/26/17 0330 Assessment & Plan Impression This is a 81-year-old male with history of chronic small bowel obstructions hospital day #21 with partial small bowel obstruction with presacral abscess with enterocutaneous fistula confirmed by sinogram through percutaneous intra- abdominal tube with 150cc serous drainage over the last shift. The patient had a fever of 38.2 last night is afebrile now and has elevated white blood cell count 6.7-20.4. The patient's was confused but pain is now improved with antipyretics, fluid bolus, and pain medication management. He is chronically moderately distended with diffuse tenderness. Infectious disease is seen the patient regularly managing his antibiotics through his Groshong's catheter. He has been NPO on TPN without current nausea or vomiting. His ostomy is viable and G-tube is putting out minimal output with 50 mL bilious output recorded over the last shift. Though improved the patient is painful to get out of bed. On-Call General Surgeon Dr. Wilfredo Stephens M.D. reviewed repeat CT scan of the abdomen and pelvis without contrast because of allergy which showed no overt signs of new related abscess. We will continue conservative care and repeat his a.m. labs for re-evaluation tomorrow. Primary diagnoses: 1. Presacral abscess with enterocutaneous fistula with increased leukocytosis, pain, and fever concerning for new or worsening abscess/fistula 2. Chronic partial bowel obstruction. Passing flatus & stool via ostomy. 3. Bilateral hydroureter 4. Anemia of chronic disease 5. Coag-negative bacteremia followed by ID Other chronic conditions: 1. Hypertension. 2. Hyperlipidemia. 3. Hypothyroidism. 4. Obstructive sleep apnea on CPAP. 5. History of CVA in 2008. 6. Recurrent small bowel obstructions, prior SBO with perforation 7. CAD 8. CHF 9. Stroke 10. History of colorectal cancer, in remission Problems: Plan 1. Repeat a.m. labs 2. Continue pain management and comfort care measures as needed. 3. We will defer to infectious disease for further related evaluation and treatment. 4. Continue to follow and revaluate tomorrow. VTE Prophylaxis: Sub-Q Heparin (Unfractionated), SCDs Resuscitation Status: DNR/DNI:Do Not Resuscitate/Intubate Oniel Baires PA-C Jan 26, 2017 09:18 Oniel Baires PA-C Jan 26, 2017 09:18
[2017-01-26] MEDS: Levothyroxine 100 mCg/5 mL Inj IV SCH (10:13)
[2017-01-26] MEDS: Lidocaine Topical 5% Patch TOPICAL SCH (10:15)
[2017-01-26] MEDS: Vancomycin Dose per Pharmacist XX SCH (10:25)
--- NOTE | 2017-01-26 10:46 | NUR ---
Transfer Febrile, BP and HR stable at this time. WBC increased. Awake and oriented, denies pain but grimaces and winces frequently. Ortho and hospitalist aware of pt condition. Blood cultures and IVF ordered. Unable to draw blood from groshong; IV therapy aware and will admin cathflo. Orders from Infectious Disease to transfer to PCC. Pt to CT via bed at 10:45, then to move directly to PCC room 2003. Report given to Radha Hernández RN. phoned and informed.
[2017-01-26] MEDS ORDERED: Vancomycin/500 mL NS IV ONE ×2 (10:55)
--- NOTE | 2017-01-26 10:57 | PROG NOTE ---
[address] [address] PROGRESS NOTE PATIENT: DAYSI SIM : 1935 MR#: [id number] ADMIT: 01/06/2017 JOB ID: [id number] DATE: 01/26/2017 INFECTIOUS DISEASE FOLLOW UP NOTE: REASON FOR FOLLOWUP: A complex case with a presacral abscess as well as a recent coag-negative Staph bacteremia and now shock with new fever. INTERVAL HISTORY: Two days ago when I last saw the patient, he was dramatically improved. He was getting up and getting around a bit for the first time in many weeks and had a dramatic improvement in his chronic right lower quadrant/right hip pain. It appeared that things were finally turning around for the patient as he had recently had his presacral abscess drain replaced and was generally on a strong upswing. Overnight things have changed dramatically. During the night the patient developed new onset fevers as well as hypotension and diminished mental status. All of this occurred while the patient was receiving ongoing ertapenem as the solo antibiotic for the treatment of the abscess which has been growing an ESBL E. coli as well as Bacteroides. Recall that the patient also had a sustained coag-negative Staph bacteremia for several days in late December but that has been absent now for greater than two weeks. The source of the coag-negative Staph bacteremia was never definitively identified. This morning when I interview the patient, he is a much more lethargic than he has been previously. He is difficult to arouse, but when he is aroused he basically says as usual that he has no pain. He specifically denies any fevers or chills and it is hard to know how reliable his history is as the patient is now obtunded but arousable. This case was discussed in person with the bedside nurse, Dr. Decker and Dr. David. PHYSICAL EXAMINATION: Reveals a gentleman who is much more lethargic than he was over the past several days. His temperature was 39.5 at 2 a.m. which broke several days of afebrile status. His temperature right now is 38.3, his pulse 87, respiratory rate 24, blood pressure 113/52, but during the night he was as low as 70/38. As noted, he is quite lethargic. He can answer some questions, but as noted, basically denies symptoms. His neck is supple. Oral cavity without change. Dry mucous membranes. Lungs reasonably clear. The Groshong in his left upper chest looks benign. His abdomen is silent. The area around the left lower quadrant colostomy is exquisitely tender. The right upper quadrant is nontender. This left lower quadrant tenderness is much more significant than previously. He has no skin rash. LABORATORIES: Include white count 20,000 today, up from 6000 and a normal differential just three days ago. Today's differential has a profound left shift, 18% bands. His creatinine is 0.57. His LFTs, which had started to increase yesterday, are now quite elevated. Note that three days ago on the , his LFTs were completely normal. Yesterday his AST had jumped to 91 and his ALT to 127 while his alk phos was 167. Today his AST is all the way up to 163 and his ALT 217. CRP is 10.8 today. Procalcitonin 0.49, which is up from basically negative when last checked one week ago. IMAGING: Recall the fistulogram on the showed a connection between the small bowel and the presacral abscess. Also note that back on the his drain was reinserted. IMPRESSION: The patient has had a profoundly scott course with recurrent small bowel obstructions, necessitating periods of TPN. He was admitted on this occasion with more of his abdominal complaints and was found to have a high-grade coag-negative Staph bacteremia. We treated this for two weeks with resolution and vancomycin was stopped. He was also found to have a presacral abscess which has had two separate drains inserted with the second one being necessitated by the falling out of the first drain. This presacral abscess is growing both Bacteroides as well as ESBL E. coli and is clearly connected to his colon. The causes for his septic shock which has developed really in the last 12 hours and is associated with high fevers as well as hypotension and confusion likely involve three possibilities. One possibility is that he has acalculous cholecystitis. Note that the patient's LFTs started going up yesterday and are much worse today in a cholestatic pattern though there is a mixture of hepatocellular and cholestatic changes. This is possible though his right upper quadrant is nontender. Another possibility here is that the patient has a recrudescence of his coag-negative Staph bacteremia. Note that he was not especially toxic when he had a high-grade coag-negative Staph bacteremia before and I find it unlikely that the cause of his ongoing fulminant shock is coag-negative Staph, though it is possible. A third option here would be left lower quadrant abdominal catastrophe or perforation of some sort which I think is probably the most likely given this dramatic increase in left lower quadrant tenderness. A less likely possibility here would be disseminated fungemia, as the rapidity and severity of this would argue against a fungemia. Also note that the micro laboratories reporting that there are 2 gram negative rods which are not Pseudomonas growing from the repeat abscess. There is no Liss, coag-negative Staph or anaerobes present in the second aspirate of the abscess which was performed three days ago. RECOMMENDATIONS: 1. I would continue with the ertapenem for coverage of the gram negatives as well as the anaerobes. 2. Will add back coverage for the coag-negative staph with vancomycin. 3. Will add micafungin though I think that is an unlikely source of infection. 4. CT scan of the abdomen is imperative given his left lower quadrant tenderness and the surgery consultants are already involved. 5. We can consider pulling the Groshong catheter, particularly if this shock does not rapidly improve and especially if we got back coag-negative staph or Liss from her cultures. 6. I have discussed with the nurses the need to move the patient to the [facility] as he is no longer stable.
[2017-01-26] MEDS: Sodium Chloride LOK Flush 10 mL Syringe IVFLUSH PRN (11:04)
[2017-01-26] MEDS ORDERED: Alteplase (Cathflo) 1 mg/mL 2 mL Inj IVPUSH ONE (11:15)
--- NOTE | 2017-01-26 11:22 | DRSVH ---
PROCEDURE: CT ABDOMEN AND PELVIS WITHOUT CONTRAST ([id number]) INDICATIONS: Fever, Pain, & WBC TECHNIQUE: Noncontrast 5 mm thick sections acquired from the diaphragms to the symphysis. 5 mm coronal and sagi ttal reformats were then performed. For radiation dose reduction, the following was used: automated exposure control, adjustment of mA and/or kV according to patient size. COMPARISON: CT abdomen and pelvis 01/07/2017. FINDINGS: Image quality: Excellent. ABDOMEN: Lung bases: Small bilateral pleural effusions, right greater than left.. Heart size is normal with c oronary artery calcifications. Solid organs: Liver and spleen are normal in size. Gallbladder is fluid-filled. Pancreas is normal in contours. No adrenal nodules. Kidneys are normal in size, with mild bilateral hydronephrosis, n o nephrolithiasis. Peritoneum and bowel: Unenhanced bowel loops demonstrate normal wall thickness and caliber. There is air distended bowel superimposed over the liver anteriorly. Multiple air-fluid levels are demonstrat ed. There is residual contrast material in the colon from previous fistulogram. Gastrostomy is presen t. Nodes and vessels: No retroperitoneal or mesenteric adenopathy by size criteria. Atheromatous aorta and inferior vena cava are normal in caliber. Miscellaneous: Left lower quadrant ostomy. PELVIS: Genitourinary: Bladder wall thickness is normal. Miscellaneous: The presacral abscess shows a percutaneous drainage tube looped within the abscess poc ket which is considerably smaller, estimated at 3.6 x 5.2 cm compared to 4.8 x 6.4 cm on prior. The p ocket contains innumerable air bubbles Bones: No suspicious bony lesions. No vertebral body compression fractures. IMPRESSION: 1. Presacral abscess contains a drainage tube and is diminished in size from the prior study. 2. Gaseous distention and multiple air-fluid levels suggest generalized ileus. Stoma is present in th e left lower quadrant. Gastrostomy tube present. 3. Mild bilateral hydronephrosis is persistent. 4. Small bilateral pleural effusions again noted. Dictated by: Eris Salgado M.D. on 01/26/2017 at 11:07 Approved by: Eris Salgado M.D. on 01/26/2017 at 11:20
--- NOTE | 2017-01-26 11:31 | PATH ---
SURGICAL PATHOLOGY Attending Physician:Haroldo Goel MD CASE STATUS: Signed Out PATIENT NAME: DAYSI SIM PID: [id number] : 1935 DATE COLLECTED:01/23/2017 00:00 SPECIMEN: Rectal Abscess Drainage CLINICAL HISTORY: Rectal Abscess Drainage ICD-10 code not given FINAL DIAGNOSIS: Rectal Abscess, Drainage: Negative for malignant cells. ICD10: K61.1 NOTE: Scattered neutrophils and acellular proteinaceous debris is present. No high-grade malignant cells are identified. GROSS DESCRIPTION: Received fresh on 01/24/2017 is approximately 4 cc of cloudy brown fluid. Prepared are one cell block and one ThinPrep slides. Vo ICD-9 CODES: CPT CODES: 1: 67344, 12223 Electronically Signed Out Valorie Mora MD [facility] [place] [address] Technical component performed at [facility], [address] [place] [address] Ave[address], [place], [address]
--- NOTE | 2017-01-26 13:06 | PCM.PHAPRO ---
Progress TPN ORDERS Pt started on NS @100ml/hr for potential HTN. Did not decrease volume of TPN today to give a patient a fluid bolus but consider decreasing rate or stopping altogether if pt responds adequately. PARENTERAL NUTRITION ORDERS 26-Jan-17 Standard Hang Time: 2099 Substrates Total kcal: 2021 AMINO ACIDS 100 g DEXTROSE 330 g Total Volume (mL): 2000 LIPIDS 50 g Sterile Water for Injection QS mL To Infuse Over (hrs): 24 Total Volume 2000 mL At at a rate of (mL/hr): 83 Additives Sodium Chloride 100 mEq "typical" daily requirements Sodium Acetate 40 mEq Sodium 50-120mEq Potassium Chloride 20 mEq Potassium 60-120mEq Potassium Phosphate 10 mEq Phosphate 20-40mEq Calcium Gluconate 18 mEq Magnesium 8-32mEq Magnesium Sulfate 12 mEq Calcium 9-22mEq Acetate* 80-120mEq Chloride* 80-120mEq Regular Insulin units *Depending on acid-base status Famotidine 40 mg Multivitamins 1 std dose Insulin Regimen Trace Elements 1 std dose none Thiamine mg Regular Low Intensity Subcut Folic Acid mg Regular Medium Intensity Subcut Ascorbic Acid mg Regular High Intensity Subcut Regular Insulin Infusion Other: Special Instructions: To be infused via central line only. For delay or inturruption of TPN contact the pharmacist for alternative replacement solution. Signature Date: DAYSI SIM [address] [facility] Chapo Salgado, PharmD Chapo Salgado Jan 26, 2017 13:06
[2017-01-26] MEDS: Micafungin Inj 150 MG in 0.9% Sodium Chloride 100 ML IV SCH (14:12)
--- NOTE | 2017-01-26 16:29 | PCM.PALLBR ---
Palliative Care Recommendation Summary of palliative recommendations: 01/26/17-Fistula from SB to presacral abscess- drained percut. on antibiotics and followed by Dr. Lemon as well as surg. Pain- abd-- significant development- worrisome. Appears to have sepsis like syndrome-presume intraabd rather than staph sepsis but will defer to Dr. Lemon. Code status remains DNR/DNI but up to yest he was still interested in otherwise aggressive treatment shy of CPR etc. At this point PC will be signing off and watching from the side lines. His goals of care are well defined. Please feel free to contact us if new issues develop. 01/25/17-Small bowel perforation with abscess-goals is to try to heal without surgery. Reviewed with Reji Snyder- agrees with changing to NPO status and relying on TPN for nutrition. He has done this before and will need SNF lax deleted from med list. To check with surg if OK for other oral meds Pain--willing to use med pre PT/activity-reviewed with RN/PT 01/24/17-pain-- reviewed benefit of adequate dosing of medications particularly for activity such as physical therapy. Constipation-patient does not feel bloated when G-tube is vented. He has had little by mouth intake. He has adequate medications ordered but with fistula at this time will postpone decision regarding need for laxative to surgical consultation. Small bowel perforation with abscess -Symptom management (Pain/other): Pt opiate naive, using only Tylenol prior to this admission. Reviewed MAR. Currently taking Hydrocodone/APAP 2 tablets around the clock. In last 24 hours, he had twelve tablets 5/325 HC/APAP or 60mg of hydrocodone. This is the equivalent of 60mg morphine or 40mg oxycodone or 30mcg/hr fentanyl. More importantly: the HC/APAP dosing exceeds the recommended amount of APAP in 24 hours (per the [employer] [place] [employer]) for people over 70 yo (1500mg/24hours). He had 325mg APAP x 12 = 3,900mg APAP. He reports better pain control with consistent dosing of pain medications around the clock, and with IV antibiotics. He says it hurts less to be turned from side to side. He doesn't like morphine because it makes him feel "out of this world" 1. Discontinue HC/APAP (due to high APAP dosing). (This order written by Dr. Estrada today) 2. Start oxycodone/APAP, 10/, one po q 6 hours prn. This reduces his APAP considerably to 1300mg/24h if he takes every dose. This also keeps his opiate pain coverage the same in 24 hours, although each 6 hour dose will feel "stronger" to him. Monitor for sedation. Consider that if pain is related primarily to infection, then will need to taper down opiates quickly to avoid sedation as infection is resolving. (This order written by Dr. Estrada today) 3. Constipation?? Will need to discuss with pt tomorrow. He has no laxative/ stool softeners ordered. He may not need them as he is on TPN and likely stooling regularly from that. Plan: Palliative Care will return tomorrow to assess the effectiveness of his pain plan. -DPOA/Advanced Directives/POLST: 1. Code: DNR/DNI -Family/emotional support: 1. Iman Lawson () [phone] Problems: End of Life Preferences DNR/DNI Disposition TBD Resuscitation Status Resuscitation Status: DNR/DNI:Do Not Resuscitate/Intubate POLST Updates/Changes POLST Discussed with: Health Care Agent (DPOAHC) Total time 20 minutes; >50% face to face with patient and/or family, providing counselling regarding plans and recommendations, and in care coordination with his/her medical teams. I also spent an additional [ ] minutes counseling for advanced care planning with the patient/the patients family/the surrogate decision maker. copies to: Jose J Rader DO; David David MD Palliative Brief Note Date of Service Jan 26, 2017 . 81 yo patient with known SB fistula to presacral abscess. Percutaneuous drain into abscess replaced on 01/23. He has been on TPN. Had staph bacteremia-coag neg a few weeks ago and treated with vanco Today significant decline- WBC increased from 6 to 20 with 18% bands, fever, increased abd pain, BP transiently 70/ now 113/ He appears in pain with frequent grimacing Lungs clear COR- HR 90-100 Mentation- wincing but also lethargic dry crusted lips and oral mucosa Iris Decker MD Jan 26, 2017 16:29
--- NOTE | 2017-01-26 17:11 | NUR ---
Pain/TELE/POC The pt continues to experience significant pain, though is sometimes unable to verbalize it. He is, according to reports from [facility], MD notes and family, "much worse than yesterday". The pt has been in and out of fevers through the shift, and is, at times, obtunded with small bouts of arousals to verbal stimuli. He does drift back off quickly after arousal. The pt is TELE ST in the 115's to 130's, and has progressively became tachy over the shift. MD's aware. Sepsis protocol has been initiated, and the POC is IV ABX with fluids. The pt has a g-tube, T drain, right colostomy and a groshong IV with TPN.
[2017-01-26] MEDS: Nystatin 100,000 Unit/Gm 15 Gm Powder TOPICAL PRN (19:55)
[2017-01-26] MEDS: Total Parenteral Nutrition 1 BAG IV SCH (21:00)
[2017-01-26] MEDS: TPN Per Pharmacist XX SCH (21:00)
[2017-01-26] MEDS: Vancomycin/250 mL NS IV SCH ×2 (21:15)
--- NOTE | 2017-01-26 23:00 | PCM.PNMED ---
Subjective Date of Service Jan 26, 2017 Subjective The patient is complaining of pain but is unable to tell me where it is. He is grimacing in pain through most of my interview and exam. Exam Vital Signs Vital Sign - Last Date Time Temp Pulse Resp B/P Pulse Ox O2 Delivery O2 Flow Rate FiO2 01/26/17 21:13 108 18 94/48 93 Nasal Cannula 3.00 01/26/17 19:38 39.2 Intake and Output 01/25/17 01/25/17 01/26/17 Cumulative From/Thru 15:00 23:00 07:00 01/06/17 03:10 - 01/25/17 19:33 Intake Total 729 ml 88142 ml Output Total 87706 ml Balance 729 ml 04262 ml Intake Oral 150 ml 6795 ml IV Total 579 ml 73359 ml TPN/PPN 99107 ml Tube Irrigant 100 ml Output Urine Total 07292 ml Stool Total 75 ml Gastric Drainage Total 7560 ml Drainage Total 1450 ml # Voids 1 59 # Bowel Movements 0 Exam General: Patient is lying supine in bed and appears to be grimacing in pain. He is unable to tell me specifically where his pain is. He appears to hurt all over. HEENT: Head is atraumatic and normocephalic. Eyes: Pupils are equally round and reactive to light and accommodation. Extraocular muscles are intact. Sclera are white, anicteric. Subconjunctival mucosa is pink. Ears and nose are unremarkable. Oropharynx: There is no mucosal lesions, there is no thrush, there is no pharyngitis. Neck: Is supple, there are no nodes, or masses or tenderness. Chest: Is clear to auscultation and percussion. There are no rales, rhonchi, wheezes or rubs. Heart: Rate, rhythm is regular. There is a grade 3/6 holosystolic murmur heard best at the left sternal border. There is no rub or gallop. Abdomen: Good bowel sounds are present. Abdomen is soft, nontender, no organomegaly or masses were appreciated. The PEG tube site is unremarkable. Extremities: Are symmetrical and well perfused. There is no edema, there is no cellulitis, no rash. However, there is decrease pain with range of motion of the right hip. There is a new presacral drain in place, site is unremarkable. Neurologic: There are no focal neurological deficits. Cranial nerves II through XII are intact. There are no sensory or motor deficits. Psychiatric: Patients mood is calm and he shows no sign of agitation. Genital: Deferred Rectal: Deferred Lab and Diagnostics Result Diagram: 01/26/17 0536 01/26/17 0330 Microbiology Coag negative staph appears to be in 2 of 2 bottles from blood cultures 01/06 and ED. X-Rays, CTs and MRIs CT ABDOMEN AND PELVIS WITH CONTRAST: Eduardo Grider M.D. on 01/07/2017 at 10:57 1. 6.4 x 4.8 cm thickwalled enhancing fluid collection is not significantly changed in size since December 2015, and currently demonstrates no imaging manifestations of superimposed infection. As such, any determination of superimposed infection would need to be made on clinical grounds. 2. Mild bilateral hydronephrosis has slightly decreased in degree since December. 3. No evidence for small bowel obstruction. 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 Dictated by: Eduardo Grider M.D. on 01/07/2017 at 10:57 CT ABDOMEN AND PELVIS WITHOUT CONTRAST: Arben Foster M.D. on 01/06/2017 at 7: 49 1. New moderate bilateral hydronephrosis and ureterectasis. No calcified obstructing lesions. Findings maybe related to increased inflammatory change in the pelvis. 2. 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 Superimposed infection is possible. This fluid collection would be amenable to CT-guided aspiration for diagnostic purposes if needed. 3. Partial bowel obstruction at the site of the left lower quadrant ostomy with gas-filled dilated colon and intermittently fluid-filled dilated loops of small bowel. Superimposed enteritis is also possible 4. Gastrostomy tube with tip likely in the stomach although poorly seen due to stomach decompression. Dictated by: Arben Foster M.D. on 01/06/2017 at 7:49 PROCEDURE: X-RAY FISTULAGRAM/SINOGRAM INDICATIONS: evaluate IR drain for enterocutaneous fistula COMPARISON: None. Technique: Gastrografin was injected under fluoroscopic guidance into the existing presacral drain. Multiple spot fluoroscopic images were obtained. FINDINGS: Once the presacral cavity was filled with contrast, there was prompt flow of contrast through a small fistulous connection with the adjacent small bowel. 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 This finding was discussed with Dr. Stephens immediately after the study on . Dictated by: Zee Yoder M.D. on 01/24/2017 at 10:56 Approved by: Zee Yoder M.D. on 01/24/2017 at 10:57 12-lead ECG Rate is 88, QTC 418 concurrently reviewed by Vazquez 01/06 . Sinus rhythm * Ventricular premature complex . Borderline prolonged OK interval . Probable left atrial enlargement . When compared with ECG of 07-Apr-2016 9:19:45, * PVCs are now present * PACs are no longer present * ST elevation is no longer present Cardiac Echo Impressions Echocardiogram Report Name: DAYSI SIM Date : 01/09/2017 Height: 71 in Hospital Exam Location: [facility] Weight: 163 lb Gender: Male BSA: 1.9 m2 : 1935 Age: 81 yrs BP: 158/70 mmHg Reason For Study: gram-positive bacteremia Performed By: Catrachita Tom Referring Physician: BERNICE JAIMES Interpretation Summary Left ventricular wall thickness is mildly increased. The ejection fraction is estimated to be 60-65%. There are no obvious focal wall motion abnormalities noted but poor endocardial definition reduces the sensitivity for the detection of such. There is mild mitral annular calcification. There is moderate aortic valve sclerosis. There is mild tricuspid regurgitation. The mitral valve leaflets appear mildly thickened, but open well. There is mild mitral regurgitation. No obvious vegetation seen , consider BOBBI if clinically indicated. Assessment & Plan Patient is a 81-year-old male admitted 01/06 probable abdominal abscess following conservative antibiotic treatment of appendicitis during November in [facility]. # Acute presacral abscess, present on admission, active -This was drained on 01/16, and is growing and ESBL e. coli -We will consider gracilias flap as suggested by Dr. Lemon. -We continued Vanco thru the 01/22/17 -On ertepenen, (minimum of 2-3 weeks treatment with ertepenen, meropenen) recommended by ID -Dr. 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 These findings were discussed with the design center consultant on the case today Dr. Stephens. We will discuss with the surgical team as to their plans to address this issue. Patient is to be kept nothing by mouth and all oral medications have been switched to transdermal or IV # Sepsis, present on admission and now with recurrent sepsis with fever and markedly elevated white blood cell count over 20,000. Active - I have re-consulted Dr. Lemon who kindly saw the patient this morning and restarted vancomycin and added micafungin to the patient's ertapenem - Dr. Lemon recommends the following: "1. I would continue with the ertapenem for coverage of the gram negatives as well as the anaerobes. 2. Will add back coverage for the coag-negative staph with vancomycin. 3. Will add micafungin though I think that is an unlikely source of infection. 4. CT scan of the abdomen is imperative given his left lower quadrant tenderness and the surgery consultants are already involved. 5. We can consider pulling the Groshong catheter, particularly if this shock does not rapidly improve and especially if we got back coag-negative staph or Liss from her cultures. 6. I have discussed with the nurses the need to move the patient to the [facility] as he is no longer stable." # Severely painful muscle spasms in her right hip, after working with physical therapy today -Toradol ordered for inflammatory pain control -We will order a fentanyl patches patient has been taken off all oral medications. -We will add IV Valium 5 mg IV every 8 hours when necessary - We will consult palliative care for help with pain control. # Coag-negative bacteremia, present on admission, active, -It was initially suspected that the possible source was a line infection with the Groshong cath, serial BCX 01/06, 01/07, 01/08 from peripheral, from Groshong grew staph coag neg, -TTE was negative for vegetation.Last blood culture 01/10 remained negative. -Chronic Presacral fluid collection drained 01/16, consistent with abscess, potentially this could be the source. -We had started Ancef 2gq8h per ID, -Ancef changed to Meropenem 01/17 -We added vancomycin per ID 01/11 to continue to January 22, -Patient does have a loud holosystolic murmur most prominent at the left sternal border. Will discuss with Dr. Lemon the need for a transesophageal echocardiogram. # Probable contusion to Right Hip, present on admission, active -We have consulted , unlikely related to hip joint, could be greater trochanter bursitis, contusion, tendon injury from fall, no evidence of infection, see MRI01/08 -We will continue pain control with percocet, pt still requring 2tab q4h, will add lidocaine patch, also try naproxen 375mg PO bid (01-19-17), monitor sx, renal function closely with NSAID -Ortho/Gen. surgery consultation, no further surgical recs. We may need to reconsult orthopedic surgeries patient continues to have severe pain in the hip. However, today on 01/23/2017 the patient's pain has improved significantly. -We will reconsult physical therapy today to work with patient and see how he does. -Continue pain control with transdermal fentanyl and IV Toradol and IV Valium when necessary. # Chronic SBO, present on admission, stable -This was noted on CT 01/06 w/o contrast not on 01/07 w/ contrast, Extensive surgical history, drainage with venting gastrostomy/Groshong cath inserted in for TPN -We will continue full liquids with nocturnal TPN to provide sufficient nutrition for healing. -We will open his gastrostomy at night, drainage as needed. -There are no further recs per # New bilateral hydroureter, present on admission, stable -We reviewed with Dr Duran () earlier, he agreed that this is new hydroureter but not necessarily obstruction, -Dr. Duran not recommending stents at this time -We will continue to follow closely. # Anemia-trending down until 01/08, likely dilutional, stable now # HTN/lipids,controlled with home medications today # Protein caloric - resumed nocturnal TPN 14 hours at night 01/08 -Patient is up to eating full liquids -He has a venting gastrostomy due to chronic partial bowel obstruction type issues. # Hyponatremia- Resolved 01/07 # Hx colon CA-distorted anatomy status post partial colectomy, reports failed anastomosis with leaking, patient now has pouch. Fistulogram appears to have confirmed a fistulous connection between the presacral abscess to a loop of adjacent small bowel. # Prophylaxis- DVT with SCDs and enoxaparin, GI H2 RA # Disposition-patient will be transferred to the [facility] to a higher level of care as he is not stable due to recurrent sepsis. Patient remains a DNR/DNI Pain Evaluation: Adequate Pain Control GI Prophylaxis: Not indicated VTE Prophylaxis: Sub-Q Heparin (Unfractionated), SCDs VTE Mechanical Devices: Intermittant Pneumatic CD Resuscitation Status: DNR/DNI:Do Not Resuscitate/Intubate David David MD Jan 26, 2017 23:00
[2017-01-27] VITALS (10 sets, daily range): BP systolic 126–142; BP diastolic 64–76; PULSE 72–108; RESP 16–20; O2SAT 93–96
[2017-01-27] MEDS: 0.9% Sodium Chloride 1,000 ML IV SCH ×2 (00:24→16:05)
[2017-01-27] MEDS: TOBRAMYCIN DEXAMETHASONE BOTH_EYES SCH ×4 (02:07→22:40)
[2017-01-27] MEDS: HYDROmorphone 1 mg/mL Inj IVPUSH PRN ×4 (02:29→22:54)
--- NOTE | 2017-01-27 05:22 | NUR ---
Temp/BP/Telemetry/Pain/LOC Pt somnolent during beginning of shift. Mumbles most of the time. He is oriented to self but confuse of place, time and date. Temp max 39.2. Tylenol given with effectiveness noted. Temp down to 36.7. Toradol and Dilaudid given for pain with some effectiveness. G-tube on LIS as ordered tonight with 100 cc output. Flushed Judy-rectal drain with 10 cc Saline. Patent and draining to gravity. Dressing on right judy-rectal abscess reinforced at this time. Pt more awake through the night. Able to provide appropriate answer to questions. Oriented to self but confused on date and times. At times, he answers appropriately. Dilaudid 2 mg given and noted to have decreased BP as low as 94/48. SBP up to 120s this am. Telemetry SR 80s-90s. HR to low 100s with activity. 02sat in mid 90s on 3L. Noted intermittent non-productive moist cough. No sputum noted.
[2017-01-27 05:44] LABS: Mean Corpuscular Hemoglobin 28.5 pg (27.0-35.0); Mean Corpuscular Volume 91.7 fL (81-100); Platelet Count 177 bil/L (150-400)
[2017-01-27 06:14] LABS: NEUTROPHILS % (AUTO) 74 % (40-74)
[2017-01-27 06:15] LABS: BASOPHILS % (AUTO) 0 % (0-3); EOSINOPHILS % (AUTO) 1 % (0-5); MONOCYTES % (AUTO) 0 % (4-12)
[2017-01-27 06:19] LABS: Magnesium 2.1 mg/dL (1.6-2.6); Phosphorus 3.8 mg/dL (2.5-4.9)
[2017-01-27 06:22] LABS: ERYTHROCYTE SEDIMENTATION RATE 119 mm/hr (0-30)
[2017-01-27] MEDS: Vancomycin/250 mL NS IV SCH ×2 (07:43)
[2017-01-27] MEDS: Levothyroxine 100 mCg/5 mL Inj IV SCH (07:46)
[2017-01-27] MEDS: Nystatin 100,000 Unit/Gm 15 Gm Powder TOPICAL PRN (07:46)
[2017-01-27] MEDS: Lidocaine Topical 5% Patch TOPICAL SCH (07:46)
[2017-01-27] MEDS: Insulin LISPRO 300 Unit/3 mL Inj SUBQ SCH ×4 (07:47→22:00)
[2017-01-27] MEDS: Ketorolac 15 mg/mL Inj IVPUSH PRN (07:47)
[2017-01-27] MEDS: MeTOProlol 1 mg/mL 5 mL Inj IV SCH ×2 (07:47→22:40)
[2017-01-27] MEDS: Vancomycin Dose per Pharmacist XX SCH (07:48)
[2017-01-27] MEDS: Sodium Chloride LOK Flush 10 mL Syringe IVFLUSH SCH ×3 (07:48→22:40)
[2017-01-27] MEDS: Ertapenem Inj 1,000 MG in 0.9% Sodium Chloride 100 ML IV SCH (09:06)
[2017-01-27] MEDS: Micafungin Inj 150 MG in 0.9% Sodium Chloride 100 ML IV SCH (09:37)
--- NOTE | 2017-01-27 09:40 | PROG NOTE ---
[address] [address] PROGRESS NOTE PATIENT: DAYSI SIM : 1935 MR#: [id number] ADMIT: 01/06/2017 JOB ID: [id number] DATE: 01/27/2017 INFECTIOUS DISEASE FOLLOW UP NOTE: REASON FOR FOLLOWUP: ESBL infection of presacral abscess plus fungemia. INTERVAL HISTORY: Recall that over the past 36 hours or so the patient has had a dramatic decline in what was an improving overall status. We were treating successfully apparently his presacral abscess which was growing an ESBL E. coli and anaerobes with ertapenem and drainage through a percutaneous drain. The patient's hip pain was improving and his mobility likewise better. He then developed an abrupt deterioration yesterday which was characterized by new fevers, hypotension and encephalopathy. We were concerned that possibly the coag-negative Staph bacteremia that had troubled him earlier in his hospital stay had returned or that he might have developed fungemia or perhaps complications of his bowel obstruction and colostomy. What was discovered early this morning is that the blood cultures done at the onset of this rapid decline have been positive for yeast and we now know that he is fungemic. During the night, the nurses report that the patient was very lethargic almost to the point of being unresponsive, but this morning he is lethargic but arousable. He is able to tell us who the President is, where he is and interact a fair amount. He does not have fevers, chills or shortness of breath today, but he continues to have abdominal pain. He has no problems with his Groshong and recall that he is really not eating at all due to his recurrent small bowel obstruction and related issues. His hip pain is about where it was over the past couple days which is moderately severe. PHYSICAL EXAMINATION: Reveals a lethargic gentleman lying in his PCC bed. His temperature is 37.7, but was as high as 39.2 during the night. His pulse is 108, respiratory rate 18, blood pressure 140/64. He is saturating well but requiring 3 L. His mental status is oriented x3, but more lethargic, encephalopathic than usual. Eyes without conjunctivitis. Oral cavity without change. Lungs fairly clear. Cardiac tones without new murmur. The Groshong catheter in the left chest appears benign. The abdomen is distended but much less tender than it was yesterday, especially in the left lower quadrant that was exquisitely tender yesterday and much better today. No skin rash noted. LABORATORIES: Include white count of 20,000 yesterday, now 14. Huge left shift continues, 22% bands, 3% metamyelocytes. Creatinine 0.52. LFTs yesterday were on the rise. They are a little bit better today. ALT down from 217 to 160. Alk phos stable at about 220. AST down from 163 to 98 so substantially better. Albumin 2.2, still no good. Procalcitonin 0.6. Micro includes the positive blood cultures from the . Both sets are growing a yeast. We have additional blood cultures pending and I am certain that they will also grow yeast. IMAGING: The imaging yesterday included a CT of the abdomen and pelvis shows that the presacral abscess has a drainage tube in the right position and is getting smaller with therapy with ertapenem. There is also evidence of ileus which is a common finding with this patient unfortunately and some mild hydronephrosis is present. IMPRESSION: The patient has had a long and complex course during the last three weeks or so. He was admitted with yet another bowel obstruction which had necessitated TPN and bowel rest. He developed high-grade coag-negative Staph bacteremia which we could not prove was related to his Groshong and which we treated with the Groshong in place with resolution. During this time he was found by CT scan to have what appeared to be a persistent presacral fluid collection which was sampled and was found to actually be a polymicrobial presacral abscess including ertapenem. When treatment for the presacral abscess was started, his severe and unrelenting right lower quadrant and right hip pain started to improve and it looked like things were overall much better for the patient until just a day and a half or so ago when he became obviously septic. It is now clear that this sepsis type syndrome is actually due to fungemia which almost certainly involves his Groshong catheter in this gentleman who has a variety of abdominal problems as well as ongoing TPN. RECOMMENDATIONS: 1. The Groshong catheter should be pulled as soon as possible and its tip cultured. 2. To manage his nutritional issues without the Groshong it would be possible to either put in a peripheral IV and given him D 10 to keep his blood sugar at least somewhat reasonable or a temporary central line could be inserted with the knowledge that line will be considered contaminated with Liss and will need to come out in a few days. 3. Once the Groshong is out, I would not place a new central line until we have some consistently negative blood cultures for yeast. 4. A transthoracic echo should be done but this is not urgent. 5. Dilated eye examination should be done to look for Liss endophthalmitis. This is also not urgent at this point. 6. Micafungin was added yesterday empirically and should be continued. 7. The vanco that was added yesterday can be discontinued today because we have no evidence that the coag-negative Staph has returned and we have an under sufficient explanation for all that has happened. 8. This list of recommendations discussed with the team here on PCC.
--- NOTE | 2017-01-27 12:50 | PCM.PNMED ---
Subjective Date of Service Jan 27, 2017 Subjective pt was transferred from [facility] due to concern for sepsis, HD more stable, less tachycardic, pt remained mildly confused, drowsy this morning, but able to communicate, explained that Groshong has to be discontinued, awaits to discontinue Groshong today. Pt still has abd pain, RLQ, RUQ, denied nausea, Exam Vital Signs Vital Sign - Last Date Time Temp Pulse Resp B/P Pulse Ox O2 Delivery O2 Flow Rate FiO2 01/27/17 12:00 37.3 91 18 126/65 96 Nasal Cannula 3.00 Intake and Output 01/26/17 01/26/17 01/27/17 Cumulative From/Thru 15:00 23:00 07:00 01/06/17 03:10 - 01/27/17 06:06 Intake Total 2270 ml 0 ml 3693 ml 30511 ml Output Total 200 ml 0 ml 214 ml 42317 ml Balance 2070 ml 0 ml 3479 ml 76676 ml Intake Oral 0 ml 0 ml 0 ml 6795 ml IV Total 415 ml 2046 ml 62449 ml TPN/PPN 1855 ml 1647 ml 36294 ml Tube Irrigant 100 ml Output Urine Total 0 ml 4 ml 23334 ml Stool Total 0 ml 75 ml Gastric Drainage Total 50 ml 150 ml 7760 ml Drainage Total 150 ml 60 ml 1660 ml # Voids 1 60 # Bowel Movements 0 Exam drowsy, no JVD, MMM, no LAD RRR, nl s1, s2 no mrg CTAB, no w,c S, distended, diffuse td more on RUQ, RLQ, hypoactiveBS+ warm, no edema, pulses 2/2 IVs and Medications Medications Reviewed: Medications were reviewed in detail Lab and Diagnostics Result Diagram: 01/27/1751901/27/17519 Microbiology Coag negative staph appears to be in 2 of 2 bottles from blood cultures 01/06 and ED. X-Rays, CTs and MRIs CT ABDOMEN AND PELVIS WITH CONTRAST: Eduardo Grider M.D. on 01/07/2017 at 10:57 1. 6.4 x 4.8 cm thickwalled enhancing fluid collection is not significantly changed in size since December 2015, and currently demonstrates no imaging manifestations of superimposed infection. As such, any determination of superimposed infection would need to be made on clinical grounds. 2. Mild bilateral hydronephrosis has slightly decreased in degree since December. 3. No evidence for small bowel obstruction. 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 Dictated by: Eduardo Grider M.D. on 01/07/2017 at 10:57 CT ABDOMEN AND PELVIS WITHOUT CONTRAST: Arben Foster M.D. on 01/06/2017 at 7: 49 1. New moderate bilateral hydronephrosis and ureterectasis. No calcified obstructing lesions. Findings maybe related to increased inflammatory change in the pelvis. 2. 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 Superimposed infection is possible. This fluid collection would be amenable to CT-guided aspiration for diagnostic purposes if needed. 3. Partial bowel obstruction at the site of the left lower quadrant ostomy with gas-filled dilated colon and intermittently fluid-filled dilated loops of small bowel. Superimposed enteritis is also possible 4. Gastrostomy tube with tip likely in the stomach although poorly seen due to stomach decompression. Dictated by: Arben Foster M.D. on 01/06/2017 at 7:49 PROCEDURE: X-RAY FISTULAGRAM/SINOGRAM INDICATIONS: evaluate IR drain for enterocutaneous fistula COMPARISON: None. Technique: Gastrografin was injected under fluoroscopic guidance into the existing presacral drain. Multiple spot fluoroscopic images were obtained. FINDINGS: Once the presacral cavity was filled with contrast, there was prompt flow of contrast through a small fistulous connection with the adjacent small bowel. 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 This finding was discussed with Dr. Stephens immediately after the study on . Dictated by: Zee Yoder M.D. on 01/24/2017 at 10:56 Approved by: Zee Yoder M.D. on 01/24/2017 at 10:57 12-lead ECG Rate is 88, QTC 418 concurrently reviewed by Vazquez 01/06 . Sinus rhythm * Ventricular premature complex . Borderline prolonged MA interval . Probable left atrial enlargement . When compared with ECG of 07-Apr-2016 9:19:45, * PVCs are now present * PACs are no longer present * ST elevation is no longer present Cardiac Echo Impressions Echocardiogram Report Name: DAYSI SIM Date : 01/09/2017 Height: 71 in Hospital Exam Location: [facility] Weight: 163 lb Gender: Male BSA: 1.9 m2 : 1935 Age: 81 yrs BP: 158/70 mmHg Reason For Study: gram-positive bacteremia Performed By: Catrachita Tom Referring Physician: BERNICE JAIMES Interpretation Summary Left ventricular wall thickness is mildly increased. The ejection fraction is estimated to be 60-65%. There are no obvious focal wall motion abnormalities noted but poor endocardial definition reduces the sensitivity for the detection of such. There is mild mitral annular calcification. There is moderate aortic valve sclerosis. There is mild tricuspid regurgitation. The mitral valve leaflets appear mildly thickened, but open well. There is mild mitral regurgitation. No obvious vegetation seen , consider BOBBI if clinically indicated. Assessment & Plan Patient is a 81-year-old male admitted 01/06 probable abdominal abscess following conservative antibiotic treatment of appendicitis during November in [facility]. acute, active # Sepsis, present on admission, developed again 01/26. with fever and markedly elevated white blood cell count over 20,000. active, still the source likely staph coag neg and/or fungemia -pt is clinically better today, wbc trending down, slightly worse PCT, -appreciate follow up, added micafungin 01/27, continue ertapenem #Coag-negative bacteremia, present on admission, active, It was initially suspected that the possible source was a line infection with the Groshong cath, serial BCX 01/06, 01/07, 01/08 from peripheral, from Groshong grew staph coag neg, TTE was negative for vegetation.Last blood culture 01/10 remained negative. 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 We added vancomycin per ID 01/11. -currently on ertapenem #newly found fungemia, on BCX 01/26, likely from Groshong cath infected with prolonged TPN -anti-fungal agent as above -awaits to remove Groshong cath -awaits final culture result #Chronic SBO, present on admission, stable, This was noted on CT 01/06 w/o contrast not on 01/07 w/ contrast, Extensive surgical history, drainage with venting gastrostomy/Groshong cath inserted in for TPN -will continue TPN via peripheral once Groshong it out until serial BCX shows clearance of fungemia, will consider 16 or 18G peripheral or Midline insertion, would avoid central line. If this cannot be achieved, will try d10W -open his gastrostomy at night, drainage as needed. -There are no further recs per chronic, stable, resolved # Acute presacral abscess, present on admission, active, -This was drained on 01/16, and is growing and ESBL e. coli, received Vanco thru the 01/22/17.Dr. 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 These findings were discussed with the neurosurgical nurse on the case Dr. Stephens. No surgical intervention recommended such as gacilias flap as suggested by Dr. Lemon -continue drain management per surgery team, abx as above # Severely painful muscle spasms in her right hip, -pt seemed stable on current tx, -Toradol ordered for inflammatory pain control -fentanyl patches patient has been taken off all oral medications. -continue IV Valium 5 mg IV every 8 hours when necessary # Probable contusion to Right Hip, present on admission, active -We have consulted , unlikely related to hip joint, could be greater trochanter bursitis, contusion, tendon injury from fall, no evidence of infection, see MRI01/08 -We will continue pain control with percocet, pt still requring 2tab q4h, will add lidocaine patch, also try naproxen 375mg PO bid (01-19-17), monitor sx, renal function closely with NSAID -Ortho/Gen. surgery consultation, no further surgical recs. We may need to reconsult orthopedic surgeries patient continues to have severe pain in the hip. However, today on 01/23/2017 the patient's pain has improved significantly. -We will reconsult physical therapy today to work with patient and see how he does. -Continue pain control with transdermal fentanyl and IV Toradol and IV Valium when necessary. # New bilateral hydroureter, present on admission, stable -We reviewed with Dr Duran () earlier, he agreed that this is new hydroureter but not necessarily obstruction, -Dr. Duran not recommending stents at this time -We will continue to follow closely. # Anemia-trending down until 01/08, likely dilutional, stable now # HTN/lipids,controlled with home medications today # Protein caloric - resumed nocturnal TPN 14 hours at night 01/08 -Patient is up to eating full liquids -He has a venting gastrostomy due to chronic partial bowel obstruction type issues. # Hyponatremia- Resolved 01/07 # Hx colon CA-distorted anatomy status post partial colectomy, reports failed anastomosis with leaking, patient now has pouch. Fistulogram appears to have confirmed a fistulous connection between the presacral abscess to a loop of adjacent small bowel. # Prophylaxis- DVT with SCDs and enoxaparin, GI H2 RA # Disposition pending. Patient remains a DNR/DNI GI Prophylaxis: Not indicated VTE Prophylaxis: Sub-Q Heparin (Unfractionated), SCDs VTE Mechanical Devices: Intermittant Pneumatic CD Resuscitation Status: DNR/DNI:Do Not Resuscitate/Intubate Time spent 35min Compa Manuel MD Jan 27, 2017 12:50
--- NOTE | 2017-01-27 13:00 | NUR ---
NUTRITION FOLLOW-UP: ASSESS: 81 YO male admitted with fevers, abdominal and right flank pain, new bilateral hydroureter, bacteremia with chronic SBO, s/p percutaneous abscess drainage today for pre-sacral abscess and sinogram 01/24. Overnight, pt had a dramatic decline with new fevers, hypotension and encephalopathy. Pt has been very lethargic. ID is following and it was found that his sepsis is related to fungemia and his Groshong catheter is to be removed today. Pt has been on chronic TPN via his Groshong catheter so his TPN may need to be on hold for a couple days. NGT in place for suction. PMHx: HTN, dyslipidemia, hypothyroidism, FAVIAN, CVA, recurrent SBO's with perforation, CAD, CHF, colorectal cancer, in remission. DIET: NPO. Previous: Full Liquids. Ensure all trays. PO-refusal, 25% x 1-2meals. NUTRITION SUPPORT: TPN of 330 g dextrose, 100 g amino acid, 50 g lipid to provide 2025 kcal, 100 g protein per day. (OFF) HOME DIET: Nocturnal TPN running x14 hrs and full liquids per notes LABS: Reviewed. Bun 38, Medical Record Administrator .52, Glu 170, Ca 8.0, AST 98, ALT 160, Alk phos 220, Alb 2.2 GI symptoms / stool: No stool output noted, passing flatus via ostomy ANTHROPOMETRICS: Current Wt: 73.4 kg. BMI 22.8kg/m2, Admit Wt: 72.0 kg ESTIMATED NEEDS: Calories: 1800 - 2160 kcal (25 - 30 kcal / kg BW) Protein: 85 - 110 g protein (1.2 - 1.5 g / kg BW) Fluid: Approx. 1800 mL (25 mL / kg BW) NUTRITION DIAGNOSIS: 1.) Altered GI function related to alteration in GI tract structure / function as evidenced by history of colorectal cancer requiring chronic/ongoing TPN with venting gastrostomy tube--PERSISTS. 2.) Moderate pro/kcal malnutrition related to chronic illness as evidence by altered GI function, <75% of estimated energy intake for >1 month and mild muscle/fat loss INTERVENTION: 1.) Recommend re-start TPN when able- per MD note, TPN may be able to be re-started via peripheral 2.) Pt;s alk phos is trending up which may be related to chronic TPN. Pt's TPN has been running x24 hrs while in the hospital. Recommend switch TPN back to home TPN regimen of x14hrs. Recommend 336g Dex, 90g AA and 50g lipids to provide 2002 kcal and 90g pro (100% estimated needs). With TPN running x14hrs Dex load is 5.87mg/kg/min. Pharmacy is aware of recommendation. 3.) Will monitor labs closely and adjust accordingly MONITOR/EVALUATE: TPN re-start?, NPO, labs, GI/nutrition status. Follow per high nutrition risk guidelines. Addendum: 01/27/17 at [address] PPN per pharmacy to run while pt has peripheral line. Will continue to monitor per high nutrition risk guidelines.
--- NOTE | 2017-01-27 15:19 | PCM.PHAPRO ---
Progress TPN #20 In general: Euvolemic, VSS, I=O, lytes WNL and without impressive trends. Two issues pertinent to TPN delivery: 1. Fungemia has necessitated removal of central access. Central iv cath to be removed and not replaced until clear fungal BCx. p/ Peripherally delivered solution (via midline PICC) to bridge 2. Mild transaminitis and upward trending alk phos. TPN information reviewed. TPN has been delivered with slightly fewer total KCAL, and on a 14 hour cycle. a/ Likely liver indices associated with overfeeding. p/ If not for problem #1, would begin cycling TPN as likely well tolerated prior to admit. However, problem #2 has necessitated a macronutrient decrease to approximately 1/3 of previous admixtures. Overall, will initiate PPN, and consider cycling when the clinical situation settles. The following solution has a osmolality of ~500-600 mOsm/L, which is comparable or less than that of D5NS, and below the generally recognized maximum of 900mOsm/L for peripheral solutions. A midline PICC has been place as a hedge against phlebitis. PARENTERAL NUTRITION ORDERS 20 27-Jan-17 Standard Hang Time: 2100 Substrates Total kcal: 655 AMINO ACIDS 50 g DEXTROSE 75 g Total Volume (mL): 2500 LIPIDS 20 g Sterile Water for Injection QS mL To Infuse Over (hrs): 24 Total Volume 2500 mL At at a rate of (mL/hr): 104 Additives Sodium Chloride 60 mEq "typical" daily requirements Sodium Acetate 20 mEq Sodium 50-120mEq Potassium Chloride 40 mEq Potassium 60-120mEq Potassium Phosphate 10 mEq Phosphate 20-40mEq Calcium Gluconate 10 mEq Magnesium 8-32mEq Magnesium Sulfate 8 mEq Calcium 9-22mEq Acetate* 80-120mEq Chloride* 80-120mEq Regular Insulin units *Depending on acid-base status Famotidine 40 mg Multivitamins 1 std dose Insulin Regimen Trace Elements 1 std dose none Thiamine mg Regular Low Intensity Subcut Folic Acid mg Regular Medium Intensity Subcut Ascorbic Acid mg Regular High Intensity Subcut Regular Insulin Infusion Other: Special Instructions: MAY BE INFUSED VIA PERIPHERAL LINE For delay or inturruption of TPN contact the pharmacist for alternative replacement solution. Special Instructions: Reduced osmolality, may infuse via peripheral line. Signature Date: DAYSI SIM [address] [facility] Lance Dick Pharm D Jan 27, 2017 15:19
--- NOTE | 2017-01-27 16:29 | NUR ---
Social Work: Multidisciplinary Rounds Pt discussed in am rounds. Pt transferred to [facility] due to new sepsis. Surgery is following pt's care. Pt anticipated to likely require skilled rehab at time of discharge. Pt has been accepted at [facility] ([facility]) APPRENTICE PATTERN MAKER iwll continue to follow pt's clinical progress and coordinate discharge as instructed by MD Ninfa Chandra APPRENTICE PATTERN MAKER
--- NOTE | 2017-01-27 16:54 | PCM.PROC ---
Procedure Note Date of Service: Jan 27, 2017 Pre Procedure Diagnosis: possible line sepsis Post Procedure Diagnosis: Same Procedure: Groshong catheter removal Provider and Prosthetist: Keith Jenkins PA-C Indication for Procedure: sepsis, fungemia Findings: intact groshong catheter Procedural Analgesia: 8cc 1% lidocaine plain Procedure Details: Patient was prepped and draped. 8cc 1% lidocaine was infiltrated around groshong catheter exit point. #11 blade was used to make a 2cm longitudinal incision cephalad to the catheter site to the point where the hub of the catheter was palpated. Using a small nessa clamp and scissors the tissue around the catheter hub was dissected until the catheter was freely movable. The catheter was then removed and local pressure was applied to the catheter site until satisfactory hemostasis was achieved. A single buried 4-0 vicryl stitch was then placed to aid in closure of incision. A steri strip and bandaid was then placed over the incision. The catheter tip was sent for culture. The patient tolerated the procedure well. Needle counts were correct. Specimen: Groshong catheter tip. Post Procedure Plan: Continue TPN thru central line. Dressing can be removed leaving steri strip in place in 24 hours. Austin Jenkins PA-C Jan 27, 2017 16:53
[2017-01-27 17:55] LABS: APPEARANCE,URINE TURBID (CLEAR,HAZY); COLOR,URINE DARK YELLOW (YELLOW); OCCULT BLOOD,URINE LARGE (NEGATIVE); PH,URINE 5.5 (5.0-8.0); UROBILINOGEN,URINE NORMAL (NORMAL)
[2017-01-27 18:04] LABS: ICTOTEST,URINE POSITIVE (Negative)
[2017-01-27] MEDS ORDERED: Vancomycin Serum Trough XX ONE (19:30)
[2017-01-27] MEDS: TPN Per Pharmacist XX SCH (21:00)
[2017-01-27] MEDS: Total Parenteral Nutrition 1 BAG IV SCH (22:54)
[2017-01-28] VITALS (7 sets, daily range): BP systolic 150–156; BP diastolic 72–83; PULSE 87–117; RESP 12–24; O2SAT 88–94
[2017-01-28] MEDS: 0.9% Sodium Chloride 1,000 ML IV SCH ×2 (01:12→10:40)
[2017-01-28] MEDS: Sodium Chloride LOK Flush 10 mL Syringe IVFLUSH SCH ×4 (01:12→14:18)
[2017-01-28 03:34] LABS: BASOPHILS % (AUTO) 0.5 % (0-3); EOSINOPHILS % (AUTO) 1.2 % (0-5); MONOCYTES % (AUTO) 3.7 % (4-12); Mean Corpuscular Hemoglobin 28.1 pg (27.0-35.0); Mean Corpuscular Volume 90.4 fL (81-100); NEUTROPHILS % (AUTO) 87.9 % (40-74); Platelet Count 116 bil/L (150-400)
[2017-01-28] MEDS: HYDROmorphone 1 mg/mL Inj IVPUSH PRN ×3 (04:15→17:46)
[2017-01-28 04:18] LABS: Magnesium 1.9 mg/dL (1.6-2.6); Phosphorus 3.6 mg/dL (2.5-4.9)
[2017-01-28] MEDS: TOBRAMYCIN DEXAMETHASONE BOTH_EYES SCH ×4 (05:00→20:30)
--- NOTE | 2017-01-28 07:18 | NUR ---
Fever/Pain/Mentation Pt did become febrile at one point during the shift leader at 38.1 C. Pt was monitored and only had a light sheet on to keep pt body temp cool. Pt did not c/o chills or discomfort with this febrile episode. Pt continues to deny pain when asked but pt shows other s/s of pain and the FELDT score was used during the shift. Pt is aware to self but unable to tell what year it is or where he is at this time.
[2017-01-28] MEDS: Insulin LISPRO 300 Unit/3 mL Inj SUBQ SCH ×2 (08:00→12:00)
[2017-01-28] MEDS: Ertapenem Inj 1,000 MG in 0.9% Sodium Chloride 100 ML IV SCH (08:01)
[2017-01-28] MEDS: MeTOProlol 1 mg/mL 5 mL Inj IV SCH (08:02)
[2017-01-28] MEDS: Lidocaine Topical 5% Patch TOPICAL SCH (08:02)
[2017-01-28] MEDS: Levothyroxine 100 mCg/5 mL Inj IV SCH (08:03)
--- NOTE | 2017-01-28 08:11 | PCM.PHAPRO ---
Progress Date of Service: Jan 28, 2017 TPN MANAGEMENT DAY 21 ON INPATIENT TPN Pt had groshong catheter removed and midline PICC placed for TPN administration. TPN adjusted for midline administration. Patient's electrolytes are stable and most LFTs are decreasing. Will continue with current TPN formulation for tonight and monitor electrolytes with AM Labs PARENTERAL NUTRITION ORDERS 28-Jan-17 Substrates AMINO ACIDS 50 g DEXTROSE 75 g LIPIDS 20 g Sterile Water for Injection QS mL Total Volume 2500 mL Additives Sodium Chloride 60 mEq Sodium Acetate 20 mEq Potassium Chloride 40 mEq Potassium Phosphate 10 mEq Calcium Gluconate 10 mEq Magnesium Sulfate 8 mEq Regular Insulin units Famotidine 40 mg Multivitamins 1 std dose Trace Elements 1 std dose Thiamine mg Folic Acid mg Ascorbic Acid mg Joel Tabor [facility] Jan 28, 2017 08:11
[2017-01-28] MEDS: Micafungin Inj 150 MG in 0.9% Sodium Chloride 100 ML IV SCH (08:35)
--- NOTE | 2017-01-28 09:24 | DRSVH ---
PROCEDURE: X-RAY ABDOMEN, ONE VIEW ([id number]) INDICATIONS: SBO or severe ileus TECHNIQUE: One view of the abdomen acquired. COMPARISON: [facility], CT, CT ABD PELVIS WO CON, 01/26/2017, 10[facility], [facility] AP 1VW, 01/06/2017, 3:40. FINDINGS: Surgical changes and devices: Gastrotomy tube is present. cardiac monitor technician leads are seen over the [address]. There is an abscess drainage tube in the pelvis Bowel: All gas pattern is abnormal with prominent small and large bowel loops. The pattern is conside red very similar to the CT field marketing team leader film of 01/26/17, consistent with ileus. Soft tissues: No suspicious abdominal calcifications. Visualized solid organ contours appear normal in size. Bones: No suspicious bony lesions. IMPRESSION: No change in the prominent amount of gas in the GI tract more consistent with ileus than obstruction. And no change In the surgical devices. Dictated by: Haroldo Bauer M.D. on 01/28/2017 at 9:20 Approved by: Haroldo Bauer M.D. on 01/28/2017 at 9:22
--- NOTE | 2017-01-28 11:10 | PROG NOTE ---
[address] [address] PROGRESS NOTE PATIENT: DAYSI SIM : [id number] MR#: [id number] ADMIT: 01/06/2017 JOB ID: [id number] DATE: 01/28/2017 SUBJECTIVE: The patient was seen in followup. He is complaining of some abdominal pain across his left abdomen this morning. He was febrile overnight to 38.1. He has not been oriented or able to interact very well overnight. OBJECTIVE: Temperature current 38.0, pulse 117, blood pressure 150/72, saturation 92% on 2 L nasal cannula. General: He is resting in bed, uncomfortable-appearing. HEENT: Mucous membranes are somewhat dry. Neck: Trachea is midline. No jugular venous distention. Chest: His previous left upper chest wall Groshong catheter site is clean, with no erythema, nontender. He has good air movement bilaterally. Heart: Regular rate and rhythm. No murmurs. Abdomen is mildly distended, but soft. He has no guarding. His colostomy appliance is intact. It is an opaque bag, so I cannot evaluate for fluid in the appliance. His percutaneous drain has bilious fluid. LABORATORIES: White count is 11.0, hematocrit 28.3, platelets 116. Creatinine 0.37. Bilirubin 1.9, AST 74, ALT 130, alkaline phosphatase 335, albumin 2.2. Procalcitonin 0.48. 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 He was diagnosed with fungemia, presumed to be secondary to his Groshong catheter, which has been removed. He is now on micafungin. From a surgical standpoint today, I recommend no significant changes. He will be kept n.p.o., on TPN. His percutaneous drain remains functional and should remain in place. Recommend venting his gastrostomy as needed for abdominal distention and discomfort.
[2017-01-28] MEDS ORDERED: Albuterol 2.5 mg/3 mL Inhalation Solution NEB PRN (13:30)
[2017-01-28] MEDS ORDERED: Furosemide 10 mg/mL 2 mL Inj IVPUSH ONE (13:30)
--- NOTE | 2017-01-28 14:00 | PCM.PNMED ---
Subjective Date of Service Jan 28, 2017 Subjective pt is making less urine, more confused, kept febrile, discussed with , informed possible further deterioration, comfort care path decided to continue current tx Exam Vital Signs Vital Sign - Last Date Time Temp Pulse Resp B/P Pulse Ox O2 Delivery O2 Flow Rate FiO2 01/28/17 12:28 37.4 92 152/81 91 Nasal Cannula 2.00 01/28/17 08:06 24 Intake and Output 01/27/17 01/27/17 01/28/17 Cumulative From/Thru 15:00 23:00 07:00 01/06/17 03:10 - 01/28/17 06:07 Intake Total 0 ml 0 ml 81052 ml Output Total 383 ml 490 ml 38602 ml Balance -383 ml -490 ml 45714 ml Intake Oral 0 ml 0 ml 6795 ml IV Total 07963 ml TPN/PPN 75657 ml Tube Irrigant 100 ml Output Urine Total 253 ml 400 ml 03002 ml Stool Total 75 ml Gastric Drainage Total 70 ml 90 ml 7920 ml Drainage Total 60 ml 1720 ml # Voids 60 # Bowel Movements 0 Exam drowsy, coherent, slurred speech no JVD, MMM, no LAD tachy, nl s1, s2 no mrg coarse BS, no w,c S, distended, diffuse td more on RUQ, RLQ, hypoactiveBS+ warm, no edema, pulses 2/2 IVs and Medications Medications Reviewed: Medications were reviewed in detail Lab and Diagnostics Result Diagram: 01/28/17 0300 01/28/17 0300 Microbiology Coag negative staph appears to be in 2 of 2 bottles from blood cultures 01/06 and ED. X-Rays, CTs and MRIs CT ABDOMEN AND PELVIS WITH CONTRAST: Eduardo Grider M.D. on 01/07/2017 at 10:57 1. 6.4 x 4.8 cm thickwalled enhancing fluid collection is not significantly changed in size since December 2015, and currently demonstrates no imaging manifestations of superimposed infection. As such, any determination of superimposed infection would need to be made on clinical grounds. 2. Mild bilateral hydronephrosis has slightly decreased in degree since December. 3. No evidence for small bowel obstruction. 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 Dictated by: Eduardo Grider M.D. on 01/07/2017 at 10:57 CT ABDOMEN AND PELVIS WITHOUT CONTRAST: Arben Foster M.D. on 01/06/2017 at 7: 49 1. New moderate bilateral hydronephrosis and ureterectasis. No calcified obstructing lesions. Findings maybe related to increased inflammatory change in the pelvis. 2. 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 Superimposed infection is possible. This fluid collection would be amenable to CT-guided aspiration for diagnostic purposes if needed. 3. Partial bowel obstruction at the site of the left lower quadrant ostomy with gas-filled dilated colon and intermittently fluid-filled dilated loops of small bowel. Superimposed enteritis is also possible 4. Gastrostomy tube with tip likely in the stomach although poorly seen due to stomach decompression. Dictated by: Arben Foster M.D. on 01/06/2017 at 7:49 PROCEDURE: X-RAY FISTULAGRAM/SINOGRAM INDICATIONS: evaluate IR drain for enterocutaneous fistula COMPARISON: None. Technique: Gastrografin was injected under fluoroscopic guidance into the existing presacral drain. Multiple spot fluoroscopic images were obtained. FINDINGS: Once the presacral cavity was filled with contrast, there was prompt flow of contrast through a small fistulous connection with the adjacent small bowel. 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 This finding was discussed with Dr. Stephens immediately after the study on . Dictated by: Zee Yoder M.D. on 01/24/2017 at 10:56 Approved by: Zee Yoder M.D. on 01/24/2017 at 10:57 12-lead ECG Rate is 88, QTC 418 concurrently reviewed by Vazquez 01/06 . Sinus rhythm * Ventricular premature complex . Borderline prolonged ND interval . Probable left atrial enlargement . When compared with ECG of 07-Apr-2016 9:19:45, * PVCs are now present * PACs are no longer present * ST elevation is no longer present Cardiac Echo Impressions Echocardiogram Report Name: DAYSI SIM Date : 01/09/2017 Height: 71 in Hospital Exam Location: [facility] Weight: 163 lb Gender: Male BSA: 1.9 m2 : 1935 Age: 81 yrs BP: 158/70 mmHg Reason For Study: gram-positive bacteremia Performed By: Catrachita Tom Referring Physician: BERNICE JAIMES Interpretation Summary Left ventricular wall thickness is mildly increased. The ejection fraction is estimated to be 60-65%. There are no obvious focal wall motion abnormalities noted but poor endocardial definition reduces the sensitivity for the detection of such. There is mild mitral annular calcification. There is moderate aortic valve sclerosis. There is mild tricuspid regurgitation. The mitral valve leaflets appear mildly thickened, but open well. There is mild mitral regurgitation. No obvious vegetation seen , consider BOBBI if clinically indicated. Assessment & Plan Patient is a 81-year-old male admitted 01/06 probable abdominal abscess following conservative antibiotic treatment of appendicitis during November in [facility]. Addendum>pt had episode of [id number] around 3pm, didn't respond to lasix and neb tx, remained confused. Since pt's condition continue to deteriorate, decided to make him comfort care. Withdraw abx, anti-fungal, finger sticks, blood draws. start morphine 1-2mg q15min, scopolamine, ativan prn for anxiety. will consider morphine gtt acute, active # Sepsis, present on admission, developed again 01/26. with fever and markedly elevated white blood cell count over 20,000. active, still the source likely staph coag neg and/or fungemia -pt is clinically worse today likely with multi organ faliure, although lab trends better this AM -appreciate follow up, added micafungin 01/27, continue ertapenem #Coag-negative bacteremia, present on admission, active, It was initially suspected that the possible source was a line infection with the Groshong cath, serial BCX 01/06, 01/07, 01/08 from peripheral, from Groshong grew staph coag neg, TTE was negative for vegetation.Last blood culture 01/10 remained negative. 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 We added vancomycin per ID 01/11. -currently on ertapenem #newly found fungemia, on BCX 01/26, likely from Groshong cath infected with prolonged TPN, removed groshong cath 01/27. sent tip culture -anti-fungal agent as above -awaits final culture result, tip culture #Chronic SBO, present on admission, stable, This was noted on CT 01/06 w/o contrast not on 01/07 w/ contrast, Extensive surgical history, drainage with venting gastrostomy/Groshong cath inserted in for TPN -continue TPN via peripheral midline on right forearm -open his gastrostomy at night, drainage as needed. -There are no further recs per #Respiratory distress, developed 01/28-, likely fluid overload with kidney failure, -will try lasix, neb tx albuterol q4h for more symptomatic tx, chronic, stable, resolved # Acute presacral abscess, present on admission, active, -This was drained on 01/16, and is growing and ESBL e. coli, received Vanco thru the 01/22/17.Dr. 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 These findings were discussed with the surgical nurse practitioner on the case Dr. Stephens. No surgical intervention recommended such as gacilias flap as suggested by Dr. Lemon -continue drain management per surgery team, abx as above # Severely painful muscle spasms in her right hip, -pt seemed stable on current tx, -Toradol ordered for inflammatory pain control -fentanyl patches patient has been taken off all oral medications. -continue IV Valium 5 mg IV every 8 hours when necessary # Probable contusion to Right Hip, present on admission, active -We have consulted , unlikely related to hip joint, could be greater trochanter bursitis, contusion, tendon injury from fall, no evidence of infection, see MRI01/08 -We will continue pain control with percocet, pt still requring 2tab q4h, will add lidocaine patch, also try naproxen 375mg PO bid (01-19-17), monitor sx, renal function closely with NSAID -Ortho/Gen. surgery consultation, no further surgical recs. We may need to reconsult orthopedic surgeries patient continues to have severe pain in the hip. However, today on 01/23/2017 the patient's pain has improved significantly. -We will reconsult physical therapy today to work with patient and see how he does. -Continue pain control with transdermal fentanyl and IV Toradol and IV Valium when necessary. # New bilateral hydroureter, present on admission, stable -We reviewed with Dr Duran () earlier, he agreed that this is new hydroureter but not necessarily obstruction, -Dr. Duran not recommending stents at this time -We will continue to follow closely. # Anemia-trending down until 01/08, likely dilutional, stable now # HTN/lipids,controlled with home medications today # Protein caloric - resumed nocturnal TPN 14 hours at night 01/08 -Patient is up to eating full liquids -He has a venting gastrostomy due to chronic partial bowel obstruction type issues. # Hyponatremia- Resolved 01/07 # Hx colon CA-distorted anatomy status post partial colectomy, reports failed anastomosis with leaking, patient now has pouch. Fistulogram appears to have confirmed a fistulous connection between the presacral abscess to a loop of adjacent small bowel. # Prophylaxis- DVT with SCDs and enoxaparin, GI H2 RA # Disposition: pt is clinically not doing well, potential for comfort care, is waiting her children flying from [place]. Patient remains a DNR/DNI GI Prophylaxis: Not indicated VTE Prophylaxis: Sub-Q Heparin (Unfractionated), SCDs VTE Mechanical Devices: Intermittant Pneumatic CD Resuscitation Status: DNR/DNI:Do Not Resuscitate/Intubate Time spent 35min Compa Manuel MD Jan 28, 2017 14:00
--- NOTE | 2017-01-28 16:35 | NUR ---
Social Work: Continued Discharge Planning/Multidisciplinary Rounds D: Pt discussed in am rounds. pt is not medically stable at this time. Pt remains in PCC status with guarded prognosis, per MD. Pt is not doing well. Pt was previously living at home with his and open with services and TPN through [facility]. Pt will likely require skilled rehab at time of discharge if the pt's clinical course improves. Pt has been accepted at [facility] ([facility]). A: Pt who will likely require skilled rehab at time of discharge P: Evolving; INSULATION BOARD BACK TENDER to continue to follow pt's clinical care and asses for needs. GILBERT Nickerson
[2017-01-28] MEDS ORDERED: Morphine Inj 1,000 MG in 0.9% Sodium Chloride 30 ML IV PRN (16:45)
[2017-01-28] MEDS ORDERED: Morphine 100 mg/100 mL NS 100 MG in IV Premix 1 EACH IV SCH (17:00)
--- NOTE | 2017-01-28 18:03 | NUR ---
Comfort Care The pt has been moved to comfort care. No more blood sugar checks, vitals or assessments. A morphine drip was started and is currently running at 2mg/hr. The pt's children will be flying in from [place], and are expected to arrive tomorrow.
[2017-01-29] MEDS: Sodium Chloride LOK Flush 10 mL Syringe IVFLUSH SCH ×5 (00:19→15:38)
[2017-01-29 00:20] VITALS: PULSE 90; RESP 12; O2SAT 84
[2017-01-29] MEDS: TOBRAMYCIN DEXAMETHASONE BOTH_EYES SCH ×3 (02:30→14:11)
--- NOTE | 2017-01-29 07:41 | NUR ---
Pain/Respiratory Pt continues to be on the morphine drip at 2mg/hr with a FELDT Score of 2/10. Pt does not like when he is touched and grimaces and vocalizes pain when touched or moved. Pt's SpO2 on 2.5L NC ranged 84-87%. Pt's lungs sound decreased and pt is using accessory muscles at this time to breath with a long expiratory phase.
[2017-01-29 07:52] VITALS: BP 134/66; PULSE 84; O2SAT 74
--- NOTE | 2017-01-29 10:06 | PROG NOTE ---
[address] [address] PROGRESS NOTE PATIENT: DAYSI SIM : 1935 MR#: [id number] ADMIT: 01/06/2017 JOB ID: [id number] DATE: 01/29/2017 SUBJECTIVE: Significant events from yesterday included discussion with Nick's based on mental status and decreased urine output, plan was made to make Nick comfort care. Antibiotics were discontinued. This morning he is uncomfortable, but not able to communicate clearly about abdominal pain or other issues. OBJECTIVE: Temperature 37.1, pulse 84, blood pressure 134/66, saturation 74%. General: He is lying in bed, responsive, but moaning. His abdomen is distended, tender diffusely. 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 I do not see any evidence that removing his pelvic drain would be helpful or any other surgical interventions or aspects of deescalation. If that is felt that any of those things should be discontinued, encouraged the medical team to get in touch with us.
--- NOTE | 2017-01-29 10:17 | NUR ---
Social Work: Multidisciplinary Rounds Pt is now comfort care and is anticipated to at [facility] within 24 hours. PRECISION DEVICES INSPECTOR/TESTER to continue to follow. Ninfa Chandra MSW
--- NOTE | 2017-01-29 12:11 | PCM.PNMED ---
Subjective Date of Service Jan 29, 2017 Subjective pt was started on morphine gtt officially comfort care, pt looked more comfortable, not able to communicate UOP still minimal, hypoxic to 75-80% Exam Vital Signs Vital Sign - Last Date Time Temp Pulse Resp B/P Pulse Ox O2 Delivery O2 Flow Rate FiO2 01/29/17 08:00 Supplement Oxygen 01/29/17 07:52 37.1 84 134/66 74 01/29/17 00:20 12 2.50 Intake and Output 01/28/17 01/28/17 01/29/17 Cumulative From/Thru 15:00 23:00 07:00 01/06/17 03:10 - 01/29/17 05:17 Intake Total 2925 ml 0 ml 0 ml 58037 ml Output Total 1090 ml 400 ml 40083 ml Balance 2925 ml -1090 ml -400 ml 74569 ml Intake Oral 0 ml 0 ml 6795 ml IV Total 2925 ml 74054 ml TPN/PPN 77087 ml Tube Irrigant 100 ml Output Urine Total 1000 ml 400 ml 62341 ml Stool Total 75 ml Gastric Drainage Total 7920 ml Drainage Total 90 ml 1810 ml # Voids 60 # Bowel Movements 0 Exam no JVD, MMM, no LAD tachy, nl s1, s2 no mrg coarse BS, no w,c S, distended, diffuse td more on RUQ, RLQ, hypoactiveBS+ warm, no edema, pulses 2/2 IVs and Medications Medications Reviewed: Medications were reviewed in detail Lab and Diagnostics Result Diagram: 01/28/17 0300 01/28/17 0300 Microbiology Coag negative staph appears to be in 2 of 2 bottles from blood cultures 01/06 and ED. X-Rays, CTs and MRIs CT ABDOMEN AND PELVIS WITH CONTRAST: Eduardo Grider M.D. on 01/07/2017 at 10:57 1. 6.4 x 4.8 cm thickwalled enhancing fluid collection is not significantly changed in size since December 2015, and currently demonstrates no imaging manifestations of superimposed infection. As such, any determination of superimposed infection would need to be made on clinical grounds. 2. Mild bilateral hydronephrosis has slightly decreased in degree since December. 3. No evidence for small bowel obstruction. 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 Dictated by: Eduardo Grider M.D. on 01/07/2017 at 10:57 CT ABDOMEN AND PELVIS WITHOUT CONTRAST: Arben Foster M.D. on 01/06/2017 at 7: 49 1. New moderate bilateral hydronephrosis and ureterectasis. No calcified obstructing lesions. Findings maybe related to increased inflammatory change in the pelvis. 2. 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 Superimposed infection is possible. This fluid collection would be amenable to CT-guided aspiration for diagnostic purposes if needed. 3. Partial bowel obstruction at the site of the left lower quadrant ostomy with gas-filled dilated colon and intermittently fluid-filled dilated loops of small bowel. Superimposed enteritis is also possible 4. Gastrostomy tube with tip likely in the stomach although poorly seen due to stomach decompression. Dictated by: Arben Foster M.D. on 01/06/2017 at 7:49 PROCEDURE: X-RAY FISTULAGRAM/SINOGRAM INDICATIONS: evaluate IR drain for enterocutaneous fistula COMPARISON: None. Technique: Gastrografin was injected under fluoroscopic guidance into the existing presacral drain. Multiple spot fluoroscopic images were obtained. FINDINGS: Once the presacral cavity was filled with contrast, there was prompt flow of contrast through a small fistulous connection with the adjacent small bowel. 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 This finding was discussed with Dr. Stephens immediately after the study on . Dictated by: Zee Yoder M.D. on 01/24/2017 at 10:56 Approved by: Zee Yoder M.D. on 01/24/2017 at 10:57 12-lead ECG Rate is 88, QTC 418 concurrently reviewed by Vazquez 01/06 . Sinus rhythm * Ventricular premature complex . Borderline prolonged KS interval . Probable left atrial enlargement . When compared with ECG of 07-Apr-2016 9:19:45, * PVCs are now present * PACs are no longer present * ST elevation is no longer present Cardiac Echo Impressions Echocardiogram Report Name: DAYSI SIM Jonathon Date : 01/09/2017 Height: 71 in Hospital Exam Location: [facility] Weight: 163 lb Gender: Male BSA: 1.9 m2 : 1935 Age: 81 yrs BP: 158/70 mmHg Reason For Study: gram-positive bacteremia Performed By: Catrachita Tom Referring Physician: BERNICE JAIMES Interpretation Summary Left ventricular wall thickness is mildly increased. The ejection fraction is estimated to be 60-65%. There are no obvious focal wall motion abnormalities noted but poor endocardial definition reduces the sensitivity for the detection of such. There is mild mitral annular calcification. There is moderate aortic valve sclerosis. There is mild tricuspid regurgitation. The mitral valve leaflets appear mildly thickened, but open well. There is mild mitral regurgitation. No obvious vegetation seen , consider BOBBI if clinically indicated. Assessment & Plan Patient is a 81-year-old male admitted 01/06 probable abdominal abscess following conservative antibiotic treatment of appendicitis during November in [facility]. on 01/28, pt was started on comfort care, morphine gtt.will continue scopolamine patch for secretion, ativan prn for anxiety, Prognosis is guarded, pt likely to pass in this hospitalization. acute, active # Sepsis, present on admission, developed again 01/26. with fever and markedly elevated white blood cell count over 20,000. active, still the source likely staph coag neg and/or fungemia -pt is clinically worse today likely with multi organ faliure, although lab trends better this AM -appreciate follow up, added micafungin 01/27, continue ertapenem #Coag-negative bacteremia, present on admission, active, It was initially suspected that the possible source was a line infection with the Groshong cath, serial BCX 01/06, 01/07, 01/08 from peripheral, from [place]ong grew staph coag neg, TTE was negative for vegetation.Last blood culture 01/10 remained negative. 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 We added vancomycin per ID 01/11. -currently on ertapenem #newly found fungemia, on BCX 01/26, likely from Groshong cath infected with prolonged TPN, removed groshong cath 01/27. sent tip culture -anti-fungal agent as above -awaits final culture result, tip culture #Chronic SBO, present on admission, stable, This was noted on CT 01/06 w/o contrast not on 01/07 w/ contrast, Extensive surgical history, drainage with venting gastrostomy/Groshong cath inserted in for TPN -continue TPN via peripheral midline on right forearm -open his gastrostomy at night, drainage as needed. -There are no further recs per #Respiratory distress, developed 01/28-, likely fluid overload with kidney failure, -will try lasix, neb tx albuterol q4h for more symptomatic tx, chronic, stable, resolved # Acute presacral abscess, present on admission, active, -This was drained on 01/16, and is growing and ESBL e. coli, received Vanco thru the 01/22/17.Dr. 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 These findings were discussed with the client support consultant on the case Dr. Stephens. No surgical intervention recommended such as gacilias flap as suggested by Dr. Lemon -continue drain management per surgery team, abx as above # Severely painful muscle spasms in her right hip, -pt seemed stable on current tx, -Toradol ordered for inflammatory pain control -fentanyl patches patient has been taken off all oral medications. -continue IV Valium 5 mg IV every 8 hours when necessary # Probable contusion to Right Hip, present on admission, active -We have consulted , unlikely related to hip joint, could be greater trochanter bursitis, contusion, tendon injury from fall, no evidence of infection, see MRI01/08 -We will continue pain control with percocet, pt still requring 2tab q4h, will add lidocaine patch, also try naproxen 375mg PO bid (01-19-17), monitor sx, renal function closely with NSAID -Ortho/Gen. surgery consultation, no further surgical recs. We may need to reconsult orthopedic surgeries patient continues to have severe pain in the hip. However, today on 01/23/2017 the patient's pain has improved significantly. -We will reconsult physical therapy today to work with patient and see how he does. -Continue pain control with transdermal fentanyl and IV Toradol and IV Valium when necessary. # New bilateral hydroureter, present on admission, stable -We reviewed with Dr Duran () earlier, he agreed that this is new hydroureter but not necessarily obstruction, -Dr. Duran not recommending stents at this time -We will continue to follow closely. # Anemia-trending down until 01/08, likely dilutional, stable now # HTN/lipids,controlled with home medications today # Protein caloric - resumed nocturnal TPN 14 hours at night 01/08 -Patient is up to eating full liquids -He has a venting gastrostomy due to chronic partial bowel obstruction type issues. # Hyponatremia- Resolved 01/07 # Hx colon CA-distorted anatomy status post partial colectomy, reports failed anastomosis with leaking, patient now has pouch. Fistulogram appears to have confirmed a fistulous connection between the presacral abscess to a loop of adjacent small bowel. # Prophylaxis- DVT with SCDs and enoxaparin, GI H2 RA Patient remains a DNR/DNI GI Prophylaxis: Not indicated VTE Prophylaxis: Sub-Q Heparin (Unfractionated), SCDs VTE Mechanical Devices: Intermittant Pneumatic CD Resuscitation Status: DNR/DNI:Do Not Resuscitate/Intubate Time spent 35min Compa Manuel MD Jan 29, 2017 12:11
[2017-01-29 12:34] VITALS: PULSE 83; O2SAT 65
--- NOTE | 2017-01-29 16:25 | NUR ---
Patient's son and at bedside as patient . Pulse Ox connected to patient, both oxygen saturation and heart rate reached zero. Nurse listened to patient and did not hear anymore heartbeats. at 1600. Coral, pigment furnace tender, notified. Stated she would notify primary MD, pharmacy, admitting, and nursing checking department supervisor. Primary RN notified Donor Referral, patient not a candidate.
--- NOTE | 2017-01-30 16:52 | PCM.DC.MEX ---
Discharge Summary Date of Service Jan 30, 2017 Dates of Hospitalization Date of Hospital Admission Jan 06, 2017 at 10:19 Date of Expiration: Jan 29, 2017 Time of Expiration: 16:00 Providers: Admitting Physician: Prateek Shukla MD Primary Care Physician: Jose J Rader DO Attending Physician: Compa Manuel MD Diagnosis at Time of respiratory failure Additional Diagnosis sepsis with bacteremia, candidemia Consultations ID general surgery Procedures XRay, CTs & MRIs CT ABDOMEN AND PELVIS WITH CONTRAST: Eduardo Grider M.D. on 01/07/2017 at 10:57 1. 6.4 x 4.8 cm thickwalled enhancing fluid collection is not significantly changed in size since December 2015, and currently demonstrates no imaging manifestations of superimposed infection. As such, any determination of superimposed infection would need to be made on clinical grounds. 2. Mild bilateral hydronephrosis has slightly decreased in degree since December. 3. No evidence for small bowel obstruction. 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 Dictated by: Eduardo Grider M.D. on 01/07/2017 at 10:57 CT ABDOMEN AND PELVIS WITHOUT CONTRAST: Arben Foster M.D. on 01/06/2017 at 7: 49 1. New moderate bilateral hydronephrosis and ureterectasis. No calcified obstructing lesions. Findings maybe related to increased inflammatory change in the pelvis. 2. 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 Superimposed infection is possible. This fluid collection would be amenable to CT-guided aspiration for diagnostic purposes if needed. 3. Partial bowel obstruction at the site of the left lower quadrant ostomy with gas-filled dilated colon and intermittently fluid-filled dilated loops of small bowel. Superimposed enteritis is also possible 4. Gastrostomy tube with tip likely in the stomach although poorly seen due to stomach decompression. Dictated by: Arben Foster M.D. on 01/06/2017 at 7:49 PROCEDURE: X-RAY FISTULAGRAM/SINOGRAM INDICATIONS: evaluate IR drain for enterocutaneous fistula COMPARISON: None. Technique: Gastrografin was injected under fluoroscopic guidance into the existing presacral drain. Multiple spot fluoroscopic images were obtained. FINDINGS: Once the presacral cavity was filled with contrast, there was prompt flow of contrast through a small fistulous connection with the adjacent small bowel. 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 This finding was discussed with Dr. Stephens immediately after the study on . Dictated by: Zee Yoder M.D. on 01/24/2017 at 10:56 Approved by: Zee Yoder M.D. on 01/24/2017 at 10:57 ECG 12 Lead Rate is 88, QTC 418 concurrently reviewed by Vazquez 01/06 . Sinus rhythm * Ventricular premature complex . Borderline prolonged DE interval . Probable left atrial enlargement . When compared with ECG of 07-Apr-2016 9:19:45, * PVCs are now present * PACs are no longer present * ST elevation is no longer present Cardiac Echo Impression Echocardiogram Report Name: DAYSI SIM Date : 01/09/2017 Height: 71 in Hospital Exam Location: [facility] Weight: 163 lb Gender: Male BSA: 1.9 m2 : 1935 Age: 81 yrs BP: 158/70 mmHg Reason For Study: gram-positive bacteremia Performed By: Catrachita Tom Referring Physician: PRATEEK SHUKLA Interpretation Summary Left ventricular wall thickness is mildly increased. The ejection fraction is estimated to be 60-65%. There are no obvious focal wall motion abnormalities noted but poor endocardial definition reduces the sensitivity for the detection of such. There is mild mitral annular calcification. There is moderate aortic valve sclerosis. There is mild tricuspid regurgitation. The mitral valve leaflets appear mildly thickened, but open well. There is mild mitral regurgitation. No obvious vegetation seen , consider BOBBI if clinically indicated. Brief History HPI obtained by on 01/06 81-year-old male with a complex medical history including recurrent bowel obstructions after having colectomy and colon cancer prior to 2010 and 2009. He has been medically stable in between with these recurrent episodes last time hospitalized here at [facility] March 2016 with bowel obstruction. Most recently was hospitalized at [place] 01/06with appendicitis that was treated with antibiotics only. His surgeon Valdemar Jarrett had recommended conservative intervention at that point in time. Bowel obstruction and basically spent the month of November and [facility] on antibiotics. He has been run down and weak since then but suddenly about 36 hours prior to admission, he began having fevers, abdominal pain and severe right flank pain. And when it did not resolve on the second day he came to the emergency room and was admitted on . Hospital Course: He has been treated for a presacral abscess found this hospitalization with IV antibiotics and initial drainage on 01/16 with planned percutaneous drainage again today 01/23. The plan is for a sinogram on January 24 to look for a possible sinus tract from the abscess to the area of the right hip that might account for the persistent right hip pain, which is otherwise unexplained. The presacral abscess fluid grew ESBL and will need 2-3 more weeks of IV ertepenem/meropene. He also had bacteremia with blood cultures that grew staph coag neg and TTE was negative for vegetation. Initial MRI of hip joint 01/08 looks negative for infection and is thought to be a contusion or greater trochanter bursitis per Ortho licensed tax consultant Dr. Haley. He has had a chronic SBO with venting gastrostomy and has been on TPN at since 01/08 with full liquid diet for nutrition. Today is Hospital Day 17 and Palliative Care was asked to review his pain regimen and make recommendations for optimal pain control. Hospital Course Patient is a 81-year-old male admitted 01/06 probable abdominal abscess following conservative antibiotic treatment of appendicitis during November in [facility]. 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 Patient was treated medically with broad spectrum antibiotics, anti- fungal agent, however, conditions got worse, on 01/28, pt was started on comfort care as per his 's wishes, morphine gtt started, patient was peacefully on 01/29 at 16:00 with the family at the bedside. acute, active # Sepsis, present on admission, developed again 01/26. with fever and markedly elevated white blood cell count over 20,000. active, still the source likely staph coag neg and/or fungemia -pt is clinically worse today likely with multi organ faliure, although lab trends better this AM -appreciate follow up, added micafungin 01/27, continue ertapenem #Coag-negative bacteremia, present on admission, active, It was initially suspected that the possible source was a line infection with the Groshong cath, serial BCX 01/06, 01/07, 01/08 from peripheral, from [place]ong grew staph coag neg, TTE was negative for vegetation.Last blood culture 01/10 remained negative. 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 We added vancomycin per ID 01/11. -currently on ertapenem #newly found fungemia, on BCX 01/26, likely from Groshong cath infected with prolonged TPN, removed groshong cath 01/27. sent tip culture -anti-fungal agent as above -awaits final culture result, tip culture #Chronic SBO, present on admission, stable, This was noted on CT 01/06 w/o contrast not on 01/07 w/ contrast, Extensive surgical history, drainage with venting gastrostomy/Groshong cath inserted in for TPN -continue TPN via peripheral midline on right forearm -open his gastrostomy at night, drainage as needed. -There are no further recs per #Respiratory distress, developed 01/28-, likely fluid overload with kidney failure, -will try lasix, neb tx albuterol q4h for more symptomatic tx, chronic, stable, resolved # Acute presacral abscess, present on admission, active, -This was drained on 01/16, and is growing and ESBL e. coli, received Vanco thru the 01/22/17.Dr. 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 These findings were discussed with the surgical assistant certified on the case Dr. Stephens. No surgical intervention recommended such as gacilias flap as suggested by Dr. Lemon -continue drain management per surgery team, abx as above # Severely painful muscle spasms in her right hip, -pt seemed stable on current tx, -Toradol ordered for inflammatory pain control -fentanyl patches patient has been taken off all oral medications. -continue IV Valium 5 mg IV every 8 hours when necessary # Probable contusion to Right Hip, present on admission, active -We have consulted , unlikely related to hip joint, could be greater trochanter bursitis, contusion, tendon injury from fall, no evidence of infection, see MRI01/08 -We will continue pain control with percocet, pt still requring 2tab q4h, will add lidocaine patch, also try naproxen 375mg PO bid (01-19-17), monitor sx, renal function closely with NSAID -Ortho/Gen. surgery consultation, no further surgical recs. We may need to reconsult orthopedic surgeries patient continues to have severe pain in the hip. However, today on 01/23/2017 the patient's pain has improved significantly. -We will reconsult physical therapy today to work with patient and see how he does. -Continue pain control with transdermal fentanyl and IV Toradol and IV Valium when necessary. # New bilateral hydroureter, present on admission, stable -We reviewed with Dr Duran () earlier, he agreed that this is new hydroureter but not necessarily obstruction, -Dr. Duran not recommending stents at this time -We will continue to follow closely. # Anemia-trending down until 01/08, likely dilutional, stable now # HTN/lipids,controlled with home medications today # Protein caloric - resumed nocturnal TPN 14 hours at night 01/08 -Patient is up to eating full liquids -He has a venting gastrostomy due to chronic partial bowel obstruction type issues. # Hyponatremia- Resolved 01/07 # Hx colon CA-distorted anatomy status post partial colectomy, reports failed anastomosis with leaking, patient now has pouch. Fistulogram appears to have confirmed a fistulous connection between the presacral abscess to a loop of adjacent small bowel. # Prophylaxis- DVT with SCDs and enoxaparin, GI H2 RA Patient remains a DNR/DNI Exam Test 01/06/17 03:25 01/07/17 09:00 01/08/17 07:10 01/08/17 17:00 Troponin T 0.010ug/L (0.0-0.011) Lactic Acid Level 1.0mmol/L (0.4-2.0) Triglycerides Level 154mg/dL (0-149) Vitamin B12 Level 333pg/mL (211-946) Test 01/09/17 05:15 01/22/17 05:03 01/23/17 05:53 01/26/17 03:35 Reticulocyte Count,Calculated 0.9% (0.6-2.6) Iron Level 15ug/dL (35-150) Total Iron Binding Capacity 151ug/dL (250-450) Percent Iron Saturation 10%sat (15-50) Unsaturated Iron Binding 136.0ug/dL Ferritin 358ng/mL (30-400) Vancomycin Level Trough 23.3mcg/mL Prothrombin Time 11.4sec (8.1-12.5) Prothromb Time International Ratio 1.06ratio Activated Partial Thromboplast Time 35.9sec (22.8-33.0) Hold Crystal Top Tube Received (Received) Test 01/27/17 05:20 01/27/17 17:20 01/28/17 03:00 Band Neutrophils % 22% (1-5) Myelocytes % 3% (0-0) Erythrocyte Sedimentation Rate 119mm/hr (0-30) Hematology Comments Wbc C-Reactive Protein 28.2mg/dL (0.0-0.5) Urine Color Dark yellow (YELLOW) Urine Appearance Turbid (CLEAR,HAZY) Urine pH 5.5 (5.0-8.0) Urine Specific [place]by 1.030 (1.003-1.035) Urine Protein 100mg/dL (NEG,TRACE) Urine Glucose (UA) Negativemg/dL (NEGATIVE) Urine Ketones Negativemg/dL (NEGATIVE) Urine Occult Blood Large (NEGATIVE) Urine Nitrite Negative (NEGATIVE) Urine Bilirubin Moderate (NEGATIVE) Urine Ictotest Positive (Negative) Urine Urobilinogen Normalmg/dL (NORMAL) Urine Leukocyte Esterase Negative (NEGATIVE) Urine RBC 3-10/hpf (0-2) Urine WBC 0-5/hpf (0-5) Urine Epithelial Cells Few/hpf (NONE-MOD) Urine Crystals Amorphous urates (NONE Urine Bacteria Few/hpf (NONE-FEW) Urine Hyaline Casts None/lpf (NONE) Urine Granular Casts None seen (NONE SEEN) Urine Waxy Casts None seen (NONE SEEN) Urine Red Blood Cell Casts None seen (NONE SEEN) Urine White Blood Cell Casts None seen (NONE SEEN) Urine Mucus None seen (None Seen) Urine Trichomonas None seen (NONE SEEN) Urine Yeast None (NONE SEEN) Urinalysis Comment None Urine Culture Reflexed Not indicated White Blood Count 11.0th/mm3 (3.8-10.1) Red Blood Count 3.13mil/mm3 (4.40-5.80) Hemoglobin 8.8g/dL (13.8-17.2) Hematocrit 28.3% (41.0-50.0) Mean Corpuscular Volume 90.4fL (81-100) Mean Corpuscular Hemoglobin 28.1pg (27.0-35.0) Mean Corpuscular Hemoglobin Concent 31.1% (32.0-37.0) Red Cell Distribution Width 15.4% (12.3-15.4) Platelet Count 116bil/L (150-400) Neutrophils (%) (Auto) 87.9% (40-74) Lymphocytes (%) (Auto) 5.9% (14-46) Monocytes (%) (Auto) 3.7% (4-12) Eosinophils (%) (Auto) 1.2% (0-5) Basophils (%) (Auto) 0.5% (0-3) Sodium Level 141mEq/L (134-144) Potassium Level 4.2mEq/L (3.5-5.2) Chloride Level 105mEq/L (97-108) Carbon Dioxide Level 20mmol/L (18-29) Blood Urea Nitrogen 35mg/dL (8-27) Creatinine 0.37mg/dL (0.76-1.27) Estimat Glomerular Filtration Rate 241mL/min (>59) Glucose Level 102mg/dL (60-99) Calcium Level 8.0mg/dL (8.5-10.1) Phosphorus Level 3.6mg/dL (2.5-4.9) Magnesium Level 1.9mg/dL (1.6-2.6) Total Bilirubin 1.9mg/dL (0.0-1.2) Aspartate Amino Transf (AST/SGOT) 74U/L (0-50) Alanine Aminotransferase (ALT/SGPT) 130U/L (0-44) Alkaline Phosphatase 335U/L (25-160) Total Protein 5.1g/dL (6.4-8.4) Albumin 2.2g/dL (3.4-5.0) Procalcitonin 0.48ng/mL (0.00-0.08) Microbiology Results Coag negative staph appears to be in 2 of 2 bottles from blood cultures 01/06 and ED. Compa Manuel MD Jan 30, 2017 16:52
== END 2017-01-29 16:00 | disposition expired | DRG 871 ==
LOC: SED 02:57 → EDUNIT# 02:57 → EDBD 02:57 → OSC 10:19 → PCC 01-26 10:38
PROVIDERS: ADMIT Hospitalist; ATTEND Hospitalist
PROC: 3E0436Z Introduction of Nutritional Substance into Central Vein, Percutaneous Approach (ICD-10-PCS; 2017-01-08)
PROC: 0W9G3ZX Drainage of Peritoneal Cavity, Percutaneous Approach, Diagnostic (ICD-10-PCS; 2017-01-16)
PROC: 0W9H30Z Drainage of Retroperitoneum with Drainage Device, Percutaneous Approach (ICD-10-PCS; principal; 2017-01-23)
PROC: 02PY33Z Removal of Infusion Device from Great Vessel, Percutaneous Approach (ICD-10-PCS; 2017-01-27)
DX: A41.1 Sepsis due to other specified staphylococcus (principal); K65.1 Peritoneal abscess; R78.81 Bacteremia; N13.4 Hydroureter; E46 Unspecified protein-calorie malnutrition; K56.60 Unspecified intestinal obstruction; E87.1 Hypo-osmolality and hyponatremia; N13.30 Unspecified hydronephrosis; K63.2 Fistula of intestine; B49 Unspecified mycosis; T80.211A Bloodstream infection due to central venous catheter, initial encounter; B95.8 Unspecified staphylococcus as the cause of diseases classified elsewhere; B96.89 Other specified bacterial agents as the cause of diseases classified elsewhere; Z68.22 Body mass index [BMI] 22.0-22.9, adult; I10 Essential (primary) hypertension; E78.5 Hyperlipidemia, unspecified; E03.9 Hypothyroidism, unspecified; G47.33 Obstructive sleep apnea (adult) (pediatric); Z66 Do not resuscitate; Z93.1 Gastrostomy status; D64.9 Anemia, unspecified; Z51.5 Encounter for palliative care; S70.01XA Contusion of right hip, initial encounter; X58.XXXA Exposure to other specified factors, initial encounter